=== PATIENT | female | born 2000 | race Hispanic/Latino ===

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

== ENCOUNTER 2021-10-27 23:19 | Emergency (ER) | payer SELFPAY ==
--- OUTSIDE RECORDS SUMMARY | 2021-10-27 23:23 | XMS REPORT | Continuity of Care Document ---
:2000 Author Organization [facility] t Address [address] [place] [address] [address]. [address] [place] [address] Care Team Providers Name Role Phone Alicja MALIK Primary Care Physician Unavailable Joshua SCHMIDT Attending Clinician Unavailable Roxana BENNETT R Attending Clinician Lab Attending Clinician Unavailable Daniel BENNETT, N Attending Clinician Risk Attending Clinician Unavailable Bindu SALTER, L Attending Clinician Shanon MARTIN Attending Clinician Unavailable Payers Payer Name Policy Type Policy Number Effective Date Expiration Date S miranda [place] [employer] [id number] 2016 HEALTH 00:00:00 Problems Condition Condition Condition Status Onset Resolution Last Treating Co mments Source Name Details Category Date Date Treatment Clinician Date Disease Active 2020-10 [facility] (spontaneo (spontaneo 2-08 [place] vaginal [place] 00 [facility] Single Single Disease Active 2020-10 Univers live live 2-08 it y of 00:00: [place] 00 [facility] Branch PUPP PUPP Disease Active 2020-10 Univers (pruritic (pruritic 2-07 ity of urticarial urticarial [place] papules papules 00 Medical and and Branch plaques of plaques of ) ) 38 weeks 38 weeks Disease Active 2020-10 Unive rs gestation gestation 2-07 ity of of of 00:00: [place] 00 [facility] COVID-19 COVID-19 Disease Active 2020-[address] [facility] rs virus IgG virus IgG 1-24 ity of antibody antibody 00:00: [place] [facility] Supervisio Supervisio Disease Active U nivers n of n of 4-12 ity of high-risk high-risk 00:00: Shivani ma 00 [facility] Allergies, Adverse Reactions, Alerts Allergy Allergy Status Severity Reaction(s) Onset Inactive Treating Comm ents Source Name Type Date Date Clinician NO KNOWN Drug Active Univers ALLERGIE Class ity of S [facility] Social History Social Habit Start Date Stop Date Quantity Comments Source ASSERTION 2021-01-10 [facility] 00:00:00 [facility] Exposure to Not sure [facility] SARS-CoV-2 [facility] (event) [place] Alcohol intake 2021-09-24 2021-09-24 Lifetime University of 00:00:00 00:00:00 non-drinker [facility] (finding) [place] Tobacco use and 2021-01-27 2021-01-27 Never used Universit y of exposure 00:00:00 00:00:00 [facility] Sex Ass[birth year] At [birth year] Universit y of 00:00:00 00:00:00 [facility] Smoking Status Start Date Stop Date Source Never smoker [facility] Medications Ordered Filled Start Stop Current Ordering Indication Dosage Frequency Signature Comments Components Source Medication Medication Date Date Medication? Clinician (SIG) Name Name No known 2020-10 No Univers medications 2-19 ity of 15:54: [place] 16 [facility] Branch 2020-10 Yes [id number] 1{tbl} Take 1 Univers [id number] 2-09 tablet by ity of fum-folic 00:00: mouth [place] () 00 daily. Medical 27 mg iron- Branch 1 mg Tab docusate 2020-10 Yes [id number] 240mg Take 1 U nivers calcium 240 2-09 capsule by it y of mg capsule 00:00: mouth [place] 00 daily as Medical needed for Branch Constipati on. ferrous 2020-10 Yes [id number] 325mg Take 1 Un terrell sulfate 325 2-09 tablet by ity of mg (65 mg 00:00: mouth 2 [place] iron) 00 (two) Medical tablet times Branch daily. ibuprofen 2020-10 Yes [id number] 600mg Take 1 Univers 600 mg 2-09 tablet by ity of tablet 00:00: mouth [place] 00 every 6 Medical (six) Branch hours as needed (Pain). Take with food or milk. PNV 67-iron 2020- No [id number] 1{each} Take 1 Univers ps-folate 7-05 09-25 Each by ity of no.1-dha 00:00: 00:00 mouth [place] (VITAFOL 00 :00 daily. Medical ULTRA) 29 Branch mg iron- 1 mg-200 mg Cap Immunizations Ordered Filled Immunization Date Status Comments Sour e Immunization Name Name HPV9 2021-09-25 Completed [facility] 00:00:00 [facility] HPV9 2021-09-25 Completed [facility] 00:00:00 [facility] Influenza Virus 2021-08-04 Completed Universit y of Vaccine [facility], 00:00:00 [place] Me dical Preserv and ABX Branch Free 6 MO-64 YRS Influenza Virus 2021-08-04 Completed Universit y of Vaccine [facility], 00:00:00 [place] Me dical Preserv and ABX Branch Free 6 MO-64 YRS Influenza Virus 2021-08-04 Completed Universit y of Vaccine [facility], 00:00:00 [place] Me dical Preserv and ABX Branch Free 6 MO-64 YRS TDAP 2021-07-21 Completed University 00:00:00 [facility] TDAP 2021-07-21 Completed University of 00:00:00 [facility] TDAP 2021-07-21 Completed [facility] 00:00:00 [facility] Vital Signs Vital Name Observation Time Observation Value Comments Source Systolic blood 2021-10-15 16:54:00 118 mm[Hg] Univer sity of pressure [facility] Diastolic blood 2021-10-15 16:54:00 65 mm[Hg] Unive rsity of pressure [facility] Heart rate 2021-10-15 16:54:00 72 /min [facility] Body temperature 2021-10-15 16:54:[address] [facility] rate 2021-10-15 16:54:00 20 /min [facility] Body height 2021-10-15 16:54:00 149.9 cm [facility] Body weight 2021-10-15 16:54:00 57.063 kg [facility] BMI 2021-10-15 16:54:00 25.41 kg/m2 Universi ty [facility] Systolic blood 2021-08-21 16:17:00 113 mm[Hg] Univer sity of pressure [facility] Diastolic blood 2021-08-21 16:17:00 69 mm[Hg] Unive rsity of pressure [facility] Heart rate 2021-08-21 16:17:00 75 /min Universi [facility] Body temperature 2021-08-21 16:17:[address] [facility] Respiratory rate 2021-08-21 16:17:00 18 /min [facility] Body height 2021-08-21 16:17:00 149.9 cm Universi [facility] Body weight 2021-08-21 16:17:00 64.864 kg Universi [facility] BMI 2021-08-21 16:17:00 28.88 kg/m2 Universi [facility] Body mass index 2021-08-21 16:17:00 91.44 % Unive rsity of (BMI) [Percentile] [facility] ica Per age and sex Branch Procedures Procedure Date / Time Performed Performing Clinician Sour e BILE ACIDS, TOTAL 2021-09-19 14:23:[facility] 2021-09-19 14:22:00 [facility] Branch ALANINE AMINO 2021-09-19 14:22:00 Parrish Palma [facility] TRANSFERASE(SGPT [facility] Branch POCT URINALYSIS 2021-08-21 16:18:00 Lizbeth Gifford [facility] Encounters Start End Encounter Admission Attending Care Care Encounter Source Date/Time Date/Time Type Type Clinicians Facility Department ID 2021-11-05 2021-11-05 Outpatient Joshua SCHMIDT [facility] [id number] [facility] 14:30:00 14:30:00 PERI dean o f [facility] 2021-11-05 2021-11-05 Outpatient Joshua SCHMIDT [facility] [id number] Univers 14:15:00 14:15:00 PERI [id number] ity o f [facility] 2021-10-15 2021-10-15 Outpatient R ROXANA [facility] [id number] Univers 10:45:00 11:11:09 MARKNDA ity o f [facility] 2021-10-15 2021-10-15 Routine Roxana [facility] [[email or web address]] [id number] Univers 10:45:00 11:11:09 Markfabiana R PERIANESTHESIA NURSE [id number] ity of Visit REGIONAL [id number] [place] as MATERNAL [id number] [facility] & CHILD [address] [place] [address] 2021-09-19 2021-09-19 Hospitalist Medical Director Lab, Ang-Rmchp [facility] [[email or web address]] [id number] Univers 08:15:00 08:20:25 Visit Catherine Sanchez PERIANESTHESIA NURSE [id number] ity of REGIONAL [id number] [place] as MATERNAL [id number] [facility] & CHILD [address] [place] [address] 2021-08-21 2021-08-21 Routine Risk, Zfm-Rinhs-Rk/High [facility] [[email or web address]] [id number]. [id number] Univers 11:00:00 13:00:36 Lakshmi Martin PERIANESTHESIA NURSE [id number] ity of Visit REGIONAL [id number] [place] as MATERNAL [id number] [facility] & [address] 2021-08-21 2021-08-21 Outpatient R BINDU [facility] [id number] Univers 11:00:00 13:00:36 LAKSHMI dean [facility] Results Test Description Test Time Test Comments Results Result Comments Source BILE ACIDS, TOTAL 2021-09-24 02:02:14 Test Item Value Reference Range Interpretation Comme nts Bile Acids (test code = 1 umol/L 0-10 INTE RPRETIVE INFORMATION: Bile Acids, 15181-2) Total Reference Interval applies to fasting specime ns.Performed By: [facility] [employer] [place] [address] [id number] aboratory Director: Juhi Bojorquez MD [facility] TRANSFER)2021-09-20 04:45:42 Test Item Value Reference Range Interpretation Comments AST(SGOT) (test code = 4188329834) 20 U/L 13-40 Lab Interpretation (test code = Normal 71872-3) [facility] TRANSFERASE([id number] 04:45:42 Test Item Value Reference Range Interpretation Comments ALTv (test code = 1742-6) 10 U/L 5-35 Lab Interpretation (test code = Normal 47566-6) [facility] W SPECIFIC [id number] 16:18:00 Test Item Value Reference Range Interpretation Comments POCT U SP GRAV (test code = * 1.005-1.025 3255) POCT PH U (test code = 3254) 7 mg/dl 5-8 POCT U LEUK EST (test code = trace Negative - Negative 3263) POCT U NIT (test code = 3262) negative Negative - Negative POCT U PROT (test code = 3259) trace Negative - Negative POCT U GLU (test code = 3256) negative Negative - Negative POCT U KETONE (test code = 3258) negative Negative - Negative POCT U UROBILI (test code = * 0.2-1 3260) POCT U BILI (test code = 3261) * Negative - Negative POCT U BLD (test code = 3257) negative Negative - Negative POCT U COLOR (test code = 3266) POCT U APPEAR (test code = 3267) [facility]
[2021-10-28] MEDS ORDERED: ACETAMINOPHEN 325 MG TABLET ONE (00:04)
[2021-10-28 01:42] LABS: SARS-COV-2 RT PCR POSITIVE (NEGATIVE)
--- NOTE | 2021-10-28 01:45 | EDPHYS ---
Physician Documentation [facility] Name: Suzan Santiago Age: 21 yrs Sex: Female : 2000 Arrival Date: 10/27/2021 Time: 23:24 Bed Waiting Private MD: ED Physician Willian Aguilar HPI: 10/28 01:42 This 21 yrs old Female presents to ER via Ambulatory with complaints of pm1 Nausea/Vomiting/Diarrhea, Hyperventilation. 01:42 The patient or guardian reports cough. Onset: The symptoms/episode began/occurred 3 pm1 day(s) ago. Severity of symptoms: in the emergency department the symptoms have improved. Modifying factors: The symptoms are alleviated by OTC cold preparation, the symptoms are aggravated by nothing. Associated signs and symptoms: Pertinent positives: diarrhea, fever, nausea, vomiting, Pertinent negatives: sore throat. The patient has not experienced similar symptoms in the past. The patient has not recently seen a physician. Patient's brother recently diagnosed with covid. 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 - Social history:: Smoking status: Patient reports the use of cigarette tobacco products, denies chronic smoking, but will smoke occasionally. ROS: 01:42 Eyes: Negative for injury, pain, redness, and discharge, ENT: Negative for injury, pm1 pain, and discharge, Cardiovascular: Negative for chest pain, palpitations, and edema. 01:42 Back: Negative for injury and pain, MS/Extremity: Negative for injury and deformity, Skin: Negative for injury, rash, and discoloration, Neuro: Negative for headache, weakness, numbness, tingling, and seizure. 01:42 Constitutional: Positive for fever, Negative for poor PO intake. 01:42 Respiratory: Positive for cough, Negative for shortness of breath, wheezing. 01:42 Abdomen/GI: Positive for nausea, vomiting, and diarrhea, Negative for abdominal pain, constipation. 01:42 All other systems are negative. Exam: 01:42 Constitutional: This is a well developed, well nourished patient who is awake, alert, pm1 and in no acute distress. Head/Face: Normocephalic, atraumatic. 01:42 Back: No spinal tenderness. No costovertebral tenderness. Full range of motion. 01:42 Skin: Warm, dry with normal turgor. Normal color with no rashes, no lesions, and no evidence of cellulitis. MS/ Extremity: Pulses equal, no cyanosis. Neurovascular intact. Full, normal range of motion. 01:42 Cardiovascular: Exam negative for acute changes, Rate: normal, Rhythm: regular, Pulses: no pulse deficits are appreciated, Heart sounds: normal, normal S1and S2. 01:42 Respiratory: Exam negative for acute changes, respiratory distress, shortness of breath, Breath sounds: are clear throughout. 01:42 Abdomen/GI: Exam negative for acute changes, Inspection: abdomen appears normal, Palpation: abdomen is soft and non-tender, in all quadrants. 01:42 Neuro: Exam negative for acute changes, Orientation: is normal, Mentation: is normal, Motor: is normal, moves all fours, Gait: is steady, at a normal pace, without difficulty. Vital Signs: 10/27 23:58 BP 124 / 71; Pulse 108; Resp 16 S; Temp 100.3(O); Pulse Ox 99% on R/A; Weight 56.25 kg bb (R); Height 4 ft. 11 in. (149.86 cm) (R); Pain 7/10; 23:58 Body Mass Index 25.04 (56.25 kg, 149.86 cm) bb MDM: 10/28 01:43 Patient medically screened. pm1 01:43 Data reviewed: vital signs. Data interpreted: Pulse oximetry: on room air is 99 %. pm1 Interpretation: normal. Counseling: I had a detailed discussion with the patient and/or guardian regarding: the historical points, exam findings, and any diagnostic results supporting the discharge/admit diagnosis, lab results, the need for outpatient follow up, to return to the emergency department if symptoms worsen or persist or if there are any questions or concerns that arise at home. 10/27 23:58 Order name: COVID-19/FLU A+B (Document "Date of Onset" if Symptomatic) bb 10/27 23:58 Order name: COVID-19/FLU A+B; Complete Time: 01:42 EDMS Administered Medications: 01/10 23:58 Drug: Tylenol 650 mg Route: PO; bb Disposition: 10/28 12:19 Co-signature as Attending Physician, Willian Aguilar MD I agree with the assessment and imani plan of care. Disposition Summary: 10/28/21 01:44 Discharge Ordered Location: Home pm1 Problem: new pm1 Symptoms: have improved pm1 Condition: Stable pm1 Diagnosis - Coronavirus infection, unspecified pm1 Followup: pm1 - With: Emergency Department - When: As needed - Reason: Worsening of condition Followup: pm1 - With: Private Physician - When: 2 - 3 days - Reason: Recheck today's complaints, Continuance of care, Re-evaluation by your physician Discharge Instructions: - Discharge Summary Sheet pm1 - COVID-19 pm1 - COVID-19 Frequently Asked Questions pm1 - 10 Things You Can Do to Manage Your COVID-19 Symptoms at Home - [facility] pm1 - COVID-19: Quarantine vs. Isolation - [facility] pm1 Forms: - Medication Reconciliation Form pm1 - Thank You Letter pm1 - Antibiotic Education pm1 - Prescription Opioid Use pm1 Prescriptions: - ondansetron 4 mg Oral tablet,disintegrating - place 1 tablet by TRANSLINGUAL route every 8 hours As needed; 15 tablet; pm1 Refills: 0, Product Selection Permitted - Guaifenesin AC 10-100 mg/5 mL Oral Liquid - take 10 milliliters by ORAL route every 4 hours As needed; 240 milliliter; pm1 Refills: 0, Product Selection Permitted Signatures: Dispatcher [employer] Willian Kaiser MD MD cha Ballard, Brenda, RN RN Chiki Myrick NP MARKET GARDEN WORKER pm1
--- NOTE | 2021-10-28 01:45 | ER ---
Nurse's Notes [facility] Name: Suzan Santiago Age: 21 yrs Sex: Female : 2000 Arrival Date: 10/27/2021 Time: 23:24 Bed Waiting Private MD: Diagnosis: Coronavirus infection, unspecified Presentation: 10/27 23:58 Chief complaint: Patient states: she was exposed to Covid by her brother and started bb having symptoms a few days ago with fever, chills, diarrhea, headache. Pt recently gave Sep 24 she is not breast feeding. Coronavirus screen: chills, diarrhea, fever, headache. Ebola Screen: No symptoms or risks identified at this time. Initial Sepsis Screen: Does the patient meet any 2 criteria? No. Patient's initial sepsis screen is negative. Does the patient have a suspected source of infection? No. Patient's initial sepsis screen is negative. Risk Assessment: Do you want to hurt yourself or someone else? Patient reports no desire to harm self or others. Onset of symptoms was October 24, 2021. 23:58 Method Of Arrival: Ambulatory 23:58 Acuity: LEATHA 4 bb Triage Assessment: 10/28 00:00 General: Appears in no apparent distress. uncomfortable, Behavior is calm, cooperative. bb Pain: Complains of pain in all over Pain currently is 7 out of 10 on a pain scale. Neuro: Level of Consciousness is awake, alert, obeys commands, Oriented to person, place, time, situation. Cardiovascular: Capillary refill is > 3 seconds Patient's skin is warm and dry. Respiratory: Respiratory effort is even, unlabored, Respiratory pattern is regular. GI: Reports diarrhea. Derm: Skin is pink, warm \T\ dry. Musculoskeletal: Circulation, motion, and sensation intact. 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 - Social history:: Smoking status: Patient reports the use of cigarette tobacco products, denies chronic smoking, but will smoke occasionally. Vital Signs: 10/27 23:58 BP 124 / 71; Pulse 108; Resp 16 S; Temp 100.3(O); Pulse Ox 99% on R/A; Weight 56.25 kg bb (R); Height 4 ft. 11 in. (149.86 cm) (R); Pain 7/10; 23:58 Body Mass Index 25.04 (56.25 kg, 149.86 cm) bb ED Course: 23:24 Patient arrived in ED. kc5 10/28 00:00 Triage completed. bb 00:00 Arm band placed on Patient placed in waiting room, Patient notified of wait time. bb Antipyretics given from triage as ordered by an ER provider. covid swab sent. Family accompanied patient. 01:42 Chiki Farga NP is PHCP. pm1 01:42 Willian Aguilar MD is Attending Physician. pm1 Administered Medications: 10/27 23:58 Drug: Tylenol 650 mg Route: PO; bb Outcome: 10/28 01:44 Discharge ordered by . pm1 02:02 Patient left the ED. pm1 Signatures: Jacquelyn Dickens RN RN bb Chiki Fraga NP INFORMAL WAITER/WAITRESS pm1 Kari Duvall kc5
[2021-10-28 02:18] VITALS: BP 124/71; TEMP 100.3; O2SAT 99
== END 2021-10-28 02:02 | disposition home or self-care (01) ==
LOC: ER 23:19
DX: U07.1 COVID-19 (principal); F17.210 Nicotine dependence, cigarettes, uncomplicated
CPT/HCPCS: 0240U; 99282

== ENCOUNTER 2021-10-29 18:57 | Emergency (ER) | payer OTHER, SELFPAY ==
--- OUTSIDE RECORDS SUMMARY | 2021-10-29 19:00 | XMS REPORT | Continuity of Care Document ---
:2000 Author Organization [facility] t Address [address] [place] [address] Dr. Rebolledo[address] [place] [id number] Care Team Providers Name Role Phone Alicja MALIK Primary Care Physician Unavailable Joshua SCHMIDT Attending Clinician Unavailable Joshua Waters Attending Clinician Lab Attending Clinician Unavailable Daniel BENNETT, N Attending Clinician Risk Attending Clinician Unavailable Shanon Justice Attending Clinician Shanon MARTIN Attending Clinician Unavailable Alicja MALIK Attending Clinician Unavailable Payers Payer Name Policy Type Policy Number Effective Date Expiration Date Robin jean [place] [employer] [id number] 2016 HEALTH 00:00:00 [place]ID [place] [id number] 2021 2021 00:00:00 00:00:00 Problems Condition Condition Condition Status Onset Resolution Last Treating Co mments Source Name Details Category Date Date Treatment Clinician Date Disease Active 2020-10 Univers (spontaneo (spontaneo 2-08 [place] 00 [facility] Single Single Disease Active 2020-10 Univers live live 2-08 it y of 00:00: [place] 00 [facility] PUPP PUPP Disease Active 2020-10 Univers (pruritic (pruritic 2-07 [place] urtic[place] pap[place] papules 00 [facility] and Branch plaques of plaques of ) ) 38 weeks 38 weeks Disease Active 2020-10 Unive rs gestation gestation 2-07 ity of of of 00:00: [place] 00 [facility] COVID-19 COVID-19 Disease Active 2020-10 Unive rs virus IgG virus IgG 1-24 ity of antibody antibody 00:00: [place] detected detected 00 Medica l Branch Supervisio Supervisio Disease Active U nivers n of n of 4-12 ity of high-risk high-risk 00:00: Shivani ma 00 [facility] Allergies, Adverse Reactions, Alerts Allergy Allergy Status Severity Reaction(s) Onset Inactive Treating Comm ents Source Name Type Date Date Clinician NO KNOWN Drug Active Univers ALLERGIE Class ity of S [facility] Social History Social Habit Start Date Stop Date Quantity Comments Source ASSERTION 2021-01-10 University 00:00:[address] [facility] Exposure to Not sure [facility] SARS-CoV-2 [facility] (event) [place] Alcohol intake 2021-09-24 2021-09-24 Lifetime University of 00:00:00 00:00:00 non-drinker [facility] (finding) [place] Tobacco use and 2021-01-27 2021-01-27 Never used Universit y of exposure 00:00:00 00:00:[address] [facility] Sex Assigned At [birth year] Universit y of 00:00:00 00:00:[address] [facility] Smoking Status Start Date Stop Date Source Never smoker [facility] Medications Ordered Filled Start Stop Current Ordering Indication Dosage Frequency Signature Comments Components Source Medication Medication Date Date Medication? Clinician (SIG) Name Name No known 2020-10 No Univers medications 2-19 ity of 15:54: [address] 2020-10 Yes [id number] 1{tbl} Take 1 Univers [id number] 2-09 tablet by ity of fum-folic 00:00: mouth [place] () 00 daily. Medical 27 mg iron- Branch 1 mg Tab docusate 2020-10 Yes [id number] 240mg Take 1 U nivers calcium 240 2-09 capsule by it y of mg capsule 00:00: mouth [place] 00 daily as Medical needed for Branch Constipati on. ferrous 2020-10 Yes [id number] 325mg Take 1 Un terrell sulfate 325 2-09 tablet by ity of mg (65 mg 00:00: mouth 2 [place] iron) 00 (two) Medical tablet times Branch daily. ibuprofen 2020-10 Yes [id number] 600mg Take 1 Univers 600 mg 2-09 tablet by ity of tablet 00:00: mouth [place] 00 every 6 Medical (six) Branch hours as needed (Pain). Take with food or milk. PNV 67-iron 2021- No [id number] 1{each} Take 1 Univers ps-folate 7-05 12-09 Each by ity of no.1-dha 00:00: 00:00 mouth [place] (VITAFOL 00 :00 daily. Medical ULTRA) 29 Branch mg iron- 1 mg-200 mg Cap Immunizations Ordered Filled Immunization Date Status Comments [facility] e Immunization Name Name HPV9 2021-09-25 Completed [facility] 00:00:[address] [facility] HPV9 2021-09-25 Completed [facility] 00:00:[address] [facility] Influenza Virus 2021-08-04 Completed Universit y of Vaccine Quad IM, 00:00:00 [facility] dical Preserv and ABX Branch Free 6 MO-64 YRS Influenza Virus 2021-08-04 Completed Universit y of Vaccine Quad IM, 00:00:00 [place] Me dical Preserv and ABX Branch Free 6 MO-64 YRS Influenza Virus 2021-08-04 Completed Universit y of Vaccine Quad IM, 00:00:00 [place] Me dical Preserv and ABX Branch Free 6 MO-64 YRS TDAP 2021-07-21 Completed [facility] 00:00:[address] [facility] TDAP 2021-07-21 Completed University 00:00:[address] [facility] TDAP 2021-07-21 Completed [facility] 00:00:[address] [facility] Vital Signs Vital Name Observation Time Observation Value Comments Source Systolic blood 2021-10-15 16:54:00 118 mm[Hg] Univer sity of pressure [facility] Diastolic blood 2021-10-15 16:54:00 65 mm[Hg] Unive rsity of pressure [facility] Heart rate 2021-10-15 16:54:00 72 /min [facility] Body temperature 2021-10-15 16:54:00 36.61 Arlette [facility] Respiratory rate 2021-10-15 16:54:00 20 /min [facility] Body height 2021-10-15 16:54:00 149.9 cm Universi ty [facility] Body weight 2021-10-15 16:54:00 57.063 kg Universi ty of [facility] BMI 2021-10-15 16:54:00 25.41 kg/m2 Universi ty [facility] Systolic blood 2021-08-21 16:17:00 113 mm[Hg] Univer sity of pressure [facility] Diastolic blood 2021-08-21 16:17:00 69 mm[Hg] Unive rsity of pressure [facility] Heart rate 2021-08-21 16:17:00 75 /min Universi ty [facility] Body temperature 2021-08-21 16:17:00 36.78 Arlette [facility] Respiratory rate 2021-08-21 16:17:00 18 /min [facility] Body height 2021-08-21 16:17:00 149.9 cm Universi ty [facility] Body weight 2021-08-21 16:17:00 64.864 kg Universi ty [facility] BMI 2021-08-21 16:17:00 28.88 kg/m2 Universi ty [facility] Body mass index 2021-08-21 16:17:00 91.44 % Unive rsity of (BMI) [Percentile] [facility] ica Per age and sex Branch Procedures Procedure Date / Time Performed Performing Clinician Ron e BILE ACIDS, TOTAL 2021-09-19 14:23:00 Parrish [facility] SGOT (ASPARTATE AMINO 2021-09-19 14:22:00 [facility] ALANINE AMINO 2021-09-19 14:22:00 Parrish Palma [facility] TRANSFERASE(SGPT Medical Branch POCT URINALYSIS 2021-08-21 16:18:00 Lizbeth Gifford [facility] Encounters Start End Encounter Admission Attending Care Care Encounter Source Date/Time Date/Time Type Type Clinicians Facility Department ID 2021-11-05 2021-11-05 Outpatient R ROXANA [facility] [id number] Univers 14:30:00 14:30:00 LAN dean o f [facility] 2021-11-05 2021-11-05 Outpatient R ROXANA [facility] [id number] Univers 14:15:00 14:15:00 LAN [id number] ity o f [facility] 2021-10-15 2021-10-15 Outpatient R ROXANA [facility] [id number] Univers 10:45:00 11:11:09 MARKNDA ity o f [facility] 2021-10-15 2021-10-15 Routine Roxana [facility] [id number] Univers 10:45:00 11:11:09 Lan R GROUP WORKER [id number] ity of Visit REGIONAL [id number] Carlos as MATERNAL [id number] [facility] ical & CHILD [address] [place] [address] 2021-09-19 2021-09-19 Dope Sprayer Lab, Ang-chp [facility] [id number] Univers 08:15:00 08:20:25 Visit Catherine Sanchez GROUP WORKER [id number] ity of REGIONAL [id number] Carlos as MATERNAL [id number] [facility] ical & CHILD [address] [place] [address] 2021-08-21 2021-08-21 Routine Risk, Bkq-Sbull-Uc/High [facility] [id number]. [id number] Univers 11:00:00 13:00:36 Lakshmi Martin GROUP WORKER [id number] ity of Visit REGIONAL [id number] Carlos as MATERNAL [id number] [facility] ical & CHILD [address] [place] [address] 2021-08-21 2021-08-21 Outpatient R BINDU [facility] [id number] Univers 11:00:00 13:00:36 LAKSHMI dean [facility] 2021-03-24 2021-03-24 Outpatient Gabe MALIK [facility] [id number] Univers 13:00:00 13:38:30 RICH dean [facility] Results Test Description Test Time Test Comments Results Result Comments Source BILE ACIDS, TOTAL 2021-09-24 02:02:14 Test Item Value Reference Range Interpretation Comme nts Bile Acids (test code = 1 umol/L 0-10 INTE RPRETIVE INFORMATION: Bile Acids, 90318-9) Total Reference Interval applies to fasting specime ns.Performed By: [employer] [place] [id number] aboratory Director: Juhi Bojorquez MD [facility]2021-09-20 04:45:42 Test Item Value Reference Range Interpretation Comments AST(SGOT) (test code = 1223799555) 20 U/L 13-40 Lab Interpretation (test code = Normal 94333-1) [facility] TRAN[facility]([id number] 04:45:42 Test Item Value Reference Range Interpretation Comments ALTv (test code = 1742-6) 10 U/L 5-35 Lab Interpretation (test code = Normal 35079-8) [facility] W SPECIFIC [id number] 16:18:00 Test Item Value Reference Range Interpretation [...] POCT U APPEAR (test code = 3267) [facility]
[2021-10-29] MEDS ORDERED: ONDANSETRON 4 MG (ODT) TAB ONE (19:27)
[2021-10-29] MEDS ORDERED: ACETAMINOPHEN 500 MG TAB ONE (19:27)
[2021-10-29] MEDS ORDERED: NA CHLORIDE 0.9% 1,000 ML ONE (21:37)
[2021-10-29 21:54] LABS: Absolute Lymphocytes (CBC) 0.7 K/uL (0.7-4.9); Hematocrit 36.4 % (36.0-45.0); Lymphocytes % 5.1 % (15.3-44.8); MPV 8.1 fL (7.6-11.3); RBC Red Blood Cell Count 4.19 M/uL (3.86-4.86)
[2021-10-29 22:19] LABS: BUN Blood Urea Nitrogen 8 mg/dL (7-18); Bicarbonate 23 mmol/L (21-32); Glucose Level 98 mg/dL (74-106); Potassium 3.4 mmol/L (3.5-5.1); Sodium Level 135 mmol/L (136-145)
[2021-10-29 22:37] LABS: Urine Blood 1+ (Negative); Urine Glucose Negative (Negative); Urine Protein 2+ (Negative)
--- NOTE | 2021-10-29 23:06 | EDPHYS ---
Physician Documentation [facility] Name: Suzan Santiago Age: 21 yrs Sex: Female : 2000 Arrival Date: 10/29/2021 Time: 19:00 Bed 12 Private MD: ED Physician Deb Bashir HPI: 10/29 22:48 This 21 yrs old Female presents to ER via Ambulatory with complaints of kb Nausea/Vomiting. 22:48 The patient presents to the emergency department with nausea, vomiting. Onset: The kb symptoms/episode began/occurred 2 day(s) ago. Possible causes: covid. The symptoms are aggravated by nothing. The symptoms are alleviated by nothing. Associated signs and symptoms: Pertinent positives: nausea, vomiting. Severity of symptoms: At their worst the symptoms were moderate in the emergency department the symptoms are unchanged. The patient has not experienced similar symptoms in the past. The patient has been recently seen by a physician: The patient has been recently seen at the [facility] Emergency Department, this week. Pt reports she was diagnosed with covid 2 days ago and her symptoms are getting worse. Reports nausea, vomiting, cough, ear pain, sore throat. 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 - Social history:: Smoking status: Reported history of juuling and/or vaping. ROS: 22:47 Constitutional: Negative for fever, chills, and weight loss. kb 22:47 Respiratory: Positive for cough, Negative for dyspnea on exertion, hemoptysis, orthopnea, pleurisy, shortness of breath, sputum production, wheezing. 22:47 Abdomen/GI: Positive for nausea and vomiting, Negative for abdominal pain. 22:47 All other systems are negative. 22:47 ENT: Positive for ear pain, sore throat. kb Exam: 22:48 Constitutional: This is a well developed, well nourished patient who is awake, alert, kb and in no acute distress. Head/Face: Normocephalic, atraumatic. ENT: Moist Mucous membranes Cardiovascular: Regular rate and rhythm with a normal S1 and S2. No gallops, murmurs, or rubs. No pulse deficits. Respiratory: Respirations even and unlabored. No increased work of breathing. Talking in full sentences Abdomen/GI: Soft, non-tender. No distention Skin: Warm, dry with normal turgor. Normal color. MS/ Extremity: Pulses equal, no cyanosis. Neurovascular intact. Full, normal range of motion. Neuro: Awake and alert, GCS 15, oriented to person, place, time, and situation. Moves all extremities. Normal gait. Psych: Awake, alert, with orientation to person, place and time. Behavior, mood, and affect are within normal limits. 22:48 ENT: External ear(s): are unremarkable, Ear canal(s): are normal, TM's: are normal, Nose: is normal, Mouth: is normal, Posterior pharynx: is normal. Vital Signs: 19:16 BP 130 / 78; Pulse 109; Resp 20; Temp 100.6(TE); Pulse Ox 96% on R/A; Weight 55.34 kg; jl7 Height 4 ft. 11 in. (149.86 cm); Pain 8/10; 22:29 BP 113 / 63; Pulse 100; Resp 20; Pulse Ox 100% on R/A; sf1 19:16 Body Mass Index 24.64 (55.34 kg, 149.86 cm) jl7 MDM: 20:51 Patient medically screened. kb 22:47 Data reviewed: vital signs, nurses notes. Data interpreted: Pulse oximetry: on room air kb is 100 %. Interpretation: normal. Counseling: I had a detailed discussion with the patient and/or guardian regarding: the historical points, exam findings, and any diagnostic results supporting the discharge/admit diagnosis, lab results, radiology results, the need for outpatient follow up, a family practitioner, to return to the emergency department if symptoms worsen or persist or if there are any questions or concerns that arise at home. 23:05 ED course: Pt tolerating po intake. kb 23:29 ED course: Pt requested something different for nausea for home because the zofran she kb has isn't working. 10/29 20:51 Order name: CBC with Diff; Complete Time: 22:13 kb 10/29 20:51 Order name: Basic Metabolic Panel; Complete Time: 22:23 kb 10/29 21:21 Order name: Chest Single View XRAY kb 10/29 22:37 Order name: Urine Dipstick-Ancillary; Complete Time: 22:38 EDMS 10/29 22:38 Order name: Urine --Ancillary (enter results) mw2 10/29 22:38 Order name: Urine Microscopic Only kb 10/29 20:51 Order name: IV Start; Complete Time: 21:10 kb 10/29 22:13 Order name: Urine Dipstick-Ancillary (obtain specimen); Complete Time: 22:38 kb 10/29 22:38 Order name: PO challenge; Complete Time: 23:05 kb Administered Medications: 19:27 Drug: Acetaminophen 1000 mg Route: PO; tw5 19:27 Drug: Ondansetron 4 mg Route: PO; tw5 21:45 Drug: NS 0.9% 1000 ml Route: IV; Rate: 1000 ml; Site: left antecubital; sf1 Disposition: 10/30 08:04 Co-signature as Attending Physician, Deb Bashir MD I agree with the assessment and sp3 plan of care. Disposition Summary: 10/29/21 23:05 Discharge Ordered Location: Home kb Condition: Stable kb Diagnosis - Nausea with vomiting, unspecified kb - Coronavirus infection, unspecified kb Followup: kb - With: Emergency Department - When: As needed - Reason: Worsening of condition Followup: kb - With: Private Physician - When: 2 - 3 days - Reason: Recheck today's complaints, Continuance of care, Re-evaluation by your physician Discharge Instructions: - Discharge Summary Sheet kb - Nausea and Vomiting, Adult, [id number] kb - Viral Respiratory Infection, [id number] kb - COVID-19 kb Forms: - Medication Reconciliation Form kb - Thank You Letter kb - Antibiotic Education kb - Prescription Opioid Use kb Prescriptions: - promethazine 25 mg Oral Tablet - take 1 tablet by ORAL route every 8 hours As needed; 20 tablet; Refills: 0, kb Product Selection Permitted Signatures: Dispatcher [employer] EDMS Francoise Jackson, Ciera Crowley, RN RN jl7 Deb Bashir MD MD sp3 Tamar Campuzano tw5 Tracee Dutton RN RN sf1
--- NOTE | 2021-10-29 23:06 | ER ---
Nurse's Notes [facility] Name: Suzan Santiago Age: 21 yrs Sex: Female : 2000 Arrival Date: 10/29/2021 Time: 19:00 Bed 12 Private MD: Diagnosis: Nausea with vomiting, unspecified;Coronavirus infection, unspecified Presentation: 10/29 19:17 Chief complaint: Patient states: " My head feels like it is about to explode, I came in [facility] a couple of days ago because I have covid. I am still not able to keep food or fluids down.". Coronavirus screen: Vaccine status: Patient reports being unvaccinated. Ebola Screen: Patient negative for fever greater than or equal to 101.5 degrees Fahrenheit, and additional compatible Ebola Virus Disease symptoms Patient denies exposure to infectious person. Patient denies travel to an Ebola-affected area in the 21 days before illness onset. Initial Sepsis Screen: Does the patient meet any 2 criteria? HR > 90 bpm. Does the patient have a suspected source of infection? No. Patient's initial sepsis screen is negative. Risk Assessment: Do you want to hurt yourself or someone else? Patient reports no desire to harm self or others. Onset of symptoms is unknown. 19:17 Method Of Arrival: Ambulatory [facility] 19:17 Acuity: LEATHA 3 jl7 Triage Assessment: 19:18 General: Appears in no apparent distress. ill, Behavior is calm, cooperative, jl7 appropriate for age. Pain: Complains of pain in abdomen Pain currently is 8 out of 10 on a pain scale. GI: Reports nausea, vomiting. 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 - Social history:: Smoking status: Reported history of juuling and/or vaping. Screenin:21 Abuse screen: Denies threats or abuse. Denies injuries from another. Nutritional jl7 screening: No deficits noted. Nutritional screening: Has had N/V for 3 or more days. Tuberculosis screening: No symptoms or risk factors identified. Fall Risk None identified. Assessment: 21:15 General: Appears in no apparent distress. comfortable. Pain: Complains of pain in sf1 abdomen Pain level that patient reports is acceptable is 5 out of 10 on a pain scale. Neuro: No deficits noted. Cardiovascular: No deficits noted. Respiratory: No deficits noted. GI: Abdomen is flat, non-distended, Reports diarrhea, rectal bleeding, intolerance of fluids, intolerance of food, nausea, vomiting, since 3 days ago. : No deficits noted. EENT: Reports pain in right ear and left ear. Derm: No deficits noted. Musculoskeletal: No deficits noted. Vital Signs: 19:16 BP 130 / 78; Pulse 109; Resp 20; Temp 100.6(TE); Pulse Ox 96% on R/A; Weight 55.34 kg; jl7 Height 4 ft. 11 in. (149.86 cm); Pain 8/10; 22:29 BP 113 / 63; Pulse 100; Resp 20; Pulse Ox 100% on R/A; sf1 19:16 Body Mass Index 24.64 (55.34 kg, 149.86 cm) jl7 ED Course: 19:00 Patient arrived in ED. bd 19:18 Triage completed. jl7 19:18 Arm band placed on right wrist. jl7 19:21 Patient has correct armband on for positive identification. jl7 20:51 Francoise Jackson FNP-C is [facility]. kb 20:51 Deb Bashir MD is Attending Physician. kb 20:52 Tracee Dutton RN is Primary Nurse. sf1 21:10 Basic Metabolic Panel Sent. sf1 21:11 CBC with Diff Sent. sf1 21:15 Awaiting lab results. sf1 21:15 Inserted saline lock: 20 gauge in left antecubital area, using aseptic technique. sf1 22:11 Chest Single View XRAY In Process Unspecified. EDMS 22:39 Urine --Ancillary (enter results) Sent. sf1 22:42 Urine Microscopic Only Sent. sf1 23:15 No provider procedures requiring assistance completed. IV discontinued, bleeding sf1 controlled, No redness/swelling at site. Pressure dressing applied. Administered Medications: 19:27 Drug: Acetaminophen 1000 mg Route: PO; tw5 19:27 Drug: Ondansetron 4 mg Route: PO; tw5 21:45 Drug: NS 0.9% 1000 ml Route: IV; Rate: 1000 ml; Site: left antecubital; sf1 Outcome: 23:05 Discharge ordered by MD. pierce 23:15 Discharged to home ambulatory. sf1 23:15 Condition: stable 23:15 Discharge instructions given to patient, Instructed on discharge instructions, follow up and referral plans. medication usage, Demonstrated understanding of instructions, follow-up care, medications, Prescriptions given X 1. 23:16 Patient left the ED. sf1 Signatures: Dispatcher [employer] EDMS Francoise Jackson, DONALD-C DISPATCHER [employer]-Ashely Pierre Jahala, RN RN jl7 Tamar Campuzano tw5 Tracee Dutton RN RN sf1
[2021-10-29 23:39] VITALS: TEMP 100.6
[2021-10-29 23:40] VITALS: BP 113/63; O2SAT 100
[2021-10-29 23:50] LABS: Urine Bacteria <20 /HPF (<20)
--- NOTE | 2021-10-30 09:54 | RAD REPORT ---
EXAM DESCRIPTION: RAD - Chest Single View - 10/29/2021 10:11 pm CLINICAL HISTORY: COUGH Chest pain. COMPARISON: Chest Pa And Lat (2 Views) dated 11/22/2019; Abdomen 1 View (KUB) dated 09/17/2016; Chest S rosa maria View dated 09/17/2016 FINDINGS: Portable technique limits examination quality. The lungs are mildly underinflated but grossly clear. The heart is normal in size. No displaced fract ures.Small metallic structure is seen projecting over the lower thoracic spine of unclear etiology an d significance. Recommend clinical correlation.
== END 2021-10-29 23:16 | disposition home or self-care (01) ==
LOC: ER 18:57
DX: U07.1 COVID-19 (principal)
CPT/HCPCS: 87088; 85025; 87086; 80048; 36415; 81025; 71045; 99284; J7030; 81003; 81015

== ENCOUNTER 2023-08-24 | Emergency (ER) | payer OTHER ==
--- OUTSIDE RECORDS SUMMARY | 2023-08-24 00:18 | XMS REPORT | Continuity of Care Document ---
:[address] [facility] t Address [address] [facility] [address] [place] [id number] Care Team Providers Name Role Phone Justyna Kaufman Primary Care Physician [phone] ELEANOR DUVALL Attending Clinician Unavailable ELEANOR DUVALL Attending Clinician Unavailable DARA JACQUES Attending Clinician Unavailable JUSTYNA GIFFORD Attending Clinician Unavailable RANJITH CONTEH Attending Clinician Unavailable Robbie Del Castillo MD, Margareth Attending Clinician [phone] Guru Whalen MD, Ranjith Attending Clinician [phone] Navin Carlson MD Attending Clinician Eduardo Lyons MD Attending Clinician Doctor Unassigned, [place] Attending Clinician Unavailable Justyna Kaufman Attending Clinician [phone] MELANIE ROSALES Attending Clinician Unavailable Melanie Rosales MD Attending Clinician [phone] 2, [facility]ak[facility] Nst Ultrasound Attending Clinician Unavailable UltrasoundManjinder Attending Clinician Unavailable Eleanor Duvall MD Attending Clinician Risk, Scl-Oyjcc-Ts/High Attending Clinician Unavailable SALEEM WATSON Attending Clinician Unavailable Cyn Salmeron Attending Clinician Unavailable Saleem Watson MD Attending Clinician SLICK DRIVER Attending Clinician Unavailable 3, [facility] Usg Room Attending Clinician Unavailable Villa NOVOA, Slick Curtis Attending Clinician WILLIAN DURAN Attending Clinician Unavailable WILLIAN DURAN Attending Clinician Unavailable 1, [facility] Usg Room Attending Clinician Unavailable Lab, [facility] Attending Clinician Unavailable 2, [facility] Us Room Attending Clinician Unavailable Evaristo PICKERINGP, May Attending Clinician Nurse, Kayode chp Exp Cprit Obgyn Attending Clinician Unavail able JACQUELYN WONG Attending Clinician Unavailable Provider, [facility] Temp Attending Clinician Unavailable Roxana PICKERINGP, Lan Lewis Attending Clinician Jacquelyn Wong CNM Attending Clinician Rich Malik MD Attending Clinician LAN SCHMIDT Attending Clinician Unavailable Estuardo Peguero MD Attending Clinician Epifanio Wade MD Attending Clinician FRANCO SUMMERS Attending Clinician Unavailable Franco Summers MD Attending Clinician NITHYA PARMAR Attending Clinician Unavailable Nithya Parmar MD Attending Clinician Matheus Sosa MD Attending Clinician Akiko NOVOA PHD, Maria Esther Attending Clinician Loy Nj Attending Clinician LOY CARVAJAL Attending Clinician Unavailable Lab, [facility]-Rmchp Attending Clinician Unavailable TRAN LADD Attending Clinician Unavailable Tran Chu Attending Clinician [phone] LAKSHMI MARTIN Attending Clinician Unavailable Veronica [facility] CHO[facility] MED[facility] CENTERLakshmi Bernal Attending Clinician Reno Avina MD Attending Clinician Lab/Pedi, [facility] Attending Clinician Unavailable Katie GRANT, Chenta Washington Attending Clinician 1, [facility] Us Room Attending Clinician Unavailable RICH MALIK Attending Clinician Unavailable RANJITH CONTEH Admitting Clinician Unavailable Ranjith Conteh MD Admitting Clinician [phone] MELANIE ROSALES Admitting Clinician Unavailable Melanie Rosales MD Admitting Clinician [phone] FRANCO SUMMERS Admitting Clinician Unavailable Franco Summers MD Admitting Clinician NITHYA PARMAR Admitting Clinician Unavailable Nithya Parmar MD Admitting Clinician Payers Payer Name Policy Type Policy Number Effective Date Expiration Date Robin [employer] [id number] 2022 00:00:00 [place] [id number] 2021 00:00:00 MEDICAID PENDING PENDING 2021 00:00:00 Problems Condition Condition Condition Status Onset Resolution Last Treating Co mments Source Name Details Category Date Date Treatment Clinician Date Single Single Disease Active 2022-10 Univers live live 0-23 ity of 00:00: [address] Status Status Disease Active 2022-10 Univers post tubal post tubal 0-23 it y of ligation ligation 00:00: [address] Disease Active 2022-10 Univers premature premature 0-21 [place] of rupture [place] membranes membranes 00 [facility] (PPROM) (PPROM) [place] with onset with onset of labor of labor within 24 within 24 hours of hours of rupture in rupture in third third trimester, trimester, antepartum antepartum 35 weeks 35 weeks Disease Active 2022-10 Unive rs gestation gestation 0-17 ity of of of 00:00: [place] 00 [facility] Disease Active 2022-10 Univers uterine uterine 0-17 ity of contractio contractio 00:[place] 00 [facility] trimester, trimester, antepartum antepartum IUGR IUGR Disease Active Univers (intrauter (intrauter 8-08 it y of ine growth ine growth 00:00[place] restrictio restrictio 00 Me dical n) n) [place] affecting affecting care of care of mother mother Supervisio Supervisio Disease Active U nivers n of n of 4-17 ity of high-risk high-risk 00:[place] [facility] Multiparit Multiparit Disease Active U nivers y y 4-17 ity of 00:00: [place] 00 [facility] History of History of Disease Active Overview : Univers 4-17 Formattin ity o f delivery, delivery, 00:00: g of this [place] currently currently 00 note [facility] might be Bran ch different from the original. Delivery at 36 weeks Short Short Disease Active Univers interval interval 4-17 ity of between between 00:00: [place] pregnancie pregnancie 00 Me dical s s Branch affecting affecting , , antepartum antepartum Other Other Disease Active 2021-10 Univers general general 1-29 ity of counseling counseling 00:00: [place] and advice and advice 00 [facility] Branch contracept contracept markel markel management management Chorioamni Chorioamni Disease Active 2021-10 U nivers onitis onitis 0-14 ity of 00:00: [place] 00 [facility] 36 weeks 36 weeks Disease Active 2021-10 Unive rs gestation gestation 0-13 ity of of of 00:00: [place] 00 [facility] Disease Active 2021-10 Univers premature premature 0-13 ity of rupture of rupture of 00[place]00[place] membranes membranes 00 [facility] (PPROM) (PPROM) Branch with with unknown unknown onset of onset of labor labor Disease Active 2021-10 Univers premature premature 0-13 ity of rupture of rupture of 00:00: [place] membranes membranes 00 [facility] (PPROM) (PPROM) Branch with onset with onset of labor of labor within 24 within 24 hours of hours of rupture in rupture in third third trimester, trimester, antepartum antepartum Disease Active 2021-10 Univers contractio contractio 0-04 it y of ns ns 00:00: [place] 00 [facility] 35 weeks 35 weeks Disease Active 2021-10 Unive rs gestation gestation 0-04 ity of of of 00:00: [place] 00 [facility] Short Short Disease Active Univers interval interval 3-09 ity of between between 00:00: [place] pregnancie pregnancie 00 Me dical s s Branch affecting affecting in third in third trimester, trimester, antepartum antepartum Multiparit Multiparit Disease Active 2021- U nivers y y 3-09 ity of 00:00: [place] [facility] Short Short Disease Active Univers interval interval 3-09 ity of between between 00:00: [place] pregnancie pregnancie 00 Me dical s s Branch affecting affecting in first in first trimester, trimester, antepartum antepartum BMI BMI Disease Active Univers 28.0-28.9, 28.0-28.9, 1-19 it y of adult adult 00:00: [place] [facility] Over Over Disease Active Univers weight weight 1-19 ity of 00:00: [place] [facility] Well woman Well woman Disease Active U nivers exam exam 1-19 ity of 00:00: [place] [facility] BMI BMI Disease Active Univers 28.0-28.9, 28.0-28.9, 1-19 it y of adult adult 00:00: [place] [facility] Disease Active 2020-10 Univers (normal (normal 2-08 ity of spontaneou spontaneou 00:00[place] vaginal s vaginal 00 [facility] delivery) delivery) Bran ch Disease Active 2020-10 Univers (spontaneo (spontaneo 2-08 it y of us vaginal us vaginal 00:00: [place] delivery) delivery) [facility] Single Single Disease Active 2020-10 Univers live live 2-08 it y of 00:00: [place] [facility] PUPP PUPP Disease Active 2020-10 Univers (pruritic (pruritic 2-07 ity of urticarial urticarial 00:00: [place] papules papules 00 [facility] and and [place] plaques of plaques of ) ) 38 weeks 38 weeks Disease Active 2020-10 Unive rs gestation gestation 2-07 ity of of of 00:00: [place] [facility] COVID-19 COVID-19 Disease Active 2020-10 Unive rs virus IgG virus IgG 1-24 ity of antibody antibody 00:00: [place] detected detected 00 Medica l Branch Supervisio Supervisio Disease Active U nivers n of high n of high 4-12 ity of risk risk 00:00: [place] 00 Medi shirley in third in third Branch trimester trimester Allergies, Adverse Reactions, Alerts Allergy Allergy Status Severity Reaction(s) Onset Inactive Treating Comm ents Source Name Type Date Date Clinician NO KNOWN Drug Active Univers ALLERGIE Class ity of S [facility] Social History Social Habit Start Date Stop Date Quantity Comments Source ASSERTION 2022-12-14 University 00:00:00 [facility] Gender identity Universit y of [facility] Sexual orientation Univer sity of [facility] History SDOH University o f Alcohol Frequency [facility] [place] edical [place] History SDOH University o f Alcohol Std Drinks [facility] History [facility] o f Alcohol Binge [facility] al [place] Alcohol intake 2023-08-07 2023-08-07 Ex-drinker [facility] 00:00:00 00:00:00 (finding) [facility] Exposure to 2023-02-19 2023-03-01 Not sure [facility] SARS-CoV-2 (event) 00:00:00 10:35:00 [facility] History of Social 2023-03-01 2023-03-01 Univers ity of function 00:00:00 00:00:00 [facility] Tobacco use and 2022-05-13 2022-05-13 Smokeless Universit y of exposure 00:00:00 00:00:00 tobacco non-user [facility] Alcohol Comment 2021-11-05 2021-11-05 social Universit y of 00:00:00 00:00:00 [facility] Sex Assigned At [birth year] Universit y of 00:00:00 00:00:00 [facility] Smoking Status Start Date Stop Date Source Never smoked tobacco [facility] Medications Ordered Filled Start Stop Current Ordering Indication Dosage Frequency Signature Comments Components Source Medication Medication Date Date Medication? Clinician (SIG) Name Name ibuprofen 2022-10 Yes [id number] 600mg Take 1 U nivers 600 mg 0-23 tablet by ity of tablet 00:00: mouth [place] 00 every 6 Medical (six) Branch hours as needed (Pain). Take with food or milk. ibuprofen 2022-10 Yes [id number] 600mg Take 1 U nivers 600 mg 0-23 tablet by ity of tablet 00:00: mouth [place] 00 every 6 Medical (six) Branch hours as needed (Pain). Take with food or milk. ibuprofen 2022-10 Yes [id number] 600mg Take 1 U nivers 600 mg 0-23 tablet by ity of tablet 00:00: mouth [place] 00 every 6 Medical (six) Branch hours as needed (Pain). Take with food or milk. HYDROcodone 2022-10- Yes [id number] 1{tbl} Take 1 U nivers -acetaminop 0-23 10-31 tablet by it y of hen 5-325 00:00: 04:59 mouth [place] mg tablet 00 :00 every 6 Medical (six) Branch hours as needed for Pain (scale 4-6) or Pain (scale 7-10) for up to 7 days. Indication s: acute pain HYDROcodone 2022-10- Yes [id number] 1{tbl} Take 1 U nivers -acetaminop 0-23 10-31 tablet by it y of hen 5-325 00:00: 04:59 mouth [place] mg tablet 00 :00 every 6 Medical (six) Branch hours as needed for Pain (scale 4-6) or Pain (scale 7-10) for up to 7 days. Indication s: acute pain HYDROcodone 2022-10- Yes [id number] 1{tbl} Take 1 U nivers -acetaminop 0-23 10-31 tablet by it y of hen 5-325 00:00: 04:59 mouth [place] mg tablet 00 :00 every 6 Medical (six) Branch hours as needed for Pain (scale 4-6) or Pain (scale 7-10) for up to 7 days. Indication s: acute pain rho(D) 2022-10 Yes 300ug 300 mcg, Univer s immune 0-22 Intramuscu ity of globulin 16:18: lar, ONCE, [place] (RHOGAM) 18 For 1 Medical syringe 300 dose, Branch mcg Conditiona l, Routine rho(D) 2022-10- No 300ug 300 mcg, Unive rs immune 0-22 10-23 Intramuscu ity of globulin 16:18: 21:24 [place], ONCE, [place] (RHOGAM) 18 :21 For 1 Medical syringe 300 dose, Branch mcg Conditiona l, Routine ibuprofen 2022-10 Yes 600mg 600 mg, Univ ers (IBU) 0-22 Oral, ity of tablet 600 16:18: Q6HPRN, [place] mg 14 Starting Medical on [place] Branch 08/08/23 at 1118, Until Discontinu ed, Routine, Pain (scale 4-6) acetaminoph 2022-10 Yes 650mg 650 mg, Un terrell en 0-22 Oral, ity of (TYLENOL) 16:18: Q6HPRN, [place] tablet 650 14 Starting Medic al mg on [place] Branch 08/08/23 at 1118, Until Discontinu ed, Routine, Pain (scale 1-3) diphenhydrA 2022-10 Yes 25mg 25 mg, Univ ers MINE 0-22 Oral, ity of (BENADRYL) 16:18: Q6HPRN, [place] tablet 25 14 Starting Medica l mg on [place] Branch 08/08/23 at 1118, Until Discontinu ed, Routine, Sleep, Itching ondansetron 2022-10 Yes 4mg 4 mg, Slow Univers (ZOFRAN 0- IV Push, ity of (PF)) 16:18: Q8HPRN, [place] injection 4 14 Starting Medi shirley mg on [place] Branch 08/08/23 at 1118, Until Discontinu ed, Routine, Nausea and Vomiting (N/V) simethicone 2022-10 Yes 160mg 160 mg, Un terrell (GAS RELIEF 0-22 Oral, ity of (SIMETHICON 16:18: PC+HSPRN, [place] E)) 14 Starting Medical chewable on [facility] tablet 160 08/08/23 mg at 1118, Until Discontinu ed, Routine, Gas docusate 2022-10 Yes 200mg 200 mg, Unive rs (COLACE) 0-22 Oral, ity of capsule 200 16:18: QDAILYPRN, [place] mg 14 Starting Medical on [place] Branch 08/08/23 at 1118, Until Discontinu ed, Routine, Constipati on magnesium 2022-10 Yes 30mL 30 mL, Univer s hydroxide 0-22 Oral, ity of (MILK OF 16:18: QDAILYPRN, [place] MAGNESIA) 14 Starting Medica l 400 mg/5 mL on [place] Branch suspension 08/08/23 30 mL at 1118, Until Discontinu ed, Routine, Constipati on benzocaine- 2022-10 Yes Topical, Un ter[place] menthol 0-22 PRN, ity of (DERMOPLAST 16:18: [place] ) 20-0.5 % 14 on [place] Medical topical 08/08/23 Branch spray at 1118, Until Discontinu ed, Routine, Perineum discomfort ibuprofen 2022-10- No 600mg 600 mg, Uni vers (IBU) 008-09 Oral, ity of tablet 600 16:18: 21:24 Q6HPRN, [place] mg 14 :21 Starting Medical on [place] Branch 08/08/23 at 1118, Until 08/09/23 at 1624, Routine, Pain (scale 4-6) acetaminoph 2022-10- No 650mg 650 mg, U nivers en 008-09 Oral, ity of (TYLENOL) 16:18: 21:24 Q6HPRN, [place] tablet 650 14 :21 Starting Medic al mg on [place] Branch 08/08/23 at 1118, Until 08/09/23 at 1624, Routine, Pain (scale 1-3) diphenhydrA 2022-10- No 25mg 25 mg, Uni vers MINE 08-09 Oral, ity of (BENADRYL) 16:18: 21:24 Q6HPRN, [place] tablet 25 14 :21 Starting Medica l mg on [place] Branch 08/08/23 at 1118, Until 08/09/23 at 1624, Routine, Sleep, Itching ondansetron 2022-10- No 4mg 4 mg, Slow Univers (ZOFRAN 08-09 IV Push, ity of (PF)) 16:18: 21:24 Q8HPRN, [place] injection 4 14 :21 Starting Medi shir[place] mg on [place] Branch 08/08/23 at 1118, Until 08/09/23 at 1624, Routine, Nausea and Vomiting (N/V) simethicone 2022-10- No 160mg 160 mg, U nivers (GAS RELIEF 08-09 Oral, ity of (SIMETHICON 16:18: 21:24 PC+HSPRN, [place] E)) 14 :21 Starting Medical chewable on [place] Branch tablet 160 08/08/23 mg at 1118, Until 08/09/23 at 1624, Routine, Gas docusate 2022-10- No 200mg 200 mg, Univ ers (COLACE) 008-09 Oral, ity of capsule 200 16:18: 21:24 QDAILYPRN, [place] mg 14 :21 Starting Medical on [place] [facility] 08/08/23 at 1118, Until 08/09/23 at 1624, Routine, Constipati on magnesium 2022-10- No 30mL 30 mL, Unive rs hydroxide 008-09 Oral, ity of (MILK OF 16:18: 21:24 QDAILYPRN, [place] MAGNESIA) 14 :21 Starting Medica l 400 mg/5 mL on [place] Branch suspension 08/08/23 30 mL at 1118, Until 08/09/23 at 1624, Routine, Constipati on benzocaine- 2022-10- No Topical, U nivers menthol 008-09 PRN, ity of (DERMOPLAST 16:18: 21:24 Starting [place] ) 20-0.5 % 14 :21 on [place] Medical topical 08/08/23 Branch spray at 1118, Until 08/09/23 at 1624, Routine, Perineum discomfort lactated 2022-10 Yes 1000mL at 125 Unive rs ringers IV 0-22 mL/hr, ity of infusion 14:15: 1,000 mL, [place] 1,000 mL 00 IV Medical Infusion, Branch CONTINUOUS , Starting on 08/08/23 at 0915, Until Discontinu ed, Routine lactated 2022-10- No 1000mL at 125 Univ ers ringers IV 0-23 mL/hr, ity of infusion 14:15: 21:24 1,000 mL, [place] 1,000 mL 00 :21 IV Medical Infusion, Branch CONTINUOUS , Starting on 08/08/23 at 0915, Until 08/09/23 at 1624, Routine naloxone 2022-10 Yes .2mg 0.2 mg, Univer s (NARCAN) 0-22 Intramuscu ity o f injection 14:00: lar, [place] 0.2 mg 57 Q3HPRN, [facility] Starting Branch on [place] 08/08/23 at 0900, Until Discontinu ed, Routine, Itching naloxone 2022-10- Yes .4mg 0.4 mg, Unive rs (NARCAN) 008-10 Slow IV ity of injection 14:00: 15:02 Push, PRN [place] 0.4 mg 57 :22 - SEE [facility] NS, Starting on [place] 08/08/23 at 0900, Until Wed08/10/23 at 1002, Routine, Analgesia Recovery naloxone 2022-10- No .4mg 0.4 mg, Unive rs (NARCAN) 008-09 Slow IV ity of injection 14:00: 21:24 Push, PRN [place] 0.4 mg 57 :21 - SEE [facility], Starting on [place] 08/08/23 at 0900, Until Wed08/09/23 at 1624, Routine, Analgesia Recovery naloxone 2022-10- No .2mg 0.2 mg, Unive rs (NARCAN) 008-09 Intramuscu ity of injection 14:00: 21:24 lar [place] 0.2 mg 57 :21 Q3HPRN, [facility] on [place] 08/08/23 at 0900, Until Wed08/09/23 at 1624, Routine, Itching diphenhydrA 2022-10 Yes 25mg 25 mg, Univ ers MINE 0-22 Oral, ity of (BENADRYL) 14:00: Q4HPRN, [place] tablet 25 56 Starting Medica l mg on [facility] 08/08/23 at 0900, Until Discontinu ed, Routine, Itching diphenhydrA 2022-10- No 25mg 25 mg, Uni vers MINE 022 08-09 Oral, ity of (BENADRYL) 14:00: 21:24 Q4HPRN, [place] tablet 25 56 :21 Starting Medica l mg on [facility] 08/08/23 at 0900, Until Wed08/09/23 at 1624, Routine, Itching HYDROcodone 2022-10 Yes 2{tbl} 2 tablet, Univers -acetaminop 0- Oral, ity of hen (NORCO 13:47: Q6HPRN, [place] 5) 5-325 mg 30 Starting Medi [place]ir[place] tablet 2 on [place] Branch tablet 08/08/23 at 0847, Until Discontinu ed, Routine, Pain (scale 7-10) HYDROcodone 2022-10- No 2{tbl} 2 tablet, Univers -acetaminop 0-22 08-09 Oral, ity of hen (NORCO 13:47: 21:24 Q6HPRN, [place] 5) 5-325 mg 30 :21 Starting Medi shirley tablet 2 on [place] Branch tablet 08/08/23 at 0847, Until 08/09/23 at 1624, Routine, Pain (scale 7-10) HYDROcodone 2022-10 Yes 1{tbl} 1 tablet, Univers -acetaminop 0-22 Oral, ity of hen (NORCO 13:47: Q6HPRN, [place] 5) 5-325 mg 28 Starting Medi shirley tablet 1 on [place] Branch tablet 08/08/23 at 0847, Until Discontinu ed, Routine, Pain (scale 4-6) HYDROcodone 2022-10- No 1{tbl} 1 tablet, Univers -acetaminop 0-08-09 Oral, ity of hen (NORCO 13:47: 21:24 Q6HPRN, [place] 5) 5-325 mg 28 :21 Starting Medi shirley tablet 1 on [place] Branch tablet 08/08/23 at 0847, Until 08/09/23 at 1624, Routine, Pain (scale 4-6) lactated 2022-10- No 1000mL at 125 Univ ers ringers IV 0 10-22 mL/hr, ity of infusion 08:15: 10:18 1,000 mL, [place] 1,000 mL 00 :24 IV Medical Infusion, Branch ONCE, 1 dose, On 08/08/23 at 0315, MATIAS ibuprofen 2022-10- No 600mg 600 mg, Uni vers (IBU) 0-08-08 Oral, ity of tablet 600 08:14: 16:18 Q6HPRN, [place] mg 44 :16 Starting Medical on [place] Branch 08/08/23 at 0314, Until 08/08/23 at 1118, Routine, Pain (scale 1-3) ropivacaine 2022-10- No Epidural, Univers 0.2 % 0-08 08- CONTINUOUS ity of (NAROPIN 04:11: 13:03 PRN, Sruthi (PF)) 00 :46 Starting Medical epidural on Sat Branch infusion 08/07/23 at 2311, Until 08/08/23 at 0803, Routine, Intra-op lidocaine-e 2022-10- No Intraderma Univers pinephrine 0-22 10-22 l, ONCE ity o f (XYLOCAINE 04:08: 13:03 INTRA [place] W/EPINEPHRI 00 :46 PROCEDURE, Me dical NE) 1.5 Starting Branch %-1:200,000 on Sat injection 08/07/23 at 2308, Until 08/08/23 at 0803, Routine, Intra-op oxytocin 2022-10- No 2mU/min at 2-40 Un terrell (PITOCIN) 0-21 10-22 mL/hr, IV ity of 30 units in 15:55: 16:18 Infusion, Sruthi NS 500 mL 35 :16 TITRATE, Medica l IV infusion Starting Bran ch on 08/07/23 at 1055, Until 08/08/23 at 1118, MATIAS sodium 2022-10- No 30mL 30 mL, Univers citrate-cit 008-08 Oral, ity of bright acid 13:35: 04:01 PRE-PROCED [place] (BICITRA) 27 :00 URE ONCE, Medic al 500-334 1 dose, Branch mg/5 mL Starting solution 30 on Sat mL 08/07/23 at 0835, Until Discontinu ed, Routine, Surgery/Pr ocedure lactated 2022-10- No 500mL at 999 Unive rs ringers IV 0-21 10-22 mL/hr, 500 it y of infusion 13:35: 16:18 mL, IV [place] 500 mL 27 :16 Infusion, Medical PRN - SEE Branch INSTRUCTIO NS, Starting on 08/07/23 at 0835, Until 08/08/23 at 1118, Routine D5W-LR IV 2022-10- No 1000mL at 1-125 U nivers infusion 0-21 10-22 mL/hr, IV ity o f 1,000 mL 13:35: 16:18 Infusion, [place] 27 :16 TITRATE, Medical Starting Branch on 08/07/23 at 0835, Until 08/08/23 at 1118, Routine sodium 2022-10- No 30mL 30 mL, Univers citrate-cit 0- 10-22 Oral, ity of bright acid 13:35: 13:31 PRE-PROCED [place] (BICITRA) 26 :00 URE ONCE, Medic al 500-334 1 dose, Branch mg/5 mL Starting solution 30 on Sat mL 08/07/23 at 0835, Until Discontinu ed, Routine, Surgery/Pr ocedure lactated 2022-10 No 500mL at 999 Unive rs ringers IV 0- 10-22 mL/hr, 500 it y of infusion 13:35: 04:40 mL, IV [place] 500 mL 26 :43 Infusion, Medical PRN - SEE Branch INSTRUCTIO NS, 1 dose, Starting on 08/07/23 at 0835, Until 08/07/23 at 2340, Routine acetaminoph 2022-10 No 1000mg 1,000 mg, Univers en 0-17 10-17 Oral, ONCE ity of (TYLENOL) 17:45: 17:08 NOW, 1 [place] tablet 00 :00 dose, On Medical 1,000 mg Tue Branch 08/03/23 at 1245, Routine Yes [id number] 1{tbl} Take 1 U nivers multivitami 4-17 tablet by ity of n ( 00:00: mouth in [place] VITAMIN) 00 the Medical tablet morning. Branch proMETHazin Yes [id number] 25mg Take 1 Univers e 25 mg 4-17 tablet by ity of tablet 00:00: mouth [place] 00 every 6 Medical (six) Branch hours as needed for Nausea and Vomiting (N/V). Yes [id number] 1{tbl} Take 1 U nivers multivitami 4-17 tablet by ity of n ( 00:00: [place] VITAMIN) 00 the Medical tablet morning. Branch proMETHazin Yes [id number] 25mg Take 1 Univers e 25 mg 4-17 tablet by ity of tablet 00:00: mouth [place] 00 every 6 Medical (six) Branch hours as needed for Nausea and Vomiting (N/V). Yes [id number] 1{tbl} Take 1 U nivers multivitami 4-17 tablet by ity of n ( 00:00: [place] VITAMIN) 00 the Medical tablet morning. Branch proMETHazin 0 Yes [id number] 25mg Take 1 Univers e 25 mg 4-17 tablet by ity of tablet 00:00: mouth [place] 00 every 6 Medical (six) Branch hours as needed for Nausea and Vomiting (N/V). 2022-0 Yes [id number] 1{tbl} Take 1 U nivers multivitami 4-17 tablet by ity of n ( 00:00: [place] VITAMIN) 00 the Medical tablet morning. Branch proMETHazin Yes [id number] 25mg Take 1 Univers e 25 mg 4-17 tablet by ity of tablet 00:00: mouth [place] 00 every 6 Medical (six) Branch hours as needed for Nausea and Vomiting (N/V). Yes [id number] 1{tbl} Take 1 U nivers multivitami 4-17 tablet by ity of n ( 00:00: [place] VITAMIN) 00 the Medical tablet morning. Branch proMETHazin 0 Yes [id number] 25mg Take 1 Univers e 25 mg 4-17 tablet by ity of tablet 00:00: mouth [place] 00 every 6 Medical (six) Branch hours as needed for Nausea and Vomiting (N/V). Yes [id number] 1{tbl} Take 1 U nivers multivitami 4-17 tablet by ity of n ( 00:00: [place] VITAMIN) 00 the Medical tablet morning. Branch proMETHazin 0 Yes [id number] 25mg Take 1 Univers e 25 mg 4-17 tablet by ity of tablet 00:00: mouth [place] 00 every 6 Medical (six) Branch hours as needed for Nausea and Vomiting (N/V). 2022-0 Yes [id number] 1{tbl} Take 1 U nivers multivitami 4-17 tablet by ity of n ( 00:00: [place] VITAMIN) 00 the Medical tablet morning. Branch proMETHazin 2022-0 Yes [id number] 25mg Take 1 [facility]-17 tablet by [facility] tablet 00:00: mouth [place] 00 every 6 Medical (six) Branch hours as needed for Nausea and Vomiting (N/V). 2022-0 Yes [id number] 1{tbl} Take 1 [facility] 4[facility]17 tablet by [facility] n ( 00:00: mouth in [place] VITAMIN) 00 the Medical tablet morning. Branch proMETHazin 0 Yes [id number] 25mg Take 1 [facility] 25 [facility] 4-17 tablet by [facility] of tablet 00:00: mouth [place] 00 every 6 Medical (six) Branch hours as needed for Nausea and Vomiting (N/V). 2022-0 Yes [id number] 1{tbl} Take 1 [facility] 4-17 tablet by [facility] n ( 00:00: mouth in [place] VITAMIN) 00 the Medical tablet morning. Branch proMETHazin 0 Yes [id number] 25mg Take 1 [facility] 25 mg 4-17 tablet by [facility] of tablet 00:00: mouth [place] 00 every 6 Medical (six) Branch hours as needed for Nausea and Vomiting (N/V). Yes [id number] 1{tbl} Take 1 [facility] 4-17 tablet by [facility] n ( 00:00: mouth in [place] VITAMIN) 00 the Medical tablet morning. Branch proMETHazin 0 Yes [id number] 25mg Take 1 [facility] 4-17 tablet by [facility] tablet 00:00: mouth [place] 00 every 6 Medical (six) Branch hours as needed for Nausea and Vomiting (N/V). 2022-0 Yes [id number] 1{tbl} Take 1 [facility] 4-17 tablet by [facility] n ( 00:00: mouth in [place] VITAMIN) 00 the Medical tablet morning. Branch proMETHazin 0 Yes [id number] 25mg Take 1 [facility] 4-17 tablet by [facility] tablet 00:00: mouth [place] 00 every 6 Medical (six) Branch hours as needed for Nausea and Vomiting (N/V). 2022-0 Yes [id number] 1{tbl} Take 1 [facility] 4-17 tablet by [facility] n ( 00:00: mouth in [place] VITAMIN) 00 the Medical tablet morning. Branch proMETHazin Yes [id number] 25mg Take 1 [facility] 25 mg 4-17 tablet by [facility] tablet 00:00: mouth [place] 00 every 6 Medical (six) Branch hours as needed for Nausea and Vomiting (N/V). 0 Yes [id number] 1{tbl} Take 1 [facility] 4-17 tablet by [facility] n ( 00:00: mouth in [place] VITAMIN) 00 the Medical tablet morning. Branch proMETHazin Yes [id number] 25mg Take 1 [facility] 25 mg 4-17 tablet by [facility] tablet 00:00: mouth [place] 00 every 6 Medical (six) Branch hours as needed for Nausea and Vomiting (N/V). Yes [id number] 1{tbl} Take 1 [facility] 4-17 tablet by [facility] n ( 00:00: mouth in [place] VITAMIN) 00 the Medical tablet morning. Branch proMETHazin Yes [id number] 25mg Take 1 [facility] 25 mg 4-17 tablet by [facility] tablet 00:00: mouth [place] 00 every 6 Medical (six) Branch hours as needed for Nausea and Vomiting (N/V). Yes [id number] 1{tbl} Take 1 [facility] 4-17 tablet by [facility] n ( 00:00: mouth in [place] VITAMIN) 00 the Medical tablet morning. Branch proMETHazin Yes [id number] 25mg Take 1 [facility] 25 mg 4-17 tablet by [facility] of tablet 00:00: mouth [place] 00 every 6 Medical (six) Branch hours as needed for Nausea and Vomiting (N/V). Yes [id number] 1{tbl} Take 1 [facility] 4-17 tablet by [facility] n ( 00:00: mouth in [place] VITAMIN) 00 the Medical tablet morning. Branch proMETHazin Yes [id number] 25mg Take 1 [facility] 25 mg 4-17 tablet by [facility] tablet 00:00: mouth [place] 00 every 6 Medical (six) Branch hours as needed for Nausea and Vomiting (N/V). 2022-0 Yes [id number] 1{tbl} Take 1 [facility] 4-17 tablet by [facility] n ( 00:00: mouth in [place] VITAMIN) 00 the Medical tablet morning. Branch proMETHazin 0 Yes [id number] 25mg Take 1 [facility] 25 mg 4-17 tablet by [facility] tablet 00:00: mouth [place] 00 every 6 Medical (six) Branch hours as needed for Nausea and Vomiting (N/V). 2022-0 Yes [id number] 1{tbl} Take 1 [facility] 4-17 tablet by [facility] n ( 00:00: mouth in [place] VITAMIN) 00 the Medical tablet morning. Branch proMETHazin Yes [id number] 25mg Take 1 [facility] 25 mg 4-17 tablet by [facility] of tablet 00:00: mouth [place] 00 every 6 Medical (six) Branch hours as needed for Nausea and Vomiting (N/V). 2022-0 Yes [id number] 1{tbl} Take 1 [facility] 4-17 tablet by [facility] n ( 00:00: mouth in [place] VITAMIN) 00 the Medical tablet morning. Branch proMETHazin 0 Yes [id number] 25mg Take 1 [facility] 25 mg 4-17 tablet by [facility] tablet 00:00: mouth [place] 00 every 6 Medical (six) Branch hours as needed for Nausea and Vomiting (N/V). 2022- Yes [id number] 1{tbl} Take 1 [facility] 4-17 tablet by [facility] n ( 00:00: mouth in [place] VITAMIN) 00 the Medical tablet morning. Branch proMETHazin 2022-0 Yes [id number] 25mg Take 1 [facility] 25 mg 4-17 tablet by [facility] tablet 00:00: mouth [place] 00 every 6 Medical (six) Branch hours as needed for Nausea and Vomiting (N/V). 2022-0 Yes [id number] 1{tbl} Take 1 [facility] 4-17 tablet by [facility] n ( 00:00: mouth in [place] VITAMIN) 00 the Medical tablet morning. Branch proMETHazin 2022-0 Yes [id number] 25mg Take 1 [facility] 25 mg 4-17 tablet by [facility] tablet 00:00: mouth [place] 00 every 6 Medical (six) Branch hours as needed for Nausea and Vomiting (N/V). Yes [id number] 1{tbl} Take 1 [facility] 4-17 tablet by [facility] n ( 00:00: mouth in [place] VITAMIN) 00 the Medical tablet morning. Branch proMETHazin 0 Yes [id number] 25mg Take 1 [facility] 25 mg 4-17 tablet by [facility] tablet 00:00: mouth [place] 00 every 6 Medical (six) Branch hours as needed for Nausea and Vomiting (N/V). Yes [id number] 1{tbl} Take 1 [facility] 4-17 tablet by [facility] n ( 00:00: mouth in [place] VITAMIN) 00 the Medical tablet morning. Branch proMETHazin 0 Yes [id number] 25mg Take 1 [facility] 25 mg 4-17 tablet by [facility] tablet 00:00: mouth [place] 00 every 6 Medical (six) Branch hours as needed for Nausea and Vomiting (N/V). Yes [id number] 1{tbl} Take 1 [facility] 4-17 tablet by [facility] n ( 00:00: mouth in [place] VITAMIN) 00 the Medical tablet morning. Branch proMETHazin 0 Yes [id number] 25mg Take 1 [facility] 25 mg 4-17 tablet by [facility] tablet 00:00: mouth [place] 00 every 6 Medical (six) Branch hours as needed for Nausea and Vomiting (N/V). 0 Yes [id number] 1{tbl} Take 1 [facility] 4-17 tablet by [facility] n ( 00:00: mouth in [place] VITAMIN) 00 the Medical tablet morning. Branch proMETHazin 0 Yes [id number] 25mg Take 1 [facility] 25 mg 4-17 tablet by [facility] tablet 00:00: mouth [place] 00 every 6 Medical (six) Branch hours as needed for Nausea and Vomiting (N/V). 0 Yes [id number] 1{tbl} Take 1 [facility] 4-17 tablet by [facility] n ( 00:00: mouth in [place] VITAMIN) 00 the Medical tablet morning. Branch proMETHazin 2023-0 Yes [id number] 25mg Take 1 [facility] 25 mg 4-17 tablet by [facility] of tablet 00:00: mouth [place] 00 every 6 Medical (six) Branch hours as needed for Nausea and Vomiting (N/V). 2022-0 Yes [id number] 1{tbl} Take 1 [facility] 4-17 tablet by [facility] n ( 00:00: mouth in [place] VITAMIN) 00 the Medical tablet morning. Branch proMETHazin Yes [id number] 25mg Take 1 [facility] 25 mg 4-17 tablet by [facility] tablet 00:00: mouth [place] 00 every 6 Medical (six) Branch hours as needed for Nausea and Vomiting (N/V). Yes [id number] 1{tbl} Take 1 [facility] 4-17 tablet by [facility] n ( 00:00: mouth in [place] VITAMIN) 00 the Medical tablet morning. Branch proMETHazin Yes [id number] 25mg Take 1 [facility] 25 mg 4-17 tablet by [facility] tablet 00:00: mouth [place] 00 every 6 Medical (six) Branch hours as needed for Nausea and Vomiting (N/V). Yes [id number] 1{tbl} Take 1 [facility] 4-17 tablet by [facility] n ( 00:00: mouth in [place] VITAMIN) 00 the Medical tablet morning. Branch proMETHazin Yes [id number] 25mg Take 1 [facility] 25 mg 4-17 tablet by [facility] tablet 00:00: mouth [place] 00 every 6 Medical (six) Branch hours as needed for Nausea and Vomiting (N/V). Yes [id number] 1{tbl} Take 1 [facility] 4-17 tablet by [facility] n ( 00:00: mouth in [place] VITAMIN) 00 the Medical tablet morning. Branch proMETHazin Yes [id number] 25mg Take 1 [facility] 25 mg 4-17 tablet by [facility] tablet 00:00: mouth [place] 00 every 6 Medical (six) Branch hours as needed for Nausea and Vomiting (N/V). 2022-0 Yes [id number] 1{tbl} Take 1 [facility] 4-17 tablet by [facility] n ( 00:00: mouth in [place] VITAMIN) 00 the Medical tablet morning. Branch proMETHazin Yes [id number] 25mg Take 1 [facility] 25 mg 4-17 tablet by [facility] tablet 00:00: mouth [place] 00 every 6 Medical (six) Branch hours as needed for Nausea and Vomiting (N/V). Yes [id number] 1{tbl} Take 1 [facility] 4-17 tablet by [facility] n ( 00:00: mouth in [place] VITAMIN) 00 the Medical tablet morning. Branch proMETHazin Yes [id number] 25mg Take 1 [facility] 25 mg 4-17 tablet by [facility] tablet 00:00: mouth [place] 00 every 6 Medical (six) Branch hours as needed for Nausea and Vomiting (N/V). Yes [id number] 1{tbl} Take 1 [facility] 4-17 tablet by [facility] n ( 00:00: mouth in [place] VITAMIN) 00 the Medical tablet morning. Branch proMETHazin Yes [id number] 25mg Take 1 [facility] 25 mg 4-17 tablet by [facility] tablet 00:00: mouth [place] 00 every 6 Medical (six) Branch hours as needed for Nausea and Vomiting (N/V). Yes [id number] 1{tbl} Take 1 [facility] 4-17 tablet by [facility] n ( 00:00: mouth in [place] VITAMIN) 00 the Medical tablet morning. Branch proMETHazin Yes [id number] 25mg Take 1 [facility] 25 mg 4-17 tablet by [facility] of tablet 00:00: mouth [place] 00 every 6 Medical (six) Branch hours as needed for Nausea and Vomiting (N/V). Yes [id number] 1{tbl} Take 1 [facility] 4-17 tablet by [facility] n ( 00:00: mouth in [place] VITAMIN) 00 the Medical tablet morning. Branch proMETHazin Yes [id number] 25mg Take 1 [facility] 25 mg 4-17 tablet by [facility] tablet 00:00: mouth [place] 00 every 6 Medical (six) Branch hours as needed for Nausea and Vomiting (N/V). Yes [id number] 1{tbl} Take 1 [facility] 4-17 tablet by [facility] n ( 00:00: mouth in [place] VITAMIN) 00 the Medical tablet morning. Branch proMETHazin 0 Yes [id number] 25mg Take 1 [facility] 25 mg 4-17 tablet by [facility] of tablet 00:00: mouth [place] 00 every 6 Medical (six) Branch hours as needed for Nausea and Vomiting (N/V). Yes [id number] 1{tbl} Take 1 [facility] 4-17 tablet by [facility] n ( 00:00: mouth in [place] VITAMIN) 00 the Medical tablet morning. Branch proMETHazin Yes [id number] 25mg Take 1 [facility] 25 mg 4-17 tablet by [facility] of tablet 00:00: mouth [place] 00 every 6 Medical (six) Branch hours as needed for Nausea and Vomiting (N/V). Yes [id number] 1{tbl} Take 1 [facility] 4-17 tablet by [facility] n ( 00:00: mouth in [place] VITAMIN) 00 the Medical tablet morning. Branch proMETHazin Yes [id number] 25mg Take 1 [facility] 25 mg 4-17 tablet by [facility] of tablet 00:00: mouth [place] 00 every 6 Medical (six) Branch hours as needed for Nausea and Vomiting (N/V). Yes [id number] 1{tbl} Take 1 [facility] 4-17 tablet by [facility] n ( 00:00: mouth in [place] VITAMIN) 00 the Medical tablet morning. Branch proMETHazin Yes [id number] 25mg Take 1 [facility] 25 mg 4-17 tablet by [facility] of tablet 00:00: mouth [place] 00 every 6 Medical (six) Branch hours as needed for Nausea and Vomiting (N/V). 2022-0 Yes [id number] 1{tbl} Take 1 [facility] 4-17 tablet by [facility] n ( 00:00: mouth in [place] VITAMIN) 00 the Medical tablet morning. Branch proMETHazin 0 Yes [id number] 25mg Take 1 [facility] 25 mg 4-17 tablet by [facility] tablet 00:00: mouth [place] 00 every 6 Medical (six) Branch hours as needed for Nausea and Vomiting (N/V). 2022-0 Yes [id number] 1{tbl} Take 1 [facility] 4-17 tablet by [facility] n ( 00:00: mouth in [place] VITAMIN) 00 the Medical tablet morning. Branch proMETHazin 0 Yes [id number] 25mg Take 1 [facility] 25 mg 4-17 tablet by [facility] tablet 00:00: mouth [place] 00 every 6 Medical (six) Branch hours as needed for Nausea and Vomiting (N/V). 2022-0 Yes [id number] 1{tbl} Take 1 [facility] 4-17 tablet by [facility] n ( 00:00: mouth in [place] VITAMIN) 00 the Medical tablet morning. Branch proMETHazin 0 Yes [id number] 25mg Take 1 [facility] 25 mg 4-17 tablet by [facility] tablet 00:00: mouth [place] 00 every 6 Medical (six) Branch hours as needed for Nausea and Vomiting (N/V). 0 Yes [id number] 1{tbl} Take 1 [facility] 4-17 tablet by [facility] n ( 00:00: mouth in [place] VITAMIN) 00 the Medical tablet morning. Branch proMETHazin 0 Yes [id number] 25mg Take 1 [facility] 25 mg 4-17 tablet by [facility] tablet 00:00: mouth [place] 00 every 6 Medical (six) Branch hours as needed for Nausea and Vomiting (N/V). 0 Yes [id number] 1{tbl} Take 1 [facility] 4-17 tablet by [facility] n ( 00:00: mouth in [place] VITAMIN) 00 the Medical tablet morning. Branch proMETHazin 0 Yes [id number] 25mg Take 1 [facility] 25 mg 4-17 tablet by [facility] tablet 00:00: mouth [place] 00 every 6 Medical (six) Branch hours as needed for Nausea and Vomiting (N/V). 2022-0 Yes [id number] 1{tbl} Take 1 [facility] 4-17 tablet by [facility] n ( 00:00: mouth in [place] VITAMIN) 00 the Medical tablet morning. Branch proMETHazin Yes [id number] 25mg Take 1 [facility] 25 mg 4-17 tablet by [facility] tablet 00:00: mouth [place] 00 every 6 Medical (six) Branch hours as needed for Nausea and Vomiting (N/V). 0 Yes [id number] 1{tbl} Take 1 [facility] 4-17 tablet by [facility] n ( 00:00: mouth in [place] VITAMIN) 00 the Medical tablet morning. Branch proMETHazin Yes [id number] 25mg Take 1 [facility] 25 mg 4-17 tablet by [facility] tablet 00:00: mouth [place] 00 every 6 Medical (six) Branch hours as needed for Nausea and Vomiting (N/V). Yes [id number] 1{tbl} Take 1 [facility] 4-17 tablet by [facility] n ( 00:00: mouth in [place] VITAMIN) 00 the Medical tablet morning. Branch proMETHazin Yes [id number] 25mg Take 1 [facility] 25 mg 4-17 tablet by [facility] tablet 00:00: mouth [place] 00 every 6 Medical (six) Branch hours as needed for Nausea and Vomiting (N/V). Yes [id number] 1{tbl} Take 1 [facility] 4-17 tablet by [facility] n ( 00:00: mouth in [place] VITAMIN) 00 the Medical tablet morning. Branch proMETHazin Yes [id number] 25mg Take 1 [facility] 25 mg 4-17 tablet by [facility] tablet 00:00: mouth [place] 00 every 6 Medical (six) Branch hours as needed for Nausea and Vomiting (N/V). Yes [id number] 1{tbl} Take 1 [facility] 4-17 tablet by [facility] n ( 00:00: mouth in [place] VITAMIN) 00 the Medical tablet morning. Branch proMETHazin Yes [id number] 25mg Take 1 [facility] 25 mg 4-17 tablet by [facility] tablet 00:00: mouth [place] 00 every 6 Medical (six) Branch hours as needed for Nausea and Vomiting (N/V). Yes [id number] 1{tbl} Take 1 [facility] 4-17 tablet by [facility] n ( 00:00: mouth in [place] VITAMIN) 00 the Medical tablet morning. Branch proMETHazin Yes [id number] 25mg Take 1 [facility] 25 mg 4-17 tablet by [facility] of tablet 00:00: mouth [place] 00 every 6 Medical (six) Branch hours as needed for Nausea and Vomiting (N/V). Yes [id number] 1{tbl} Take 1 [facility] 4-17 tablet by [facility] n ( 00:00: mouth in [place] VITAMIN) 00 the Medical tablet morning. Branch proMETHazin Yes [id number] 25mg Take 1 [facility] 25 mg 4-17 tablet by [facility] of tablet 00:00: mouth [place] 00 every 6 Medical (six) Branch hours as needed for Nausea and Vomiting (N/V). Yes [id number] 1{tbl} Take 1 [facility] 4-17 tablet by [facility] n ( 00:00: mouth in [place] VITAMIN) 00 the Medical tablet morning. Branch proMETHazin Yes [id number] 25mg Take 1 [facility] 25 mg 4-17 tablet by [facility] of tablet 00:00: mouth [place] 00 every 6 Medical (six) Branch hours as needed for Nausea and Vomiting (N/V). Yes [id number] 1{tbl} Take 1 [facility] 4-17 tablet by [facility] n ( 00:00: mouth in [place] VITAMIN) 00 the Medical tablet morning. Branch proMETHazin Yes [id number] 25mg Take 1 [facility] 25 mg 4-17 tablet by [facility] tablet 00:00: mouth [place] 00 every 6 Medical (six) Branch hours as needed for Nausea and Vomiting (N/V). 2022-0 Yes [id number] 1{tbl} Take 1 [facility] 4-17 tablet by [facility] n ( 00:00: mouth in [place] VITAMIN) 00 the Medical tablet morning. Branch proMETHazin 0 Yes [id number] 25mg Take 1 [facility] 25 mg 4-17 tablet by [facility] tablet 00:00: mouth [place] 00 every 6 Medical (six) Branch hours as needed for Nausea and Vomiting (N/V). Yes [id number] 1{tbl} Take 1 [facility] 4-17 tablet by [facility] n ( 00:00: mouth in [place] VITAMIN) 00 the Medical tablet morning. Branch proMETHazin Yes [id number] 25mg Take 1 [facility] 25 mg 4-17 tablet by [facility] of tablet 00:00: mouth [place] 00 every 6 Medical (six) Branch hours as needed for Nausea and Vomiting (N/V). Yes [id number] 1{tbl} Take 1 [facility] 4-17 tablet by [facility] n ( 00:00: mouth in [place] VITAMIN) 00 the Medical tablet morning. Branch proMETHazin Yes [id number] 25mg Take 1 [facility] 25 mg 4-17 tablet by [facility] tablet 00:00: mouth [place] 00 every 6 Medical (six) Branch hours as needed for Nausea and Vomiting (N/V). Yes [id number] 1{tbl} Take 1 [facility] 4-17 tablet by [facility] n ( 00:00: mouth in [place] VITAMIN) 00 the Medical tablet morning. Branch proMETHazin 0 Yes [id number] 25mg Take 1 [facility] 25 mg 4-17 tablet by [facility] tablet 00:00: mouth [place] 00 every 6 Medical (six) Branch hours as needed for Nausea and Vomiting (N/V). 0 Yes [id number] 1{tbl} Take 1 [facility] 4-17 tablet by [facility] n ( 00:00: mouth in [place] VITAMIN) 00 the Medical tablet morning. Branch proMETHazin 0 Yes [id number] 25mg Take 1 [facility] 25 mg 4-17 tablet by [facility] tablet 00:00: mouth [place] 00 every 6 Medical (six) Branch hours as needed for Nausea and Vomiting (N/V). 2022-0 Yes [id number] 1{tbl} Take 1 [facility] 4-17 tablet by [facility] ( 00:00: mouth in [place] VITAMIN) 00 the Medical tablet morning. Branch proMETHazin 2022-0 Yes [id number] 25mg Take 1 [facility] 25 mg 4-17 tablet by [facility] tablet 00:00: mouth [place] 00 every 6 Medical (six) Branch hours as needed for Nausea and Vomiting (N/V). Yes [id number] 1{tbl} Take 1 [facility] 4-17 tablet by [facility] n ( 00:00: mouth in [place] VITAMIN) 00 the Medical tablet morning. Branch proMETHazin Yes [id number] 25mg Take 1 [facility] 25 mg 4-17 tablet by [facility] of tablet 00:00: mouth [place] 00 every 6 Medical (six) Branch hours as needed for Nausea and Vomiting (N/V). Yes [id number] 1{tbl} Take 1 [facility] 4-17 tablet by [facility] n ( 00:00: mouth in [place] VITAMIN) 00 the Medical tablet morning. Branch Yes [id number] 1{tbl} Take 1 [facility] 4-17 tablet by [facility] n ( 00:00: mouth in [place] VITAMIN) 00 the Medical tablet morning. Branch Yes [id number] 1{tbl} Take 1 [facility] 4-17 tablet by [facility] n ( 00:00: mouth in [place] VITAMIN) 00 the Medical tablet morning. Branch Yes [id number] 1{tbl} Take 1 [facility] 4-17 tablet by [facility] ( 00:00: mouth in [place] VITAMIN) 00 the Medical tablet morning. Branch proMETHazin Yes [id number] 25mg Take 1 [facility] 25 mg 4-17 tablet by [facility] of tablet 00:00: mouth [place] 00 every 6 Medical (six) Branch hours as needed for Nausea and Vomiting (N/V). Yes [id number] 1{tbl} Take 1 [facility] 4-17 tablet by [facility] ( 00:00: mouth in [place] VITAMIN) 00 the Medical tablet morning. Branch proMETHazin Yes [id number] 25mg Take 1 [facility] 25 mg 4-17 tablet by [facility] of tablet 00:00: mouth [place] 00 every 6 Medical (six) Branch hours as needed for Nausea and Vomiting (N/V). 2022-0 Yes [id number] 1{tbl} Take 1 [facility] 4-17 tablet by [facility] ( 00:00: mouth in [place] VITAMIN) 00 the Medical tablet morning. Branch proMETHazin 2022-0 Yes [id number] 25mg Take 1 [facility] 25 mg 4-17 tablet by [facility] of tablet 00:00: mouth [place] 00 every 6 Medical (six) Branch hours as needed for Nausea and Vomiting (N/V). proMETHazin 2022-0 3- No [id number] 25mg Take 1 [facility] 25 mg 4-17 10-23 tablet by [facility] tablet 00:00: 00:00 mouth [place] 00 :00 every 6 Medical (six) Branch hours as needed for Nausea and Vomiting (N/V). proMETHazin 2022-0 3- No [id number] 25mg Take 1 [facility] 25 mg 4-17 10-23 tablet by [facility] of tablet 00:00: 00:00 mouth [place] 00 :00 every 6 Medical (six) Branch hours as needed for Nausea and Vomiting (N/V). ergocalcife 2023-0 Yes TAKE 1 [facility], 2-24 CAPSULE ity of vitamin d2, 00:00: EVERY WEEK [place] 1,250 mcg 00 BY ORAL Medical (50,000 ROUTE. Branch unit) capsule ergocalcife 2023-0 Yes TAKE 1 [facility] rol, 2-24 CAPSULE ity of vitamin d2, 00:00: EVERY WEEK [place] 1,250 mcg 00 BY ORAL Medical (50,000 ROUTE. Branch unit) capsule ergocalcife 2023-0 Yes TAKE 1 [facility] rol, 2-24 CAPSULE ity of vitamin d2, 00:00: EVERY WEEK [place] 1,250 mcg 00 BY ORAL Medical (50,000 ROUTE. Branch unit) capsule ergocalcife 2023-0 Yes TAKE 1 [facility] rol, 2-24 CAPSULE ity of vitamin d2, 00:00: EVERY WEEK [place] 1,250 mcg 00 BY ORAL Medical (50,000 ROUTE. Branch unit) capsule ergocalcife 2023-0 Yes TAKE 1 [facility] rol, 2-24 CAPSULE ity of vitamin d2, 00:00: EVERY WEEK [place] 1,250 mcg 00 BY ORAL Medical (50,000 ROUTE. Branch unit) capsule ergocalcife 2023-0 Yes TAKE 1 [facility] rol, 2-24 CAPSULE ity of vitamin d2, 00:00: EVERY WEEK [place] 1,250 mcg 00 BY ORAL Medical (50,000 ROUTE. Branch unit) capsule ergocalcife 2023-0 Yes TAKE 1 [facility] rol, 2-24 CAPSULE ity of vitamin d2, 00:00: EVERY WEEK [place] 1,250 mcg 00 BY ORAL Medical (50,000 ROUTE. Branch unit) capsule ergocalcife 2023-0 Yes TAKE 1 [facility] rol, 2-24 CAPSULE ity of vitamin d2, 00:00: EVERY WEEK [place] 1,250 mcg 00 BY ORAL Medical (50,000 ROUTE. Branch unit) capsule ergocalcife 2023-0 Yes TAKE 1 [facility] rol, 2-24 CAPSULE ity of vitamin d2, 00:00: EVERY WEEK [place] 1,250 mcg 00 BY ORAL Medical (50,000 ROUTE. Branch unit) capsule ergocalcife 2023-0 Yes TAKE 1 [facility] rol, 2-24 CAPSULE ity of vitamin d2, 00:00: EVERY WEEK [place] 1,250 mcg 00 BY ORAL Medical (50,000 ROUTE. Branch unit) capsule ergocalcife 2023-0 Yes TAKE 1 [facility] rol, 2-24 CAPSULE ity of vitamin d2, 00:00: EVERY WEEK [place] 1,250 mcg 00 BY ORAL Medical (50,000 ROUTE. Branch unit) capsule ergocalcife 2023-0 Yes TAKE 1 [facility] rol, 2-24 CAPSULE ity of vitamin d2, 00:00: EVERY WEEK [place] 1,250 mcg 00 BY ORAL Medical (50,000 ROUTE. Branch unit) capsule ergocalcife 2023-0 Yes TAKE 1 [facility] rol, 2-24 CAPSULE ity of vitamin d2, 00:00: EVERY WEEK [place] 1,250 mcg 00 BY ORAL Medical (50,000 ROUTE. Branch unit) capsule ergocalcife 2023-0 Yes TAKE 1 [facility] rol, 2-24 CAPSULE ity of vitamin d2, 00:00: EVERY WEEK [place] 1,250 mcg 00 BY ORAL Medical (50,000 ROUTE. Branch unit) capsule ergocalcife 2023-0 Yes TAKE 1 [facility] rol, 2-24 CAPSULE ity of vitamin d2, 00:00: EVERY WEEK [place] 1,250 mcg 00 BY ORAL Medical (50,000 ROUTE. Branch unit) capsule ergocalcife 2023-0 Yes TAKE 1 [facility] rol, 2-24 CAPSULE ity of vitamin d2, 00:00: EVERY WEEK [place] 1,250 mcg 00 BY ORAL Medical (50,000 ROUTE. Branch unit) capsule ergocalcife 2023-0 Yes TAKE 1 [facility] rol, 2-24 CAPSULE ity of vitamin d2, 00:00: EVERY WEEK [place] 1,250 mcg 00 BY ORAL Medical (50,000 ROUTE. Branch unit) capsule ergocalcife 2023-0 Yes TAKE 1 [facility] rol, 2-24 CAPSULE ity of vitamin d2, 00:00: EVERY WEEK [place] 1,250 mcg 00 BY ORAL Medical (50,000 ROUTE. Branch unit) capsule ergocalcife 2023-0 Yes TAKE 1 [facility] rol, 2-24 CAPSULE ity of vitamin d2, 00:00: EVERY WEEK [place] 1,250 mcg 00 BY ORAL Medical (50,000 ROUTE. Branch unit) capsule ergocalcife 2023-0 Yes TAKE 1 [facility] rol, 2-24 CAPSULE ity of vitamin d2, 00:00: EVERY WEEK [place] 1,250 mcg 00 BY ORAL Medical (50,000 ROUTE. Branch unit) capsule ergocalcife 2023-0 Yes TAKE 1 [facility] rol, 2-24 CAPSULE ity of vitamin d2, 00:00: EVERY WEEK [place] 1,250 mcg 00 BY ORAL Medical (50,000 ROUTE. Branch unit) capsule ergocalcife 2023-0 Yes TAKE 1 [facility] rol, 2-24 CAPSULE ity of vitamin d2, 00:00: EVERY WEEK [place] 1,250 mcg 00 BY ORAL Medical (50,000 ROUTE. Branch unit) capsule ergocalcife 2023-0 Yes TAKE 1 [facility] rol, 2-24 CAPSULE ity of vitamin d2, 00:00: EVERY WEEK [place] 1,250 mcg 00 BY ORAL Medical (50,000 ROUTE. Branch unit) capsule ergocalcife 2023-0 Yes TAKE 1 [facility] rol, 2-24 CAPSULE ity of vitamin d2, 00:00: EVERY WEEK [place] 1,250 mcg 00 BY ORAL Medical (50,000 ROUTE. Branch unit) capsule ergocalcife 2023-0 Yes TAKE 1 [facility] rol, 2-24 CAPSULE ity of vitamin d2, 00:00: EVERY WEEK [place] 1,250 mcg 00 BY ORAL Medical (50,000 ROUTE. Branch unit) capsule ergocalcife 2023-0 Yes TAKE 1 [facility] rol, 2-24 CAPSULE ity of vitamin d2, 00:00: EVERY WEEK [place] 1,250 mcg 00 BY ORAL Medical (50,000 ROUTE. Branch unit) capsule ergocalcife 2023-0 Yes TAKE 1 [facility] rol, 2-24 CAPSULE ity of vitamin d2, 00:00: EVERY WEEK [place] 1,250 mcg 00 BY ORAL Medical (50,000 ROUTE. Branch unit) capsule ergocalcife 2023-0 Yes TAKE 1 [facility] rol, 2-24 CAPSULE ity of vitamin d2, 00:00: EVERY WEEK [place] 1,250 mcg 00 BY ORAL [facility] (50,000 ROUTE. Branch unit) capsule ergocalcife 2023-0 Yes TAKE 1 Univ ers rol, 2-24 CAPSULE ity of vitamin d2, 00:00: EVERY WEEK [place] 1,250 mcg 00 BY ORAL Medical (50,000 ROUTE. Branch unit) capsule ergocalcife 2023-0 Yes TAKE 1 Univ ers rol, 2-24 CAPSULE ity of vitamin d2, 00:00: EVERY WEEK [place] 1,250 mcg 00 BY ORAL Medical (50,000 ROUTE. Branch unit) capsule ergocalcife 2023-0 Yes TAKE 1 Univ ers rol, 2-24 CAPSULE ity of vitamin d2, 00:00: EVERY WEEK [place] 1,250 mcg 00 BY ORAL Medical (50,000 ROUTE. Branch unit) capsule ergocalcife 2023-0 Yes TAKE 1 Univ ers rol, 2-24 CAPSULE ity of vitamin d2, 00:00: EVERY WEEK [place] 1,250 mcg 00 BY ORAL Medical (50,000 ROUTE. Branch unit) capsule ergocalcife 2023-0 Yes TAKE 1 Univ ers rol, 2-24 CAPSULE ity of vitamin d2, 00:00: EVERY WEEK [place] 1,250 mcg 00 BY ORAL Medical (50,000 ROUTE. Branch unit) capsule ergocalcife 2023-0 Yes TAKE 1 Univ ers rol, 2-24 CAPSULE ity of vitamin d2, 00:00: EVERY WEEK [place] 1,250 mcg 00 BY ORAL Medical (50,000 ROUTE. Branch unit) capsule ergocalcife 2023-0 Yes TAKE 1 Univ ers rol, 2-24 CAPSULE ity of vitamin d2, 00:00: EVERY WEEK [place] 1,250 mcg 00 BY ORAL Medical (50,000 ROUTE. Branch unit) capsule ergocalcife 2023-0 Yes TAKE 1 Univ ers rol, 2-24 CAPSULE ity of vitamin d2, 00:00: EVERY WEEK [place] 1,250 mcg 00 BY ORAL Medical (50,000 ROUTE. Branch unit) capsule ergocalcife 2023-0 Yes TAKE 1 Univ ers rol, 2-24 CAPSULE ity of vitamin d2, 00:00: EVERY WEEK [place] 1,250 mcg 00 BY ORAL Medical (50,000 ROUTE. Branch unit) capsule ergocalcife 2023-0 Yes TAKE 1 Univ ers rol, 2-24 CAPSULE ity of vitamin d2, 00:00: EVERY WEEK [place] 1,250 mcg 00 BY ORAL Medical (50,000 ROUTE. Branch unit) capsule ergocalcife 2023-0 Yes TAKE 1 Univ ers rol, 2-24 CAPSULE ity of vitamin d2, 00:00: EVERY WEEK [place] 1,250 mcg 00 BY ORAL Medical (50,000 ROUTE. Branch unit) capsule ergocalcife 2023-0 Yes TAKE 1 Univ ers rol, 2-24 CAPSULE ity of vitamin d2, 00:00: EVERY WEEK [place] 1,250 mcg 00 BY ORAL Medical (50,000 ROUTE. Branch unit) capsule ergocalcife 2023-0 Yes TAKE 1 Univ ers rol, 2-24 CAPSULE ity of vitamin d2, 00:00: EVERY WEEK [place] 1,250 mcg 00 BY ORAL Medical (50,000 ROUTE. Branch unit) capsule ergocalcife 2023-0 Yes TAKE 1 Univ ers rol, 2-24 CAPSULE ity of vitamin d2, 00:00: EVERY WEEK [place] 1,250 mcg 00 BY ORAL Medical (50,000 ROUTE. Branch unit) capsule ergocalcife 2023-0 Yes TAKE 1 Univ ers rol, 2-24 CAPSULE ity of vitamin d2, 00:00: EVERY WEEK [place] 1,250 mcg 00 BY ORAL Medical (50,000 ROUTE. Branch unit) capsule ergocalcife 2023-0 Yes TAKE 1 Univ ers rol, 2-24 CAPSULE ity of vitamin d2, 00:00: EVERY WEEK [place] 1,250 mcg 00 BY ORAL Medical (50,000 ROUTE. Branch unit) capsule ergocalcife 2023-0 Yes TAKE 1 Univ ers rol, 2-24 CAPSULE ity of vitamin d2, 00:00: EVERY WEEK [place] 1,250 mcg 00 BY ORAL Medical (50,000 ROUTE. Branch unit) capsule ergocalcife 2023-0 Yes TAKE 1 Univ ers rol, 2-24 CAPSULE ity of vitamin d2, 00:00: EVERY WEEK [place] 1,250 mcg 00 BY ORAL Medical (50,000 ROUTE. Branch unit) capsule ergocalcife 2023-0 Yes TAKE 1 Univ ers rol, 2-24 CAPSULE ity of vitamin d2, 00:00: EVERY WEEK [place] 1,250 mcg 00 BY ORAL Medical (50,000 ROUTE. Branch unit) capsule ergocalcife 2023-0 Yes TAKE 1 Univ ers rol, 2-24 CAPSULE ity of vitamin d2, 00:00: EVERY WEEK [place] 1,250 mcg 00 BY ORAL Medical (50,000 ROUTE. Branch unit) capsule ergocalcife 2023-0 Yes TAKE 1 Univ ers rol, 2-24 CAPSULE ity of vitamin d2, 00:00: EVERY WEEK [place] 1,250 mcg 00 BY ORAL Medical (50,000 ROUTE. Branch unit) capsule ergocalcife 2023-0 Yes TAKE 1 Univ ers rol, 2-24 CAPSULE ity of vitamin d2, 00:00: EVERY WEEK [place] 1,250 mcg 00 BY ORAL Medical (50,000 ROUTE. Branch unit) capsule ergocalcife 2023-0 Yes TAKE 1 Univ ers rol, 2-24 CAPSULE ity of vitamin d2, 00:00: EVERY WEEK [place] 1,250 mcg 00 BY ORAL Medical (50,000 ROUTE. Branch unit) capsule ergocalcife 2023-0 Yes TAKE 1 Univ ers rol, 2-24 CAPSULE ity of vitamin d2, 00:00: EVERY WEEK [place] 1,250 mcg 00 BY ORAL Medical (50,000 ROUTE. Branch unit) capsule ergocalcife 2023-0 Yes TAKE 1 Univ ers rol, 2-24 CAPSULE ity of vitamin d2, 00:00: EVERY WEEK [place] 1,250 mcg 00 BY ORAL Medical (50,000 ROUTE. Branch unit) capsule ergocalcife 2023-0 Yes TAKE 1 Univ ers rol, 2-24 CAPSULE ity of vitamin d2, 00:00: EVERY WEEK [place] 1,250 mcg 00 BY ORAL Medical (50,000 ROUTE. Branch unit) capsule ergocalcife 2023-0 Yes TAKE 1 Univ ers rol, 2-24 CAPSULE ity of vitamin d2, 00:00: EVERY WEEK [place] 1,250 mcg 00 BY ORAL Medical (50,000 ROUTE. Branch unit) capsule ergocalcife 2023-0 Yes TAKE 1 Univ ers rol, 2-24 CAPSULE ity of vitamin d2, 00:00: EVERY WEEK [place] 1,250 mcg 00 BY ORAL Medical (50,000 ROUTE. Branch unit) capsule ergocalcife 2023-0 Yes TAKE 1 Univ ers rol, 2-24 CAPSULE ity of vitamin d2, 00:00: EVERY WEEK [place] 1,250 mcg 00 BY ORAL Medical (50,000 ROUTE. Branch unit) capsule ergocalcife 2023-0 Yes TAKE 1 Univ ers rol, 2-24 CAPSULE ity of vitamin d2, 00:00: EVERY WEEK [place] 1,250 mcg 00 BY ORAL Medical (50,000 ROUTE. Branch unit) capsule ergocalcife 2023-0 Yes TAKE 1 Univ ers rol, 2-24 CAPSULE ity of vitamin d2, 00:00: EVERY WEEK [place] 1,250 mcg 00 BY ORAL Medical (50,000 ROUTE. Branch unit) capsule ergocalcife 2023-0 Yes TAKE 1 Univ ers rol, 2-24 CAPSULE ity of vitamin d2, 00:00: EVERY WEEK [place] 1,250 mcg 00 BY ORAL Medical (50,000 ROUTE. Branch unit) capsule ergocalcife 2023-0 Yes TAKE 1 Univ ers rol, 2-24 CAPSULE ity of vitamin d2, 00:00: EVERY WEEK [place] 1,250 mcg 00 BY ORAL Medical (50,000 ROUTE. Branch unit) capsule ergocalcife 2023-0 Yes TAKE 1 Univ ers rol, 2-24 CAPSULE ity of vitamin d2, 00:00: EVERY WEEK [place] 1,250 mcg 00 BY ORAL Medical (50,000 ROUTE. Branch unit) capsule ergocalcife 2023-0 Yes TAKE 1 Univ ers rol, 2-24 CAPSULE ity of vitamin d2, 00:00: EVERY WEEK [place] 1,250 mcg 00 BY ORAL Medical (50,000 ROUTE. Branch unit) capsule ergocalcife 2023-0 2023- No TAKE 1 Uni vers rol, 2-24 10-23 CAPSULE ity of vitamin d2, 00:00: 00:00 EVERY WEEK [place] 1,250 mcg 00 :00 BY ORAL Medical (50,000 ROUTE. Branch unit) capsule ergocalcife 2023-0 2023- No TAKE 1 Uni vers rol, 2-24 10-23 CAPSULE ity of vitamin d2, 00:00: 00:00 EVERY WEEK [place] 1,250 mcg 00 :00 BY ORAL Medical (50,000 ROUTE. Branch unit) capsule No known 2021-10 No No known Unive rs medications 1-29 medication it y of 08:54: s [place] 34 Medical Branch rho(D) 2021-10 Yes 300ug 300 mcg, Univer s immune 0-14 Intramuscu ity of globulin 03:48: lar, ONCE, [place] (RHOGAM) 41 For 1 Medical syringe 300 dose, Branch mcg Conditiona l, Routine ibuprofen 2021-10 Yes 600mg 600 mg, Univ ers (IBU) 0-14 Oral, ity of tablet 600 03:48: Q6HPRN, [place] mg 37 Starting Medical on [facility] Branch 07/30/22 at 2248, Until Discontinu ed, Routine, Pain (scale 4-6) acetaminoph 2021-10 Yes 650mg 650 mg, Un terrell en 0-14 Oral, ity of (TYLENOL) 03:48: Q6HPRN, [place] tablet 650 37 Starting Medic al mg on [facility] Branch 07/30/22 at 2248, Until Discontinu ed, Routine, Pain (scale 1-3) diphenhydrA 2021-10 Yes 25mg 25 mg, Univ ers MINE 0-14 Oral, ity of (BENADRYL) 03:48: Q6HPRN, [place] tablet 25 37 Starting Medica l mg on [facility] Branch 07/30/22 at 2248, Until Discontinu ed, Routine, Sleep, Itching ondansetron 2021-10 Yes 4mg 4 mg, Slow Univers (ZOFRAN 0-14 IV Push, ity of (PF)) 03:48: Q8HPRN, [place] injection 4 37 Starting Medi shirley mg on [facility] Branch 07/30/22 at 2248, Until Discontinu ed, Routine, Nausea and Vomiting (N/V) simethicone 2021-10 Yes 160mg 160 mg, Un terrell (GAS RELIEF 0-14 Oral, ity of (SIMETHICON 03:48: PC+HSPRN, [place] E)) 37 Starting Medical chewable on [facility] tablet 160 07/30/22 mg at 2248, Until Discontinu ed, Routine, Gas docusate 2021-10 Yes 200mg 200 mg, Unive rs (COLACE) 0-14 Oral, ity of capsule 200 03:48: Sruthi ANGULO mg 37 Starting Medical on [facility] Branch 07/30/22 at 2248, Until Discontinu ed, Routine, Constipati on magnesium 2021-10 Yes 30mL 30 mL, Univer s hydroxide 0-14 Oral, ity of (MILK OF 03:48: QDAILYPRN, [place] MAGNESIA) 37 Starting Medica l 400 mg/5 mL on [facility] Branch suspension 07/30/22 30 mL at 2248, Until Discontinu ed, Routine, Constipati on benzocaine- 2021-10 Yes Topical, Un terrell menthol 0-14 PRN, ity of (DERMOPLAST 03:48: [place] ) 20-0.5 % 36 on [facility] Medical topical 07/30/22 Branch spray at 2248, Until Discontinu ed, Routine, Perineum discomfort oxytocin 2021-10- No 600mL/h 600 mL/hr, Univers (PITOCIN) 0-14 10-14 IV ity of 30 units in 00:53: 03:48 Infusion, [place] NS 500 mL 42 :39 PRN, For Medica l IV infusion post Branch delivery uterine atony., Starting on [facility] 07/30/[address] at 600 mL/hr for 1 hr then 150 mL/hr for 1 hr.
oxytocin 2021-10- No 300mL/h 300 mL/hr, Univers (PITOCIN) 0-14 10-14 IV ity of 30 units in 00:53: 03:48 Infusion, [place] NS 500 mL 42 :39 SEE-INSTRU Medi shirley IV infusion CTIONS, Branc h Starting on [facility] 07/30/[address] at 300 mL/hr for 1 hr then 150 mL/hr for 1 hr. & nbsp; For post delivery uterotonic
2021-10 Yes [id number] 1{tbl} Take 1 U nivers [id number] 0-14 tablet by ity of fum-folic 00:00: [place] () 00 the Medical 27 mg iron- morning. Bran ch 1 mg folic tablet docusate 2021-10 Yes [id number] 200mg Take 2 Un terrell 100 mg 0-14 capsules ity of capsule 00:00: by mouth [place] 00 once daily Medical as needed Branch for Constipati on. ferrous 2021-10 Yes [id number] 325mg Take 1 Uni vers sulfate 325 0-14 tablet by ity of mg (65 mg 00:00: mouth [place] iron) 00 the Medical tablet morning Branch and 1 tablet in the evening. ibuprofen 2021-10 Yes [id number] 600mg Take 1 U nivers 600 mg 0-14 tablet by ity of tablet 00:00: mouth [place] 00 every 6 Medical (six) Branch hours as needed (Pain). Take with food or milk. 2021-10 Yes [id number] 1{tbl} Take 1 U nivers [id number] 0-14 tablet by ity of fum-folic 00:00: [place] () 00 the Medical 27 mg iron- morning. Bran ch 1 mg folic tablet docusate 2021-10 Yes [id number] 200mg Take 2 Un terrell 100 mg 0-14 capsules ity of capsule 00:00: by mouth [place] 00 once daily Medical as needed Branch for Constipati on. ferrous 2021-10 Yes [id number] 325mg Take 1 Uni vers sulfate 325 0-14 tablet by ity of mg (65 mg 00:00: mouth [place] iron) 00 the Medical tablet morning Branch and 1 tablet in the evening. ibuprofen 2021-10 Yes [id number] 600mg Take 1 U nivers 600 mg 0-14 tablet by ity of tablet 00:00: mouth [place] 00 every 6 Medical (six) Branch hours as needed (Pain). Take with food or milk. 2021-10 Yes [id number] 1{tbl} Take 1 U nivers [id number] 0-14 tablet by ity of fum-folic 00:00: [place] () 00 the Medical 27 mg iron- morning. Bran ch 1 mg folic tablet docusate 2021-10 Yes [id number] 200mg Take 2 Un terrell 100 mg 0-14 capsules ity of capsule 00:00: by mouth [place] 00 once daily Medical as needed Branch for Constipati on. ferrous 2021-10 Yes [id number] 325mg Take 1 Uni vers sulfate 325 0-14 tablet by ity of mg (65 mg 00:00: mouth [place] iron) 00 the Medical tablet morning Branch and 1 tablet in the evening. ibuprofen 2021-10 Yes [id number] 600mg Take 1 U nivers 600 mg 0-14 tablet by ity of tablet 00:00: mouth [place] 00 every 6 Medical (six) Branch hours as needed (Pain). Take with food or milk. 2021-10 Yes [id number] 1{tbl} Take 1 U nivers [id number] 0-14 tablet by ity of fum-folic 00:00: mouth [place] () 00 the Medical 27 mg iron- morning. Bran ch 1 mg folic tablet docusate 2021-10 Yes [id number] 200mg Take 2 Un terrell 100 mg 0-14 capsules ity of capsule 00:00: by mouth [place] 00 once daily Medical as needed Branch for Constipati on. ferrous 2021-10 Yes [id number] 325mg Take 1 Uni vers sulfate 325 0-14 tablet by ity of mg (65 mg 00:00: mouth [place] iron) 00 the Medical tablet morning Branch and 1 tablet in the evening. ibuprofen 2021-10 Yes [id number] 600mg Take 1 U nivers 600 mg 0-14 tablet by ity of tablet 00:00: mouth [place] 00 every 6 Medical (six) Branch hours as needed (Pain). Take with food or milk. 2021-10 Yes [id number] 1{tbl} Take 1 U nivers [id number] 0-14 tablet by ity of fum-folic 00:00: [place] () 00 the Medical 27 mg iron- morning. Bran ch 1 mg folic tablet docusate 2021-10 Yes [id number] 200mg Take 2 Un terrell 100 mg 0-14 capsules ity of capsule 00:00: by mouth [place] 00 once daily Medical as needed Branch for Constipati on. ferrous 2021-10 Yes [id number] 325mg Take 1 Uni vers sulfate 325 0-14 tablet by ity of mg (65 mg 00:00: mouth [place] iron) 00 the Medical tablet morning Branch and 1 tablet in the evening. ibuprofen 2021-10 Yes [id number] 600mg Take 1 U nivers 600 mg 0-14 tablet by ity of tablet 00:00: mouth [place] 00 every 6 Medical (six) Branch hours as needed (Pain). Take with food or milk. 2021-10- No [id number] 1{tbl} Take 1 Univers [id number] 0-14 11-29 tablet by it y of fum-folic 00:00: 00:00 mouth in [place] () 00 :00 the Medical 27 mg iron- morning. Bran ch 1 mg folic tablet docusate 2021-10- No [id number] 200mg Take 2 U nivers 100 mg 0-14 11-29 capsules ity of capsule 00:00: 00:00 by mouth [place] 00 :00 once daily Medical as needed Branch for Constipati on. ferrous 2021-10- No [id number] 325mg Take 1 Un terrell sulfate 325 0-14 11-29 tablet by it y of mg (65 mg 00:00: 00:00 mouth in [place] iron) 00 :00 the Medical tablet morning Branch and 1 tablet in the evening. ibuprofen 2021-10- No [id number] 600mg Take 1 Univers 600 mg 0-14 11-29 tablet by ity of tablet 00:00: 00:00 mouth [place] 00 :00 every 6 Medical (six) Branch hours as needed (Pain). Take with food or milk. 2021-10- No [id number] 1{tbl} Take 1 Univers [id number] 0-14 11-29 tablet by it y of fum-folic 00:00: 00:00 mouth in [place] () 00 :00 the Medical 27 mg iron- morning. Bran ch 1 mg folic tablet docusate 2021-10- No [id number] 200mg Take 2 U nivers 100 mg 0-14 11-29 capsules ity of capsule 00:00: 00:00 by mouth [place] 00 :00 once daily Medical as needed Branch for Constipati on. ferrous 2021-10- No [id number] 325mg Take 1 Un [place] sulfate 325 0-14 11-29 tablet by it y of mg (65 mg 00:00: 00:00 mouth in [place] iron) 00 :00 the Medical tablet morning Branch and 1 tablet in the evening. ibuprofen 2021-10- No [id number] 600mg Take 1 Univers 600 mg 0-14 11-29 tablet by ity of tablet 00:00: 00:00 mouth [place] 00 :00 every 6 Medical (six) Branch hours as needed (Pain). Take with food or milk. ampicillin 2021-10 No 2g 2,000 mg Un terrell (POLYCILLIN 07-31 (2 g), IV it y of -N) 2,000 22:30: 03:48 Piggyback, [place] mg in NaCl 00 :39 Q6H ABX, 4 Med ical 0.9% (NS) doses, Branch 100 mL First dose MINI-BAG on Wed07/30/22 at 1730, Last dose on Wed07/31/22 at 1130, Administer over 30 Minutes, 100 mL
Reas on for Anti-Infec tive: Empiric Therapy for Suspected Infection< br>Empiric Therapy Site: Pelvic
Duration of therapy: 72 hours tobramycin 2021-10 No 270mg 270 mg, IV Univers (NEBCIN) 007-30 Piggyback, ity of 270 mg in 22:30: 23:01 Q24H ABX, [place] NaCl 0.9% 00 :29 1 dose, Medical (NS) First dose Branch piggyback on Shr[facility] 07/30/22 at 1730, Administer over 30 Minutes, 50 mL
Reas on for Anti-Infec tive: Empiric Therapy for Suspected Infection< br>Empiric Therapy Site: Pelvic
Duration of therapy: 72 hours acetaminoph 2021-10 No 1000mg 1,000 mg, Univers en 07-31 Oral, ity of (TYLENOL) 21:33: 03:48 Q8HPRN, [place] tablet 11 :39 Starting Medical 1,000 mg on [facility] Branch 07/30/22 at 1633, Until Shr[facility] 07/30/22 at 2248, Routine, Temp > 38.5 C ondansetron 2021-10 No 4mg 4 mg, Slow Univers (ZOFRAN 07-30 IV Push, ity of (PF)) 21:00: 20:12 ONCE, On [place] injection 4 00 :00 [facility] Medical mg 07/30/22 Branch at 1600, For 1 dose
Do ses of ondansetro n 16 mg and above need to be administer ed via IV piggyback. For Dose >=24mg ECG monitoring is advisable.
acetaminoph 2021-10 No 650mg 650 mg, U nivers en 07-30 Oral, ity of (TYLENOL) 18:45: 17:57 ONCE, 1 [place] tablet 650 00 :00 dose, On Medic al mg [facility] Branch 07/30/22 at 1345, Routine terbutaline 2021-10 No .25mg 0.25 mg, Univers (BRETHINE) 07-30 Subcutaneo it y of injection 18:39: 18:43 us, ONCE, [place] 0.25 mg 00 :00 1 dose, On Medica l [facility] Branch 07/30/22 at 1345, MATIAS amnioinfusi 2021-10 No 1000mL at 750 U nivers on IV 07-30 mL/hr, ity of infusion 17:00: 16:45 Intrauteri [place] via GRAVITY 00 :00 ne, ONCE, Med ical 0.9 NaCL 1 dose, On Branc h 1,000 mL [facility] 07/30/22 at 1200, MATIAS
In fuse via gravity 750 ml over 1 hour.&nbsp ; Once 750 mL has been infused, the infusion may be discontinu ed or decreased to 100 mL/hr until the liter is complete.& nbsp;&nbsp ;Notify Business Economist if uterine resting tone exceeds 25 mmHg at any time during the amnioinfus ion. Obst etrics (DAVID) Aminoinfus ion Orders
ropivacaine 2021-10 No Epidural, Univers 0.2 % 07-31 CONTINUOUS ity of (NAROPIN 14:56: 02:16 PRNDorena, [place] ()) 00 :48 Starting Medical epidural on [facility] Branch infusion 07/30/22 at 0956, Until Discontinu ed, Routine, Intra-op ropivacaine 2021-10 No Epidural, Univers 0.2 % 007-31 CONTINUOUS ity of (NAROPIN 14:56: 02:16 PRNDorena, [place] ()) 00 :48 Starting Medical epidural on [facility] Branch infusion 07/30/22 at 0956, Until Discontinu ed, Routine, Intra-op lidocaine-e 2021-10- No Intraderma Univers pinephrine 0-13 10-14 l, ONCE ity o f (XYLOCAINE 14:55: 02:16 INTRA [place] W/EPINEPHRI 00 :48 PROCEDURE, Me dical NE) 1.5 Starting Branch %-1:200,000 on [facility] injection 07/30/22 at 0955, Until Discontinu ed, Routine, Intra-op lidocaine-e 2021-10- No Intraderma Univers pinephrine 0-13 10-14 l, ONCE ity o f (XYLOCAINE 14:55: 02:16 INTRA [place] W/EPINEPHRI 00 :48 PROCEDURE, Me dical NE) 1.5 Starting Branch %-1:200,000 on [facility] injection 07/30/22 at 0955, Until Discontinu ed, Routine, Intra-op lidocaine 2021-10- No Infiltrati U nivers in 0-13 10-14 on, ONCE ity of NaCl,iso-os 14:54: 02:16 INTRA [place] mo(PF) 100 00 :48 PROCEDURE, Med ical mg/10 mL (1 Starting Bran ch %) on [facility] injection 07/30/22 syringe at 0954, Until Discontinu ed, Routine, Intra-op lidocaine 2021-10- No Infiltrati U nivers in 0- 10-14 on, ONCE ity of NaCl,iso-os 14:54: 02:16 INTRA [place] mo(PF) 100 00 :48 PROCEDURE, Med ical mg/10 mL (1 Starting Bran ch %) on [facility] injection 07/30/22 syringe at 0954, Until Discontinu ed, Routine, Intra-op [id number] IV 2021-10- No 1000mL at 1-125 U nivers infusion 0-13 10-14 mL/hr, IV ity o f 1,000 mL 13:16: 03:48 Infusion, [place] 05 :39 TITRATE, [facility] Starting Branch on Shruti 07/30/22 at 0816, Until Shr[facility] 07/30/22 at 2248, Routine No known 2021-10 No No known Unive rs medications 0-13 medication it y of 08:15: s [place] [id number] Medical Branch No known 2021-10 No No known Unive rs medications 0-13 medication it y of 08:15: s [place] 56 [facility] Branch acetaminoph 2021-10- No 1000mg 1,000 mg, Univers en 0-05 10-05 Oral, ity of (TYLENOL) 04:36: 04:43 ONCE, 1 [place] tablet 00 :00 dose, On Medical 1,000 mg Tue Branch 07/21/22 at 2345, Routine No known No No known Unive rs medications 9- medication it y of 13:40: s [place] 13 [facility] No known 0 No No known Unive rs medications - medication it y of 13:40: s [address] No known No No known Unive rs medications - medication it y of 13:40: s [address] No known No No known Unive rs medications - medication it y of 13:40: s [address] docusate 2020-10- No [id number] 240mg Take 1 Univers calcium 240 11-26 capsule by i ty of mg capsule 00:00: 00:00 mouth once [place] 00 :00 daily as Medical needed for Branch Constipati on. ferrous 2020-10- No [id number] 325mg Take 1 U nivers sulfate 325 11-26 tablet by it y of mg (65 mg 00:00: 00:00 mouth 2 [place] iron) 00 :00 (two) Medical tablet times Branch daily. ibuprofen 2020-10- No [id number] 600mg Take 1 Univers 600 mg 11-26 tablet by ity of tablet 00:00: 00:00 mouth [place] 00 :00 every 6 Medical (six) Branch hours as needed (Pain). Take with food or milk. tretinoin 2020- No Apply to Uni vers 0.025 % 05-19 area(s) at ity o f cream 13:49: 00:00 bedtime. [place] 49 :00 Last taken Medical 01/19/2021 Branch clindamycin 2020- No Apply to U nivers 1 % topical 05-19 area(s) 2 it y of solution 13:49: 00:00 (two) [place] 43 :00 times Medical daily. Branch Last taken 01/19/2021 doxycycline 2020-0 2020- No 100mg Take 100 Univers 100 mg EC 05-19 08-02 mg by ity of tablet 13:49: 00:00 mouth 2 [place] 40 :00 (two) Medical times Branch daily. Last taken 01/19/2021 PNV 67-iron 2020-0 2020- No [id number] 1{each} Take 1 Univers ps-folate 7-02 26- Each by ity of no.1-dha 00:00: 00:00 mouth [place] (VITAFOL 00 :00 daily. Medical ULTRA) 29 Branch mg iron- 1 mg-200 mg Cap Immunizations Ordered Immunization Filled Date Status Comments Sour ce Name Immunization Name [facility] 2023-06-25 Completed University of 00:00:00 [facility] TD 2023-06-22 Completed University of 00:00:00 [facility] 2023-06-22 Completed [facility] University of 00[facility]00:00 [facility] TDAP 2023-06-22 Completed University of 00:00:00 [facility] TDAP 2023-06-22 Completed [facility] Com[facility] University of 00:00:00 [facility] TDAP 2023-06-22 Completed University of 00:00:00 [facility] TD 2023-06-22 Completed University of 00:00:00 [facility] HPV9 2022-11-24 Completed University of 00:00:00 [facility] HPV9 2022-11-24 Completed University of 00:00:00 [facility] HPV9 2022-11-24 Completed University of 00:00:00 [facility] [place] [facility] 2022-11-24 Completed University of 00:00:00 [facility] [place] [facility] 2022-11-24 Completed University of 00:00:00 [facility] [place] [facility] 2022-11-24 Completed University of 00:00:00 [facility] [place] [facility] 2022-11-24 Completed University of 00:00:00 [facility] [place] [facility] 2022-11-24 Completed University of 00:00:00 [facility] [place] [facility] 2022-11-24 Completed University of 00:00:00 [facility] [place] [facility] 2022-11-24 Completed University of 00:00:00 [place] [facility] HPV9 2022-11-24 Completed University of 00:00:00 [place] [facility] HPV9 2022-11-24 Completed University of 00:00:00 [place] [facility] HPV9 2022-11-24 Completed University of 00:00:00 [place] [facility] HPV9 2022-11-24 Completed University of 00:00:00 [place] [facility] HPV9 2022-11-24 Completed University of 00:00:00 [place] [facility] HPV9 2022-11-24 Completed University of 00:00:00 [place] [facility] HPV9 2022-11-24 Completed University of 00:00:00 [place] [facility] HPV9 2022-11-24 Completed University of 00:00:00 [place] [facility] HPV9 2022-11-24 Completed University of 00:00:00 [place] [facility] HPV9 2022-11-24 Completed University of 00:00:00 [place] [facility] HPV9 2022-11-24 Completed University of 00:00:00 [place] [facility] HPV9 2022-11-24 Completed University of 00:00:00 [place] [facility] HPV9 2022-11-24 Completed University of 00:00:00 [place] [facility] HPV9 2022-11-24 Completed University of 00:00:00 [place] [facility] HPV9 2022-11-24 Completed University of 00:00:00 [place] [facility] HPV9 2022-11-24 Completed University of 00:00:00 [place] [facility] HPV9 2022-11-24 Completed University of 00:00:00 [place] [facility] HPV9 2022-11-24 Completed University of 00:00:00 [place] [facility] HPV9 2022-11-24 Completed University of 00:00:00 [place] [facility] HPV9 2022-11-24 Completed University of 00:00:00 [place] [facility] HPV9 2022-11-24 Completed University of 00:00:00 [place] [facility] HPV9 2022-11-24 Completed University of 00:00:00 [place] [facility] HPV9 2022-11-24 Completed University of 00:00:00 [place] [facility] HPV9 2022-11-24 Completed University of 00:00:00 [place] [facility] HPV9 2022-11-24 Completed [facility] 00[facility]:00 [facility] HPV9 2022-11-24 Completed [facility] 00:00:00 [facility] HPV9 2022-11-24 Completed [facility] 00:00:00 [facility] HPV9 2022-11-24 Completed [facility] 00[facility]00:00 [facility] HPV9 2022-11-24 Completed [facility] 00:00:00 [facility] HPV9 2022-11-24 Completed [facility] 00:00:00 [facility] HPV9 2022-11-24 Completed [facility] 00:00:00 [facility] HPV9 2022-11-24 Completed [facility] 00:00:00 [facility] HPV9 2022-11-24 Completed [facility] 00:00:00 [facility] HPV9 2022-11-24 Completed [facility] 00:00:00 [facility] HPV9 2022-11-24 Completed [facility] 00:00:00 [facility] HPV9 2022-11-24 Completed [facility] 00:00:00 [facility] HPV9 2022-11-24 Completed [facility] 00[facility]00:00 [facility] HPV9 2022-11-24 Completed [facility] 00:00:00 [facility] HPV9 2022-11-24 Completed [facility] 00:00:00 [facility] HPV9 2022-11-24 Completed [facility] 00:00:00 [facility] TDAP 2022-06-03 Completed [facility] 00:00:00 [facility] TDAP 2022-06-03 Completed [facility] 00:00:00 [facility] TDAP 2022-06-03 Completed [facility] 00:00:00 [facility] TDAP 2022-06-03 Completed [facility] 00[facility]00:00 [facility] TDAP 2022-06-03 Completed [facility] 00:00:00 [facility] TDAP 2022-06-03 Completed [facility] 00:00:00 [facility] TDAP 2022-06-03 Completed [facility] 00:00:00 [facility] TDAP 2022-06-03 Completed [facility] 00:00:00 [facility] TDAP 2022-06-03 Completed [facility] 00[facility]00:00 [facility] TDAP 2022-06-03 Completed [facility] 00:00:00 [facility] TDAP 2022-06-03 Completed [facility] 00:00:00 [facility] TDAP 2022-06-03 Completed [facility] 00:00:00 [facility] TDAP 2022-06-03 Completed [facility] 00:00:00 [facility] TDAP 2022-06-03 Completed [facility] 00:00:00 [facility] TDAP 2022-06-03 Completed [facility] 00:00:00 [facility] TDAP 2022-06-03 Completed [facility] 00:00:00 [facility] TDAP 2022-06-03 Completed [facility] 00:00:00 [facility] TDAP 2022-06-03 Completed [facility] 00:00:00 [facility] TDAP 2022-06-03 Completed [facility] 00:00:00 [facility] TDAP 2022-06-03 Completed [facility] 00:00:00 [facility] TDAP 2022-06-03 Completed [facility] 00:00:00 [facility] TDAP 2022-06-03 Completed [facility] 00:00:00 [facility] TDAP 2022-06-03 Completed [facility] 00:00:00 [facility] TDAP 2022-06-03 Completed [facility] 00:00:00 [facility] TDAP 2022-06-03 Completed [facility] 00:00:00 [facility] TDAP 2022-06-03 Completed [facility] 00:00:00 [facility] TDAP 2022-06-03 Completed [facility] 00:00:00 [facility] TDAP 2022-06-03 Completed [facility] 00:00:00 [facility] TDAP 2022-06-03 Completed [facility] 00[facility]00:00 [facility] TDAP 2022-06-03 Completed [facility] 00:00:00 [facility] TDAP 2022-06-03 Completed [facility] 00:00:00 [facility] TDAP 2022-06-03 Completed [facility] 00:00:00 [facility] TDAP 2022-06-03 Completed [facility] 00:00:00 [facility] TDAP 2022-06-03 Completed [facility] 00:00:00 [facility] TDAP 2022-06-03 Completed [facility] 00:00:00 [facility] TDAP 2022-06-03 Completed [facility] 00:00:00 [facility] TDAP 2022-06-03 Completed [facility] 00:00:00 [facility] TDAP 2022-06-03 Completed [facility] 00:00:00 [facility] TDAP 2022-06-03 Completed [facility] 00:00:00 [facility] TDAP 2022-06-03 Completed [facility] 00:00:00 [facility] TDAP 2022-06-03 Completed [facility] 00:00:00 [facility] TDAP 2022-06-03 Completed [facility] 00:00:00 [facility] TDAP 2022-06-03 Completed [facility] 00:00:00 [facility] TDAP 2022-06-03 Completed [facility] 00:00:00 [facility] TDAP 2022-06-03 Completed [facility] 00:00:00 [facility] TDAP 2022-06-03 Completed [facility] 00:00:00 [facility] TDAP 2022-06-03 Completed [facility] 00:00:00 [facility] TDAP 2022-06-03 Completed [facility] 00:00:00 [facility] TDAP 2022-06-03 Completed [facility] 00:00:00 [facility] TDAP 2022-06-03 Completed [facility] 00:00:00 [facility] TDAP 2022-06-03 Completed [facility] 00:00:00 [facility] TDAP 2022-06-03 Completed [facility] 00:00:00 [facility] TDAP 2022-06-03 Completed [facility] 00:00:00 [facility] TDAP 2022-06-03 Completed [facility] 00:00:00 [facility] TDAP 2022-06-03 Completed [facility] 00:00:00 [facility] TDAP 2022-06-03 Completed [facility] 00:00:00 [facility] TDAP 2022-06-03 Completed [facility] 00:00:00 [facility] TDAP 2022-06-03 Completed [facility] 00:00:00 [facility] TDAP 2022-06-03 Completed [facility] 00:00:00 [facility] TDAP 2022-06-03 Completed [facility] 00:00:00 [facility] TDAP 2022-06-03 Completed [facility] 00:00:00 [facility] TDAP 2022-06-03 Completed [facility] 00:00:00 [facility] TDAP 2022-06-03 Completed [facility] 00:00:00 [facility] TDAP 2022-06-03 Completed [facility] 00:00:00 [facility] TDAP 2022-06-03 Completed [facility] 00:00:00 [facility] HPV9 2021-11-05 Completed [facility] 00:00:00 [facility] HPV9 2021-11-05 Completed [facility] 00:00:00 [facility] HPV9 2021-11-05 Completed [facility] 00:00:00 [facility] HPV9 2021-11-05 Completed [facility] 00:00:00 [facility] HPV9 2021-11-05 Completed [facility] 00:00:00 [facility] HPV9 2021-11-05 Completed [facility] 00:00:00 [facility] HPV9 2021-11-05 Completed [facility] 00:00:00 [facility] HPV9 2021-11-05 Completed [facility] 00:00:00 [facility] HPV9 2021-11-05 Completed [facility] 00:00:00 [facility] HPV9 2021-11-05 Completed [facility] 00:00:00 [facility] HPV9 2021-11-05 Completed [facility] 00:00:00 [facility] HPV9 2021-11-05 Completed [facility] 00:00:00 [facility] HPV9 2021-11-05 Completed [facility] 00:00:00 [facility] HPV9 2021-11-05 Completed [facility] 00:00:00 [facility] HPV9 2021-11-05 Completed [facility] 00:00:00 [facility] HPV9 2021-11-05 Completed [facility] 00:00:00 [facility] HPV9 2021-11-05 Completed [facility] 00:00:00 [facility] HPV9 2021-11-05 Completed [facility] 00:00:00 [facility] HPV9 2021-11-05 Completed [facility] 00:00:00 [facility] HPV9 2021-11-05 Completed [facility] 00:00:00 [facility] HPV9 2021-11-05 Completed [facility] 00[facility]00:00 [facility] HPV9 2021-11-05 Completed [facility] 00:00:00 [facility] HPV9 2021-11-05 Completed [facility] 00:00:00 [facility] HPV9 2021-11-05 Completed [facility] 00:00:00 [facility] HPV9 2021-11-05 Completed [facility] 00:00:00 [facility] HPV9 2021-11-05 Completed [facility] 00:00:00 [facility] HPV9 2021-11-05 Completed [facility] 00:00:00 [facility] HPV9 2021-11-05 Completed [facility] 00:00:00 [facility] HPV9 2021-11-05 Completed [facility] 00:00:00 [facility] HPV9 2021-11-05 Completed [facility] 00:00:00 [facility] HPV9 2021-11-05 Completed [facility] 00:00:00 [facility] HPV9 2021-11-05 Completed [facility] 00:00:00 [facility] HPV9 2021-11-05 Completed [facility] 00:00:00 [facility] HPV9 2021-11-05 Completed [facility] 00:00:00 [facility] HPV9 2021-11-05 Completed [facility] 00:00:00 [facility] HPV9 2021-11-05 Completed [facility] 00:00:00 [facility] HPV9 2021-11-05 Completed [facility] 00:00:00 [facility] HPV9 2021-11-05 Completed [facility] 00:00:00 [facility] HPV9 2021-11-05 Completed [facility] 00:00:00 [facility] HPV9 2021-11-05 Completed [facility] 00:00:00 [facility] HPV9 2021-11-05 Completed [facility] 00:00:00 [facility] HPV9 2021-11-05 Completed [facility] 00:00:00 [facility] HPV9 2021-11-05 Completed [facility] 00:00:00 [facility] HPV9 2021-11-05 Completed [facility] 00:00:00 [facility] HPV9 2021-11-05 Completed [facility] 00:00:00 [facility] HPV9 2021-11-05 Completed [facility] 00:00:00 [facility] HPV9 2021-11-05 Completed [facility] 00:00:00 [facility] HPV9 2021-11-05 Completed [facility] 00:00:00 [facility] HPV9 2021-11-05 Completed [facility] 00:00:00 [facility] HPV9 2021-11-05 Completed [facility] 00:00:00 [facility] HPV9 2021-11-05 Completed [facility] 00:00:00 [facility] HPV9 2021-11-05 Completed [facility] 00:00:00 [facility] HPV9 2021-11-05 Completed [facility] 00[facility]00:00 [facility] HPV9 2021-11-05 Completed [facility] 00:00:00 [facility] HPV9 2021-11-05 Completed [facility] 00:00:00 [facility] HPV9 2021-11-05 Completed [facility] 00:00:00 [facility] HPV9 2021-11-05 Completed [facility] 00:00:00 [facility] HPV9 2021-11-05 Completed [facility] 00:00:00 [facility] HPV9 2021-11-05 Completed [facility] 00:00:00 [facility] HPV9 2021-11-05 Completed [facility] 00:00:00 [facility] HPV9 2021-11-05 Completed [facility] 00:00:00 [facility] HPV9 2021-11-05 Completed [facility] 00:00:00 [facility] HPV9 2021-11-05 Completed [facility] 00:00:00 [facility] HPV9 2021-11-05 Completed [facility] 00:00:00 [facility] HPV9 2021-11-05 Completed [facility] 00:00:00 [facility] HPV9 2021-09-25 Completed [facility] 00[facility]00:00 [facility] HPV9 2021-09-25 Completed [facility] 00:00:00 [facility] HPV9 2021-09-25 Completed [facility] 00:00:00 [facility] HPV9 2021-09-25 Completed [facility] 00:00:00 [facility] HPV9 2021-09-25 Completed [facility] 00:00:00 [facility] HPV9 2021-09-25 Completed [facility] 00:00:00 [facility] HPV9 2021-09-25 Completed [facility] 00:00:00 [facility] HPV9 2021-09-25 Completed [facility] 00:00:00 [facility] HPV9 2021-09-25 Completed [facility] 00:00:00 [facility] HPV9 2021-09-25 Completed [facility] 00:00:00 [facility] HPV9 2021-09-25 Completed [facility] 00:00:00 [facility] HPV9 2021-09-25 Completed [facility] 00:00:00 [facility] HPV9 2021-09-25 Completed [facility] 00:00:00 [facility] HPV9 2021-09-25 Completed [facility] 00:00:00 [facility] HPV9 2021-09-25 Completed [facility] 00:00:00 [facility] HPV9 2021-09-25 Completed [facility] 00:00:00 [facility] HPV9 2021-09-25 Completed [facility] 00:00:00 [facility] HPV9 2021-09-25 Completed [facility] 00:00:00 [facility] HPV9 2021-09-25 Completed [facility] 00:00:00 [facility] HPV9 2021-09-25 Completed [facility] 00:00:00 [facility] HPV9 2021-09-25 Completed [facility] 00:00:00 [facility] HPV9 2021-09-25 Completed [facility] 00:00:00 [facility] HPV9 2021-09-25 Completed [facility] 00:00:00 [facility] HPV9 2021-09-25 Completed [facility] 00:00:00 [facility] HPV9 2021-09-25 Completed [facility] 00:00:00 [facility] HPV9 2021-09-25 Completed [facility] 00:00:00 [facility] HPV9 2021-09-25 Completed [facility] 00:00:00 [facility] HPV9 2021-09-25 Completed [facility] 00:00:00 [facility] HPV9 2021-09-25 Completed [facility] 00:00:00 [facility] HPV9 2021-09-25 Completed [facility] 00:00:00 [facility] HPV9 2021-09-25 Completed [facility] 00:00:00 [facility] HPV9 2021-09-25 Completed [facility] 00:00:00 [facility] HPV9 2021-09-25 Completed [facility] 00:00:00 [facility] HPV9 2021-09-25 Completed [facility] 00:00:00 [facility] HPV9 2021-09-25 Completed [facility] 00:00:00 [facility] HPV9 2021-09-25 Completed [facility] 00:00:00 [facility] HPV9 2021-09-25 Completed [facility] 00:00:00 [facility] HPV9 2021-09-25 Completed [facility] 00:00:00 [facility] HPV9 2021-09-25 Completed [facility] 00:00:00 [facility] HPV9 2021-09-25 Completed [facility] 00:00:00 [facility] HPV9 2021-09-25 Completed [facility] 00:00:00 [facility] HPV9 2021-09-25 Completed [facility] 00:00:00 [facility] HPV9 2021-09-25 Completed [facility] 00:00:00 [facility] HPV9 2021-09-25 Completed [facility] 00:00:00 [facility] HPV9 2021-09-25 Completed [facility] 00:00:00 [facility] HPV9 2021-09-25 Completed [facility] 00:00:00 [facility] HPV9 2021-09-25 Completed [facility] 00:00:00 [facility] HPV9 2021-09-25 Completed [facility] 00:00:00 [facility] HPV9 2021-09-25 Completed [facility] 00:00:00 [facility] HPV9 2021-09-25 Completed [facility] 00:00:00 [facility] HPV9 2021-09-25 Completed [facility] 00:00:00 [facility] HPV9 2021-09-25 Completed [facility] 00:00:00 [facility] HPV9 2021-09-25 Completed [facility] 00[facility]00:00 [facility] HPV9 2021-09-25 Completed [facility] 00:00:00 [facility] HPV9 2021-09-25 Completed [facility] 00:00:00 [facility] HPV9 2021-09-25 Completed [facility] 00:00:00 [facility] HPV9 2021-09-25 Completed [facility] 00:00:00 [facility] HPV9 2021-09-25 Completed [facility] 00:00:00 [facility] HPV9 2021-09-25 Completed [facility] 00:00:00 [facility] HPV9 2021-09-25 Completed [facility] 00:00:00 [facility] HPV9 2021-09-25 Completed [facility] 00:00:00 [facility] HPV9 2021-09-25 Completed [facility] 00:00:00 [facility] HPV9 2021-09-25 Completed [facility] 00:00:00 [facility] HPV9 2021-09-25 Completed [facility] 00:00:00 [facility] HPV9 2021-09-25 Completed [facility] 00[facility]00:00 [facility] Influenza Virus 2021-08-04 Completed [facility] 00:00:00 [facility] ABX Free Bran ch 6 MO-64 YRS Influenza Virus 2021-08-04 Completed [facility], 00:00:00 [facility] ABX Free Bran ch 6 MO-64 YRS Influenza Virus 2021-08-04 Completed [facility], 00:00:00 [facility] ABX Free Bran ch 6 MO-64 YRS Influenza Virus 2021-08-04 Completed [facility], 00:00:00 [facility] ABX Free Bran ch 6 MO-64 YRS Influenza Virus 2021-08-04 Completed [facility], 00:00:00 [facility] ABX Free Bran ch 6 MO-64 YRS Influenza Virus 2021-08-04 Completed [facility], 00:00:00 [facility] ABX Free Bran ch 6 MO-64 YRS Influenza Virus 2021-08-04 Completed [facility], 00:00:00 [facility] ABX Free Bran ch 6 MO-64 YRS Influenza Virus 2021-08-04 Completed [facility], 00:00:00 [facility] ABX Free Bran ch 6 MO-64 YRS Influenza Virus 2021-08-04 Completed [facility], 00:00:00 [facility] ABX Free Bran ch 6 MO-64 YRS Influenza Virus 2021-08-04 Completed [facility], 00:00:00 [facility] ABX Free Bran ch 6 MO-64 YRS Influenza Virus 2021-08-04 Completed [facility], 00:00:00 [facility] ABX Free Bran ch 6 MO-64 YRS Influenza Virus 2021-08-04 Completed [facility], 00:00:00 [facility] ABX Free Bran ch 6 MO-64 YRS Influenza Virus 2021-08-04 Completed [facility], 00:00:00 [facility] Pres[facility] ABX Free Bran ch 6 MO-64 YRS Influenza Virus 2021-08-04 Completed [facility], 00:00:00 [facility] ABX Free Bran ch 6 MO-64 YRS Influenza Virus 2021-08-04 Completed [facility], 00:00:00 [facility] ABX Free Bran ch 6 MO-64 YRS Influenza Virus 2021-08-04 Completed [facility], 00:00:00 [facility] ABX Free Bran ch 6 MO-64 YRS Influenza Virus 2021-08-04 Completed [facility], 00:00:00 [facility] ABX Free Bran ch 6 MO-64 YRS Influenza Virus 2021-08-04 Completed [facility], 00:00:00 [facility] ABX Free Bran ch 6 MO-64 YRS Influenza Virus 2021-08-04 Completed [facility], 00:00:00 [facility] ABX Free Bran ch 6 MO-64 YRS Influenza Virus 2021-08-04 Completed [facility], 00:00:00 [facility] Pres[facility] ABX Free Bran ch 6 MO-64 YRS Influenza Virus 2021-08-04 Completed [facility], 00:00:00 [facility] Pres[facility] ABX Free Bran ch 6 MO-64 YRS Influenza Virus 2021-08-04 Completed [facility], 00:00:00 [facility] Pres[facility] ABX Free Bran ch 6 MO-64 YRS Influenza Virus 2021-08-04 Completed [facility], 00:00:00 [facility] ABX Free Bran ch 6 MO-64 YRS Influenza Virus 2021-08-04 Completed [facility], 00:00:00 [facility] ABX Free Bran ch 6 MO-64 YRS Influenza Virus 2021-08-04 Completed [facility], 00:00:00 [facility] ABX Free Bran ch 6 MO-64 YRS Influenza Virus 2021-08-04 Completed [facility], 00:00:00 [facility] Pres[facility] ABX Free Bran ch 6 MO-64 YRS Influenza Virus 2021-08-04 Completed [facility], 00:00:00 [facility] ABX Free Bran ch 6 MO-64 YRS Influenza Virus 2021-08-04 Completed [facility], 00:00:00 [facility] ABX Free Bran ch 6 MO-64 YRS Influenza Virus 2021-08-04 Completed [facility], 00:00:00 [facility] ABX Free Bran ch 6 MO-64 YRS Influenza Virus 2021-08-04 Completed [facility], 00:00:00 [facility] ABX Free Bran ch 6 MO-64 YRS Influenza Virus 2021-08-04 Completed [facility], 00:00:00 [facility] Pres[facility] ABX Free Bran ch 6 MO-64 YRS Influenza Virus 2021-08-04 Completed [facility], 00:00:00 [facility] Pres[facility] ABX Free Bran ch 6 MO-64 YRS Influenza Virus 2021-08-04 Completed [facility], 00:00:00 [facility] Pres[facility] ABX Free Bran ch 6 MO-64 YRS Influenza Virus 2021-08-04 Completed [facility], 00:00:00 [facility] ABX Free Bran ch 6 MO-64 YRS Influenza Virus 2021-08-04 Completed [facility], 00:00:00 [facility] ABX Free Bran ch 6 MO-64 YRS Influenza Virus 2021-08-04 Completed [facility], 00:00:00 [facility] Pres[facility] ABX Free Bran ch 6 MO-64 YRS Influenza Virus 2021-08-04 Completed [facility], 00:00:00 [facility] Pres[facility] ABX Free Bran ch 6 MO-64 YRS Influenza Virus 2021-08-04 Completed [facility], 00:00:00 [facility] Preserv and ABX Free Bran ch 6 MO-64 YRS Influenza Virus 2021-08-04 Completed [facility], 00:00:00 [facility] Pres[facility] ABX Free Bran ch 6 MO-64 YRS Influenza Virus 2021-08-04 Completed [facility], 00:00:00 [facility] Preserv and ABX Free Bran ch 6 MO-64 YRS Influenza Virus 2021-08-04 Completed [facility], 00:00:00 [facility] Pres[facility] ABX Free Bran ch 6 MO-64 YRS Influenza Virus 2021-08-04 Completed [facility], 00:00:00 [facility] Pres[facility] and ABX Free Bran ch 6 MO-64 YRS Influenza Virus 2021-08-04 Completed [facility], 00:00:00 [facility] Pres[facility] and ABX Free Bran ch 6 MO-64 YRS Influenza Virus 2021-08-04 Completed [facility], 00:00:00 [facility] Pres[facility] and ABX Free Bran ch 6 MO-64 YRS Influenza Virus 2021-08-04 Completed [facility], 00:00:00 [facility] Pres[facility] and ABX Free Bran ch 6 MO-64 YRS Influenza Virus 2021-08-04 Completed [facility], 00:00:00 [facility] Preserv and ABX Free Bran ch 6 MO-64 YRS Influenza Virus 2021-08-04 Completed [facility], 00:00:00 [place] [facility] Pres[facility] and ABX Free Bran ch 6 MO-64 YRS Influenza Virus 2021-08-04 Completed [facility], 00:00:00 [place] [facility] Preserv and ABX Free Bran ch 6 MO-64 YRS Influenza Virus 2021-08-04 Completed [facility], 00:00:00 [place] [facility] Preserv and ABX Free Bran ch 6 MO-64 YRS Influenza Virus 2021-08-04 Completed [facility], 00:00:00 [place] [facility] Pres[facility] and ABX Free Bran ch 6 MO-64 YRS Influenza Virus 2021-08-04 Completed [facility], 00:00:00 [place] [facility] Preserv and ABX Free Bran ch 6 MO-64 YRS Influenza Virus 2021-08-04 Completed [facility], 00:00:00 [place] [facility] Preserv and ABX Free Bran ch 6 MO-64 YRS Influenza Virus 2021-08-04 Completed [facility], 00:00:00 [place] [facility] Preserv and ABX Free Bran ch 6 MO-64 YRS Influenza Virus 2021-08-04 Completed [facility], 00:00:00 [place] [facility] Pres[facility] and ABX Free Bran ch 6 MO-64 YRS Influenza Virus 2021-08-04 Completed [facility], 00:00:00 [facility] ABX Free Bran ch 6 MO-64 YRS Influenza Virus 2021-08-04 Completed [facility], 00:[facility]:00 [place] [facility] Preserv and ABX Free Bran ch 6 MO-64 YRS (FLUCELVAX) Influenza Virus 2021-08-04 Completed [facility], 00:00:00 [place] [facility] Preserv and ABX Free Bran ch 6 MO-64 YRS (FLUCELVAX) Influenza Virus 2021-08-04 Completed [facility], 00:00:00 [place] [facility] Preserv and ABX Free Bran ch 6 MO-64 YRS (FLUCELVAX) Influenza Virus 2021-08-04 Completed [facility], 00:00:00 [place] [facility] Preserv and ABX Free Bran ch 6 MO-64 YRS (FLUCELVAX) Influenza Virus 2021-08-04 Completed [facility], 00:00:00 [place] [facility] Preserv and ABX Free Bran ch 6 MO-64 YRS (FLUCELVAX) Influenza Virus 2021-08-04 Completed [facility], 00:00:00 [place] [facility] Preserv and ABX Free Bran ch 6 MO-64 YRS (FLUCELVAX) Influenza Virus 2021-08-04 Completed [facility], 00:00:00 [place] [facility] Preserv and ABX Free Bran ch 6 MO-64 YRS (FLUCELVAX) Influenza Virus 2021-08-04 Completed [facility], 00:00:00 [place] [facility] Preserv and ABX Free Bran ch 6 MO-64 YRS (FLUCELVAX) Influenza Virus 2021-08-04 Completed [facility], 00:00:00 [place] [facility] Preserv and ABX Free Bran ch 6 MO-64 YRS (FLUCELVAX) Influenza Virus 2021-08-04 Completed [facility], 00:00:00 [place] [facility] Preserv and ABX Free Bran ch 6 MO-64 YRS (FLUCELVAX) TDAP 2021-07-21 Completed [facility] 00:00:00 [facility] TDAP 2021-07-21 Completed [facility] 00:00:00 [facility] TDAP 2021-07-21 Completed [facility] 00:00:00 [facility] TDAP 2021-07-21 Completed [facility] 00:00:00 [facility] TDAP 2021-07-21 Completed [facility] 00:00:00 [facility] TDAP 2021-07-21 Completed [facility] 00:00:00 [facility] TDAP 2021-07-21 Completed [facility] 00:00:00 [facility] TDAP 2021-07-21 Completed [facility] 00:00:00 [facility] TDAP 2021-07-21 Completed [facility] 00:00:00 [facility] TDAP 2021-07-21 Completed [facility] 00:00:00 [facility] TDAP 2021-07-21 Completed [facility] 00:00:00 [facility] TDAP 2021-07-21 Completed [facility] 00:00:00 [facility] TDAP 2021-07-21 Completed [facility] 00:00:00 [facility] TDAP 2021-07-21 Completed [facility] 00:00:00 [facility] TDAP 2021-07-21 Completed [facility] 00:00:00 [facility] TDAP 2021-07-21 Completed [facility] 00:00:00 [facility] TDAP 2021-07-21 Completed [facility] 00:00:00 [facility] TDAP 2021-07-21 Completed [facility] 00:00:00 [facility] TDAP 2021-07-21 Completed [facility] 00:00:00 [facility] TDAP 2021-07-21 Completed [facility] 00:00:00 [facility] TDAP 2021-07-21 Completed [facility] 00:00:00 [facility] TDAP 2021-07-21 Completed [facility] 00:00:00 [facility] TDAP 2021-07-21 Completed [facility] 00:00:00 [facility] TDAP 2021-07-21 Completed [facility] 00:00:00 [facility] TDAP 2021-07-21 Completed [facility] 00:00:00 [facility] TDAP 2021-07-21 Completed [facility] 00:00:00 [facility] TDAP 2021-07-21 Completed [facility] 00:00:00 [facility] TDAP 2021-07-21 Completed [facility] 00:00:00 [facility] TDAP 2021-07-21 Completed [facility] 00:00:00 [facility] TDAP 2021-07-21 Completed [facility] 00:00:00 [facility] TDAP 2021-07-21 Completed [facility] 00:00:00 [facility] TDAP 2021-07-21 Completed [facility] 00:00:00 [facility] TDAP 2021-07-21 Completed [facility] 00:00:00 [facility] TDAP 2021-07-21 Completed [facility] 00:00:00 [facility] TDAP 2021-07-21 Completed [facility] 00:00:00 [facility] TDAP 2021-07-21 Completed [facility] 00:00:00 [facility] TDAP 2021-07-21 Completed [facility] 00:00:00 [facility] TDAP 2021-07-21 Completed [facility] 00:00:00 [facility] TDAP 2021-07-21 Completed [facility] 00:00:00 [facility] TDAP 2021-07-21 Completed [facility] 00:00:00 [facility] TDAP 2021-07-21 Completed [facility] 00:00:00 [facility] TDAP 2021-07-21 Completed [facility] 00:00:00 [facility] TDAP 2021-07-21 Completed [facility] 00:00:00 [facility] TDAP 2021-07-21 Completed [facility] 00:00:00 [facility] TDAP 2021-07-21 Completed [facility] 00:00:00 [facility] TDAP 2021-07-21 Completed [facility] 00:00:00 [facility] TDAP 2021-07-21 Completed [facility] 00:00:00 [facility] TDAP 2021-07-21 Completed [facility] 00:00:00 [facility] TDAP 2021-07-21 Completed [facility] 00:00:00 [facility] TDAP 2021-07-21 Completed [facility] 00:00:00 [facility] TDAP 2021-07-21 Completed [facility] 00:00:00 [facility] TDAP 2021-07-21 Completed [facility] 00:00:00 [facility] TDAP 2021-07-21 Completed [facility] 00:00:00 [facility] TDAP 2021-07-21 Completed [facility] 00:00:00 [facility] TDAP 2021-07-21 Completed [facility] 00:00:00 [facility] TDAP 2021-07-21 Completed [facility] 00:00:00 [facility] TDAP 2021-07-21 Completed [facility] 00:00:00 [facility] TDAP 2021-07-21 Completed [facility] 00:00:00 [facility] TDAP 2021-07-21 Completed [facility] 00:00:00 [facility] TDAP 2021-07-21 Completed [facility] 00:00:00 [facility] TDAP 2021-07-21 Completed [facility] 00:00:00 [facility] TDAP 2021-07-21 Completed [facility] 00:00:00 [facility] TDAP 2021-07-21 Completed [facility] 00:00:00 [facility] TDAP 2021-07-21 Completed [facility] 00:00:00 [facility] TDAP 2021-07-21 Completed [facility] 00:00:00 [facility] TDAP Unknown Completed [facility] Influenza Virus Unknown Completed [facility], [place] [facility] Preserv and ABX Free Bran ch 6 MO-64 YRS (FLUCELVAX) HPV[address] [facility] HPV[address] [facility] TDAP Unknown Completed [facility] HPV[address] [facility] TDAP Unknown Completed [facility] TDAP Unknown Completed [facility] Influenza Virus Unknown Completed [facility], [place] [facility] Preserv and ABX Free Bran ch 6 MO-64 YRS (FLUCELVAX) HPV[address] [facility] HPV[address] [facility] TDAP Unknown Completed [facility] HPV[address] [facility] TDAP Unknown Completed [facility] TDAP Unknown Completed [facility] Influenza Virus Unknown Completed [facility], [facility] [place] [facility] dical Preserv and ABX Free Bran ch 6 MO-64 YRS (FLUCELVAX) HPV[address] [facility] HPV[address] [facility] TDAP Unknown Completed [facility] HPV[address] [facility] TDAP Unknown Completed [facility] TDAP Unknown Completed [facility] Influenza Virus Unknown Completed [facility], [facility] [place] [facility] dical Preserv and ABX Free Bran ch 6 MO-64 YRS (FLUCELVAX) HPV[address] [facility] HPV[address] [facility] TDAP Unknown Completed [facility] HPV[address] [facility] TDAP Unknown Completed [facility] TDAP Unknown Completed [facility] Influenza Virus Unknown Completed [facility], [facility] [place] [facility] dical Preserv and ABX Free Bran ch 6 MO-64 YRS (FLUCELVAX) HPV[address] [facility] HPV[address] [facility] TDAP Unknown Completed [facility] HPV[address] [facility] TDAP Unknown Completed [facility] Influenza Virus Unknown Completed [facility], [facility] [place] [facility] dical Preserv and ABX Free Bran ch 6 MO-64 YRS (FLUCELVAX) DTaP, Unspecified Unknown Completed [facility] of Formulation [facility] DTaP, Unspecified Unknown Completed [facility] Formulation [facility] DTaP, Unspecified Unknown Completed [facility] Formulation [facility] DTaP, Unspecified Unknown Completed [facility] Formulation [facility] DTaP, Unspecified Unknown Completed [facility] Formulation [facility] Influenza Virus Unknown Completed [facility] .5 mL [facility] 6+ MO Branch (FLUZONE/FLULAVAL/FL UARIX) HEPATITIS A Unknown Completed [facility] HEPATITIS A Unknown Completed [facility] Hep B, Adol or Pedi Unknown Completed Unive rsity of Dosage [facility] Hep B, Adol or Pedi Unknown Completed Unive rsity of Dosage [facility] Hep B, Adol or Pedi Unknown Completed Unive rsity of Dosage [facility] HIB 4 Dose Schedule Unknown Completed Unive rsity [facility] HIB 4 Dose Schedule Unknown Completed [facility] [place] [facility] HIB 4 Dose Schedule [facility] Dose Schedule Unknown Completed Unive [facility] HPV[address] [facility] HPV[address] [facility] HPV Unknown Completed [facility] Meningococcal Unknown Completed [facility] (groups A, C, Y and Branc h W-135) conjugate vaccine (MCV4P) Meningococcal Unknown Completed [facility] (groups A, C, Y and Branc h W-135) conjugate vaccine (MCV4P) Meningococcal B, OMV Unknown [facility], OMV Unknown Completed [facility] MMR Unknown Completed [facility] MMR Unknown Completed [facility] Pneumococcal 7 Unknown Completed [facility] Conjugate, PCV7 [facility] [place] ical (Prevnar7) Branch IPV Unknown Completed [facility] IPV Unknown Completed [facility] IPV Unknown Completed [facility] IPV Unknown Completed [facility] TDAP Unknown Completed [facility] Varicella Unknown Completed [facility] (varivax)(chicken [place] [facility] pox) Branch Varicella Unknown Completed [facility] (varivax)(chicken [place] [facility] pox) Branch TDAP Unknown Completed [facility] Influenza Virus Unknown Completed [facility] , [place] [facility] Preserv and ABX Free Bran ch 6 MO-64 YRS (FLUCELVAX) HPV[address] [facility] HPV[address] [facility] TDAP Unknown Completed [facility] HPV[address] [facility] TDAP Unknown Completed [facility] Influenza Virus Unknown Completed [facility], [place] [facility] Preserv and ABX Free Bran ch 6 MO-64 YRS (FLUCELVAX) DTaP, Unspecified Unknown Completed [facility] ity of Formulation [facility] DTaP, Unspecified Unknown Completed [facility] of Formulation [facility] DTaP, Unspecified Unknown Completed [facility] of Formulation [facility] DTaP, Unspecified Unknown Completed [facility] of Formulation [facility] DTaP, Unspecified Unknown Completed [facility] Formulation [facility] Influenza Virus Unknown Completed [facility] .5 mL [facility] 6+ MO Branch (FLUZONE/FLULAVAL/FL UARIX) HEPATITIS A Unknown Completed [facility] HEPATITIS A Unknown Completed [facility] Hep B, Adol or Pedi Unknown Completed Unive rsity of Dosage [facility] Hep B, Adol or Pedi Unknown Completed Unive rsity of Dosage [facility] Hep B, Adol or Pedi Unknown Completed Unive rsity of Dosage [facility] HIB 4 Dose Schedule Unknown [facility] D[facility] 4 Dose Schedule Unknown [facility] 4 Dose Schedule [facility] [facility] HPV[address] [facility] HPV Unknown Completed [facility] Meningococcal Unknown Completed [facility] (groups A, C, Y and Branc h W-135) conjugate vaccine (MCV4P) Meningococcal Unknown Completed [facility] (groups A, C, Y and Branc h W-135) conjugate vaccine (MCV4P) Meningococcal B, OMV Unknown [facility], OMV [facility] M[facility] Unknown Completed [facility] MMR Unknown Completed [facility] Pneumococcal 7 Unknown Completed [facility], PCV7 [facility] [place] ical (Prevnar7) Branch IPV Unknown Completed [facility] IPV Unknown Completed [facility] IPV Unknown Completed [facility] IPV Unknown Completed [facility] TDAP Unknown Completed [facility] Varicella Unknown Completed [facility] (varivax)(chicken [place] [facility] pox) Branch Varicella Unknown Completed [facility] (varivax)(chicken [place] [facility] pox) Branch TDAP Unknown Completed [facility] Influenza Virus Unknown Completed [facility], [place] [facility] Preserv and ABX Free Bran ch 6 MO-64 YRS (FLUCELVAX) DTaP, Unspecified Unknown Completed [facility] Formulation [facility] DTaP, Unspecified Unknown Completed [facility] Formulation [facility] DTaP, Unspecified Unknown Completed [facility] Formulation [facility] DTaP, Unspecified Unknown Completed [facility] of Formulation [facility] DTaP, Unspecified Unknown Completed [facility] Formulation [facility] Influenza Virus Unknown Completed [facility] .5 mL [place] [facility] 6+ MO Branch (FLUZONE/FLULAVAL/FL UARIX) HEPATITIS A Unknown Completed [facility] HEPATITIS A Unknown Completed [facility] Hep B, Adol or Pedi Unknown Completed Unive rsity of Dosage [facility] Hep B, Adol or Pedi Unknown Completed Unive rsity of Dosage [facility] Hep B, Adol or Pedi Unknown Completed Unive rsity of Dosage [facility] HIB 4 Dose Schedule Unknown [facility] 4 Dose Schedule Unknown Completed Unive rsity [facility] HIB 4 Dose Schedule Unknown [facility] 4 Dose Schedule Unknown [facility] HPV[address] [facility] HPV[address] [facility] HPV Unknown Completed [facility] Meningococcal Unknown Completed [facility] (groups A, C, Y and Branc h W-135) conjugate vaccine (MCV4P) Meningococcal Unknown Completed [facility] (groups A, C, Y and Branc h W-135) conjugate vaccine (MCV4P) Meningococcal B, OMV Unknown [facility] Meningococcal B, OMV Unknown Completed Univ [facility] MMR Unknown Completed [facility] MMR Unknown Completed [facility] Pneumococcal 7 Unknown Completed [facility] Conjugate, PCV7 [facility] (Prevnar7) Branch IPV Unknown Completed [facility] IPV Unknown Completed [facility] IPV Unknown Completed [facility] IPV Unknown Completed [facility] TDAP Unknown Completed [facility] Varicella Unknown Completed [facility] (varivax)(chicken [place] [facility] pox) Branch Varicella Unknown Completed [facility] (varivax)(chicken [place] [facility] pox) Branch DTaP, Unspecified Unknown Completed [facility] of Formulation [facility] DTaP, Unspecified Unknown Completed [facility] of Formulation [facility] DTaP, Unspecified Unknown Completed [facility] of Formulation [facility] DTaP, Unspecified Unknown Completed [facility] of Formulation [facility] DTaP, Unspecified Unknown Completed [facility] Formulation [facility] Influenza Virus Unknown Completed [facility]ine [facility] .5 mL [facility] IM 6+ MO Branch (FLUZONE/FLULAVAL/FL UARIX) HEPATITIS A Unknown Completed [facility] HEPATITIS A Unknown Completed [facility] Hep B, Adol or Pedi Unknown Completed Unive rsity of Dosage [facility] Hep B, Adol or Pedi Unknown Completed Unive rsity of Dosage [facility] Hep B, Adol or Pedi Unknown Completed Unive rsity of Dosage [facility] HIB 4 Dose Schedule Unknown [facility] Dose Schedule Unknown [facility]IB 4 Dose Schedule Unknown [facility]IB 4 Dose Schedule Unknown [facility] HPV[address] [facility] HPV[address] [facility] HPV Unknown Completed [facility] Meningococcal Unknown Completed [facility] (groups A, C, Y and Branc h W-135) conjugate vaccine (MCV4P) Meningococcal Unknown Completed [facility] (groups A, C, Y and Branc h W-135) conjugate vaccine (MCV4P) Meningococcal B, OMV Unknown [facility] Meningococcal B, OMV [facility] MMR Unknown Completed [facility] MMR Unknown Completed [facility] Pneumococcal 7 Unknown Completed [facility], PCV7 [facility] [place] ica (Prevnar7) Branch IPV Unknown Completed [facility] IPV Unknown Completed [facility] IPV Unknown Completed [facility] IPV Unknown Completed [facility] TDAP Unknown Completed [facility] Varicella Unknown Completed [facility] (varivax)(chicken [place] [facility] pox) Branch Varicella Unknown Completed [facility] (varivax)(chicken [place] [facility] pox) Branch TDAP Unknown Completed [facility] Influenza Virus Unknown Completed [facility], [place] [facility] Preserv and ABX Free Bran ch 6 MO-64 YRS (FLUCELVAX) HPV[address] [facility] HPV[address] [facility] TDAP Unknown Completed [facility] HPV[address] [facility] TDAP Unknown Completed [facility] Influenza Virus Unknown Completed [facility], [place] [facility] Preserv and ABX Free Bran ch 6 MO-64 YRS (FLUCELVAX) DTaP, Unspecified Unknown Completed [facility] Form[facility] [place] [facility] DTaP, Unspecified Unknown Completed [facility] of Formulation [facility] DTaP, Unspecified Unknown Completed [facility] Formulation [facility] DTaP, Unspecified Unknown Completed [facility] of Formulation [facility] DTaP, Unspecified Unknown Completed [facility] Formulation [facility] Influenza Virus Unknown Completed [facility] Vaccine Quad .5 mL [facility] IM 6+ MO Branch (FLUZONE/FLULAVAL/FL UARIX) HEPATITIS A Unknown Completed [facility] HEPATITIS A Unknown Completed [facility] Hep B, Adol or Pedi Unknown Completed Unive rsity of Dosage [facility] Hep B, Adol or Pedi Unknown Completed Unive rsity of Dosage [facility] Hep B, Adol or Pedi Unknown Completed Unive rsity of Dosage [facility] HIB 4 Dose Schedule Unknown [facility] Dose Schedule [facility] 4 Dose Schedule Unknown [facility] 4 Dose Schedule Unknown [facility] [facility] HPV[address] [facility] HPV Unknown Completed [facility] Meningococcal Unknown Completed [facility] (groups A, C, Y and Branc h W-135) conjugate vaccine (MCV4P) Meningococcal Unknown Completed [facility] (groups A, C, Y and Branc h W-135) conjugate vaccine (MCV4P) Meningococcal B, OMV Unknown Completed Univ [facility] Meningococcal B, OMV Unknown Completed [facility] MMR Unknown Completed [facility] MMR Unknown Completed [facility] Pneumococcal 7 Unknown Completed [facility] Conjugate, PCV7 [facility] [place] ical (Prevnar7) Branch IPV Unknown Completed [facility] IPV Unknown Completed [facility] IPV Unknown Completed [facility] IPV Unknown Completed [facility] TDAP Unknown Completed [facility] Varicella Unknown Completed [facility] (varivax)(chicken [place] [facility] pox) Branch Varicella Unknown Completed [facility] (varivax)(chicken [place] [facility] pox) Branch TDAP Unknown Completed [facility] Influenza Virus Unknown Completed [facility] IM, [facility] [place] [facility] dical Preserv and ABX Free Bran ch 6 MO-64 YRS (FLUCELVAX) HPV[address] [facility] HPV[address] [facility] TDAP Unknown Completed [facility] HPV[address] [facility] TDAP Unknown Completed [facility] Influenza Virus Unknown Completed [facility] IM, [place] [facility] Preserv and ABX Free Bran ch 6 MO-64 YRS (FLUCELVAX) DTaP, Unspecified Unknown Completed [facility] [facility], Unspecified Unknown Completed [facility] DTaP, Unspecified Unknown Completed [facility] DTaP, Unspecified Unknown Completed [facility] DTaP, Unspecified Unknown Completed [facility] Influenza Virus Unknown Completed [facility] of Vaccine Quad .5 mL [facility] 6+ MO Branch (FLUZONE/FLULAVAL/FL UARIX) HEPATITIS A Unknown Completed [facility] HEPATITIS A Unknown Completed [facility] Hep B, Adol or Pedi Unknown Completed Unive rsity [facility] Dosage [facility] Hep B, Adol or Pedi Unknown Completed Unive rs[facility] Dosage [facility] Hep B, Adol or Pedi Unknown Completed [facility] Dosage [facility] HIB 4 Dose Schedule [facility] D[facility] D[facility] Dose [facility] HPV[address] [facility] HPV[address] [facility] HPV Unknown Completed [facility] Meningococcal Unknown Completed [facility] (groups A, C, Y and Branc h W-135) conjugate vaccine (MCV4P) Meningococcal Unknown Completed [facility] (groups A, C, Y and Branc h W-135) conjugate vaccine (MCV4P) Meningococcal B, OMV Unknown [facility], [facility] M[facility] Unknown Completed [facility] MMR Unknown Completed [facility] Pneumococcal 7 Unknown Completed [facility], PCV7 [facility] ical (Prevnar7) Branch IPV Unknown Completed [facility] IPV Unknown Completed [facility] IPV Unknown Completed [facility] IPV Unknown Completed [facility] TDAP Unknown Completed [facility] Varicella Unknown Completed [facility] (varivax)(chicken [place] M edical pox) Branch Varicella Unknown Completed [facility] (varivax)(chicken [place] M edical pox) Branch TDAP Unknown Completed [facility] Influenza Virus Unknown Completed [facility] of Vaccine Quad IM, [place] Me dical Preserv and ABX Free Bran ch 6 MO-64 YRS (FLUCELVAX) HPV[address] [facility] HPV[address] [facility] TDAP Unknown Completed [facility] HPV[address] [facility] TDAP Unknown Completed [facility] Influenza Virus Unknown Completed [facility] Vaccine Quad IM, [place] Me dical Preserv and ABX Free Bran ch 6 MO-64 YRS (FLUCELVAX) DTaP, Unspecified Unknown Completed [facility] DTaP, Unspecified Unknown Completed [facility] DTaP, Unspecified Unknown Completed [facility] DTaP, Unspecified Unknown Completed [facility] DTaP, Unspecified Unknown Completed [facility] Influenza Virus Unknown Completed [facility] of Vaccine Quad .5 mL [facility] 6+ MO Branch (FLUZONE/FLULAVAL/FL UARIX) HEPATITIS A Unknown Completed [facility] HEPATITIS A Unknown Completed [facility] Hep B, Adol or Pedi Unknown Completed Unive rsity [facility] Dosage [facility] Hep B, Adol or Pedi Unknown Completed [facility]ive rs[facility] Dosage [facility] Hep B, Adol or Pedi Unknown Completed [facility] Dosage [facility] HIB 4 Dose Schedule Unknown [facility] Dose [facility] 4 Dose Schedule Unknown Completed Unive [facility] HIB 4 Dose Schedule Unknown [facility] [facility] HPV[address] [facility] HPV Unknown Completed [facility] Meningococcal Unknown Completed [facility] (groups A, C, Y and Branc h W-135) conjugate vaccine (MCV4P) Meningococcal Unknown Completed [facility] (groups A, C, Y and Branc h W-135) conjugate vaccine (MCV4P) Meningococcal B, OMV Unknown [facility] B, OMV [facility] M[facility] Unknown Completed [facility] MMR Unknown Completed [facility] Pneumococcal 7 Unknown Completed [facility] Conjugate, PCV7 [facility] [place] ical (Prevnar7) Branch IPV Unknown Completed [facility] IPV Unknown Completed [facility] IPV Unknown Completed [facility] IPV Unknown Completed [facility] TDAP Unknown Completed [facility] Varicella Unknown Completed [facility] (varivax)(chicken [place] M edical pox) Branch Varicella Unknown Completed [facility] (varivax)(chicken [place] M edical pox) Branch TDAP Unknown Completed [facility] Influenza Virus Unknown Completed [facility] Vaccine Quad IM, [facility] [place] [facility] dical Preserv and ABX Free Bran ch 6 MO-64 YRS (FLUCELVAX) HPV[address] [facility] HPV[address] [facility] TDAP Unknown Completed [facility] HPV[address] [facility] TDAP Unknown Completed [facility] Influenza Virus Unknown Completed [facility] Vaccine Quad IM, [facility] [place] [facility] dical Preserv and ABX Free Bran ch 6 MO-64 YRS (FLUCELVAX) DTaP, Unspecified Unknown Completed [facility] DTaP, Unspecified Unknown Completed [facility] DTaP, Unspecified Unknown Completed [facility] DTaP, Unspecified Unknown Completed [facility] DTaP, Unspecified Unknown Completed [facility] Influenza Virus Unknown Completed [facility] Vaccine Quad .5 mL [facility] 6+ MO Branch (FLUZONE/FLULAVAL/FL UARIX) HEPATITIS A Unknown Completed [facility] HEPATITIS A Unknown Completed [facility] Hep B, Adol or Pedi Unknown Completed [facility]ive [facility] Dosage [facility] Hep B, Adol or Pedi Unknown Completed [facility]ive [facility] Dosage [facility] Hep B, Adol or Pedi Unknown Completed [facility] Dosage [facility] HIB 4 Dose Schedule Unknown [facility] Dose [facility] HIB 4 Dose Schedule Unknown [facility] HIB 4 Dose Schedule Unknown Completed [facility] [place] [facility] HPV[address] [facility] HPV[address] [facility] HPV Unknown Completed [facility] Meningococcal Unknown Completed [facility] (groups A, C, Y and Branc h W-135) conjugate vaccine (MCV4P) Meningococcal Unknown Completed [facility] (groups A, C, Y and Branc h W-135) conjugate vaccine (MCV4P) Meningococcal B, OMV Unknown Completed [facility] Meningococcal B, OMV Unknown Completed [facility] MMR Unknown Completed [facility] MMR Unknown Completed [facility] Pneumococcal 7 Unknown Completed [facility], PCV7 [facility] [place] ica (Prevnar7) Branch IPV Unknown Completed [facility] IPV Unknown Completed [facility] IPV Unknown Completed [facility] IPV Unknown Completed [facility] TDAP Unknown Completed [facility] Varicella Unknown Completed [facility] (varivax)(chicken [place] M edical pox) Branch Varicella Unknown Completed [facility] (varivax)(chicken [place] M edical pox) Branch TDAP Unknown Completed [facility] Influenza Virus Unknown Completed [facility] Vaccine Quad IM, [place] Me dical Preserv and ABX Free Bran ch 6 MO-64 YRS (FLUCELVAX) HPV[address] [facility] HPV[address] [facility] TDAP Unknown Completed [facility] HPV[address] [facility] TDAP Unknown Completed [facility] Influenza Virus Unknown Completed [facility] Vaccine Quad IM, [place] Me dical Preserv and ABX Free Bran ch 6 MO-64 YRS (FLUCELVAX) DTaP, Unspecified Unknown Completed [facility] DTaP, Unspecified Unknown Completed [facility] DTaP, Unspecified Unknown Completed [facility] DTaP, Unspecified Unknown Completed [facility] DTaP, Unspecified Unknown Completed [facility] Influenza Virus Unknown Completed [facility] of Vaccine Quad .5 mL [facility] 6+ MO Branch (FLUZONE/FLULAVAL/FL UARIX) HEPATITIS A Unknown Completed [facility] HEPATITIS A Unknown Completed [facility] [place] [facility] Hep B, Adol or Pedi Unknown Completed Unive rsity [facility] Dosage [facility] Hep B, Adol or Pedi Unknown Completed Unive [facility] Dosage [facility] Hep B, Adol or Pedi Unknown Completed [facility]ive [facility] Dosage [facility] HIB 4 Dose Schedule Unknown [facility] Dose [facility] 4 Dose Schedule Unknown [facility]IB 4 Dose Schedule Unknown [facility] [facility] HPV[address] [facility] HPV Unknown Completed [facility] Meningococcal Unknown Completed [facility] (groups A, C, Y and Branc h W-135) conjugate vaccine (MCV4P) Meningococcal Unknown Completed [facility] (groups A, C, Y and Branc h W-135) conjugate vaccine (MCV4P) Meningococcal B, OMV Unknown [facility] M[facility]ococcal B, OMV [facility] MMR Unknown Completed [facility] MMR Unknown Completed [facility] Pneumococcal 7 Unknown Completed [facility] Conjugate, PCV7 [facility] ica (Prevnar7) Branch IPV Unknown Completed [facility] IPV Unknown Completed [facility] IPV Unknown Completed [facility] IPV Unknown Completed [facility] TDAP Unknown Completed [facility] Varicella Unknown Completed [facility] (varivax)(chicken [place] M edical pox) Branch Varicella Unknown Completed [facility] (varivax)(chicken [place] M edical pox) Branch TDAP Unknown Completed [facility] Influenza Virus Unknown Completed [facility] Vaccine Quad IM, [place] Me dical Preserv and ABX Free Bran ch 6 MO-64 YRS (FLUCELVAX) HPV[address] [facility] HPV[address] [facility] TDAP Unknown Completed [facility] HPV[address] [facility] TDAP Unknown Completed [facility] Influenza Virus Unknown Completed [facility] Vaccine Quad IM, [place] Me dical Preserv and ABX Free Bran ch 6 MO-64 YRS (FLUCELVAX) DTaP, Unspecified Unknown Completed [facility] DTaP, Unspecified Unknown Completed [facility] [place] [facility] DTaP, Unspecified Unknown Completed [facility] DTaP, Unspecified Unknown Completed [facility] DTaP, Unspecified Unknown Completed [facility] Influenza Virus Unknown Completed [facility] of Vaccine Quad .5 mL [facility] IM 6+ MO Branch (FLUZONE/FLULAVAL/FL UARIX) HEPATITIS A Unknown Completed [facility] HEPATITIS A Unknown Completed [facility] Hep B, Adol or Pedi Unknown Completed Unive rsity [facility] Dosage [facility] Hep B, Adol or Pedi Unknown Completed Unive rsity [facility] Dosage [facility] Hep B, Adol or Pedi Unknown Completed Unive [facility] Dosage [facility] HIB 4 Dose Schedule Unknown [facility] Dose Schedule [facility]IB 4 Dose Schedule Unknown [facility]IB 4 Dose Schedule Unknown [facility] [facility] HPV[address] [facility] HPV Unknown Completed [facility] Meningococcal Unknown Completed [facility] (groups A, C, Y and Branc h W-135) conjugate vaccine (MCV4P) Meningococcal Unknown Completed [facility] (groups A, C, Y and Branc h W-135) conjugate vaccine (MCV4P) Meningococcal B, OMV Unknown [facility] Meningococcal B, OMV Unknown Completed Univ [facility] MMR Unknown Completed [facility] MMR Unknown Completed [facility] Pneumococcal 7 Unknown Completed [facility] Conjugate, PCV7 [facility] [place] ical (Prevnar7) Branch IPV Unknown Completed [facility] IPV Unknown Completed [facility] IPV Unknown Completed [facility] IPV Unknown Completed [facility] TDAP Unknown Completed [facility] Varicella Unknown Completed [facility] of (varivax)(chicken [place] M edical pox) Branch Varicella Unknown Completed [facility] (varivax)(chicken [place] M edical pox) Branch TDAP Unknown Completed [facility] Influenza Virus Unknown Completed [facility] Vaccine Quad IM, [place] Me dical Preserv and ABX Free Bran ch 6 MO-64 YRS (FLUCELVAX) HPV[address] [facility] HPV[address] [facility] TDAP Unknown Completed [facility] HPV[address] [facility] TDAP Unknown Completed [facility] Influenza Virus Unknown Completed [facility] of Vaccine Quad IM, [place] Me dical Preserv and ABX Free Bran ch 6 MO-64 YRS (FLUCELVAX) DTaP, Unspecified Unknown Completed [facility] DTaP, Unspecified Unknown Completed [facility] DTaP, Unspecified Unknown Completed [facility] DTaP, Unspecified Unknown Completed [facility] DTaP, Unspecified Unknown Completed [facility] Influenza Virus Unknown Completed [facility] of Vaccine Quad .5 mL [facility] IM 6+ MO Branch (FLUZONE/FLULAVAL/FL UARIX) HEPATITIS A Unknown Completed [facility] HEPATITIS A Unknown Completed [facility] Hep B, Adol or Pedi Unknown Completed Unive rsity [facility] Dosage [facility] Hep B, Adol or Pedi Unknown Completed Unive rsity [facility] Dosage [facility] Hep B, Adol or Pedi Unknown Completed [facility]ive [facility]ity [facility] Dosage [facility] HIB 4 Dose Schedule Unknown [facility] 4 Dose Schedule [facility] HIB 4 Dose Schedule Unknown [facility] HIB 4 Dose Schedule Unknown Completed Unive [facility] HPV[address] [facility] HPV[address] [facility] HPV Unknown Completed [facility] Meningococcal Unknown Completed [facility] (groups A, C, Y and Branc h W-135) conjugate vaccine (MCV4P) Meningococcal Unknown Completed [facility] (groups A, C, Y and Branc h W-135) conjugate vaccine (MCV4P) Meningococcal B, OMV Unknown [facility] M[facility]ococcal B, OMV [facility] MMR Unknown Completed [facility] MMR Unknown Completed [facility] Pneumococcal 7 Unknown Completed [facility] Conjugate, PCV7 [facility] (Prevnar7) Branch IPV Unknown Completed [facility] IPV Unknown Completed [facility] IPV Unknown Completed [facility] IPV Unknown Completed [facility] TDAP Unknown Completed [facility] Varicella Unknown Completed University (varivax)(chicken [place] M edical pox) Branch Varicella Unknown Completed [facility] (varivax)(chicken [place] M edical pox) Branch TDAP Unknown Completed [facility] Influenza Virus Unknown Completed [facility] of Vaccine Quad IM, [place] Me dical Preserv and ABX Free Bran ch 6 MO-64 YRS (FLUCELVAX) HPV[address] [facility] HPV[address] [facility] TDAP Unknown Completed [facility] HPV[address] [facility] TDAP Unknown Completed [facility] Influenza Virus Unknown Completed [facility] of Vaccine Quad IM, [place] Me dical Preserv and ABX Free Bran ch 6 MO-64 YRS (FLUCELVAX) DTaP, Unspecified Unknown Completed [facility] DTaP, Unspecified Unknown Completed [facility] DTaP, Unspecified Unknown Completed [facility] DTaP, Unspecified Unknown Completed [facility] Form[facility] DTaP, Unspecified Unknown Completed [facility] Influenza Virus Unknown Completed [facility] y of Vaccine Quad .5 mL [facility] 6+ MO Branch (FLUZONE/FLULAVAL/FL UARIX) HEPATITIS A Unknown Completed [facility] HEPATITIS A Unknown Completed [facility] Hep B, Adol or Pedi Unknown Completed Unive rsity of Dosage [facility] Hep B, Adol or Pedi Unknown Completed Unive rsity of Dosage [facility] Hep B, Adol or Pedi Unknown Completed Unive rsity of Dosage [facility] HIB 4 Dose Schedule Unknown Completed Unive rsity [facility] HIB 4 Dose Schedule Unknown [facility] Dose Schedule [facility] HIB 4 Dose Schedule Unknown Completed Unive rsity [facility] HPV[address] [facility] HPV[address] [facility] HPV Unknown Completed [facility] Meningococcal Unknown Completed [facility] (groups A, C, Y and Branc h W-135) conjugate vaccine (MCV4P) Meningococcal Unknown Completed [facility] (groups A, C, Y and Branc h W-135) conjugate vaccine (MCV4P) Meningococcal B, OMV Unknown [facility] M[facility] B, OMV [facility] MMR Unknown Completed [facility] MMR Unknown Completed [facility] Pneumococcal 7 Unknown Completed [facility], PCV7 [facility] [place] ical (Prevnar7) Branch IPV Unknown Completed [facility] IPV Unknown Completed [facility] IPV Unknown Completed [facility] IPV Unknown Completed [facility] TDAP Unknown Completed [facility] Varicella Unknown Completed [facility] (varivax)(chicken [place] M edical pox) Branch Varicella Unknown Completed [facility] (varivax)(chicken [place] M edical pox) Branch TDAP Unknown Completed [facility] Influenza Virus Unknown Completed [facility] of Vaccine Quad IM, [place] Me dical Preserv and ABX Free Bran ch 6 MO-64 YRS (FLUCELVAX) HPV[address] [facility] HPV[address] [facility] TDAP Unknown Completed [facility] HPV[address] [facility] TDAP Unknown Completed [facility] Influenza Virus Unknown Completed [facility] of Vaccine Quad IM, [place] Me dical Preserv and ABX Free Bran ch 6 MO-64 YRS (FLUCELVAX) DTaP, Unspecified Unknown Completed [facility] DTaP, Unspecified Unknown Completed [facility] DTaP, Unspecified Unknown Completed [facility] Form[facility] DTaP, Unspecified Unknown Completed [facility] Form[facility] DTaP, Unspecified Unknown Completed [facility] Form[facility] Influenza Virus Unknown Completed [facility]it y of Vaccine Quad .5 mL [facility] 6+ MO Branch (FLUZONE/FLULAVAL/FL UARIX) HEPATITIS A Unknown Completed [facility] HEPATITIS A Unknown Completed [facility] Hep B, Adol or Pedi Unknown Completed Unive rsity of Dosage [facility] Hep B, Adol or Pedi Unknown Completed Unive rsity of Dosage [facility] Hep B, Adol or Pedi Unknown Completed Unive rsity of Dosage [facility] HIB 4 Dose Schedule Unknown [facility] Dose Schedule [facility] HIB 4 Dose Schedule Unknown [facility] HIB 4 Dose Schedule Unknown [facility] [facility] HPV[address] [facility] HPV Unknown Completed [facility] Meningococcal Unknown Completed [facility] Polysaccharide [facility]ley (groups A, C, Y and Branc h W-135) conjugate vaccine (MCV4P) Meningococcal Unknown Completed [facility] Polysaccharide [facility] (groups A, C, Y and Branc h W-135) conjugate vaccine (MCV4P) Meningococcal B, OMV Unknown [facility] Meningococcal B, OMV Unknown Completed [facility] MMR Unknown Completed [facility] MMR Unknown Completed [facility] Pneumococcal 7 Unknown Completed [facility], PCV7 [facility] [place] ical (Prevnar7) Branch IPV Unknown Completed [facility] IPV Unknown Completed [facility] IPV Unknown Completed [facility] IPV Unknown Completed [facility] TDAP Unknown Completed [facility] Varicella Unknown Completed [facility] (varivax)(chicken [place] [facility] pox) Branch Varicella Unknown Completed [facility] (varivax)(chicken [place] [facility] [place] pox) Branch TDAP Unknown Completed [facility] Influenza Virus Unknown Completed Universit y of Vaccine Quad IM, [place] [facility] Preserv and ABX Free Bran ch 6 MO-64 YRS (FLUCELVAX) HPV9 [address] [facility] HPV[address] [facility] TDAP Unknown Completed [facility] HPV[address] [facility] TDAP Unknown Completed [facility] Influenza Virus Unknown Completed [facility]it y of Vaccine Quad IM, [place] [facility] Preserv and ABX Free Bran ch 6 MO-64 YRS (FLUCELVAX) DTaP, Unspecified Unknown Completed Univers ity of Formulation [facility] DTaP, Unspecified Unknown Completed Univers ity of Formulation [facility] DTaP, Unspecified Unknown Completed Univers ity of Formulation [facility] DTaP, Unspecified Unknown Completed Univers ity of Formulation [facility] DTaP, Unspecified Unknown Completed Univers ity of Formulation [facility] Influenza Virus Unknown Completed Universit y of Vaccine Quad .5 mL [facility] 6+ MO Branch (FLUZONE/FLULAVAL/FL UARIX) HEPATITIS A Unknown Completed [facility] HEPATITIS A Unknown Completed [facility] Hep B, Adol or Pedi Unknown Completed Unive rsity of Dosage [facility] Hep B, Adol or Pedi Unknown Completed Unive rsity of Dosage [facility] Hep B, Adol or Pedi Unknown Completed Unive rsity of Dosage [facility] HIB 4 Dose Schedule Unknown Completed Unive rsity [facility] HIB 4 Dose Schedule [facility] D[facility] Dose [facility] [facility] HPV[address] [facility] HPV Unknown Completed [facility] Meningococcal Unknown Completed [facility] shirley (groups A, C, Y and Branc h W-135) conjugate vaccine (MCV4P) Meningococcal Unknown Completed [facility] shirley (groups A, C, Y and Branc h W-135) conjugate vaccine (MCV4P) Meningococcal B, OMV Unknown [facility], [facility] M[facility] Unknown Completed [facility] MMR Unknown Completed [facility] Pneumococcal 7 Unknown Completed [facility] Conjugate, PCV7 [facility] [place] ical (Prevnar7) Branch IPV Unknown Completed [facility] IPV Unknown Completed [facility] IPV Unknown Completed [facility] IPV Unknown Completed [facility] TDAP Unknown Completed [facility] Varicella Unknown Completed [facility] (varivax)(chicken [place] [facility] pox) Branch Varicella Unknown Completed [facility] (varivax)(chicken [place] [facility] [place] pox) Branch TDAP Unknown Completed [facility] Influenza Virus Unknown Completed Universit y of Vaccine Quad IM, [facility] dical Preserv and ABX Free Bran ch 6 MO-64 YRS (FLUCELVAX) HPV[address] [facility] HPV[address] [facility] TDAP Unknown Completed [facility] HPV[address] [facility] TDAP Unknown Completed [facility] Influenza Virus Unknown Completed Universit y of Vaccine Quad IM, [place] Me dical Preserv and ABX Free Bran ch 6 MO-64 YRS (FLUCELVAX) DTaP, Unspecified Unknown Completed Univers ity of Formulation [facility] DTaP, Unspecified Unknown Completed Univers ity of Formulation [facility] DTaP, Unspecified Unknown Completed [facility] of Form[facility] [place] [facility] DTaP, Unspecified Unknown Completed Univers ity of Formulation [facility] DTaP, Unspecified Unknown Completed Univers ity of Formulation [facility] Influenza Virus Unknown Completed Universit y of Vaccine Quad .5 mL [facility] IM 6+ MO Branch (FLUZONE/FLULAVAL/FL UARIX) HEPATITIS A Unknown Completed [facility] HEPATITIS A Unknown Completed [facility] Hep B, Adol or Pedi Unknown Completed Unive rsity of Dosage [facility] Hep B, Adol or Pedi Unknown Completed Unive rsity of Dosage [facility] Hep B, Adol or Pedi Unknown Completed Unive rsity of Dosage [facility] HIB 4 Dose Schedule Unknown [facility] Dose [facility] 4 Dose Schedule [facility]IB 4 Dose Schedule Unknown Completed Unive [facility] HPV[address] [facility] HPV[address] [facility] HPV Unknown Completed [facility] Meningococcal Unknown Completed [facility] (groups A, C, Y and Branc h W-135) conjugate vaccine (MCV4P) Meningococcal Unknown Completed [facility] (groups A, C, Y and Branc h W-135) conjugate vaccine (MCV4P) Meningococcal B, OMV Unknown [facility] Meningococcal B, OMV Unknown Completed [facility] MMR Unknown Completed [facility] MMR Unknown Completed [facility] Pneumococcal 7 Unknown Completed [facility] Conjugate, PCV7 [facility] [place] ical (Prevnar7) Branch IPV Unknown Completed [facility] IPV Unknown Completed [facility] IPV Unknown Completed [facility] IPV Unknown Completed [facility] TDAP Unknown Completed [facility] Varicella Unknown Completed University (varivax)(chicken [place] [facility] pox) Branch Varicella Unknown Completed [facility] (varivax)(chicken [place] [facility] pox) Branch TDAP Unknown Completed [facility] Influenza Virus Unknown Completed [facility]it [facility] of Vaccine Quad IM, [place] [facility] Preserv and ABX Free Bran ch 6 MO-64 YRS (FLUCELVAX) HPV[address] [facility] HPV[address] [facility] TDAP Unknown Completed [facility] HPV[address] [facility] TDAP Unknown Completed [facility] Influenza Virus Unknown Completed [facility]it y of Vaccine Quad IM, [place] Me dical Preserv and ABX Free Bran ch 6 MO-64 YRS (FLUCELVAX) DTaP, Unspecified Unknown Completed Univers ity of Formulation [facility] DTaP, Unspecified Unknown Completed Univers ity of Formulation [facility] DTaP, Unspecified Unknown Completed Univers ity of Formulation [facility] DTaP, Unspecified Unknown Completed Univers ity of Formulation [facility] DTaP, Unspecified Unknown Completed Univers ity of Formulation [facility] Influenza Virus Unknown Completed [facility] of Vaccine Quad .5 mL [place] [facility] 6+ MO Branch (FLUZONE/FLULAVAL/FL UARIX) HEPATITIS A Unknown Completed [facility] HEPATITIS A Unknown Completed [facility] Hep B, Adol or Pedi Unknown Completed Unive rsity of Dosage [facility] Hep B, Adol or Pedi Unknown Completed Unive rsity of Dosage [facility] Hep B, Adol or Pedi Unknown Completed Unive rsity of Dosage [facility] HIB 4 Dose Schedule Unknown [facility] 4 Dose Schedule Unknown Completed Unive rsity [facility] HIB 4 Dose Schedule Unknown Completed Unive rsity [facility] HIB 4 Dose Schedule Unknown [facility] [facility] HPV[address] [facility] HPV Unknown Completed [facility] Meningococcal Unknown Completed [facility] (groups A, C, Y and Branc h W-135) conjugate vaccine (MCV4P) Meningococcal Unknown Completed [facility] (groups A, C, Y and Branc h W-135) conjugate vaccine (MCV4P) Meningococcal B, OMV Unknown [facility] Meningococcal B, OMV Unknown Completed Univ [facility] MMR Unknown Completed [facility] MMR Unknown Completed [facility] Pneumococcal 7 Unknown Completed [facility] Conjugate, PCV7 [facility] [place] ical (Prevnar7) Branch IPV Unknown Completed [facility] IPV Unknown Completed [facility] IPV Unknown Completed [facility] IPV Unknown Completed [facility] TDAP Unknown Completed [facility] Varicella Unknown Completed [facility] (varivax)(chicken [place] [facility] pox) Branch Varicella Unknown Completed [facility] (varivax)(chicken [place] [facility] pox) Branch Vital Signs Vital Name Observation Time Observation Value Comments Source Systolic blood 2023-08-09 13:08:00 117 mm[Hg] Univer sity of pressure [place] [facility] Diastolic blood 2023-08-09 13:08:00 74 mm[Hg] Unive rsity of pressure [facility] Branch Heart rate 2023-08-09 13:08:00 80 /min [facility] [place] [facility] Body temperature 2023-08-09 13:08:00 35.94 Arlette Univ ersity of [place] [facility] Respiratory rate 2023-08-09 13:08:00 18 /min Univ ersity of [place] [facility] Oxygen saturation in 2023-08-09 13:08:00 97 /min University of Arterial blood by [place] [employer] shirley Pulse oximetry Branch Body height 2023-08-07 13:38:00 149.9 cm [facility] [place] [facility] Body weight 2023-08-07 13:38:00 67.314 kg [facility] [place] [facility] BMI 2023-08-07 13:38:00 29.97 kg/m2 [facility] [place] [facility] Systolic blood 2023-08-08 12:45:00 103 mm[Hg] Univer sity of pressure [place] [facility] Diastolic blood 2023-08-08 12:45:00 58 mm[Hg] Unive rsity of pressure [place] [facility] Heart rate 2023-08-08 12:45:00 66 /min [facility] [place] [facility] Oxygen saturation in 2023-08-08 12:45:00 98 /min University of Arterial blood by [employer] shirley Pulse oximetry Branch Body temperature 2023-08-08 12:00:00 37.22 Arlette [facility] [place] [facility] Respiratory rate 2023-08-08 12:00:00 17 /min Univ ers[facility] [place] [facility] Body height 2023-08-07 13:38:00 149.9 cm [facility] [place] [facility] Body weight 2023-08-07 13:38:00 67.314 kg [facility] [place] [facility] BMI 2023-08-07 13:38:00 29.97 kg/m2 [facility] [place] [facility] Systolic blood 2023-08-06 13:09:00 114 mm[Hg] Univer sity of pressure [place] [facility] Diastolic blood 2023-08-06 13:09:00 66 mm[Hg] Unive rsity of pressure [place] [facility] Heart rate 2023-08-06 13:09:00 68 /min [facility] [place] [facility] Body temperature 2023-08-06 13:09:00 35.67 Arlette [facility] [place] [facility] Respiratory rate 2023-08-06 13:09:00 18 /min Univ ers[facility] [place] [facility] Body height 2023-08-06 13:09:00 149.9 cm [facility] [place] [facility] Body weight 2023-08-06 13:09:00 67.314 kg [facility] [place] [facility] BMI 2023-08-06 13:09:00 29.97 kg/m2 Universi ty of [facility] Systolic blood 2023-08-03 18:30:00 104 mm[Hg] Univer sity of pressure [place] [facility] Diastolic blood 2023-08-03 18:30:00 60 mm[Hg] Unive rsity of pressure [place] [facility] Heart rate 2023-08-03 18:30:00 63 /min [facility] [place] [facility] Respiratory rate 2023-08-03 18:30:00 18 /min Univ ersity of [facility] Oxygen saturation in 2023-08-03 18:30:00 98 /min [facility] Arterial blood by [facility] Pulse oximetry Branch Systolic blood 2023-07-30 12:52:00 114 mm[Hg] Univer sity of pressure [facility] Branch Diastolic blood 2023-07-30 12:52:00 59 mm[Hg] Unive rsity of pressure [place] [facility] Heart rate 2023-07-30 12:52:00 82 /min [facility] [place] [facility] Body temperature 2023-07-30 12:52:00 36.67 Arlette Univ ersity of [facility] Respiratory rate 2023-07-30 12:52:00 16 /min Univ ersity [facility] [place] [facility] Body height 2023-07-30 12:52:00 149.9 cm [facility] [place] [facility] Body weight 2023-07-30 12:52:00 65.772 kg [facility] [place] [facility] BMI 2023-07-30 12:52:00 29.29 kg/m2 [facility] [place] [facility] Systolic blood 2023-07-27 13:36:00 116 mm[Hg] Univer sity of pressure [place] [facility] Diastolic blood 2023-07-27 13:36:00 74 mm[Hg] Unive rsity of pressure [place] [facility] Heart rate 2023-07-27 13:36:00 78 /min [facility] [place] [facility] Body temperature 2023-07-27 13:36:00 36.33 Ar[place] [facility] [place] [facility] Respiratory rate 2023-07-27 13:36:00 17 /min Univ [facility] [place] [facility] Body height 2023-07-27 13:36:00 149.9 cm [facility] [place] [facility] Body weight 2023-07-27 13:36:00 66.588 kg [facility] [place] [facility] BMI 2023-07-27 13:36:00 29.65 kg/m2 [facility] [place] [facility] Systolic blood 2023-07-23 18:09:00 118 mm[Hg] Univer sity of pressure [place] [facility] Diastolic blood 2023-07-23 18:09:00 66 mm[Hg] Unive rsity of pressure [place] [facility] Heart rate 2023-07-23 18:09:00 79 /min [facility] [place] [facility] Body temperature 2023-07-23 18:09:00 36.06 Ar[place] [facility] [place] [facility] Respiratory rate 2023-07-23 18:09:00 18 /min Univ ers[facility] [place] [facility] Body height 2023-07-23 18:09:00 149.9 cm [facility] [place] [facility] Body weight 2023-07-23 18:09:00 66.316 kg [facility] [place] [facility] BMI 2023-07-23 18:09:00 29.53 kg/m2 [facility] [place] [facility] Systolic blood 2023-07-20 12:49:00 103 mm[Hg] Univer sity of pressure [place] [facility] Diastolic blood 2023-07-20 12:49:00 67 mm[Hg] Unive rsity of pressure [place] [facility] Heart rate 2023-07-20 12:49:00 78 /min [facility] [place] [facility] Body temperature 2023-07-20 12:49:00 36.28 Ar[place] [facility] [place] [facility] Respiratory rate 2023-07-20 12:49:00 17 /min Univ ers[facility] [place] [facility] Body height 2023-07-20 12:49:00 149.9 cm [facility] [place] [facility] Body weight 2023-07-20 12:49:00 65.772 kg [facility] [place] [facility] BMI 2023-07-20 12:49:00 29.29 kg/m2 [facility] [place] [facility] Systolic blood 2023-07-16 19:24:00 106 mm[Hg] Univer sity of pressure [place] [facility] Diastolic blood 2023-07-16 19:24:00 66 mm[Hg] Unive rsity of pressure [place] [facility] Heart rate 2023-07-16 19:24:00 94 /min [facility] [place] [facility] Body temperature 2023-07-16 19:24:00 36.06 Ar[place] [facility] [place] [facility] Respiratory rate 2023-07-16 19:24:00 18 /min Univ ers[facility] [place] [facility] Body height 2023-07-16 19:24:00 149.9 cm [facility] [place] [facility] Body weight 2023-07-16 19:24:00 66.225 kg [facility] [place] [facility] BMI 2023-07-16 19:24:00 29.49 kg/m2 [facility] [place] [facility] Systolic blood 2023-07-13 18:42:00 100 mm[Hg] Univer sity of pressure [place] [facility] Diastolic blood 2023-07-13 18:42:00 61 mm[Hg] Unive rsity of pressure [place] [facility] Heart rate 2023-07-13 18:42:00 79 /min [facility] [place] [facility] Body temperature 2023-07-13 18:42:00 36.39 Arlette [facility] [place] [facility] Respiratory rate 2023-07-13 18:42:00 18 /min Univ ers[facility] [place] [facility] Body height 2023-07-13 18:42:00 149.9 cm [facility] [place] [facility] Body weight 2023-07-13 18:42:00 65.59 kg [facility] [place] [facility] BMI 2023-07-13 18:42:00 29.21 kg/m2 [facility] [place] [facility] Systolic blood 2023-07-09 18:04:00 110 mm[Hg] Univer sity of pressure [place] [facility] Diastolic blood 2023-07-09 18:04:00 60 mm[Hg] Unive rsity of pressure [place] [facility] Heart rate 2023-07-09 18:04:00 80 /min [facility] [place] [facility] Body temperature 2023-07-09 18:04:00 36.56 Ar[place] [facility] [place] [facility] Respiratory rate 2023-07-09 18:04:00 18 /min Univ [facility] [place] [facility] Body height 2023-07-09 18:04:00 149.9 cm [facility] [place] [facility] Body weight 2023-07-09 18:04:00 65.97 kg [facility] [place] [facility] BMI 2023-07-09 18:04:00 29.37 kg/m2 [facility] [place] [facility] Systolic blood 2023-07-06 18:23:00 119 mm[Hg] Univer sity of pressure [place] [facility] Diastolic blood 2023-07-06 18:23:00 65 mm[Hg] Unive rsity of pressure [place] [facility] Heart rate 2023-07-06 18:23:00 92 /min [facility] [place] [facility] Body temperature 2023-07-06 18:23:00 36.22 Ar[place] [facility] [place] [facility] Respiratory rate 2023-07-06 18:23:00 16 /min Univ ers[facility] [place] [facility] Body height 2023-07-06 18:23:00 149.9 cm [facility] [place] [facility] Body weight 2023-07-06 18:23:00 64.411 kg [facility] [place] [facility] BMI 2023-07-06 18:23:00 28.68 kg/m2 [facility] [place] [facility] Systolic blood 2023-07-02 13:08:00 127 mm[Hg] Univer sity of pressure [place] [facility] Diastolic blood 2023-07-02 13:08:00 70 mm[Hg] Unive rsity of pressure [place] [facility] Heart rate 2023-07-02 13:08:00 72 /min [facility] [place] [facility] Body temperature 2023-07-02 13:08:00 36.06 Ar[place] [facility] [place] [facility] Respiratory rate 2023-07-02 13:08:00 18 /min Univ ers[facility] of [place] [facility] Body height 2023-07-02 13:08:00 149.9 cm [facility] [place] [facility] Body weight 2023-07-02 13:08:00 64.774 kg [facility] [place] [facility] BMI 2023-07-02 13:08:00 28.84 kg/m2 [facility] [place] [facility] Systolic blood 2023-06-29 15:11:00 105 mm[Hg] Univer sity of pressure [place] [facility] Diastolic blood 2023-06-29 15:11:00 60 mm[Hg] Unive rsity of pressure [place] [facility] Heart rate 2023-06-29 15:11:00 88 /min [facility] [place] [facility] Body temperature 2023-06-29 15:11:00 36.39 Arlette [facility] [place] [facility] Respiratory rate 2023-06-29 15:11:00 18 /min Univ [facility] [place] [facility] Body height 2023-06-29 15:11:00 149.9 cm [facility] [place] [facility] Body weight 2023-06-29 15:11:00 63.957 kg [facility] [place] [facility] BMI 2023-06-29 15:11:00 28.48 kg/m2 [facility] [place] [facility] Systolic blood 2023-06-25 13:16:00 115 mm[Hg] Univer sity of pressure [place] [facility] Diastolic blood 2023-06-25 13:16:00 67 mm[Hg] Unive rsity of pressure [place] [facility] Heart rate 2023-06-25 13:16:00 82 /min [facility] [place] [facility] Body temperature 2023-06-25 13:16:00 36.39 Ar[place] [facility] [place] [facility] Respiratory rate 2023-06-25 13:16:00 18 /min Univ [facility] [place] [facility] Body height 2023-06-25 13:16:00 149.9 cm [facility] [place] [facility] Body weight 2023-06-25 13:16:00 64.042 kg [facility] [place] [facility] BMI 2023-06-25 13:16:00 28.52 kg/m2 [facility] [place] [facility] Systolic blood 2023-06-22 19:55:00 112 mm[Hg] Univer sity of pressure [place] [facility] Diastolic blood 2023-06-22 19:55:00 64 mm[Hg] Unive rsity of pressure [place] [facility] Heart rate 2023-06-22 19:55:00 78 /min [facility] [place] [facility] Body temperature 2023-06-22 19:55:00 36.61 Ar[place] [facility] [place] [facility] Respiratory rate 2023-06-22 19:55:00 18 /min Univ ers[facility] [place] [facility] Body height 2023-06-22 19:55:00 149.9 cm [facility] [place] [facility] Body weight 2023-06-22 19:55:00 63.141 kg [facility] [place] [facility] BMI 2023-06-22 19:55:00 28.11 kg/m2 [facility] [place] [facility] Systolic blood 2023-06-17 19:33:00 118 mm[Hg] Univer sity of pressure [place] [facility] Diastolic blood 2023-06-17 19:33:00 66 mm[Hg] Unive rsity of pressure [place] [facility] Heart rate 2023-06-17 19:33:00 79 /min [facility] [place] [facility] Body temperature 2023-06-17 19:33:00 36.72 Ar[place] [facility] [place] [facility] Respiratory rate 2023-06-17 19:33:00 18 /min Univ [facility] [place] [facility] Body height 2023-06-17 19:33:00 149.9 cm [facility] [place] [facility] Body weight 2023-06-17 19:33:00 63.776 kg [facility] [place] [facility] BMI 2023-06-17 19:33:00 28.40 kg/m2 [facility] [place] [facility] Systolic blood 2023-06-08 19:44:00 98 mm[Hg] Univer sity of pressure [place] [facility] Diastolic blood 2023-06-08 19:44:00 61 mm[Hg] Unive rsity of pressure [place] [facility] Heart rate 2023-06-08 19:44:00 73 /min [facility] [place] [facility] Body temperature 2023-06-08 19:44:00 36.56 Ar[place] [facility] [place] [facility] Respiratory rate 2023-06-08 19:44:00 20 /min Univ [facility] [place] [facility] Body height 2023-06-08 19:44:00 149.9 cm [facility] [place] [facility] Body weight 2023-06-08 19:44:00 64.184 kg [facility] [place] [facility] BMI 2023-06-08 19:44:00 28.58 kg/m2 [facility] [place] [facility] Systolic blood 2023-05-25 13:14:00 112 mm[Hg] Univer sity of pressure [place] [facility] Diastolic blood 2023-05-25 13:14:00 61 mm[Hg] Unive rsity of pressure [place] [facility] Heart rate 2023-05-25 13:14:00 75 /min [facility] [place] [facility] Body temperature 2023-05-25 13:14:00 36.5 Arlette [facility] [place] [facility] Respiratory rate 2023-05-25 13:14:00 18 /min [facility] [place] [facility] Body height 2023-05-25 13:14:00 149.9 cm [facility] [place] [facility] Body weight 2023-05-25 13:14:00 62.795 kg [facility] [place] [facility] BMI 2023-05-25 13:14:00 27.96 kg/m2 [facility] [place] [facility] Systolic blood 2023-04-26 15:51:00 130 mm[Hg] Univer sity of pressure [place] [facility] Diastolic blood 2023-04-26 15:51:00 77 mm[Hg] Unive rsity of pressure [place] [facility] Heart rate 2023-04-26 15:51:00 80 /min [facility] [place] [facility] Body temperature 2023-04-26 15:51:00 36.39 Ar[place] [facility] [place] [facility] Respiratory rate 2023-04-26 15:51:00 18 /min Univ [facility] [place] [facility] Body height 2023-04-26 15:51:00 149.9 cm [facility] [place] [facility] Body weight 2023-04-26 15:51:00 61.236 kg [facility] BMI 2023-04-26 15:51:00 27.27 kg/m2 [facility] Systolic blood 2023-03-29 15:53:00 113 mm[Hg] [facility] Diastolic blood 2023-03-29 15:53:00 71 mm[Hg] [facility] Heart rate 2023-03-29 15:53:00 69 /min [facility] Body temperature 2023-03-29 15:53:00 36.17 Arlette [facility] Respiratory rate 2023-03-29 15:53:00 18 /min [facility] Body height 2023-03-29 15:53:00 149.9 cm [facility] Body weight 2023-03-29 15:53:00 61.644 kg [facility] BMI 2023-03-29 15:53:00 27.45 kg/m2 [facility] Systolic blood 2023-03-01 15:35:00 122 mm[Hg] [facility] Diastolic blood 2023-03-01 15:35:00 72 mm[Hg] [facility] Heart rate 2023-03-01 15:35:00 79 /min [facility] Body temperature 2023-03-01 15:35:00 36.67 Arlette [facility] Respiratory rate 2023-03-01 15:35:00 18 /min [facility] Body height 2023-03-01 15:35:00 149.9 cm [facility] Body weight 2023-03-01 15:35:00 60.867 kg [facility] BMI 2023-03-01 15:35:00 27.10 kg/m2 [facility] Systolic blood 2023-02-01 18:42:00 132 mm[Hg] [facility] Diastolic blood 2023-02-01 18:42:00 75 mm[Hg] [facility] Heart rate 2023-02-01 18:42:00 69 /min [facility] Body temperature 2023-02-01 18:42:00 36.72 Arlette [facility] Respiratory rate 2023-02-01 18:42:00 16 /min [facility] Body height 2023-02-01 18:42:00 149.9 cm [facility] Body weight 2023-02-01 18:42:00 62.188 kg [facility] BMI 2023-02-01 18:42:00 27.69 kg/m2 [facility] Systolic blood 2022-11-24 16:25:00 127 mm[Hg] [facility] Diastolic blood 2022-11-24 16:25:00 76 mm[Hg] [facility] Heart rate 2022-11-24 16:25:00 66 /min [facility] Body temperature 2022-11-24 16:25:00 37 Arlette [facility] Respiratory rate 2022-11-24 16:25:00 20 /min [facility] Body height 2022-11-24 16:25:00 149.9 cm [facility] Body weight 2022-11-24 16:25:00 64.139 kg [facility] BMI 2022-11-24 16:25:00 28.56 kg/m2 [facility] Systolic blood 2022-09-15 14:45:00 125 mm[Hg] [facility] Diastolic blood 2022-09-15 14:45:00 86 mm[Hg] [facility] Heart rate 2022-09-15 14:45:00 67 /min [facility] Body temperature 2022-09-15 14:45:00 36.5 Arlette [facility] Respiratory rate 2022-09-15 14:45:00 18 /min [facility] Body height 2022-09-15 14:45:00 149.9 cm [facility] Body weight 2022-09-15 14:45:00 61.009 kg [facility] BMI 2022-09-15 14:45:00 27.17 kg/m2 [facility] Systolic blood 2022-08-20 13:40:00 128 mm[Hg] [facility] Diastolic blood 2022-08-20 13:40:00 85 mm[Hg] [facility] Heart rate 2022-08-20 13:40:00 60 /min [facility] Body temperature 2022-08-20 13:40:00 35.89 Arlette [facility] Respiratory rate 2022-08-20 13:40:00 18 /min [facility] Body weight 2022-08-20 13:40:00 61.054 kg [facility] Systolic blood 2022-08-01 12:57:00 94 mm[Hg] [facility] Diastolic blood 2022-08-01 12:57:00 57 mm[Hg] [facility] Heart rate 2022-08-01 12:57:00 69 /min [facility] Body temperature 2022-08-01 12:57:00 36 Arlette [facility] Respiratory rate 2022-08-01 12:57:00 18 /min [facility] Oxygen saturation in 2022-08-01 12:57:00 97 /min [facility] Arterial blood by [place] [employer] shirley Pulse oxim[facility] Branch Body weight 2022-07-30 13:12:00 65.772 kg [facility] Systolic blood 2022-07-22 05:30:00 99 mm[Hg] [facility] Diastolic blood 2022-07-22 05:30:00 49 mm[Hg] [facility] Heart rate 2022-07-22 05:30:00 66 /min [facility] Oxygen saturation in 2022-07-22 05:30:00 99 /min [facility] Arterial blood by [employer] [facility] Respiratory rate 2022-07-22 04:00:00 18 /min [facility] Body temperature 2022-07-22 00:55:00 36.67 Arlette [facility] Systolic blood 2022-07-15 18:00:00 124 mm[Hg] [facility] Diastolic blood 2022-07-15 18:00:00 77 mm[Hg] [facility] Heart rate 2022-07-15 18:00:00 68 /min [facility] Body temperature 2022-07-15 18:00:00 35.61 Arlette [facility] 2022-07-15 18:00:00 18 /min [facility] Body weight 2022-07-15 18:00:00 64.955 kg [facility] Systolic blood 2022-07-01 18:15:00 121 mm[Hg] Univer [facility]ity of pressure [facility] Diastolic blood 2022-07-01 18:15:00 83 mm[Hg] [facility] Heart rate 2022-07-01 18:15:00 77 /min [facility] Body temperature 2022-07-01 18:15:00 36.78 Arlette [facility] Respiratory rate 2022-07-01 18:15:00 18 /min [facility] Body height 2022-07-01 18:15:00 149.9 cm [facility] Body weight 2022-07-01 18:15:00 64.411 kg [facility] BMI 2022-07-01 18:15:00 28.68 kg/m2 [facility] Procedures Procedure Date / Time Performing Clinician Source Performed CBC WITH DIFF 2023-08-09 08:16:00 [facility] CBC WITH DIFF 2023-08-09 08:16:00 [facility] TUBAL LIGATION 2023-08-08 13:26:00 Guru Whalen [facility] VENOUS CORD GAS 2023-08-08 08:29:00 [facility] VENOUS CORD GAS 2023-08-08 08:29:00 [facility] CENTRAL NEURAXIAL BLOCK 2023-08-08 05:32:00 [facility] WITH [facility]FF 2023-08-07 14:36:00 A[facility] HEPATITIS B SURFACE 2023-08-07 14:36:00 Marli Abbasi [facility] HB ABO GROUPING 2023-08-07 14:36:00 Eloisaemily [facility] RHO (D) IMMUNE GLOBULIN 2023-08-07 14:36:00 Herminio Lynch [facility] HIV 1/2 AG-AB WITH 2023-08-07 14:36:00 Eloisaemily [facility] SYPHILIS IGG/IGM 2023-08-07 14:36:00 Eloisaemily [facility] CBC WITH DIFF 2023-08-07 14:36:00 Eloisaemily [facility] HEPATITIS B SURFACE 2023-08-07 14:36:00 Maykelchandanemily [facility] HB ABO GROUPING 2023-08-07 14:36:00 Eloisaemily [facility] RHO (D) IMMUNE GLOBULIN 2023-08-07 14:36:00 Herminio Lynch [facility] HIV 1/2 AG-AB WITH 2023-08-07 14:36:00 Eloisaemily [facility] SYPHILIS IGG/IGM 2023-08-07 14:36:00 Eloisaemily [facility] URINALYSIS 2023-08-07 12:29:00 Herminio Lynch Mathias o f [facility] URINE CULTURE 2023-08-07 12:29:00 Herminio Lynch [facility] GROUP B STREPTOCOCCUS BY 2023-08-07 12:29:00 Herminio Lynch [facility] URINALYSIS 2023-08-07 12:29:00 Herminio Lynch o f [facility] URINE CULTURE 2023-08-07 12:29:00 Herminio Lynch Mathias o f [facility] GC & CHLAMYDIA AMPLIFIED 2023-08-07 12:29:00 Herminio Lynch [facility] GROUP B STREPTOCOCCUS BY 2023-08-07 12:29:00 Herminio Lynch [facility] HOSPITAL ADMISSION 2023-08-07 05:01:00 Doctor Unassigned, No [facility] NON-STRESS TEST 2023-08-06 13:44:[address] C [address] [facility] POCT URINALYSIS 2023-08-06 13:11:00 Akinsipe Justyna C [facility] URINALYSIS 2023-08-03 16:43:00 Yoko Beck Mathias o f [facility] POCT URINALYSIS 2023-07-30 13:06:00 AkinsipeChiragJustyna C [facility] NON-STRESS TEST 2023-07-27 14:30:[address] [facility] POCT URINALYSIS 2023-07-27 00:00:00 Akinmisty Justyna C [facility] NON-STRESS TEST 2023-07-23 18:58:[address] [facility] NON-STRESS TEST 2023-07-23 18:58:[address] [facility] POCT URINALYSIS 2023-07-23 18:12:00 AkinchristianopeGraciaJustyna C [facility] NON-STRESS TEST 2023-07-20 14:33:20 Akinchristianope Justyna C U [facility] POCT URINALYSIS 2023-07-20 00:00:00 Gracia Giffordola C [facility] NON-STRESS TEST 2023-07-16 19:59:[address] C U [facility] FLU VACC ([id number]), 6 2023-07-16 19:33:06 Justyna Gifford [facility] MO-65 YRS, .5ML, IM, Medical [facility] QUAD (FLUCELVAX) POCT URINALYSIS 2023-07-16 19:26:00 AkinChirag lamailola C [facility] NON-STRESS TEST 2023-07-13 19:24:[address] C U [facility] POCT URINALYSIS 2023-07-13 18:46:00 Akinsipe Justyna C [facility] SECOND AND THIRD 2023-07-13 18:12:00 AkinChirag lamailwilliam [facility] NON-STRESS TEST 2023-07-09 18:55:[address] C U [facility] POCT URINALYSIS 2023-07-09 18:10:00 Akinsipe Justyna C [facility] NON-STRESS TEST 2023-07-06 19:03:37 Akinsipe, Justyna C U [facility] POCT URINALYSIS 2023-07-06 00:00:00 Akinsipe Justyna C [facility] NON-STRESS TEST 2023-07-02 21:35:44 AkinsipeChiragJustyna C [facility] NON-STRESS TEST 2023-07-02 13:53:[address] C U [facility] POCT URINALYSIS 2023-07-02 13:11:00 Akinsipe Justyna C [facility] POCT URINALYSIS 2023-06-29 15:13:00 Akinsipe Justyna C [facility] NON-STRESS TEST 2023-06-25 14:21:[address] [facility] POCT URINALYSIS 2023-06-25 13:17:00 Akinsipe Justyna C [facility] TDAP VACCINE, >11 YRS, 2023-06-25 13:13:24 AkinsipeChiragJustyna C [facility] TDAP VACCINE, >11 YRS, 2023-06-22 20:44:30 Akinsipe Justyna C [facility] NON-STRESS TEST 2023-06-22 20:40:[address] C U [facility] POCT URINALYSIS 2023-06-22 19:56:00 AkinsipeJustyna [facility] SECOND AND THIRD 2023-06-22 19:26:00 AkinJustyna lama [facility] ULTRASOUND Medical [facility] NON-STRESS TEST 2023-06-17 20:52:09 Sindy Acuna [facility] POCT URINALYSIS 2023-06-17 19:40:00 Justyna Gifford [facility] SECOND AND THIRD 2023-06-15 19:22:00 AkinsiJustyna ribera [facility] ULTRASOUND Medical [facility] SECOND AND THIRD 2023-06-08 19:29:00 AkinsiJustyna ribera [facility] ULTRASOUND Medical [facility] SECOND AND THIRD 2023-06-01 16:17:00 AkinsiJustyna ribera [facility] ULTRASOUND Medical [facility] SECOND AND THIRD 2023-05-28 18:37:00 AkinsiJustyna ribera [facility] ULTRASOUND Medical [facility] SECOND AND THIRD 2023-05-28 17:47:00 AkinsiJustyna ribera [facility] ULTRASOUND Medical [facility] SECOND AND THIRD 2023-05-28 17:40:00 AkinJustyna lama [facility]iver [facility] ULTRASOUND Medical [facility] GLUCOSE 1 HOUR POST 2023-05-25 14:19:00 Justyna Gifford [facility] CBC WITH DIFF 2023-05-25 14:19:00 Justyna Gifford [facility] POCT URINALYSIS 2023-05-25 13:18:00 Justyna Gifford [facility] STERILIZATION CONSENT 2023-05-25 05:01:00 Doctor Unassigned, No [facility] SECOND AND THIRD 2023-05-21 14:34:00 AkinJustyna lama [facility] ULTRASOUND Medical [facility] SECOND AND THIRD 2023-05-07 19:37:00 AkinJustyna lama [facility] ULTRASOUND Medical [facility] POCT URINALYSIS 2023-04-26 15:52:00 Justyna Gifford [facility] SECOND AND THIRD 2023-04-23 19:03:00 Justyna Gifford [facility] TRIMESTER ULTRASOUND Medical [facility] SECOND AND THIRD 2023-04-09 19:19:00 Justyna Gifford [facility] ULTRASOUND [facility] POCT URINALYSIS 2023-03-29 15:57:00 Justyna Gifford [facility] SECOND AND THIRD 2023-03-26 19:00:00 Justyna Gifford [facility] ULTRASOUND [facility] FIRST TRIMESTER 2023-03-02 16:55:[address] [facility] ULTRASOUND [facility] POCT URINALYSIS 2023-03-01 15:52:00 Justyna Gifford [facility] URINE CULTURE 2023-02-01 19:46:00 Justyna Gifford [facility] GC & CHLAMYDIA AMPLIFIED 2023-02-01 19:46:00 Lan Schmidt [facility] LAB ONLY PAP 2023-02-01 19:46:[address] [facility] SMEAR-LIQUID BASED [facility] h TRICHOMONAS AMPLIFIED 2023-02-01 19:46:00 Justyna Gifford [facility] ASSAY [facility] PAP SMEAR-LIQUID 2023-02-01 19:46:00 Justyna Gifford [facility] [place] CBC WITH DIFF 2023-02-01 19:45:00 Lan Schmidt [facility] RUBELLA SCREEN IGG 2023-02-01 19:45:00 Justyna Gifford [facility] VZV ANTIBODY SCREEN 2023-02-01 19:45:00 Justyna Gifford [facility] HEPATITIS B SURFACE 2023-02-01 19:45:00 Justyna Gifford [facility] HB INDIRECT ANTIGLOBULIN 2023-02-01 19:45:00 Justyna Gifford [facility] 1 HR GLUCOSE TOLERANCE 2023-02-01 19:45:00 Justyna Gifford [facility] HIV 1/2 AG-AB WITH 2023-02-01 19:45:00 Justyna Gifford [facility] REFLEX [facility] SYPHILIS IGG/IGM 2023-02-01 19:45:00 Justyna Gifford [facility] POCT TEST 2023-02-01 19:02:00 Justyna Gifford [facility] POCT URINALYSIS W/O 2023-02-01 19:02:00 Justyna Gifford [facility] SPECIFIC GRAVITY [facility] ASSIGNMENT OF BENEFITS 2023-02-01 17:44:20 Doctor Unassigned, No [facility] GARDASIL 9 (HPV 9V) 2022-11-24 16:37:35 Justyna Gifford [facility] VACCINE [facility] POCT TEST 2022-09-15 15:42:00 Justyna Gifford [facility] CBC WITH DIFF 2022-07-31 09:25:00 Heidi Dickson [facility] VENOUS CORD GAS 2022-07-31 00:53:00 [facility] CENTRAL NEURAXIAL BLOCK 2022-07-30 15:32:29 Estuardo Peguero [facility] CBC WITH DIFF 2022-07-30 13:40:00 A[facility]en [facility] HEPATITIS B SURFACE 2022-07-30 13:40:[address] [facility] ANTIGEN [facility] HIV 1/2 AG-AB WITH 2022-07-30 13:40:00 Marli Abbasi [facility] REFLEX [facility] GALV ONLY - SYPHILIS 2022-07-30 13:40:00 [facility] [place] HB ABO GROUPING 2022-07-30 13:35:00 Ayleen [facility] RHO (D) IMMUNE GLOBULIN 2022-07-30 13:35:[address] [facility] HOSPITAL ADMISSION 2022-07-30 05:01:00 Doctor Unassigned, No [facility] URINALYSIS 2022-07-22 02:04:[address] [facility] POCT URINALYSIS 2022-07-15 18:07:00 Lan Schmidt [facility] POCT URINALYSIS 2022-07-01 18:17:00 Lan Schmidt [facility] Encounters Start End Encounter Admission Attending Care Care Encounter Source Date/Time Date/Time Type Type Clinicians Facility Department ID 2023-08-27 2023-08-27 Outpatient R AKINSIPE, [facility] [id number] Univers 13:15:00 13:15:00 [facility] 2023-08-13 2023-08-13 Outpatient R AKINSIPE, [facility] [id number] Univers 10:00:00 10:00:00 [facility] o [facility] 2023-08-10 2023-08-10 Outpatient R AKINSIPE, [facility] [id number] Univers 13:00:00 13:00:00 [facility] 2023-08-07 2023-08-09 Inpatient P GURU [facility] DAVID [id number] Univers 05:53:00 14:24:00 KENNETH [facility] RANJITH Kelly [facility] 2023-08-07 2023-08-09 [facility] Margareth Del Castillo 1 .2.840.114 [id number] Univers 05:53:00 14:24:00 Encounter Ranjith Conteh 350. 1[facility]13.10 [facility] 4.2.7.2.686 Carlos as [id number] [address] 2023-08-08 2023-08-08 Surgery Guru DIAMOND 1.2.840.114 [id number] Univers 08:00:00 09:34:00 Kenneth BARBOZA 350.1.13.10 ity of s, [facility] 4.2.7.2.686 Carlos as [id number] [facility] 013 Branch 2023-08-07 2023-08-08 Anesthesia Aldo, Navincyndy DIAMOND 1.2.8 40.114 [id number] Univers 23:00:00 08:03:00 Event Eduardo Lyons TAMRA 350.1.13.1 0 ity of HOSPITAL 4.2.7.2.686 Carlos as [id number] [facility] 132 Branch 2023-08-07 2023-08-07 Orders Doctor DARA 1.2.840.114 [id number] Univers 00:00:00 00:00:00 Only Unassigned, TAMRA 350.1.13.10 ity of [place] [facility] 4.2.7.2.686 Carlos as [id number] [facility] 009 Branch 2023-08-06 2023-08-06 Outpatient R ИРИНА, [facility] [id number] Univers 08:00:00 08:44:08 JUSTYNA dean o f [facility] 2023-08-06 2023-08-06 Routine Akinsipe, [facility] 1.2.635.070 [id number] Univers 08:00:00 08:44:08 Justyna Castle LINKING MACHINE OPERATOR 350.1.13.10 ity of Visit [facility] 4.2.7.2.686 Carlos as MATERNAL [id number] Med ical & CHILD [address] [place] [address] 2023-08-03 2023-08-03 Outpatient P BOBBY ILJADON DAVID [id number] Univers 11:21:00 13:46:00 MELANIE ity of [facility] 2023-08-03 2023-08-03 [facility] DARA Rosales 1.2.840.114 [id number] Univers 11:21:00 13:46:00 Encounter Melanie BARBOZA 350.1.13.10 ity of [facility] 4.2.7.2.686 [place] [id number] [facility] 140 Branch 2023-08-03 2023-08-03 Outpatient R AKINMISTY, [facility] [id number] Univers 12:45:00 12:45:00 JUSTYNA ity o f [facility] 2023-07-30 2023-07-30 Outpatient R AKINSIPE, [facility] [id number] Univers 07:45:00 08:27:53 JUSTYNA ity o f [facility] 2023-07-30 2023-07-30 Routine Akinsipe, [facility] 1.2.895.451 [id number] Univers 07:45:00 08:27:53 Justyna C LINKING MACHINE OPERATOR 350.1.13.10 ity of Visit REGIONAL 4.2.7.2.686 Carlos as MATERNAL [id number] [facility] ical & CHILD [address] [place] [address] 2023-07-27 2023-07-27 Outpatient R AKINSIPE, [facility] [id number] Univers 08:30:00 09:18:05 JUSTYNA ity o f [facility] 2023-07-27 2023-07-27 Routine Akinsipe, [facility] 1.2.098.983 [id number] Univers 08:30:00 09:18:05 Justyna C LINKING MACHINE OPERATOR 350.1.13.10 ity of Visit REGIONAL 4.2.7.2.686 Carlos as MATERNAL [id number] [facility] & CHILD [address] [place] [address] 2023-07-23 2023-07-23 Routine 2, Ang-Rmchp Nst Ultrasound [facility] 1.2.840.114 [id number] Univers 13:15:00 13:58:25 Akinsipe, Justyna C LINKING MACHINE OPERATOR 350.1.13 .10 ity of Visit REGIONAL 4.2.7.2.686 Carlos as MATERNAL [id number] [facility] ical & CHILD [address] [place] [address] 2023-07-23 2023-07-23 Outpatient R AKINSIPE, [facility] [id number] Univers 13:00:00 13:57:58 JUSTYNA ity o f [facility] 2023-07-23 2023-07-23 Routine Akinsipe, [facility] 1.2.879.081 [id number] Univers 13:00:00 13:57:58 Justyna C LINKING MACHINE OPERATOR 350.1.13.10 ity of Visit REGIONAL 4.2.7.2.686 Carlos as MATERNAL [id number] [facility] & CHILD [address] [place] [address] 2023-07-20 2023-07-20 [facility] [id number] Univers 07:45:00 08:44:44 JUSTYNA ity o f [facility] 2023-07-20 2023-07-20 [facility] 1.2.507.017 [id number] Univers 07:45:00 08:44:44 Justyna C LINKING MACHINE OPERATOR 350.1.13.10 ity of Visit REGIONAL 4.2.7.2.686 Carlos as MATERNAL [id number] [facility] & CHILD [address] [place] [address] 2023-07-16 2023-07-16 Outpatient R ИРИНА [facility] [id number] Univers 15:00:00 15:04:51 JUSTYNA ity o f [facility] 2023-07-16 2023-07-16 [facility] 1.2.017.253 [id number] Univers 15:00:00 15:04:51 Justyna C LINKING MACHINE OPERATOR 350.1.13.10 ity of Visit REGIONAL 4.2.7.2.686 Carlos as MATERNAL [id number] [facility] & CHILD [address] [place] [address] 2023-07-14 2023-07-14 Abstract [facility] 1.2.840.114 [id number] Univers 00:00:00 00:00:00 Justyna C LINKING MACHINE OPERATOR 350.1.13.10 ity of REGIONAL 4.2.7.2.686 Carlos as MATERNAL [id number] [facility] & CHILD [address] [place] [address] 2023-07-13 2023-07-13 [facility] 1.2.146.560 [id number] Univers 15:30:00 15:30:00 Justyna C LINKING MACHINE OPERATOR 350.1.13.10 ity of Visit REGIONAL 4.2.7.2.686 Carlos as MATERNAL [id number] [facility] & CHILD [address] [place] [address] 2023-07-13 2023-07-13 Outpatient ELEANOR COTA [facility] [id number] Univers 13:00:00 13:31:04 ELEANOR DUVALL ity [facility] 2023-07-13 2023-07-13 Integrity Director [facility]trasound, [facility] 1.2 .840.114 [id number] Univers 13:00:00 13:31:04 Visit Eleanor Duvall LINKING MACHINE OPERATOR 350.1.13.10 ity of REGIONAL 4.2.7.2.686 Carlos as MATERNAL [id number] [facility] & CHILD [address] [place] [address] 2023-07-09 2023-07-09 Routine Akinsipe, [facility] 1.2.271.991 [id number] Univers 13:00:00 13:44:08 Justyna C LINKING MACHINE OPERATOR 350.1.13.10 ity of Visit REGIONAL 4.2.7.2.686 [place] as MATERNAL [id number] [facility] & [address] 2023-07-09 2023-07-09 Outpatient R AKINSIPE, [facility] [id number] Univers 13:00:00 13:44:08 JUSTYNA ity o [facility] 2023-07-06 2023-07-06 Outpatient R AKINSIPE, [facility] [id number] Univers 13:00:00 14:04:57 JUSTYNA ity o f [facility] 2023-07-06 2023-07-06 Routine Akinsipe, [facility] 1.2.407.915 [id number] Univers 13:00:00 14:04:57 Justyna C LINKING MACHINE OPERATOR 350.1.13.10 ity of Visit REGIONAL 4.2.7.2.686 [place] as MATERNAL [id number] [facility] & [address] 2023-07-02 2023-07-02 Outpatient R AKINSIPE, [facility] [id number] Univers 08:00:00 08:50:05 JUSTYNA ity o f [facility] 2023-07-02 2023-07-02 Routine Akinsipe, [facility] 1.2.912.555 [id number] Univers 08:00:00 08:50:05 Justyna C LINKING MACHINE OPERATOR 350.1.13.10 ity of Visit REGIONAL 4.2.7.2.686 Carlos as MATERNAL [id number] [facility] & CHILD [address] [place] [address] 2023-06-29 2023-06-29 Outpatient R [facility] [id number] Univers 10:00:00 10:58:51 JUSTYNA ity o f [facility] 2023-06-29 2023-06-29 Routine [facility] 1.2.131.016 [id number] [id number] Univers 10:00:00 10:58:51 Justyna C LINKING MACHINE OPERATOR 350.1.13.10 ity of Visit REGIONAL 4.2.7.2.686 [place] as MATERNAL [id number] [facility] & [address] 2023-06-25 2023-06-25 [facility] [id number] Univers 08:15:00 09:12:17 JUSTYNA ity o [facility] 2023-06-25 2023-06-25 Routine [facility] 1.2.985.830 [id number] [id number] Univers 08:15:00 09:12:17 Justyna C LINKING MACHINE OPERATOR 350.1.13.10 ity of Visit REGIONAL 4.2.7.2.686 [place] as MATERNAL [id number] [address] 2023-06-25 2023-06-25 Abstract [facility] 1.2.840.114 106 [id number] Univers 00:00:00 00:00:00 Justyna C LINKING MACHINE OPERATOR 350.1.13.10 ity of REGIONAL 4.2.7.2.686 [place] as MATERNAL [id number] [facility] & CHILD [address] [place] [address] 2023-06-22 2023-06-22 Routine [facility] 1.2.296.122 [id number] [id number] Univers 15:30:00 15:48:25 Justyna C LINKING MACHINE OPERATOR 350.1.13.10 ity of Visit REGIONAL 4.2.7.2.686 [place] as MATERNAL [id number] [facility] & CHILD [address] [place] [address] 2023-06-22 2023-06-22 Outpatient P ELEANOR DUVALL [facility] [id number] Univers 14:00:00 14:32:46 ELEANOR DUVALL of [facility] 2023-06-22 2023-06-22 Integrity Director Ultrasound, [facility] 1.2 .840.114 [id number] Univers 14:00:00 14:32:46 Visit Eleanor Duvall LINKING MACHINE OPERATOR 350.1.13.10 ity of REGIONAL 4.2.7.2.686 [place] as MATERNAL [id number] Med ical & CHILD 369 [facility] 2023-06-22 2023-06-22 Outpatient R ИРИНА [facility] [id number] Univers 14:30:00 14:30:00 JUSTYNA chandler [facility] 2023-06-17 2023-06-17 Routine Risk, Vmq-Ttlmu-Wk/High [facility] 1. 2.840.114 [id number] Univers 14:30:00 15:00:00 Justyna Gifford LINKING MACHINE OPERATOR 350.1.13 .10 ity of Visit REGIONAL 4.2.7.2.686 [place] as MATERNAL [id number] [facility] & CHILD [address] [place] [address] 2023-06-17 2023-06-17 Outpatient R ИРИНА [facility] [id number] Univers 14:30:00 14:30:00 JUSTYNA chandler [facility] 2023-06-16 2023-06-[address] [facility] 1.2.840.114 [id number] Univers 00:00:00 00:00:00 Justyna Castle LINKING MACHINE OPERATOR 350.1.13.10 ity of REGIONAL 4.2.7.2.686 [place] as MATERNAL [id number] [facility] & CHILD [address] [place] [address] 2023-06-15 2023-06-15 Outpatient P GURU [facility] [id number] Univers 14:00:00 14:33:15 KENNETH it y of SRANJITH [facility] 2023-06-15 2023-06-15 Integrity Director Ultrasound, [facility] 1.2 .840.114 [id number] Univers 14:00:00 14:33:15 Visit Eleanor Duvall LINKING MACHINE OPERATOR 350.1.13.10 ity of Ranjith Conteh REGIONAL 4.2.7.2 .686 [place] MATERNAL [id number] [facility] ical & CHILD 369 [facility] 2023-06-11 2023-06-11 Outpatient R SALEEM WATSON [facility] [id number] Univers 10:30:00 13:21:52 ity of [facility] 2023-06-11 2023-06-11 [address]meron [facility] 1.2.8 40.114 [id number] Univers 10:30:00 13:21:52 ne Visit Saleem Watson LINKING MACHINE OPERATOR 350.1.13.10 ity of REGIONAL 4.2.7.2.686 [place] as MATERNAL [id number] [facility] & CHILD [address] [place] [address] 2023-06-08 2023-06-08 Outpatient R ИРИНА [facility] [id number] Univers 15:15:00 15:20:06 JUSTYNA ity o f [facility] 2023-06-08 2023-06-08 [facility]ine [facility] 1.2.308.890 [id number] Univers 15:15:00 15:20:06 Justyna Castle LINKING MACHINE OPERATOR 350.1.13.10 ity of Visit REGIONAL 4.2.7.2.686 Carlos as MATERNAL [id number] [facility] & CHILD [address] [place] [address] 2023-06-08 2023-06-08 Outpatient P ELEANOR DUVALL [facility] [id number] Univers 14:00:00 14:27:55 ELEANOR DUVALL ity [facility] 2023-06-08 2023-06-08 Integrity Director Ultrasound, [facility] 1.2 .840.114 [id number] Univers 14:00:00 14:27:55 Visit Eleanor Duvall LINKING MACHINE OPERATOR 350.1.13.10 ity of REGIONAL 4.2.7.2.686 [place] as MATERNAL [id number] [facility] ical & CHILD 369 [facility] 2023-06-03 2023-06-[address] [facility] 1.2.840.114 105 [id number] Univers 00:00:00 00:00:00 Justyna C LINKING MACHINE OPERATOR 350.1.13.10 ity of REGIONAL 4.2.7.2.686 Carlos as MATERNAL [id number] [facility] ical & CHILD [address] [place] [address] 2023-06-03 2023-06-03 Abstract [facility] 1.2.840.114 105 [id number] Univers 00:00:00 00:00:00 Justyna C LINKING MACHINE OPERATOR 350.1.13.10 ity of [facility] 4.2.7.2.686 Carlos as MATERNAL [id number] [facility] & CHILD [address] [place] [address] 2023-06-01 2023-06-01 Outpatient P GURU [facility] [id number] Univers 11:00:00 11:20:42 KENNETH maradiaga y of S, KASPER [facility] 2023-06-01 2023-06-01 Integrity Director Ultrasound, [facility] 1.2 .840.114 [id number] Univers 11:00:00 11:20:42 Visit Guru Koby Ranjith LINKING MACHINE OPERATOR 350.1. 13.10 ity of REGIONAL 4.2.7.2.686 [place] as MATERNAL [id number] [facility] ical & CHILD 369 [facility] 2023-05-28 2023-05-28 Outpatient P VILLA [facility] [id number] Univers 10:45:00 13:42:35 SLICK dean [facility] 2023-05-28 2023-05-28 Integrity Director 3, [facility] Usg Room UNIVERSIT 1 .2.840.114 [id number] Univers 10:45:00 13:42:35 Visit Slick Driver [facility] 350.1.13. 10 ity of [facility] 4.2.7.2.[place] [id number] [address] 2023-05-25 2023-05-25 Outpatient R ИРИНА, [facility] [id number] Univers 08:00:00 08:45:54 JUSTYNA maradiagay o f [facility] 2023-05-25 2023-05-25 Routine [facility] 1.2.890.938 [id number] Univers 08:00:00 08:45:54 Justyna C LINKING MACHINE OPERATOR 350.1.13.10 ity of Visit REGIONAL 4.2.7.2.686 Carlos as MATERNAL [id number] Med ical & CHILD 107 [facility] 2023-05-25 2023-05-25 Orders Doctor DARA 1.2.840.114 [id number] Univers 00:00:00 00:00:00 Only Unassigned, TAMRA 350.1.13.10 ity of [place] [facility] 4.2.7.2.686 Carlos as [id number] [address] 2023-05-21 2023-05-21 Outpatient P WILLIAN DURAN [facility] [id number] Univers 09:15:00 09:31:32 [facility] 2023-05-21 Integrity Director Ultrasound, [facility] 1.2 .840.114 [id number] Univers 09:15:00 09:31:32 Visit Garvey Ranjith Whalen LINKING MACHINE OPERATOR 350.1. 13.10 ity of Willian Duran REGIONAL 4.2.7.2.686 [place] MATERNAL [id number] Med ical & CHILD 369 [facility] 2023-05-21 2023-05-21 Abstract [facility] 1.2.840.114 105 [id number] Univers 00:00:00 00:00:00 Justyna C LINKING MACHINE OPERATOR 350.1.13.10 ity of REGIONAL 4.2.7.2.686 [place] as MATERNAL [id number] Med ical & CHILD 107 [facility] 2023-05-21 2023-05-21 Telephone [facility] 1.2.840.114 [id number] Univers 00:00:00 00:00:00 Justyna C LINKING MACHINE OPERATOR 350.1.13.10 ity of REGIONAL 4.2.7.2.686 Carlos as MATERNAL [id number] Med ical & CHILD 107 [facility] 2023-05-13 2023-05-13 Abstract Akinpe, [facility] 1.2.840.114 105 [id number] Univers 00:00:00 00:00:00 Justyna C LINKING MACHINE OPERATOR 350.1.13.10 ity of REGIONAL 4.2.7.2.686 [place] as MATERNAL [id number] [facility] & CHILD [address] [place] [address] 2023-05-07 2023-05-07 Outpatient R ELEANOR DUVALL [facility] [id number] Univers 13:00:00 14:41:17 ELEANOR DUVALL [facility] 2023-05-07 2023-05-07 Integrity Director 1, [facility] Room UNIVERSIT 1 .2.840.114 [id number] Univers 13:00:00 14:41:17 Visit Eleanor Duvall Hemalatha [facility] 350.1.13.10 ity of CLINICS 4.2.[place].2.[place] [id number] [address] 2023-04-26 2023-04-26 Outpatient R AKINSIPE, [facility] [id number] Univers 11:00:00 11:15:34 JUSTYNA ity o f [facility] 2023-04-26 2023-04-26 Routine [facility] 1.2.426.983 [id number] Univers 11:00:00 11:15:34 Justyna C LINKING MACHINE OPERATOR 350.1.13.10 ity of Visit REGIONAL 4.2.7.2.686 Carlos as MATERNAL [id number] [facility] & [address] 2023-04-23 2023-04-23 Outpatient P WILLIAN DURAN [facility] [id number] Univers 13:00:00 14:53:54 [facility] 2023-04-23 2023-04-23 Integrity Director 1, [facility] Room UNIVERSIT 1 .2.840.114 [id number] Univers 13:00:00 14:53:54 Visit Eleanor Duvall [facility] 350.1.13.10 ity of Willian Duran [facility] 4.2.7.2.686 [place] [id number] [address] 2023-04-09 2023-04-09 Integrity Director 1, [facility] Us Room UNIVERSIT 1 .2.840.114 [id number] Univers 13:30:00 14:37:48 Visit Eleanor Duvall [facility] 350.1.13.10 ity of CLINICS 4.2.7.2.[place] [id number] [address] 2023-04-09 2023-04-09 Outpatient P ELEANOR DUVALL [facility] [id number] Univers 13:30:00 13:30:00 ELEANOR DUVALL [facility] 2023-04-09 2023-04-09 Abstract [facility] 1.2.840.114 104 [id number] Univers 00:00:00 00:00:00 Justyna Tin LINKING MACHINE OPERATOR 350.1.13.10 ity of REGIONAL 4.2.7.2.686 [place] as MATERNAL [id number] Med ical & CHILD [address] [place] [address] 2023-04-02 2023-04-02 Outpatient P ELEANOR DUVALL [facility] [id number] Univers 13:00:00 13:00:00 ELEANOR DUVALL [facility] 2023-04-01 2023-04-01 [address] Ирина [facility] 1.2.840.114 104 [id number] Univers 00:00:00 00:00:00 Justyna Castle LINKING MACHINE OPERATOR 350.1.13.10 ity of REGIONAL 4.2.7.2.686 [place] as MATERNAL [id number] [facility] & CHILD [address] [place] [address] 2023-03-29 2023-03-29 Outpatient R ИРИНА [facility] [id number] Univers 10:45:00 11:09:07 JUSTYNA ity o f [facility] 2023-03-29 2023-03-29 Routine [facility] 1.2.554.374 [id number] Univers 10:45:00 11:09:07 Justyna C LINKING MACHINE OPERATOR 350.1.13.10 ity of Visit REGIONAL 4.2.7.2.686 [place] as MATERNAL [id number] [facility] ical & CHILD [address] [place] [address] 2023-03-26 2023-03-26 Integrity Director 1, [facility] Usg Room UNIVERSIT 1 .2.840.114 [id number] Univers 13:00:00 13:54:31 Visit Eleanor Duvall Y HEALTH 350.1.13.10 ity of CLINICS 4.2.[place].2.[place] [id number] [facility] [address] [place] 2023-03-26 2023-03-26 Outpatient P ELEANOR DUVALL [facility] [id number] Univers 13:00:00 13:00:00 [facility] 2023-03-03 2023-03-03 Abstract [facility] 1.2.840.114 [id number] Univers 00:00:00 00:00:00 Justyna Castle LINKING MACHINE OPERATOR 350.1.13.10 ity of REGIONAL 4.2.7.2.686 [place] as MATERNAL [id number] Med ical & CHILD [address] [place] [address] 2023-03-02 2023-03-02 Integrity Director Lab, [facility] UNIVERSIT 1.2.84 0.114 [id number] Univers 12:15:00 12:37:39 Visit Willian Duran HEALTH 350.1.13.10 ity of CLINICS 4.2.7.2.[place] [id number] [facility] [address] [place] 2023-03-02 2023-03-02 Outpatient P ROGERWILLIAN ROB [facility] [id number] Univers 12:15:00 12:15:00 [facility] 2023-03-02 2023-03-02 Integrity Director 2, [facility] Room UNIVERSIT 1 .2.840.114 [id number] Univers 11:15:00 12:08:01 Visit Willian Duran HEALTH 350.1.13.10 ity of CLINICS 4.2.[place].2.[place] [id number] [facility] [address] [place] 2023-03-02 2023-03-02 Ellis Loera UNIVERSIT 1.2.168.078 [id number] Univers 00:00:00 00:00:00 Management May Y HEALTH 350.1.13.10 ity of CLINICS 4.2.7.2.[place] [id number] [facility] [address] [place] 2023-03-01 2023-03-01 Outpatient R [facility] [id number] Univers 10:30:00 11:02:26 JUSTYNA ity o f [facility] 2023-03-01 2023-03-01 Routine [facility] 1.2.398.940 [id number] Univers 10:30:00 11:02:26 Justyna C LINKING MACHINE OPERATOR 350.1.13.10 ity of Visit REGIONAL 4.2.7.2.686 [place] as MATERNAL [id number] [facility] ical & CHILD [address] [place] [address] 2023-02-01 2023-02-01 Outpatient R [facility] [id number] Univers 13:45:00 14:46:34 JUSTYNA ity o f [facility] 2023-02-01 2023-02-01 Initial [facility] 1.2.831.619 [id number] Univers 13:45:00 14:46:34 Justyna C LINKING MACHINE OPERATOR 350.1.13.10 ity of Visit REGIONAL 4.2.7.2.686 [place] as MATERNAL [id number] [facility] & CHILD [address] [place] [address] 2023-02-01 2023-02-01 Orders Doctor DARA 1.2.840.114 [id number] Univers 00:00:00 00:00:00 Only Unassigned, TAMRA 350.1.13.10 ity of [place] [facility] 4.2.7.2.686 Carlos as [id number] [facility] [address] [place] 2023-02-01 2023-02-01 Telephone [facility] 1.2.840.114 [id number] Univers 00:00:00 00:00:00 Justyna C LINKING MACHINE OPERATOR 350.1.13.10 ity of REGIONAL 4.2.7.2.686 [place] as MATERNAL [id number] [facility] & CHILD [address] [place] [address] 2022-11-24 2022-11-24 Nurse Nurse, Kayode Rmchp Exp Cprit [facility] 1.2.840.114 [id number] Univers 09:45:00 10:38:20 Visit AkinJustyna lama C LINKING MACHINE OPERATOR 350.1.13. 10 ity of [facility] 4.2.7.2.686 [place] as MATERNAL [id number] [facility] & [address] 2022-11-24 2022-11-24 Outpatient R AKINSIPE, [facility] [id number] Univers 09:45:00 09:45:00 JUSTYNA ity o [facility] 2022-10-16 2022-10-16 Outpatient R AKINSIPE, [facility] [id number] Univers 10:00:00 10:00:00 JUSTYNA dean o [facility] 2022-10-07 2022-10-07 [facility] 1.2.840.114 [id number] Univers 00:00:00 00:00:00 Justyna Tin LINKING MACHINE OPERATOR 350.1.13.10 ity of [facility] 4.2.7.2.686 [place] as MATERNAL [id number] [facility] & [address] 2022-10-02 2022-10-02 Outpatient R AKINSIPE, [facility] [id number] Univers 10:00:00 10:00:00 JUSTYNA dean o [facility] 2022-09-15 2022-09-15 Outpatient R AKINSIPE, [facility] [id number] Univers 08:30:00 09:32:01 JUSTYNA dean o [facility] 2022-09-15 2022-09-15 Office [facility] 1.2.940.296 [id number] Univers 08:30:00 09:32:01 Visit Justyna C LINKING MACHINE OPERATOR 350.1.13.10 ity of [facility] 4.2.7.2.686 [place] as MATERNAL [id number] [facility] & [address] 2022-09-14 2022-09-14 Telephone [facility] 1.2.840.114 [id number] Univers 00:00:00 00:00:00 Justyna C LINKING MACHINE OPERATOR 350.1.13.10 ity of [facility] 4.2.7.2.686 [place] as MATERNAL [id number] Med ical & CHILD [address] [place] [address] 2022-08-20 2022-08-20 Outpatient R VALERIO [facility] [id number] Univers 08:00:00 09:04:07 JACQUELYN ity of [facility] 2022-08-20 2022-08-20 Routine Provider, Kayode-ethan [facility] 1 .2.840.114 [id number] Univers 08:00:00 09:04:07 Lan Schmidt LINKING MACHINE OPERATOR 350.1.13.1 0 ity of Visit Jacquelyn Wong [facility] 4.2.7.2.686 [place] MATERNAL [id number] Med ical & CHILD [address] [place] [address] 2022-07-30 2022-08-01 Inpatient P GURU [facility] DAVID [id number] Univers 06:31:00 14:22:00 KENNETH it y of SRANJITH [facility] 2022-07-30 2022-08-01 [facility] Rich Malik 1.2.840.1 14 [id number] Univers 06:31:00 14:22:00 Encounter Ranjith Conteh 350. 1.13.10 ity of [facility] 4.2.7.2.686 [place] as [id number] [address] 2022-08-01 2022-08-01 1.2.840.1 1.2.840.114 97 [id number] Univers 00:00:00 00:00:00 Encounter [id number] 350.1.13.10 ity of 3.104.2.7 [place].696 [place][id number] [address] [place] 2022-07-31 2022-07-31 Outpatient R ROXANA [facility] [id number] Univers 09:45:00 09:45:00 LAN dean o f [facility] 2022-07-30 2022-07-30 Anesthesia Estuardo Peguero 1.2.840.1 14 [id number] Univers 09:50:00 21:16:00 Event Epifanio WadeY 350.1.13.10 ity of HOSPITAL 4.2.7.2.686 [place] as [id number] [facility] [address] 2022-07-30 2022-07-30 Orders Doctor DARA 1.2.840.114 [id number] Univers 00:00:00 00:00:00 Only Unassigned, TAMRA 350.1.13.10 ity of [place] [facility] 4.2.7.2.686 [place] as [id number] [facility] [address] 2022-07-21 2022-07-22 Outpatient P RICHARD [facility] DAVID [id number] Univers 19:40:00 00:54:00 FRANCO dean [facility] 2022-07-21 2022-07-22 Hospital DARA Summers 1.2.065.236 [id number] Univers 19:40:00 00:54:00 Encounter Franco BARBOZA 350.1.13.10 ity of HOSPITAL 4.2.7.2.686 [place] as [id number] [facility] [address] 2022-07-21 2022-07-21 [facility] 1.2.458.244 [id number] Univers 00:00:00 00:00:00 Rosmukulnda R LINKING MACHINE OPERATOR 350.1.13.10 ity of REGIONAL 4.2.7.2.686 [place] as MATERNAL [id number] Med ical & CHILD [address] [place] [address] 2022-07-15 2022-07-15 Outpatient R ROXANA [facility] [id number] Univers 13:00:00 13:44:39 ROSHUNDA ity o f [facility] 2022-07-15 2022-07-15 [facility] 1.2.840.114 [id number] Univers 13:00:00 13:44:39 Roshunda R LINKING MACHINE OPERATOR 350.1.13.10 ity of Visit [facility] 4.2.7.2.686 [place] as MATERNAL [id number] [facility] ical & CHILD [address] [place] [address] 2022-07-01 2022-07-01 [facility] [id number] Univers 13:00:00 13:30:26 ROSMUKULNDA ity o [facility] 2022-07-01 2022-07-01 [facility] 1.2.840.114 [id number] Univers 13:00:00 13:30:26 Roshunda R LINKING MACHINE OPERATOR 350.1.13.10 ity of Visit REGIONAL 4.2.7.2.686 [place] as MATERNAL [id number] [facility] & [address] 2022-07-01 2022-07-01 Outpatient [facility] [id number] Univers 13:00:00 13:30:26 MARKNDA ity o [facility] 2022-07-01 2022-07-01 [facility]patient [facility] [id number] Univers 13:00:00 13:00:00 MARKNDA ashwiniy o [facility] 2022-06-16 2022-06-16 Outpatient Joshua SCHMIDT [facility] [id number] Univers 13:45:00 14:44:53 ROSHUNDA ity o [facility] 2022-06-16 2022-06-16 [facility] [id number] [id number] Univers 13:45:00 14:44:53 Roshunda R LINKING MACHINE OPERATOR 350.1.13.10 ity of Visit REGIONAL 4.2.7.2.686 Carlos as MATERNAL [id number] [facility] & [address] 2022-06-16 2022-06-16 Outpatient [facility] [id number] Univers 13:45:00 13:45:00 ROSMUKULNDA ity o [facility] 2022-06-03 2022-06-03 Outpatient Joshua SCHMIDT [facility] [id number] Univers 13:00:00 13:43:24 ROSHUNDA ity o f [facility] 2022-06-03 2022-06-03 [facility] 1.2.840.114 [id number] Univers 13:00:00 13:43:24 Roshunda R LINKING MACHINE OPERATOR 350.1.13.10 ity of Visit REGIONAL 4.2.7.2.686 Carlos as MATERNAL [id number] [facility] & CHILD [address] [place] [address] 2022-06-03 2022-06-03 Outpatient Joshua SCHMIDT [facility] [id number] Univers 13:00:00 13:00:00 ROSHUNDA ity o f [facility] 2022-05-13 2022-05-13 Outpatient Joshua SCHMIDT SELECT [facility] [id number] Univers 13:45:00 14:35:56 ROSHUNDA ity o f [facility] 2022-05-13 2022-05-13 [facility] 1.2.840.114 [id number] Univers 13:45:00 14:35:56 Roshunda R LINKING MACHINE OPERATOR 350.1.13.10 ity of Visit REGIONAL 4.2.7.2.686 Carlos as MATERNAL [id number] [facility] & CHILD [address] [place] [address] 2022-05-13 2022-05-13 Outpatient Joshua SCHMIDT [facility] [id number] Univers 13:45:00 13:45:00 ROSHUNDA ity o [facility] 2022-04-15 2022-04-15 Outpatient Joshua SCHMIDT [facility] [id number] Univers 13:45:00 14:25:42 ROSHUNDA ity o f [facility] 2022-04-15 2022-04-15 [facility] 1.2.840.114 [id number] Univers 13:45:00 14:25:42 Roshunda R LINKING MACHINE OPERATOR 350.1.13.10 ity of Visit REGIONAL 4.2.7.2.686 Carlos as MATERNAL [id number] [facility] & CHILD [address] [place] [address] 2022-04-06 2022-04-06 Integrity Director Ultrasound, BerthaAdena [facility] 1.2 .840.114 [id number] Univers 13:00:00 14:00:00 Visit Garvey Ranjith Whalen LINKING MACHINE OPERATOR 350.1. 13.10 ity of REGIONAL 4.2.7.2.686 Carlos as MATERNAL [id number] [facility] ical & CHILD [address] [facility] 2022-04-06 2022-04-06 Outpatient P GARVEY [facility] [id number] Univers 13:00:00 13:00:00 KENNETH maradiaga RANJITH Restrepo [facility] 2022-04-06 2022-04-06 Martin [facility] 1.2.840.114 [id number] Univers 00:00:00 00:00:00 Roshunda R LINKING MACHINE OPERATOR 350.1.13.10 ity of REGIONAL 4.2.7.2.686 Carlos as MATERNAL [id number] [facility] & CHILD [address] [place] [address] 2022-03-27 2022-03-27 Outpatient P [facility] [id number] Univers 13:30:00 13:30:00 ity of [facility] 2022-03-18 2022-03-18 Outpatient Joshua SCHMIDT [facility] [id number] Univers 13:45:00 14:45:46 ROSHUNDA ity o f [facility] 2022-03-18 2022-03-18 [facility] 1.2.840.114 [id number] Univers 13:45:00 14:45:46 Roshunda R LINKING MACHINE OPERATOR 350.1.13.10 ity of Visit REGIONAL 4.2.7.2.686 Carlos as MATERNAL [id number] [facility] & [address] 2022-02-18 2022-02-18 [facility] 1.2.840.114 [id number] Univers 13:45:00 14:00:00 Roshunda R LINKING MACHINE OPERATOR 350.1.13.10 ity of Visit REGIONAL 4.2.7.2.686 Carlos as MATERNAL [id number] [facility] & CHILD [address] [place] [address] 2022-02-18 2022-02-18 Outpatient Joshua SCHMIDT [facility] [id number] Univers 13:45:00 13:45:00 ROSHUNDA ity o f [facility] 2022-02-03 2022-02-03 Abstract [facility] 1.2.840.114 [id number] Univers 00:00:00 00:00:00 Rosmukulnda R LINKING MACHINE OPERATOR 350.1.13.10 ity of REGIONAL 4.2.7.2.686 Carlos as MATERNAL [id number] [facility] ical & CHILD [address] [place] [address] 2022-02-02 2022-02-02 Integrity Director Ultrasound, BerthaAdena [facility] 1.2 .840.114 [id number] Univers 11:30:00 12:07:44 Visit Franco Summers LINKING MACHINE OPERATOR 350.1.13.10 ity of REGIONAL 4.2.7.2.686 Carlos as MATERNAL [id number] Med ical & CHILD 369 [facility] 2022-02-02 2022-02-02 Outpatient P HOA [facility] [id number] Univers 11:30:00 11:30:00 FRANCO ity [facility] 2022-02-02 2022-02-02 Orders Doctor DIAMOND 1.2.840.114 [id number] Univers 00:00:00 00:00:00 Only Unassigned, TAMRA 350.1.13.10 ity of [place] [facility] 4.2.7.2.686 Carlos as [id number] [address] 2022-01-21 2022-01-21 Outpatient R ROXANA [facility] [id number] Univers 13:15:00 13:56:45 ROSHUNDA ity o f [facility] 2022-01-21 2022-01-21 [facility] 1.2.840.114 [id number] Univers 13:15:00 13:56:45 Roshunda R LINKING MACHINE OPERATOR 350.1.13.10 ity of Visit [facility] 4.2.7.2.686 Carlos as MATERNAL [id number] [facility] ical & CHILD [address] [place] [address] 2022-01-21 2022-01-21 [facility] [id number] Univers 13:15:00 13:15:00 ROSHUNDA ity o f [facility] 2021-12-26 2021-12-26 Patient [facility] 1.2.840.114 [id number] Univers 00:00:00 00:00:00 Secure Msg Sandraa R LINKING MACHINE OPERATOR 350.1.13.10 ity of REGIONAL 4.2.7.2.686 Carlos as MATERNAL [id number] [facility] ical & CHILD [address] [place] [address] 2021-12-24 2021-12-24 Outpatient R ROXANA [facility] [id number] Univers 14:00:00 14:30:10 MARKNDA itlaw o [facility] 2021-12-24 2021-12-24 Initial [facility] 1.2.840.114 [id number] Univers 14:00:00 14:30:10 Marknda R LINKING MACHINE OPERATOR 350.1.13.10 ity of Visit REGIONAL 4.2.7.2.686 Carlos as MATERNAL [id number] [facility] & CHILD [address] [place] [address] 2021-12-24 2021-12-24 Orders Doctor DIAMOND 1.2.840.114 [id number] Univers 00:00:00 00:00:00 Only Unassigned, TAMRA 350.1.13.10 ity of [place] [facility] 4.2.7.2.686 Carlos as [id number] [address] 2021-11-05 2021-11-05 Outpatient [facility] [id number] Univers 14:30:00 15:10:38 LAN jermaine o [facility] 2021-11-05 2021-11-05 Nurse Nurse, Kayode Rmchp Exp Cprit [facility] 1.2.840.114 [id number] Univers 14:30:00 15:10:38 Visit Lan Schmidt LINKING MACHINE OPERATOR 350.1.13.10 ity of REGIONAL 4.2.7.2.686 Carlos as MATERNAL [id number] [facility] & CHILD [address] [place] [address] 2021-11-05 2021-11-05 Office Roxana ILJADON 1.2.840.114 [id number] Univers 14:15:00 15:10:30 Visit Franciscaneva R LINKING MACHINE OPERATOR 350.1.13.10 ity of REGIONAL 4.2.7.2.686 Carlos as MATERNAL [id number] [facility] ical & CHILD [address] [place] [address] 2021-11-05 2021-11-05 Outpatient R ROXANA [facility] [id number] Univers 14:15:00 15:10:30 ROSMUKULNDA ity o f [facility] 2021-10-15 2021-10-15 Outpatient R ROXANA [facility] [id number] Univers 10:45:00 11:11:09 ROSMUKULNDA jermaine o f [facility] 2021-10-15 2021-10-15 Outpatient R ROXANA [facility] [id number] Univers 10:45:00 11:11:09 MARKNDA jermaine o f [facility] 2021-10-15 2021-10-15 [facility]ine [facility] 1.2.840.114 [id number] Univers 10:45:00 11:11:09 Sandraa R LINKING MACHINE OPERATOR 350.1.13.10 ity of Visit [facility] 4.2.7.2.686 Carlos as MATERNAL [id number] Med ical & CHILD 107 [facility] 2021-09-23 2021-09-25 [facility] [id number] Univers 12:41:00 17:22:00 NITHYA dean [facility] 2021-09-23 2021-09-25 [facility] DARA Parmar 1.2.840.114 [id number] Univers 12:41:00 17:22:00 Encounter Nithya BARBOZA 350.1.13.10 ity [facility] 4.2.7.2.686 Carlos as [id number] [facility] [address] [place] 2021-09-23 2021-09-24 Anesthesia Matheus Sosa 1.2.840.114 [id number] Univers 18:30:00 04:16:00 Event Akiko Lesliearyan BARBOZA 350.1.13.10 ity [facility] 4.2.7.2.686 Carlos as [id number] [facility] [address] [place] 2021-09-23 2021-09-23 Inpatient P CHARLIE [facility] DAVID [id number] Univers 12:41:00 12:41:00 NITHYA dean [facility] 2021-09-23 2021-09-[address] [facility] 1.2.325.610 [id number] Univers 08:12:02 08:51:22 Loy Kathe LINKING MACHINE OPERATOR 350.1.13.10 i ty of Visit REGIONAL 4.2.7.2.686 Carlos as MATERNAL [id number] [facility] & [address] 2021-09-23 2021-09-23 Outpatient Joshua CARVAJAL [facility] [id number] Univers 08:00:00 08:51:22 LOY dean [facility] 2021-09-23 2021-09-23 Outpatient Joshua CARVAJAL [facility] [id number] Univers 08:00:00 08:51:22 LOY dean [facility] 2021-09-23 2021-09-23 Outpatient Joshua CARVAJAL [facility] [id number] Univers 08:00:00 08:51:22 LOY dean [facility] 2021-09-19 2021-09-19 Integrity Director Lab, BerthaBob [facility] 1.2.840. 114 [id number] Univers 08:15:00 08:20:25 Visit Alena Loy Archuleta LINKING MACHINE OPERATOR 350.1.13.10 ity of REGIONAL 4.2.7.2.686 Carlos as MATERNAL [id number] [facility] & [address] 2021-09-19 2021-09-19 Outpatient Joshua CARVAJAL [facility] [id number] Univers 08:15:00 08:15:00 LOY dean [facility] 2021-09-18 2021-09-18 Outpatient R [facility] [id number] Univers 08:00:00 08:00:00 itlaw [facility] 2021-09-17 2021-09-17 Outpatient Joshua [facility] [id number] Univers 13:15:00 13:41:06 TRAN chandler [facility] 2021-09-17 2021-09-17 Outpatient Joshua [facility] [id number] Univers 13:15:00 13:41:06 TRAN chandler [facility] 2021-09-17 2021-09-17 Routine Provider, Ang-Rmchp Temp [facility] 1 .2.840.114 [id number] Univers 13:01:35 13:41:06 Tran Ladd O LINKING MACHINE OPERATOR 350.1.13 .10 ity of Visit REGIONAL 4.2.7.2.686 Carlos as MATERNAL [id number] [facility] & CHILD [address] [place] [address] 2021-09-17 2021-09-17 Outpatient R [facility] [id number] Univers 13:15:00 13:15:00 ity of [facility] 2021-09-10 2021-09-10 Outpatient [facility] [id number] Univers 13:30:00 14:01:10 LOY [facility] 2021-09-10 2021-09-10 Outpatient R ALENA [facility] [id number] Univers 13:30:00 14:01:10 LOY [facility] 2021-09-10 2021-09-10 [facility]ine [facility] 1.2.308.584 [id number] Univers 13:20:37 14:01:10 Loy Kathe LINKING MACHINE OPERATOR 350.1.13.10 i ty of Visit REGIONAL 4.2.7.2.686 Carlos as MATERNAL [id number] [address] 2021-09-04 2021-09-04 Outpatient [facility] [id number] Univers 15:00:00 16:12:16 LAKSHMI [facility] 2021-09-04 2021-09-04 Routine Risk, Wum-Hvffr-Qv/High [facility] 1. 2.840.114 [id number] Univers 15:00:00 16:12:16 Lakshmi Martin LINKING MACHINE OPERATOR 350.1.13.10 ity of Visit REGIONAL 4.2.7.2.686 Carlos as MATERNAL [id number] [facility] & [address] 2021-09-04 2021-09-04 Outpatient [facility] [id number] Univers 15:00:00 15:00:00 [facility] 2021-09-04 2021-09-04 Outpatient R [facility] [id number] Univers 11:00:00 [facility]-09-03 2021-09-03 Integrity Director Ultrasound, Berthahemalatha [facility] 1.2 .840.114 [id number] Univers 11:28:13 11:58:13 Visit Guru Sonleisa Ranjith LINKING MACHINE OPERATOR 350.1. 13.10 ity of REGIONAL 4.2.7.2.686 Carlos as MATERNAL [id number] [facility] ical & CHILD [address] [facility] 2021-09-03 2021-09-03 Outpatient P GURU [facility] [id number] Univers 11:30:00 11:30:00 KENNETH it y of RANJITH Kelly [facility] 2021-08-21 2021-08-21 Routine Risk, Omw-Yybds-Iq/High [facility] 1. 2.840.114 [id number] Univers 11:01:13 13:00:36 Lakshmi Martni LINKING MACHINE OPERATOR 350.1.13.10 ity of Visit REGIONAL 4.2.7.2.686 Carlos as MATERNAL [id number] [facility] & CHILD [address] [place] [address] 2021-08-21 2021-08-21 Outpatient Joshua MARTIN [facility] [id number] Univers 11:00:00 13:00:36 LAKSHMI dean [facility] 2021-08-21 2021-08-21 Routine Risk, Txb-Uenyp-Zl/High [facility] 1. 2.840.114 [id number] Univers 11:00:00 13:00:36 Lakshmi Martin LINKING MACHINE OPERATOR 350.1.13.10 ity of Visit REGIONAL 4.2.7.2.686 Carlos as MATERNAL [id number] [facility] & CHILD [address] [place] [address] 2021-08-21 2021-08-21 Outpatient Joshua MARTIN [facility] [id number] Univers 11:00:00 13:00:36 LAKSHMI dean [facility] 2021-08-21 2021-08-21 Outpatient Joshua MARTIN [facility] [id number] Univers 11:00:00 11:00:00 LAKSHMI dean [facility] 2021-08-21 2021-08-21 Outpatient R [facility] [id number] Univers 11:00:00 11:00:00 ity of [facility] 2021-08-04 2021-08-04 [facility] 1.2.384.977 [id number] Univers 11:13:07 11:44:34 Loy N LINKING MACHINE OPERATOR 350.1.13.10 i ty of Visit REGIONAL 4.2.7.2.686 Carlos as MATERNAL [id number] Med ical & CHILD [address] [place] [address] 2021-08-04 2021-08-04 Outpatient [facility] [id number] Univers 11:00:00 11:00:00 LOY ashwinilaw [facility] 2021-08-04 2021-08-04 Patient [facility] 1.2.598.121 [id number] Univers 00:00:00 00:00:00 Secure Msg Loy Archuleta LINKING MACHINE OPERATOR 350.1.13.10 ity of [facility] 4.2.7.2.686 Carlos as MATERNAL [id number] Med ical & CHILD [address] [place] [address] 2021-07-21 2021-07-21 Routine [facility] 1.2.769.314 [id number] Univers 10:53:37 11:37:38 Justyna Castle LINKING MACHINE OPERATOR 350.1.13.10 ity of Visit [facility] 4.2.7.2.686 Carlos as MATERNAL [id number] Med ical & CHILD [address] [place] [address] 2021-07-21 2021-07-21 Outpatient R ИРИНА [facility] [id number] Univers 10:45:00 10:45:00 JUSTYNA siddiqui [facility] 2021-07-11 2021-07-11 Integrity Director Lab, Ang-Rmchp [facility] 1.2.840. 114 [id number] Univers 07:45:50 07:57:26 Visit Justyna Gifford LINKING MACHINE OPERATOR 350.1.13. 10 ity of [facility] 4.2.7.2.686 Carlos as MATERNAL [id number] Med ical & CHILD [address] [place] [address] 2021-07-11 2021-07-11 Integrity Director Lab, Ang-Rmchp [facility] 1.2.840. 114 [id number] Univers 07:45:50 07:57:26 Visit Justyna Gifford LINKING MACHINE OPERATOR 350.1.13. 10 ity of REGIONAL 4.2.7.2.686 Carlos as MATERNAL [id number] [facility] & [address] 2021-07-11 2021-07-11 Outpatient Joshua GIFFORD [facility] [id number] Univers 07:45:00 07:45:00 JUSTYNA siddiqui [facility] 2021-07-08 2021-07-08 Telephone [facility] 1.2.840.114 [id number] Univers 00:00:00 00:00:00 Justyna C LINKING MACHINE OPERATOR 350.1.13.10 ity of REGIONAL 4.2.7.2.686 Carlos as MATERNAL [id number] [address] 2021-07-08 2021-07-08 Telephone [facility] 1.2.840.114 [id number] Univers 00:00:00 00:00:00 Justyna C LINKING MACHINE OPERATOR 350.1.13.10 ity of REGIONAL 4.2.7.2.686 Carlos as MATERNAL [id number] [address] 2021-07-07 2021-07-07 Routine [facility] 1.2.215.365 [id number] Univers 08:03:27 08:32:40 Justyna C LINKING MACHINE OPERATOR 350.1.13.10 ity of Visit REGIONAL 4.2.7.2.686 Carlos as MATERNAL [id number] [address] 2021-07-07 2021-07-07 Outpatient Joshua GIFFORD [facility] [id number] Univers 08:30:00 08:30:00 JUSTYNA siddiqui [facility] 2021-06-30 2021-06-30 Outpatient Joshua IGFFORD [facility] [id number] Univers 07:45:00 07:45:00 JUSTYNA ity o f [facility] 2021-06-16 2021-06-16 Routine Akinsipe, [facility] 1.2.526.372 [id number] Univers 12:44:54 13:34:42 Justyna C LINKING MACHINE OPERATOR 350.1.13.10 ity of Visit REGIONAL 4.2.7.2.686 Carlos as MATERNAL [id number] [facility] & CHILD [address] [place] [address] 2021-06-16 2021-06-16 Routine Akinsipe, [facility] 1.2.304.885 [id number] Univers 12:44:54 13:34:42 Justyna C LINKING MACHINE OPERATOR 350.1.13.10 ity of Visit REGIONAL 4.2.7.2.686 Carlos as MATERNAL [id number] [address] 2021-06-16 2021-06-16 Outpatient R ИРИНА, [facility] [id number] Univers 12:45:00 12:45:00 JUSTYNA ity o f [facility] 2021-06-11 2021-06-11 Abstract Akinsipe, [facility] 1.2.840.114 [id number] Univers 00:00:00 00:00:00 Justyna C LINKING MACHINE OPERATOR 350.1.13.10 ity of REGIONAL 4.2.7.2.686 Carlos as MATERNAL [id number] [address] 2021-06-11 2021-06-11 Abstract Akinsipe, [facility] 1.2.840.114 [id number] Univers 00:00:00 00:00:00 Justyna C LINKING MACHINE OPERATOR 350.1.13.10 ity of REGIONAL 4.2.7.2.686 Carlos as MATERNAL [id number] [address] 2021-06-10 2021-06-10 Integrity Director Ultrasound, BerthaAdena [facility] 1.2 .840.114 [id number] Univers 13:20:30 13:50:30 Visit Melanie Rosales LINKING MACHINE OPERATOR 350.1. 13.10 ity of REGIONAL 4.2.7.2.686 Carlos as MATERNAL [id number] [facility] ical & CHILD [address] [facility] 2021-06-10 2021-06-10 Integrity Director Ultrasound, [facility]University [facility] 1.2 .840.114 [id number] Univers 13:20:30 13:50:30 Visit Melanie Rosales Pepe LINKING MACHINE OPERATOR 350.1. 13.10 ity of REGIONAL 4.2.7.2.686 Carlos as MATERNAL [id number] [facility] CHILD [address] [place] [address] 2021-06-10 2021-06-10 Outpatient P [facility] [id number] Univers 13:30:00 13:30:00 ity of [facility] 2021-05-19 2021-05-19 Routine [facility]ilioR[facility] 1.2.773.992 [id number] Univers 11:30:42 11:47:07 Justyna Castle LINKING MACHINE OPERATOR 350.1.13.10 ity of Visit REGIONAL 4.2.7.2.686 Carlos as MATERNAL [id number] [facility] CHILD 107 [facility] 2021-05-19 2021-05-19 Outpatient R ИРИНА [facility] [id number] Univers 11:00:00 11:00:00 JUSTYNA siddiqui [facility] 2021-05-12 2021-05-12 Integrity Director Ultrasound, [facility]odeUniversity [facility]als [facility] 1.2 .840.114 [id number] Univers 11:05:04 12:15:28 Visit Reno Avina LINKING MACHINE OPERATOR 350.1.13.10 ity of REGIONAL 4.2.7.2.686 Carlos as MATERNAL [id number] [facility] & CHILD [address] [place] [address] 2021-05-12 2021-05-12 Outpatient P [facility] [id number] Univers 11:00:00 11:00:00 ity of [facility] 2021-05-12 2021-05-12 Abstract [facility] 1.2.840.114 [id number] Univers 00:00:00 00:00:00 Justyna Castle LINKING MACHINE OPERATOR 350.1.13.10 ity of REGIONAL 4.2.7.2.686 Carlos as MATERNAL [id number] [facility] ical & CHILD [address] [place] [address] 2021-04-21 2021-04-21 Routine [facility]ilioR[facility] 1.2.123.372 [id number] Univers 10:38:45 11:20:21 Justyna C LINKING MACHINE OPERATOR 350.1.13.10 ity of Visit REGIONAL 4.2.7.2.686 Carlos as MATERNAL [id number] [facility] ical & CHILD [address] [place] [address] 2021-04-21 2021-04-21 Outpatient R [facility] [id number] Univers 10:30:00 10:30:00 JUSTYNA chandler f [facility] 2021-03-26 2021-03-26 Abstract [facility] 1.2.840.114 [id number] Univers 00:00:00 00:00:00 Justyna C LINKING MACHINE OPERATOR 350.1.13.10 ity of REGIONAL 4.2.7.2.686 Carlos as MATERNAL [id number] [facility] CHILD [address] [place] [address] 2021-03-24 2021-03-24 Integrity Director Lab/Reji MoreBob [facility] 1.2 .840.114 [id number] Univers 13:05:51 13:52:28 Visit Chetna Wilson LINKING MACHINE OPERATOR 350.1.13.10 ity of REGIONAL 4.2.7.2.686 Carlos as MATERNAL [id number] [facility] ical & CHILD [address] [place] [address] 2021-03-24 2021-03-24 Integrity Director [facility] 1.2. 840.114 [id number] Univers 13:05:26 13:38:30 Visit Justyna Gifford LINKING MACHINE OPERATOR 350.1.13. 10 ity of Rich Malik [facility] 4.2.7.2.686 [place] MATERNAL [id number] [facility] ical & CHILD [address] [place] [address] 2021-03-24 2021-03-24 Outpatient P KING [facility] [id number] Univers 13:00:00 13:38:30 [facility] 2021-[facility]-24 2021-03-24 Outpatient P KING [facility] [id number] Univers 13:00:00 13:38:30 [facility]-24 2021-03-24 Routine Akinmisty, [facility] [id number] Univers 10:06:46 10:42:18 Justyna C LINKING MACHINE OPERATOR [id number] ity of Visit REGIONAL [id number] Carlos as MATERNAL [id number] [facility] ical & CHILD [address] [place] [address] 2021-03-24 2021-03-24 Outpatient R ИРИНА, [facility] [id number] Univers 10:30:00 10:30:00 JUSTYNA ity o f [facility] 2021-02-28 2021-02-28 Abstract Ирина, [facility] [id number] Univers 00:00:00 00:00:00 Justyna C LINKING MACHINE OPERATOR [id number] ity of REGIONAL [id number] Carlos as MATERNAL [phone] [facility] & CHILD [address] [place] [address] 2021-02-27 2021-02-27 Integrity Director Ultrasound, [facility] [id number] Univers 08:55:24 09:25:24 Visit Eleanor Duvall LINKING MACHINE OPERATOR [id number] ity of REGIONAL [id number] Carlos as MATERNAL [phone] [facility] & CHILD [address] [place] [address] 2021-02-27 2021-02-27 [facility] [facility] [id number] Univers 09:00:00 09:00:00 ity [facility] 2021-02-24 2021-02-24 [facility] [id number] Univers 10:36:42 10:59:39 Justyna C LINKING MACHINE OPERATOR 350.1.13.10 ity of Visit REGIONAL 4.2.7.2.686 Carlos as MATERNAL [id number] [facility] & CHILD [address] [place] [address] 2021-02-24 2021-02-24 Outpatient R ИРИНА [facility] [id number] Univers 10:30:00 10:30:00 JUSTYNA siddiqui [facility] 2021-02-18 2021-02-18 Patient Ир[address] [facility] [id number] Univers 00:00:00 00:00:00 Secure Msg Justyna C LINKING MACHINE OPERATOR 350.1.13.10 ity of [facility] 4.2.7.2.686 Carlos as MATERNAL [phone] [facility] ical & CHILD [address] [place] [address] 2021-01-27 2021-01-27 Initial Ирина [facility] [id number] Univers 10:11:22 11:25:32 Justyna Castle LINKING MACHINE OPERATOR 350.1.13.10 ity of Visit [facility] 4.2.7.2.686 Carlos as MATERNAL [phone] [facility] & CHILD [address] [place] [address] 2021-01-27 2021-01-27 Outpatient R ИРИНА [facility] [id number] Univers 10:00:00 10:00:00 JUSTYNA siddiqui [facility] 2021-01-27 2021-01-27 Orders Doctor DARA [id number] Univers 00:00:00 00:00:00 Only Unassigned, TAMRA 350.1.13.10 ity of [place] [facility] 4.2.7.2.686 Carlos as [phone] [address] Results Test Description Test Time Test Comments Results Result Comments Source RHO (D) IMMUNE GLOBULIN 2023-08-08 16:19:18 Test Item Value Reference Range Interpretation Comme nts RHIG CANDIDATE? (test code = No- see comment Patient is not a candidate for RhIg- 5188) Patient is Rh P ositive.Performed at [facility] Laboratory Services - [facility] Blood [address] [place] [address]14[address]Danv Free: [phone] A No. [id number] [facility] [id number] 16:19:18 Test Item Value Reference Range Interpretation Comments RHIG CANDIDATE? No- see comment Patient i s not a (test code = candidate for R hIg- 5188) Patient is Rh Positive.Perfor med at [facility] Laboratory Services - [facility] Blood [address] [place] [address] 14[address]Imrc Free: [phone] A No. [id number] [facility] ONLY - SYPHILIS [id number] 14:50:16 Test Item Value Reference Range Interpretation Comments Syphilis IgG/IgM (test Non-reactive Non-reactive code = 74393-2) HILDA (test code = HILDA) Non-reactive - No serologic evidence of T. pallidum infection. Cannot exclude incubating or early syphilis. Submit a second specimen in 2-4 weeks if syphilis is clinically suspected. Equivocal - Further testing to follow. Reactive - Further testing to follow. Lab Interpretation (test Normal code = 14238-8) [facility] ONLY - SYPHILIS [id number] 14:50:16 Test Item Value Reference Range Interpretation Comments Syphilis IgG/IgM (test Non-reactive Non-reactive code = 97183-7) HILDA (test code = HILDA) Non-reactive - No serologic evidence of T. pallidum infection. Cannot exclude incubating or early syphilis. Submit a second specimen in 2-4 weeks if syphilis is clinically suspected. Equivocal - Further testing to follow. Reactive - Further testing to follow. Lab Interpretation (test Normal code = 86331-9) [facility] [id number] 08:45:15 Test Item Value Reference Range Interpretation Comments BASE EXCESS, CORD (test -6.3 mEq/L code = 4487271012) AC PH, CORD (BEAKER) 7.27 7.18-7.38 (test code = 1404364581) PC02, CORD (test code = 46 See_Comment [Au tomated message] [id number]) The system [employer] generated this result transmitted ref erence range: 32 - 66 mmHg. The reference r angela was not used to interpret this result as normal/abnor mal. PO2, CORD (test code = 32 See_Comment H [Aut omated message] [id number]) The system [employer] generated this result transmitted ref erence range: 10 - 30 mmHg. The reference r angela was not used to interpret this result as normal/abnor mal. BICARBONATE, CORD (test 21 See_Comment [Au tomated message] code = 3726861137) The syste m which generated this result transmitted ref erence range: 17 - 27 mEq/L. The reference r angela was not used to interpret this result as normal/abnor mal. Lab Interpretation (test Abnormal code = 59826-3) [facility] Cord [id number] 08:45:15 Test Item Value Reference Range Interpretation Comments BASE EXCESS, CORD (test -6.3 mEq/L code = 3233709305) AC PH, CORD (BEAKER) 7.27 7.18-7.38 (test code = 3849367938) PC02, CORD (test code = 46 See_Comment [Au tomated message] [id number]) The system whic h generated this result transmitted ref erence range: 32 - 66 mmHg. The reference r angela was not used to interpret this result as normal/abnor mal. PO2, CORD (test code = 32 See_Comment H [Aut omated message] [id number]) The system whic h generated this result transmitted ref erence range: 10 - 30 mmHg. The reference r angela was not used to interpret this result as normal/abnor mal. BICARBONATE, CORD (test 21 See_Comment [Au tomated message] code = 8843176182) The syste m which generated this result transmitted ref erence range: 17 - 27 mEq/L. The reference r angela was not used to interpret this result as normal/abnor mal. Lab Interpretation (test Abnormal code = 80591-1) [facility] Cord [id number] 08:44:55 Test Item Value Reference Range Interpretation Comments VENOUS BASE EXCESS, -2.3 mEq/L CORD (test code = 8719050674) VENOUS PH, CORD (test 7.40 7.25-7.45 code = 4962575891) VENOUS PC02, CORD 37 See_Comment [Automate d message] The (test code = system which ge nerated 4452144906) this result tra nsmitted reference range : 27 - 49 mmHg. The refer ence range was not used to interpret this result as normal/abnormal . VENOUS PO2, CORD (test 34 See_Comment [Aut omated message] The code = 4115095875) system [facility] generated this result tra nsmitted reference range : 17 - 41 mmHg. The refer ence range was not used to interpret this result as normal/abnormal . VENOUS BICARBONATE, 22 See_Comment [Automa anya message] The CORD (test code = system [facility] generated 0108295867) this result tra nsmitted reference range : 12 - 29 mEq/L. The refe rence range was not used to interpret this result as normal/abnormal . [facility] Cord [id number] 08:44:55 Test Item Value Reference Range Interpretation Comments VENOUS BASE EXCESS, -2.3 mEq/L CORD (test code = 0181627863) VENOUS PH, CORD (test 7.40 7.25-7.45 code = 3170656439) VENOUS PC02, CORD 37 See_Comment [Automate d message] The (test code = system which ge nerated 8357601314) this result tra nsmitted reference range : 27 - 49 mmHg. The refer ence range was not used to interpret this result as normal/abnormal . VENOUS PO2, CORD (test 34 See_Comment [Aut omated message] The code = 5122482930) system [facility] generated this result tra nsmitted reference range : 17 - 41 mmHg. The refer ence range was not used to interpret this result as normal/abnormal . VENOUS BICARBONATE, 22 See_Comment [Automa anya message] The CORD (test code = system [facility] generated 3547258476) this result tra nsmitted reference range : 12 - 29 mEq/L. The refe rence range was not used to interpret this result as normal/abnormal . [facility] 1/2 AG-AB WITH [id number] 17:17:36 Test Item Value Reference Range Interpretation Comments HIV 0.09 Negative Semi-quantitative (test code = 83136-6) HILDA (test code = Non-reactive for HIV-1 HILDA) antigen and HIV-1/HIV-2 antibodies. ?No laboratory evidence of HIV infection. ?Repeat in 2-4 weeks if acute HIV infection is suspected. [facility] 1/2 AG-AB WITH [id number] 17:17:36 Test Item Value Reference Range Interpretation Comments HIV 0.09 Negative Semi-quantitative (test code = 02108-5) HILDA (test code = Non-reactive for HIV-1 HILDA) antigen and HIV-1/HIV-2 antibodies. ?No laboratory evidence of HIV infection. ?Repeat in 2-4 weeks if acute HIV infection is suspected. [facility] B Surface [id number] 16:01:45 Test Item Value Reference Range Interpretation Comments HBsAg Semi-Quantitative (test code = 0.10 Negative 5195-3) [facility] Surface [id number] 16:01:45 Test Item Value Reference Range Interpretation Comments HBsAg Semi-Quantitative (test code = 0.10 Negative 5195-3) [facility] with [id number] 15:05:54 Test Item Value Reference Range Interpretation Comments WBC (test code = 8.73 See_Comment [Automated 0235-2) message] The sy stem which generated this result transmitted reference range : 4.30 - 11.10 10*3/?L. The reference range was not used to interpret this result as normal/abnormal . RBC (test code = 3.81 See_Comment L [Automated 9-8) message] The sy stem which generated this result transmitted reference range : 3.93 - 5.25 10*6/?L. The reference range was not used to interpret this result as normal/abnormal . HGB (test code = 11.3 g/dL 11.6-15.0 L 718-7) HCT (test code = 34.7 % 35.7-45.2 L 4544-3) MCV (test code = 91.1 fL 80.6-95.5 787-2) MCH (test code = 29.7 pg 25.9-32.8 785-6) MCHC (test code = 32.6 g/dL 31.6-35.1 786-4) RDW-SD (test code = 46.5 fL 39.0-49.9 21196-3) RDW-CV (test code = 13.9 % 12.0-15.5 788-0) PLT (test code = 232 See_Comment [Automated 237-3) message] The sy stem which generated this result transmitted reference range : 166 - 358 10*3/ ?L. The reference r angela was not used to interpret this result as normal/abnormal . MPV (test code = 10.3 fL 9.5-12.9 91426-5) NRBC/100 WBC (test 0.0 See_Comment [Automat ed code = 8968525228) message] The system which generated this result transmitted reference range : 0.0 - 10.0 /100 WBCs. The refer ence range was not u sed to interpret th is result as normal/abnormal . NRBC x10^3 (test code See_Comment [Auto mated = [id number]) message] The s ystem which generated this result transmitted reference range : 10*3/?L. The reference range was not used to interpret this result as normal/abnormal . GRAN MAT (NEUT) % 76.7 % (test code = 770-8) IMM GRAN % (test code 0.60 % = 4292713796) LYMPH % (test code = 16.0 % 736-9) MONO % (test code = 5.8 % 5905-5) EOS % (test code = 0.7 % 713-8) BASO % (test code = 0.2 % 706-2) GRAN MAT x10^3(ANC) 6.69 10*3/uL 1.88-7.09 (test code = 9619137823) IMM GRAN x10^3 (test 0.05 10*3/uL 0.00-0.06 code = 2332226092) LYMPH x10^3 (test code 1.40 10*3/uL 1.32-3.29 = 731-0) MONO x10^3 (test code 0.51 10*3/uL 0.33-0.92 = 742-7) EOS x10^3 (test code = 0.06 10*3/uL 0.03-0.39 711-2) BASO x10^3 (test code 0.01-0.07 = 704-7) Lab Interpretation Abnormal (test code = 72665-9) [facility] with [id number] 15:05:54 Test Item Value Reference Range Interpretation Comments WBC (test code = 8.73 See_Comment [Automated 6690-2) message] The sy stem which generated this result transmitted reference range : 4.30 - 11.10 10*3/?L. The reference range was not used to interpret this result as normal/abnormal . RBC (test code = 3.81 See_Comment L [Automated 789-8) message] The sy stem which generated this result transmitted reference range : 3.93 - 5.25 10*6/?L. The reference range was not used to interpret this result as normal/abnormal . HGB (test code = 11.3 g/dL 11.6-15.0 L 718-7) HCT (test code = 34.7 % 35.7-45.2 L 4544-3) MCV (test code = 91.1 fL 80.6-95.5 787-2) MCH (test code = 29.7 pg 25.9-32.8 785-6) MCHC (test code = 32.6 g/dL 31.6-35.1 786-4) RDW-SD (test code = 46.5 fL 39.0-49.9 74300-0) RDW-CV (test code = 13.9 % 12.0-15.5 788-0) PLT (test code = 232 See_Comment [Automated 777-3) message] The sy stem which generated this result transmitted reference range : 166 - 358 10*3/ ?L. The reference r angela was not used to interpret this result as normal/abnormal . MPV (test code = 10.3 fL 9.5-12.9 00693-0) NRBC/100 WBC (test 0.0 See_Comment [Automat ed code = [id number]) message] The system which generated this result transmitted reference range : 0.0 - 10.0 /100 WBCs. The refer ence range was not u sed to interpret th is result as normal/abnormal . NRBC x10^3 (test code See_Comment [Auto mated = 3167587683) message] The s ystem which generated this result transmitted reference range : 10*3/?L. The reference range was not used to interpret this result as normal/abnormal . GRAN MAT (NEUT) % 76.7 % (test code = 770-8) IMM GRAN % (test code 0.60 % = 6679855478) LYMPH % (test code = 16.0 % 736-9) MONO % (test code = 5.8 % 5905-5) EOS % (test code = 0.7 % 713-8) BASO % (test code = 0.2 % 706-2) GRAN MAT x10^3(ANC) 6.69 10*3/uL 1.88-7.09 (test code = 5480702705) IMM GRAN x10^3 (test 0.05 10*3/uL 0.00-0.06 code = 8426242865) LYMPH x10^3 (test code 1.40 10*3/uL 1.32-3.29 = 731-0) MONO x10^3 (test code 0.51 10*3/uL 0.33-0.92 = 742-7) EOS x10^3 (test code = 0.06 10*3/uL 0.03-0.39 711-2) BASO x10^3 (test code 0.01-0.07 = 704-7) Lab Interpretation Abnormal (test code = 82611-1) [facility] [id number] 14:47:00 Test Item Value Reference Range Interpretation Comments ABO & RH (test code = 20) O POSITIVE IAT (test code = 1185) Negative [facility] [id number] 14:47:00 Test Item Value Reference Range Interpretation Comments ABO & RH (test code = 20) O POSITIVE IAT (test code = 1185) Negative [facility] SPECIFIC [id number] 13:11:00 Test Item Value Reference Range Interpretation Comments POCT U SP GRAV (test code = 3255) . 1.005-1.025 POCT PH U (test code = 3254) . 5-8 POCT U LEUK EST (test code = 3263) . Negative - Negative POCT U NIT (test code = 3262) . Negative - Negative POCT U PROT (test code = 3259) TRACE Negative - Negative POCT U GLU (test code = 3256) NEG Negative - Negative POCT U KETONE (test code = 3258) . Negative - Negative POCT U UROBILI (test code = 3260) . 0.2-1 POCT U BILI (test code = 3261) . Negative - Negative POCT U BLD (test code = 3257) . Negative - Negative POCT U COLOR (test code = 3266) . POCT U APPEAR (test code = 3267) . [facility] URINALYSIS W SPECIFIC [id number] 13:06:00 Test Item Value Reference Range Interpretation Comments POCT U SP GRAV (test code = . 1.005-1.025 3255) POCT PH U (test code = 3254) 7 mg/dl 5-8 POCT U LEUK EST (test code = trace Negative - Negative 3263) POCT U NIT (test code = 3262) negative Negative - Negative POCT U PROT (test code = 3259) trace Negative - Negative POCT U GLU (test code = 3256) trace Negative - Negative POCT U KETONE (test code = 3258) negative Negative - Negative POCT U UROBILI (test code = . 0.2-1 3260) POCT U BILI (test code = 3261) . Negative - Negative POCT U BLD (test code = 3257) trace Negative - Negative POCT U COLOR (test code = 3266) POCT U APPEAR (test code = 3267) [facility] URINALYSIS W SPECIFIC [id number] 13:37:00 Test Item Value Reference Range Interpretation Comments POCT U SP GRAV (test code = . 1.005-1.025 3255) POCT PH U (test code = 3254) . 5-8 POCT U LEUK EST (test code = . Negative - Negative 3263) POCT U NIT (test code = 3262) . Negative - Negative POCT U PROT (test code = 3259) trace Negative - Negative POCT U GLU (test code = 3256) negative Negative - Negative POCT U KETONE (test code = 3258) . Negative - Negative POCT U UROBILI (test code = . 0.2-1 3260) POCT U BILI (test code = 3261) . Negative - Negative POCT U BLD (test code = 3257) . Negative - Negative POCT U COLOR (test code = 3266) . POCT U APPEAR (test code = 3267) . [facility] URINALYSIS W SPECIFIC [id number] 18:13:00 Test Item Value Reference Range Interpretation Comments POCT U SP GRAV (test code = 3255) . 1.005-1.025 POCT PH U (test code = 3254) . 5-8 POCT U LEUK EST (test code = 3263) . Negative - Negative POCT U NIT (test code = 3262) . Negative - Negative POCT U PROT (test code = 3259) TRACE Negative - Negative POCT U GLU (test code = 3256) NEG Negative - Negative POCT U KETONE (test code = 3258) . Negative - Negative POCT U UROBILI (test code = 3260) . 0.2-1 POCT U BILI (test code = 3261) . Negative - Negative POCT U BLD (test code = 3257) . Negative - Negative POCT U COLOR (test code = 3266) . POCT U APPEAR (test code = 3267) . [facility] URINALYSIS W SPECIFIC [id number] 12:58:00 Test Item Value Reference Range Interpretation Comments POCT U SP GRAV (test code = . 1.005-1.025 3255) POCT PH U (test code = 3254) . 5-8 POCT U LEUK EST (test code = . Negative - Negative 3263) POCT U NIT (test code = 3262) . Negative - Negative POCT U PROT (test code = 3259) trace Negative - Negative POCT U GLU (test code = 3256) negative Negative - Negative POCT U KETONE (test code = 3258) . Negative - Negative POCT U UROBILI (test code = . 0.2-1 3260) POCT U BILI (test code = 3261) . Negative - Negative POCT U BLD (test code = 3257) . Negative - Negative POCT U COLOR (test code = 3266) . POCT U APPEAR (test code = 3267) . [facility] URINALYSIS W SPECIFIC [id number] 12:58:00 Test Item Value Reference Range Interpretation Comments POCT U SP GRAV (test code = . 1.005-1.025 3255) POCT PH U (test code = 3254) . 5-8 POCT U LEUK EST (test code = . Negative - Negative 3263) POCT U NIT (test code = 3262) . Negative - Negative POCT U PROT (test code = 3259) trace Negative - Negative POCT U GLU (test code = 3256) negative Negative - Negative POCT U KETONE (test code = 3258) . Negative - Negative POCT U UROBILI (test code = . 0.2-1 3260) POCT U BILI (test code = 3261) . Negative - Negative POCT U BLD (test code = 3257) . Negative - Negative POCT U COLOR (test code = 3266) . POCT U APPEAR (test code = 3267) . [facility] URINALYSIS W SPECIFIC [id number] 19:26:00 Test Item Value Reference Range Interpretation Comments POCT U SP GRAV (test code = 3255) . 1.005-1.025 POCT PH U (test code = 3254) . 5-8 POCT U LEUK EST (test code = 3263) . Negative - Negative POCT U NIT (test code = 3262) . Negative - Negative POCT U PROT (test code = 3259) TRACE Negative - Negative POCT U GLU (test code = 3256) NEG Negative - Negative POCT U KETONE (test code = 3258) . Negative - Negative POCT U UROBILI (test code = 3260) . 0.2-1 POCT U BILI (test code = 3261) . Negative - Negative POCT U BLD (test code = 3257) . Negative - Negative POCT U COLOR (test code = 3266) . POCT U APPEAR (test code = 3267) . [facility] URINALYSIS W SPECIFIC [id number] 19:26:00 Test Item Value Reference Range Interpretation Comments POCT U SP GRAV (test code = 3255) . 1.005-1.025 POCT PH U (test code = 3254) . 5-8 POCT U LEUK EST (test code = 3263) . Negative - Negative POCT U NIT (test code = 3262) . Negative - Negative POCT U PROT (test code = 3259) TRACE Negative - Negative POCT U GLU (test code = 3256) NEG Negative - Negative POCT U KETONE (test code = 3258) . Negative - Negative POCT U UROBILI (test code = 3260) . 0.2-1 POCT U BILI (test code = 3261) . Negative - Negative POCT U BLD (test code = 3257) . Negative - Negative POCT U COLOR (test code = 3266) . POCT U APPEAR (test code = 3267) . [facility] URINALYSIS W SPECIFIC [id number] 18:46:00 Test Item Value Reference Range Interpretation Comments POCT U SP GRAV (test code = 3255) . 1.005-1.025 POCT PH U (test code = 3254) . 5-8 POCT U LEUK EST (test code = 3263) . Negative - Negative POCT U NIT (test code = 3262) . Negative - Negative POCT U PROT (test code = 3259) trace Negative - Negative POCT U GLU (test code = 3256) neg Negative - Negative POCT U KETONE (test code = 3258) . Negative - Negative POCT U UROBILI (test code = 3260) . 0.2-1 POCT U BILI (test code = 3261) . Negative - Negative POCT U BLD (test code = 3257) . Negative - Negative POCT U COLOR (test code = 3266) . POCT U APPEAR (test code = 3267) . [facility] URINALYSIS W SPECIFIC [id number] 18:10:00 Test Item Value Reference Range Interpretation Comments POCT U SP GRAV (test code = 3255) . 1.005-1.025 POCT PH U (test code = 3254) 6 mg/dl 5-8 POCT U LEUK EST (test code = Trace Negative - Negative 3263) POCT U NIT (test code = 3262) Neg Negative - Negative POCT U PROT (test code = 3259) Trace Negative - Negative POCT U GLU (test code = 3256) Neg Negative - Negative POCT U KETONE (test code = 3258) None Negative - Negative POCT U UROBILI (test code = 3260) . 0.2-1 POCT U BILI (test code = 3261) . Negative - Negative POCT U BLD (test code = 3257) Trace Negative - Negative POCT U COLOR (test code = 3266) POCT U APPEAR (test code = 3267) [facility] URINALYSIS W SPECIFIC [id number] 18:32:00 Test Item Value Reference Range Interpretation Comments POCT U SP GRAV (test code = . 1.005-1.025 3255) POCT PH U (test code = 3254) . 5-8 POCT U LEUK EST (test code = . Negative - Negative 3263) POCT U NIT (test code = 3262) . Negative - Negative POCT U PROT (test code = 3259) trace Negative - Negative POCT U GLU (test code = 3256) negative Negative - Negative POCT U KETONE (test code = 3258) . Negative - Negative POCT U UROBILI (test code = . 0.2-1 3260) POCT U BILI (test code = 3261) . Negative - Negative POCT U BLD (test code = 3257) . Negative - Negative POCT U COLOR (test code = 3266) . POCT U APPEAR (test code = 3267) . [facility] URINALYSIS W SPECIFIC [id number] 13:11:00 Test Item Value Reference Range Interpretation Comments POCT U SP GRAV (test code = 3255) . 1.005-1.025 POCT PH U (test code = 3254) . 5-8 POCT U LEUK EST (test code = 3263) . Negative - Negative POCT U NIT (test code = 3262) . Negative - Negative POCT U PROT (test code = 3259) trace Negative - Negative POCT U GLU (test code = 3256) 100 Negative - Negative POCT U KETONE (test code = 3258) . Negative - Negative POCT U UROBILI (test code = 3260) . 0.2-1 POCT U BILI (test code = 3261) . Negative - Negative POCT U BLD (test code = 3257) . Negative - Negative POCT U COLOR (test code = 3266) . POCT U APPEAR (test code = 3267) . [facility] URINALYSIS W SPECIFIC [id number] 15:13:00 Test Item Value Reference Range Interpretation Comments POCT U SP GRAV (test code = 3255) . 1.005-1.025 POCT PH U (test code = 3254) . 5-8 POCT U LEUK EST (test code = 3263) . Negative - Negative POCT U NIT (test code = 3262) . Negative - Negative POCT U PROT (test code = 3259) trace Negative - Negative POCT U GLU (test code = 3256) neg Negative - Negative POCT U KETONE (test code = 3258) . Negative - Negative POCT U UROBILI (test code = 3260) . 0.2-1 POCT U BILI (test code = 3261) . Negative - Negative POCT U BLD (test code = 3257) . Negative - Negative POCT U COLOR (test code = 3266) . POCT U APPEAR (test code = 3267) . [facility] URINALYSIS W SPECIFIC [id number] 13:17:00 Test Item Value Reference Range Interpretation Comments POCT U SP GRAV (test code = 3255) . 1.005-1.025 POCT PH U (test code = 3254) 6 mg/dl 5-8 POCT U LEUK EST (test code = Trace Negative - Negative 3263) POCT U NIT (test code = 3262) Neg Negative - Negative POCT U PROT (test code = 3259) Trace Negative - Negative POCT U GLU (test code = 3256) Neg Negative - Negative POCT U KETONE (test code = 3258) None Negative - Negative POCT U UROBILI (test code = 3260) . 0.2-1 POCT U BILI (test code = 3261) . Negative - Negative POCT U BLD (test code = 3257) Trace Negative - Negative POCT U COLOR (test code = 3266) POCT U APPEAR (test code = 3267) [facility] URINALYSIS W SPECIFIC [id number] 13:17:00 Test Item Value Reference Range Interpretation Comments POCT U SP GRAV (test code = 3255) . 1.005-1.025 POCT PH U (test code = 3254) 6 mg/dl 5-8 POCT U LEUK EST (test code = Trace Negative - Negative 3263) POCT U NIT (test code = 3262) Neg Negative - Negative POCT U PROT (test code = 3259) Trace Negative - Negative POCT U GLU (test code = 3256) Neg Negative - Negative POCT U KETONE (test code = 3258) None Negative - Negative POCT U UROBILI (test code = 3260) . 0.2-1 POCT U BILI (test code = 3261) . Negative - Negative POCT U BLD (test code = 3257) Trace Negative - Negative POCT U COLOR (test code = 3266) POCT U APPEAR (test code = 3267) [facility] URINALYSIS W SPECIFIC [id number] 19:57:00 Test Item Value Reference Range Interpretation Comments POCT U SP GRAV (test code = 3255) . 1.005-1.025 POCT PH U (test code = 3254) . 5-8 POCT U LEUK EST (test code = 3263) . Negative - Negative POCT U NIT (test code = 3262) . Negative - Negative POCT U PROT (test code = 3259) trace Negative - Negative POCT U GLU (test code = 3256) neg Negative - Negative POCT U KETONE (test code = 3258) . Negative - Negative POCT U UROBILI (test code = 3260) . 0.2-1 POCT U BILI (test code = 3261) . Negative - Negative POCT U BLD (test code = 3257) . Negative - Negative POCT U COLOR (test code = 3266) . POCT U APPEAR (test code = 3267) . [facility] URINALYSIS W SPECIFIC [id number] 19:40:00 Test Item Value Reference Range Interpretation Comments [...] POCT U COLOR (test code = 3266) yellow POCT U APPEAR (test code = 3267) clear [facility] URINALYSIS W SPECIFIC [id number] 13:18:00 Test Item Value Reference Range Interpretation Comments POCT U SP GRAV (test code = . 1.005-1.025 A 3255) POCT PH U (test code = 3254) 6 mg/dl 5-8 POCT U LEUK EST (test code = Neg Negative - Negative 3263) POCT U NIT (test code = 3262) Neg Negative - Negative POCT U PROT (test code = 3259) Trace Negative - Negative POCT U GLU (test code = 3256) Neg Negative - Negative POCT U KETONE (test code = 3258) None Negative - Negative POCT U UROBILI (test code = . 0.2-1 3260) POCT U BILI (test code = 3261) . Negative - Negative POCT U BLD (test code = 3257) Trace Negative - Negative POCT U COLOR (test code = 3266) . POCT U APPEAR (test code = 3267) . Lab Interpretation (test code = Abnormal 86232-2) [facility] URINALYSIS W SPECIFIC [id number] 15:52:00 Test Item Value Reference Range Interpretation Comments POCT U SP GRAV (test code = 3255) . 1.005-1.025 POCT PH U (test code = 3254) . 5-8 POCT U LEUK EST (test code = 3263) . Negative - Negative POCT U NIT (test code = 3262) . Negative - Negative POCT U PROT (test code = 3259) Trace Negative - Negative POCT U GLU (test code = 3256) Neg Negative - Negative POCT U KETONE (test code = 3258) . Negative - Negative POCT U UROBILI (test code = 3260) . 0.2-1 POCT U BILI (test code = 3261) . Negative - Negative POCT U BLD (test code = 3257) . Negative - Negative POCT U COLOR (test code = 3266) . POCT U APPEAR (test code = 3267) [facility] URINALYSIS W SPECIFIC [id number] 15:57:00 Test Item Value Reference Range Interpretation Comments POCT U SP GRAV (test code = 3255) . 1.005-1.025 POCT PH U (test code = 3254) . 5-8 POCT U LEUK EST (test code = 3263) . Negative - Negative POCT U NIT (test code = 3262) . Negative - Negative POCT U PROT (test code = 3259) trace Negative - Negative POCT U GLU (test code = 3256) neg Negative - Negative POCT U KETONE (test code = 3258) . Negative - Negative POCT U UROBILI (test code = 3260) . 0.2-1 POCT U BILI (test code = 3261) . Negative - Negative POCT U BLD (test code = 3257) . Negative - Negative POCT U COLOR (test code = 3266) . POCT U APPEAR (test code = 3267) . [facility] URINALYSIS W SPECIFIC [id number] 15:52:00 Test Item Value Reference Range Interpretation Comments POCT U SP GRAV (test code = 3255) . 1.005-1.025 POCT PH U (test code = 3254) . 5-8 POCT U LEUK EST (test code = 3263) . Negative - Negative POCT U NIT (test code = 3262) . Negative - Negative POCT U PROT (test code = 3259) . Negative - Negative POCT U GLU (test code = 3256) . Negative - Negative POCT U KETONE (test code = 3258) . Negative - Negative POCT U UROBILI (test code = 3260) . 0.2-1 POCT U BILI (test code = 3261) . Negative - Negative POCT U BLD (test code = 3257) . Negative - Negative POCT U COLOR (test code = 3266) POCT U APPEAR (test code = 3267) . [facility] URINALYSIS W SPECIFIC [id number] 15:52:00 Test Item Value Reference Range Interpretation Comments POCT U SP GRAV (test code = 3255) . 1.005-1.025 POCT PH U (test code = 3254) . 5-8 POCT U LEUK EST (test code = 3263) . Negative - Negative POCT U NIT (test code = 3262) . Negative - Negative POCT U PROT (test code = 3259) trace Negative - Negative POCT U GLU (test code = 3256) neg Negative - Negative POCT U KETONE (test code = 3258) . Negative - Negative POCT U UROBILI (test code = 3260) . 0.2-1 POCT U BILI (test code = 3261) . Negative - Negative POCT U BLD (test code = 3257) . Negative - Negative POCT U COLOR (test code = 3266) . POCT U APPEAR (test code = 3267) . [facility] URINALYSIS W SPECIFIC [id number] 15:52:00 Test Item Value Reference Range Interpretation Comments POCT U SP GRAV (test code = 3255) . 1.005-1.025 POCT PH U (test code = 3254) . 5-8 POCT U LEUK EST (test code = 3263) . Negative - Negative POCT U NIT (test code = 3262) . Negative - Negative POCT U PROT (test code = 3259) . Negative - Negative POCT U GLU (test code = 3256) . Negative - Negative POCT U KETONE (test code = 3258) . Negative - Negative POCT U UROBILI (test code = 3260) . 0.2-1 POCT U BILI (test code = 3261) . Negative - Negative POCT U BLD (test code = 3257) . Negative - Negative POCT U COLOR (test code = 3266) POCT U APPEAR (test code = 3267) . [facility] URINALYSIS W SPECIFIC [id number] 15:52:00 Test Item Value Reference Range Interpretation Comments POCT U SP GRAV (test code = 3255) . 1.005-1.025 POCT PH U (test code = 3254) . 5-8 POCT U LEUK EST (test code = 3263) . Negative - Negative POCT U NIT (test code = 3262) . Negative - Negative POCT U PROT (test code = 3259) trace Negative - Negative POCT U GLU (test code = 3256) neg Negative - Negative POCT U KETONE (test code = 3258) . Negative - Negative POCT U UROBILI (test code = 3260) . 0.2-1 POCT U BILI (test code = 3261) . Negative - Negative POCT U BLD (test code = 3257) . Negative - Negative POCT U COLOR (test code = 3266) . POCT U APPEAR (test code = 3267) . [facility] URINALYSIS W/O SPECIFIC [id number] 19:02:00 Test Item Value Reference Range Interpretation Comments POCT PH U (test code = 3254) 7 mg/dl 5-8 POCT U LEUK EST (test code = neg Negative - Negative 3263) POCT U NIT (test code = 3262) neg Negative - Negative POCT U PROT (test code = 3259) trace Negative - Negative POCT U GLU (test code = 3256) neg Negative - Negative POCT U KETONE (test code = 3258) neg Negative - Negative POCT U BLD (test code = 3257) neg Negative - Negative [facility] [id number] 19:02:00 Test Item Value Reference Range Interpretation Comments POCT PREG (test code = 1605) Positive On board controls acceptable with C Yes Line (test code = 3574) POCT PREG LOT # (test code = 3575) POCT PREG TEST DATE (test code = 3576) [facility] URINALYSIS W/O SPECIFIC [id number] 19:02:00 Test Item Value Reference Range Interpretation Comments POCT PH U (test code = 3254) 7 mg/dl 5-8 POCT U LEUK EST (test code = neg Negative - Negative 3263) POCT U NIT (test code = 3262) neg Negative - Negative POCT U PROT (test code = 3259) trace Negative - Negative POCT U GLU (test code = 3256) neg Negative - Negative POCT U KETONE (test code = 3258) neg Negative - Negative POCT U BLD (test code = 3257) neg Negative - Negative [facility] [id number] 19:02:00 Test Item Value Reference Range Interpretation Comments POCT PREG (test code = 1605) Positive On board controls acceptable with C Yes Line (test code = 3574) POCT PREG LOT # (test code = 3575) POCT PREG TEST DATE (test code = 3576) [facility] URINALYSIS W/O SPECIFIC [id number] 19:02:00 Test Item Value Reference Range Interpretation Comments POCT PH U (test code = 3254) 7 mg/dl 5-8 POCT U LEUK EST (test code = neg Negative - Negative 3263) POCT U NIT (test code = 3262) neg Negative - Negative POCT U PROT (test code = 3259) trace Negative - Negative POCT U GLU (test code = 3256) neg Negative - Negative POCT U KETONE (test code = 3258) neg Negative - Negative POCT U BLD (test code = 3257) neg Negative - Negative [facility] [id number] 19:02:00 Test Item Value Reference Range Interpretation Comments POCT PREG (test code = 1605) Positive On board controls acceptable with C Yes Line (test code = 3574) POCT PREG LOT # (test code = 3575) POCT PREG TEST DATE (test code = 3576) [facility] URINALYSIS W/O SPECIFIC [id number] 19:02:00 Test Item Value Reference Range Interpretation Comments POCT PH U (test code = 3254) 7 mg/dl 5-8 POCT U LEUK EST (test code = neg Negative - Negative 3263) POCT U NIT (test code = 3262) neg Negative - Negative POCT U PROT (test code = 3259) trace Negative - Negative POCT U GLU (test code = 3256) neg Negative - Negative POCT U KETONE (test code = 3258) neg Negative - Negative POCT U BLD (test code = 3257) neg Negative - Negative [facility] [id number] 19:02:00 Test Item Value Reference Range Interpretation Comments POCT PREG (test code = 1605) Positive On board controls acceptable with C Yes Line (test code = 3574) POCT PREG LOT # (test code = 3575) POCT PREG TEST DATE (test code = 3576) [facility] URINALYSIS W/O SPECIFIC [id number] 19:02:00 Test Item Value Reference Range Interpretation Comments POCT PH U (test code = 3254) 7 mg/dl 5-8 POCT U LEUK EST (test code = neg Negative - Negative 3263) POCT U NIT (test code = 3262) neg Negative - Negative POCT U PROT (test code = 3259) trace Negative - Negative POCT U GLU (test code = 3256) neg Negative - Negative POCT U KETONE (test code = 3258) neg Negative - Negative POCT U BLD (test code = 3257) neg Negative - Negative [facility] [id number] 19:02:00 Test Item Value Reference Range Interpretation Comments POCT PREG (test code = 1605) Positive On board controls acceptable with C Yes Line (test code = 3574) POCT PREG LOT # (test code = 3575) POCT PREG TEST DATE (test code = 357) [facility] URINALYSIS W/O SPECIFIC [id number] 19:02:00 Test Item Value Reference Range Interpretation Comments POCT PH U (test code = 3254) 7 mg/dl 5-8 POCT U LEUK EST (test code = neg Negative - Negative 3263) POCT U NIT (test code = 3262) neg Negative - Negative POCT U PROT (test code = 3259) trace Negative - Negative POCT U GLU (test code = 3256) neg Negative - Negative POCT U KETONE (test code = 3258) neg Negative - Negative POCT U BLD (test code = 3257) neg Negative - Negative [facility] [id number] 19:02:00 Test Item Value Reference Range Interpretation Comments POCT PREG (test code = 1605) Positive On board controls acceptable with C Yes Line (test code = 3574) POCT PREG LOT # (test code = 3575) POCT PREG TEST DATE (test code = 3576) [facility] [id number] 15:42:00 Test Item Value Reference Range Interpretation Comments POCT PREG (test code = 1605) Negative On board controls acceptable with C Yes Line (test code = 3574) POCT PREG LOT # (test code = 3575) POCT PREG TEST DATE (test code = 3576) [facility] [id number] 15:42:00 Test Item Value Reference Range Interpretation Comments POCT PREG (test code = 1605) Negative On board controls acceptable with C Yes Line (test code = 3574) POCT PREG LOT # (test code = 3575) POCT PREG TEST DATE (test code = 3576) [id number] 15:24:32 Test Item Value Reference Range Interpretation Comments Syphilis IgG/IgM (test Non-reactive Non-reactive code = 06290-2) HILDA (test code = HILDA) Non-reactive - No serologic evidence of T. pallidum infection. Cannot exclude incubating or early syphilis. Submit a second specimen in 2-4 weeks if syphilis is clinically suspected. Equivocal - Further testing to follow. Reactive - Further testing to follow. Lab Interpretation (test Normal code = 86272-6) [facility] IMMUNE [id number] 03:50:52 Test Item Value Reference Range Interpretation Comments RHIG CANDIDATE? No- see comment Patient i s not a (test code = candidate for R hIg- 5055) Patient is Rh Positive.Perfor med at [facility] Laboratory Services - [facility] Blood [address] [place] [id number] Free: [phone] A No. [id number] [facility]ORD [id number] 01:09:44 Test Item Value Reference Range Interpretation Comments BASE EXCESS, CORD mEq/L QUES (test code = 3238310292) AC PH, CORD (BEAKER) 7.18-7.38 (test code = 4157344531) PC02, CORD (test code See_Comment [Auto mated message] The = 8913460609) system which g enerated this result transmit anya reference range : 32 - 66 mmHg. The refer ence range was not used to interpret this result as normal/abnormal . PO2, CORD (test code See_Comment [Autom ated message] The = 5547342826) system which g enerated this result transmit anya reference range : 10 - 30 mmHg. The refer ence range was not used to interpret this result as normal/abnormal . BICARBONATE, CORD See_Comment [Automate d message] The (test code = system which ge nerated this 1302936073) result transmit anya reference range : 17 - 27 mEq/L. The refe rence range was not used to interpret this result as normal/abnormal . [facility] [id number] 01:05:36 Test Item Value Reference Range Interpretation Comments VENOUS BASE EXCESS, mEq/L CORD (test code = 9380204866) VENOUS PH, CORD (test 7.25-7.45 code = 4593967619) VENOUS PC02, CORD See_Comment [Automate d message] The (test code = system which ge nerated 0817002227) this result tra nsmitted reference range : 27 - 49 mmHg. The refer ence range was not used to interpret this result as normal/abnormal . VENOUS PO2, CORD (test See_Comment [Aut omated message] The code = 9656516955) system wh ich generated this result tra nsmitted reference range : 17 - 41 mmHg. The refer ence range was not used to interpret this result as normal/abnormal . VENOUS BICARBONATE, See_Comment QUES [Au tomated message] CORD (test code = The system which generated 1133115213) this result tra nsmitted reference range : 12 - 29 mEq/L. The refe rence range was not used to interpret this result as normal/abnormal . [facility]HIV [facility]/2 AG-AB WITH [id number] 17:53:22 Test Item Value Reference Range Interpretation Comments HIV Negative Negative Semi-quantitative (test code = 63843-9) HILDA (test code = Non-reactive for HIV-1 HILDA) antigen and HIV-1/HIV-2 antibodies. ?No laboratory evidence of HIV infection. ?Repeat in 2-4 weeks if acute HIV infection is suspected. [facility] CenterHepatitis B Surface [id number] 15:27:19 Test Item Value Reference Range Interpretation Comments HBsAg Semi-Quantitative (test code = Negative Negative 5195-3) [facility] CenterType and Screen - ONCE [id number] 14:50:02 Test Item Value Reference Range Interpretation Comments ABO & RH (test code O POSITIVE Performe d at [facility] = 20) Laboratory [facility] Blood Bank3 [facility] s [address]Vnpz Free: [phone] A No. [id number] IAT (test code = Negative Performed a t [facility] 1185) Laboratory [facility] Blood [address] s [address]Dvlf Free: [phone] A No. [id number] [facility] with [id number] 14:16:52 Test Item Value Reference Range Interpretation Comments WBC (test code = See_Comment [Automated 6690-2) message] The sy stem which generated this result transmitted reference range : 4.30 - 11.10 10*3/?L. The reference range was not used to interpret this result as normal/abnormal . RBC (test code = See_Comment L [Automated 789-8) message] The sy stem which generated this result transmitted reference range : 3.93 - 5.25 10*6/?L. The reference range was not used to interpret this result as normal/abnormal . HGB (test code = 10.7 g/dL 11.6-15 L 718-7) HCT (test code = 32.8 % 35.7-45.2 L 4544-3) MCV (test code = 89.4 fL 80.6-95.5 787-2) MCH (test code = 29.2 pg 25.9-32.8 785-6) MCHC (test code = 32.6 g/dL 31.6-35.1 786-4) RDW-SD (test code = 45.0 fL 39-49.9 91189-6) RDW-CV (test code = 13.8 % 12-15.5 788-0) PLT (test code = See_Comment [Automated 777-3) message] The sy stem which generated this result transmitted reference range : 166 - 358 10*3/ ?L. The reference r angela was not used to interpret this result as normal/abnormal . MPV (test code = 11.4 fL 9.5-12.9 45424-0) NRBC/100 WBC (test See_Comment [Automat ed code = 3797640496) message] The system which generated this result transmitted reference range : 0.0 - 10.0 /100 WBCs. The refer ence range was not u sed to interpret th is result as normal/abnormal . NRBC x10^3 (test code See_Comment [Auto mated = [id number]) message] The s ystem which generated this result transmitted reference range : 10*3/?L. The reference range was not used to interpret this result as normal/abnormal . GRAN MAT (NEUT) % 69.2 % (test code = 770-8) IMM GRAN % (test code 0.80 % = 9324373069) LYMPH % (test code = 19.9 % 736-9) MONO % (test code = 8.9 % 5905-5) EOS % (test code = 1.0 % 713-8) BASO % (test code = 0.2 % 706-2) GRAN MAT x10^3(ANC) 6.21 10*3/uL 1.88-7.09 (test code = 0755244193) IMM GRAN x10^3 (test 0.07 10*3/uL 0-0.06 H code = 7188118234) LYMPH x10^3 (test code 1.79 10*3/uL 1.32-3.29 = 731-0) MONO x10^3 (test code 0.80 10*3/uL 0.33-0.92 = 742-7) EOS x10^3 (test code = 0.09 10*3/uL 0.03-0.39 711-2) BASO x10^3 (test code 0.01-0.07 = 704-7) Lab Interpretation Abnormal (test code = 00972-8) [facility] URINALYSIS W SPECIFIC [id number] 18:07:00 Test Item Value Reference Range Interpretation Comments POCT U SP GRAV (test code = * 1.005-1.025 3255) POCT PH U (test code = 3254) * 5-8 POCT U LEUK EST (test code = * Negative - Negative 3263) POCT U NIT (test code = 3262) * Negative - Negative POCT U PROT (test code = 3259) trace Negative - Negative POCT U GLU (test code = 3256) negative Negative - Negative POCT U KETONE (test code = 3258) * Negative - Negative POCT U UROBILI (test code = * 0.2-1 3260) POCT U BILI (test code = 3261) * Negative - Negative POCT U BLD (test code = 3257) * Negative - Negative POCT U COLOR (test code = 3266) POCT U APPEAR (test code = 3267) [facility] W SPECIFIC [id number] 18:07:00 Test Item Value Reference Range Interpretation Comments POCT U SP GRAV (test code = * 1.005-1.025 3255) POCT PH U (test code = 3254) * 5-8 POCT U LEUK EST (test code = * Negative - Negative 3263) POCT U NIT (test code = 3262) * Negative - Negative POCT U PROT (test code = 3259) trace Negative - Negative POCT U GLU (test code = 3256) negative Negative - Negative POCT U KETONE (test code = 3258) * Negative - Negative POCT U UROBILI (test code = * 0.2-1 3260) POCT U BILI (test code = 3261) * Negative - Negative POCT U BLD (test code = 3257) * Negative - Negative POCT U COLOR (test code = 3266) POCT U APPEAR (test code = 3267) [facility]CIFIC [id number] 18:17:00 Test Item Value Reference Range Interpretation Comments POCT U SP GRAV (test code = 3255) * 1.005-1.025 POCT PH U (test code = 3254) * 5-8 POCT U LEUK EST (test code = 3263) * Negative - Negative POCT U NIT (test code = 3262) * Negative - Negative POCT U PROT (test code = 3259) trace Negative - Negative POCT U GLU (test code = 3256) trace Negative - Negative POCT U KETONE (test code = 3258) * Negative - Negative POCT U UROBILI (test code = 3260) * 0.2-1 POCT U BILI (test code = 3261) * Negative - Negative POCT U BLD (test code = 3257) * Negative - Negative POCT U COLOR (test code = 3266) POCT U APPEAR (test code = 3267) [facility]
[2023-08-24] MEDS ORDERED: ONDANSETRON 4 MG (ODT) TAB ONE (00:48)
--- NOTE | 2023-08-24 01:38 | EDPHYS ---
Physician Documentation [facility] Name: Suzan Santiago Age: 22 yrs Sex: Female : 2000 Arrival Date: 08/24/2023 Time: 00:00 Bed DIS5 Private MD: ED Physician Cortes Cartwright HPI: 08/24 00:14 This 22 yrs old Female presents to ER via Unassigned with complaints of Fever. kb 00:14 Patient is a 22-year-old female who presents for sore throat that started yesterday, kb cough and congestion started today and fever started started at 1900. States she took Tylenol but temperature as she has been going up.. Historical: - Allergies: 00:18 No Known Allergies; bp - PMHx: 00:18 Asthma; COVID positive; bp - Immunization history:: Adult Immunizations up to date. - Social history:: Smoking status: Patient denies any tobacco usage or history of. ROS: 00:14 Abdomen/GI: Negative for abdominal pain, nausea, vomiting, diarrhea, and constipation, kb 00:14 Constitutional: Positive for body aches, chills, fatigue, fever, malaise, 00:14 ENT: Positive for rhinorrhea, sore throat, 00:14 Respiratory: Positive for cough, 00:14 Neuro: Positive for headache, 00:14 All other systems are negative, Exam: 00:14 Constitutional: This is a well developed, well nourished patient who is awake, alert, kb and in no acute distress. Head/Face: Normocephalic, atraumatic. ENT: Moist Mucous membranes Cardiovascular: Regular rate Respiratory: Respirations even and unlabored. No increased work of breathing. Talking in full sentences Abdomen/GI: Soft, non-tender. No distention Skin: Warm, dry with normal turgor. Normal color. MS/ Extremity: Pulses equal, no cyanosis. Neurovascular intact. Full, normal range of motion. Neuro: Awake and alert, GCS 15, oriented to person, place, time, and situation. Moves all extremities. Normal gait. Vital Signs: 00:17 BP 120 / 77; Pulse 105; Resp 16; Temp 100; Pulse Ox 99% ; Weight 54.43 kg; Height 4 ft. bp 11 in. ; 00:17 Body Mass Index 24.24 (54.43 kg, 149.86 cm) bp MDM: 00:05 Patient medically screened. kb 00:14 Differential Diagnosis: Other flu, covid, uri, strep. Data reviewed: vital signs, kb nurses notes. 01:29 Counseling: I had a detailed discussion with the patient and/or guardian regarding the kb historical points, exam findings, and any diagnostic results supporting the discharge/admit diagnosis, lab results, the need for outpatient follow up, a family practitioner, to return to the emergency department if symptoms worsen or persist or if there are any questions or concerns that arise at home. 08/24 00:12 Order name: SARS-COV-2 RT PCR; Complete Time: :30 kb 08/24 00:12 Order name: Strep; Complete Time: 36 kb 08/24 00:12 Order name: Flu; Complete Time: 36 kb 08/24 01:38 Order name: Throat Culture EDMS Administered Medications: 00:35 Drug: Ibuprofen PO 600 mg PO once Route: PO; bp 01:49 Follow up: Response: No adverse reaction bp 00:36 Drug: Ondansetron Oral Disintegrating Tablet Oral Disintegrating Tablet 4 mg PO once bp Route: PO; 01:49 Follow up: Response: No adverse reaction bp Disposition Summary: 08/24/23 01:37 Discharge Ordered Notes: Location: Home kb Condition: Stable kb Diagnosis - SARS-associated coronavirus as the cause of diseases classified elsewhere kb Followup: kb - With: Emergency Department - When: As needed - Reason: Worsening of condition Followup: kb - With: Private Physician - When: - Reason: Recheck today's complaints, Continuance of care, Re-evaluation by your physician Discharge Instructions: - Discharge Summary Sheet kb - COVID-19 kb - Viral Illness, Adult kb Forms: - Work release form kb - Family Work Release kb - Medication Reconciliation Form kb - Thank You Letter kb - Antibiotic Education kb - Prescription Opioid Use kb - Patient Portal Instructions kb - Leadership Thank You Letter kb Signatures: Dispatcher [employer] Francoise Hager FNP-C FNP-Ckb [place]elt[place], Brian, RN RN bp
--- NOTE | 2023-08-24 01:38 | ER ---
Nurse's Notes [facility] Name: Suzan Santiago Age: 22 yrs Sex: Female : 2000 Arrival Date: 08/24/2023 Time: 00:00 Bed DIS5 Private MD: Diagnosis: SARS-associated coronavirus as the cause of diseases classified elsewhere Presentation: 08/24 00:17 Chief complaint: Patient states: FEVER AND BODY ACHES TODAY. Coronavirus screen: fever, bp muscle pain. Ebola Screen: No symptoms or risks identified at this time. Initial Sepsis Screen: Does the patient meet any 2 criteria? No. Patient's initial sepsis screen is negative. Does the patient have a suspected source of infection? No. Patient's initial sepsis screen is negative. Risk Assessment: Do you want to hurt yourself or someone else? Patient reports no desire to harm self or others. Onset of symptoms was August 24, 2023. 00:17 Method Of Arrival: Ambulatory bp 00:17 Acuity: LEATHA 4 bp Triage Assessment: 00:18 General: Appears uncomfortable, ill, Behavior is calm, cooperative, appropriate for bp age. Pain: Denies pain. Historical: - Allergies: 00:18 No Known Allergies; bp - PMHx: 00:18 Asthma; COVID positive; bp - Immunization history:: Adult Immunizations up to date. - Social history:: Smoking status: Patient denies any tobacco usage or history of. Screenin:18 [facility] ED Fall Risk Assessment (Adult) History of falling in the last 3 months, bp including since admission No falls in past 3 months (0 pts). Abuse screen: Denies threats or abuse. Denies injuries from another. Nutritional screening: No deficits noted. Tuberculosis screening: No symptoms or risk factors identified. Vital Signs: 00:17 BP 120 / 77; Pulse 105; Resp 16; Temp 100; Pulse Ox 99% ; Weight 54.43 kg; Height 4 ft. bp 11 in. ; 00:17 Body Mass Index 24.24 (54.43 kg, 149.86 cm) bp ED Course: 00:05 Patient arrived in ED. ag3 00:05 Francoise Jackson FNP-C [facility]. kb 00:05 Cortes Cartwright MD is Attending Physician. kb 00:18 Triage completed. bp 00:18 Arm band placed on. bp 00:18 Patient has correct armband on for positive identification. bp 01:48 Patient did not have IV access during this emergency room visit. bp 01:48 No provider procedures requiring assistance completed. bp Administered Medications: 00:35 Drug: Ibuprofen PO 600 mg PO once Route: PO; bp 01:49 Follow up: Response: No adverse reaction bp 00:36 Drug: Ondansetron Oral Disintegrating Tablet Oral Disintegrating Tablet 4 mg PO once bp Route: PO; 01:49 Follow up: Response: No adverse reaction bp Outcome: 01:37 Discharge ordered by . stan 01:48 Discharged to home ambulatory, bp 01:48 Condition: stable 01:48 Discharge instructions given to patient, Instructed on discharge instructions, follow up and referral plans. Demonstrated understanding of instructions, follow-up care, 01:49 Patient left the ED. bp Signatures: Francoise Jackson FNP-C FNP-Ckb Peltier, Brian, RN RN bp Aggie Ta ag3
[2023-08-24 02:04] VITALS: BP 120/77; TEMP 100; O2SAT 99
== END 2023-08-24 01:49 | disposition home or self-care (01) ==
LOC: ER
DX: U07.1 COVID-19 (principal)
CPT/HCPCS: 87070; 87081; 87635; 87804 ×2; 99283; Q0162

== ENCOUNTER 2024-09-22 18:23 | Emergency (ER) | payer OTHER ==
[2024-09-22] MEDS ORDERED: KETOROLAC 30 MG/ML INJ ONE (19:29)
[2024-09-22] MEDS ORDERED: DIPHENHYDRAMINE 50 MG/ML VIAL ONE (19:29)
[2024-09-22] MEDS ORDERED: METOCLOPRAMIDE 10 MG/2mL INJ ONE (19:30)
[2024-09-22] MEDS ORDERED: NA CHLORIDE 0.9% 1,000 ML ONE (19:30)
--- NOTE | 2024-09-22 20:02 | RAD REPORT ---
Procedure: Chest Single View HISTORY: Chest pain COMPARISON: 2021 FINDINGS: The lungs appear clear of acute infiltrate. No significant pleural effusion noted. The heart is normal size. IMPRESSION: No acute abnormality is displayed.
[2024-09-22 20:58] LABS: SARS-CoV-2 Antigen CONTROL BLUE LINE VIS/BG OK; SARS-CoV-2 Antigen Rapid Res Negative (Negative)
[2024-09-22 21:15] LABS: Absolute Eosinophils 0.1 K/uL (0-0.5); Absolute Lymphocytes (CBC) 1.4 K/uL (0.7-4.9); Absolute Monocytes 0.6 K/uL (0.1-1.3); Absolute Neutrophil 6.7 K/uL (1.8-8.0); Basophils % 0.2 % (0-1.3); Eosinophils % 0.8 % (0-4.4); Hematocrit 40.5 % (36.0-45.0); Hemoglobin 13.7 g/dL (12.0-15.0); Lymphocytes % 16.1 % (15.3-44.8); MCHC 33.9 g/dL (32.0-36.0); MCV 88.3 fL (80-100); MPV 8.1 fL (7.6-11.3); Monocytes % 6.3 % (3.3-12.3); Neutrophils % 76.6 % (41.7-73.7); Nucleated Red Blood Cells % 0.1 % (0-0); Platelets 323 thou/uL (152-406); RBC Red Blood Cell Count 4.58 M/uL (3.86-4.86); Red Cell Distribution Width 12.6 % (12.1-15.2)
[2024-09-22 21:33] LABS: Anion Gap 10.5 mEq/L (5.0-15.0); BUN Blood Urea Nitrogen 9 mg/dL (7-18); Bicarbonate 26 mEq/L (21-32); Glomerular Filtration Rate 133 ml/min (=/>90); Glucose Level 108 mg/dL (74-106); Magnesium 2.3 mg/dL (1.6-2.4); Potassium 3.5 mEq/L (3.5-5.1); Sodium Level 135 mEq/L (136-145)
[2024-09-22 21:36] LABS: Troponin High Sensitivity < 3.0 pg/mL (<58.9)
--- NOTE | 2024-09-22 21:59 | EDPHYS ---
Physician Documentation [facility] Name: Suzan Santiago Age: 23 yrs Sex: Female : 2000 Arrival Date: 09/22/2024 Time: 18:23 Bed 8 Private MD: ED Physician Deb Bashir HPI: 09/22 20:33 This 23 yrs old Female presents to ER via Ambulatory with complaints of Flu sb4 Symptoms, Chest Pain. 20:33 Patient reports flulike symptoms x 5 days. Was seen by her PCP yesterday, diagnosed sb4 with a left ear infection and started on amoxicillin. States that since then, she has developed a headache, intermittent stabbing chest pains, dizziness, and blurry vision. She also reports body aches, coughing, nausea. Reports a history of hypertension, hypothyroidism, and prediabetes-was started on antihypertensives and thyroid medications 1 month ago. [employer]: 22:05 unknown bm8 Historical: - Allergies: 19:03 No Known Allergies; me1 - PMHx: 19:03 Asthma; COVID positive; Hypertensive disorder; Hypothyroidism; me1 - PSHx: 19:03 None; me1 - Immunization history:: Adult Immunizations up to date. - Infectious Disease History:: Denies. - Social history:: Smoking status: Patient denies any tobacco usage or history of. ROS: 20:33 Skin: Negative for injury, rash, and discoloration, sb4 20:33 Constitutional: Positive for body aches, malaise, 20:33 ENT: Positive for ear pain, sinus congestion, 20:33 Cardiovascular: Positive for chest pain, 20:33 Respiratory: Positive for cough, 20:33 Abdomen/GI: Positive for nausea and vomiting, 20:33 Neuro: Positive for dizziness, headache, Exam: 20:35 Constitutional: This is a well developed, well nourished patient who is awake, alert, sb4 and in no acute distress. Head/Face: Normocephalic, atraumatic. Eyes: Extra-ocular motions intact. Periorbital areas with no swelling, redness, or edema. ENT: Mucous membranes moist. Cardiovascular: Regular rate and rhythm with a normal S1 and S2. Respiratory: No increased work of breathing, no retractions or nasal flaring. Abdomen/GI: Soft, non-tender, no distension. Skin: Warm, dry with normal turgor. Normal color with no rashes, no lesions, and no evidence of cellulitis. Vital Signs: 19:00 BP 125 / 86; Pulse 88; Resp 18; Temp 98.5; Pulse Ox 100% ; Weight 63.96 kg; Height 4 me1 ft. 11 in. ; Pain 8/10; 20:30 BP 119 / 61; Pulse 78; Resp 18; Temp 98.5; Pulse Ox 99% ; Pain 4/10; bm8 21:45 BP 106 / 67; Pulse 100; Resp 18; Temp 98.5; Pulse Ox 100% ; Pain 0/10; bm8 19:00 Body Mass Index 28.48 (63.96 kg, 149.86 cm) me1 19:00 Pain Scale: Adult me1 20:30 Pain Scale: Adult bm8 21:45 Pain Scale: Adult bm8 Darius Coma Score: 19:41 Eye Response: spontaneous(4). Motor Response: obeys commands(6). Verbal Response: bm8 oriented(5). Total: 15. 20:30 Eye Response: spontaneous(4). Motor Response: obeys commands(6). Verbal Response: bm8 oriented(5). Total: 15. 21:45 Eye Response: spontaneous(4). Motor Response: obeys commands(6). Verbal Response: bm8 oriented(5). Total: 15. MDM: 18:57 Medical Screening Exam initiated sb4 22:00 Data reviewed: vital signs, nurses notes, lab test result(s), EKG, radiologic studies, sb4 and as a result, I will discharge patient. Counseling: I had a detailed discussion with the patient and/or guardian regarding the historical points, exam findings, and any diagnostic results supporting the discharge/admit diagnosis, the presence of at least one elevated blood pressure reading (>120/80) during this emergency department visit, lab results, radiology results, the need for outpatient follow up, a patient educator, to return to the emergency department if symptoms worsen or persist or if there are any questions or concerns that arise at home. 09/22 19:13 Order name: Basic Metabolic Panel; Complete Time: 21:47 sb4 09/22 19:13 Order name: CBC with Diff; Complete Time: 21:16 sb4 09/22 19:13 Order name: Magnesium; Complete Time: 21:47 sb4 09/22 19:13 Order name: Troponin HS; Complete Time: 21:47 sb4 09/22 19:13 Order name: SARS RAPID; Complete Time: 21:02 sb4 09/22 19:13 Order name: Flu; Complete Time: 21:02 sb4 09/22 19:13 Order name: TSH; Complete Time: 21:47 sb4 09/22 19:13 Order name: Test, Serum; Complete Time: 20:19 sb4 09/22 19:13 Order name: XRAY Chest (1 view); Complete Time: 20:03 sb4 09/22 19:13 Order name: EKG; Complete Time: 19:13 sb4 09/22 19:13 Order name: Cardiac monitoring; Complete Time: 19:41 sb4 09/22 19:13 Order name: EKG - Nurse/Tech; Complete Time: 19:41 sb4 09/22 19:13 Order name: IV Saline Lock; Complete Time: 19:41 sb4 09/22 19:13 Order name: Labs collected and sent; Complete Time: 19:41 sb4 09/22 19:13 Order name: O2 Per Protocol; Complete Time: 19:41 sb4 09/22 19:13 Order name: O2 Sat Monitoring; Complete Time: 19:41 sb4 EC:59 Rate is 75 beats/min. Rhythm is regular, Sinus Rhythm with 1st degree heart block. LA sb4 interval is prolonged at 240 msec. QRS interval is normal at 78 msec. QT interval is normal at 370 msec. No Q waves. T waves are Normal. No ST changes noted. Clinical impression: 1st degree heart block. Interpreted by me. Reviewed by me. Administered Medications: 19:41 Drug: NS 0.9% IV 1000 ml IV at 1000 ml once; to be given as a bolus over 60 minutes bm8 Route: IV; Rate: 1000 ml; Site: left antecubital; 21:04 Follow up: Response: No adverse reaction; IV Status: Completed infusion; IV Intake: bm8 1000ml 19:41 Drug: Ketorolac IVP 15 mg IVP once Route: IVP; Site: left antecubital; bm8 21:04 Follow up: Response: No adverse reaction bm8 19:41 Drug: metoCLOPramide IVP 10 mg IVP once; over 1 to 2 minutes Route: IVP; Site: left bm8 antecubital; 21:04 Follow up: Response: No adverse reaction bm8 19:41 Drug: diphenhydrAMINE IVP 25 mg IVP once Route: IVP; Site: left antecubital; bm8 21:03 Follow up: Response: No adverse reaction bm8 Disposition Summary: 09/22/24 21:59 Discharge Ordered Problem: new sb4 Symptoms: have improved sb4 Condition: Stable sb4 Diagnosis - 1st degree heart block sb4 - Headache sb4 - Chest pain, unspecified sb4 Followup: sb4 - With: Bjorn Bah MD - When: 1 week - Reason: Further diagnostic work-up, Recheck today's complaints, Re-evaluation by your physician Discharge Instructions: - Discharge Summary Sheet sb4 - General Headache Without Cause sb4 - First-Degree Atrioventricular Block sb4 Forms: - Patient Portal Instructions sb4 - Leadership Thank You Letter sb4 Signatures: Dispatcher [employer] Winnie Wiley PA-C PA-C sb4 Mellisa Keenan, RN RN de1 Luis Romero, RN RN bm8 Corrections: (The following items were deleted from the chart) 20:03 19:13 Test, Urine+[id number].LAB.BRZ ordered. ARLIN OLIVEROS
--- NOTE | 2024-09-22 21:59 | ER ---
Nurse's Notes [facility] Name: Suzan Santiago Age: 23 yrs Sex: Female : 2000 Arrival Date: 09/22/2024 Time: 18:23 Bed 8 Private MD: Diagnosis: 1st degree heart block;Headache;Chest pain, unspecified Presentation: 09/22 19:00 Chief complaint: Patient states: started coughing on Wednesday, went to clinic yesterday me1 and was dx with left ear infection and given amoxicillin that she started today. Today started having GREEN, midsternal chest pain that is sharp and intermittent, dizziness and spells of blurred vision. Coronavirus screen: Vaccine status: Patient reports being unvaccinated. Ebola Screen: No symptoms or risks identified at this time. Initial Sepsis Screen: Does the patient meet any 2 criteria? No. Patient's initial sepsis screen is negative. Does the patient have a suspected source of infection? No. Patient's initial sepsis screen is negative. Risk Assessment: Do you want to hurt yourself or someone else? Patient reports no desire to harm self or others. Onset of symptoms was September 18, 2024. 19:00 Method Of Arrival: Ambulatory ks1 19:00 Acuity: LEATHA 4 me1 Triage Assessment: 19:03 General: Appears uncomfortable, well groomed, well developed, well nourished, Behavior me1 is calm, cooperative, appropriate for age. Pain: Complains of pain in head and chest Pain does not radiate. Pain currently is 8 out of 10 on a pain scale. Quality of pain is described as aching, Pain began gradually, Is continuous. EENT: No signs and/or symptoms were reported regarding the EENT system. Neuro: Level of Consciousness is awake, alert, obeys commands, Oriented to person, place, time, situation, Appropriate for age Reports headache. Cardiovascular: Patient's skin is warm and dry. Respiratory: Reports cough that is non-productive, Airway is patent Respiratory effort is even, unlabored, Respiratory pattern is regular, symmetrical. GI: No signs and/or symptoms were reported involving the gastrointestinal system. : No signs and/or symptoms were reported regarding the genitourinary system. Derm: Skin is intact, is healthy with good turgor, Skin is pink, warm \T\ dry. Musculoskeletal: No signs and/or symptoms reported regarding the musculoskeletal system. DEWER: 22:05 unknown bm8 Historical: - Allergies: 19:03 No Known Allergies; me1 - PMHx: 19:03 Asthma; COVID positive; Hypertensive disorder; Hypothyroidism; me1 - PSHx: 19:03 None; me1 - Immunization history:: Adult Immunizations up to date. - Infectious Disease History:: Denies. - Social history:: Smoking status: Patient denies any tobacco usage or history of. Screenin:41 [facility] ED Fall Risk Assessment (Adult) History of falling in the last 3 months, bm8 including since admission No falls in past 3 months (0 pts) Confusion or Disorientation No (0 pts) Intoxicated or Sedated No (0 pts) Impaired Gait No (0 pts) Mobility Assist Device Used No (0 pt) Altered Elimination No (0 pt) Score/Fall Risk Level 0 - 2 = Low Risk Oriented to surroundings, Maintained a safe environment, Educated pt \T\ family on fall prevention, incl call for assistance when getting out of bed, Assessed \T\ reinforced patient's understanding of fall precautions, Hourly rounding (assess needs \T\ fall precautionary measures) done, Used ambulatory aids as needed (educated on \T\ assisted with), Used gait belt as appropriate. Abuse screen: Denies threats or abuse. Nutritional screening: No deficits noted. Tuberculosis screening: No symptoms or risk factors identified. Assessment: 19:41 Reassessment: Patient appears in no apparent distress at this time. Patient and/or bm8 family updated on plan of care and expected duration. Pain level reassessed. Patient is alert, oriented x 3, equal unlabored respirations, skin warm/dry/pink. General: Appears in no apparent distress. uncomfortable, Behavior is calm, cooperative, appropriate for age. Pain: Complains of pain in chest and head Pain currently is 10 out of 10 on a pain scale. Neuro: Level of Consciousness is awake, alert, obeys commands, Oriented to person, place, time, situation, Appropriate for age. Cardiovascular: Reports chest pain, Heart tones S1 S2 present Capillary refill < 3 seconds in bilateral fingers Patient's skin is warm and dry. Rhythm is sinus rhythm. Respiratory: Airway is patent Trachea midline Respiratory effort is even, unlabored, Respiratory pattern is regular, symmetrical, Breath sounds are clear bilaterally. GI: Reports nausea, vomiting. : No signs and/or symptoms were reported regarding the genitourinary system. EENT: No signs and/or symptoms were reported regarding the EENT system. Derm: No signs and/or symptoms reported regarding the dermatologic system. Musculoskeletal: No signs and/or symptoms reported regarding the musculoskeletal system. 20:30 Reassessment: Patient appears in no apparent distress at this time. Patient and/or bm8 family updated on plan of care and expected duration. Pain level reassessed. Patient is alert, oriented x 3, equal unlabored respirations, skin warm/dry/pink. Patient states feeling better. Patient states symptoms have improved. Pain: Pain currently is 4 out of 10 on a pain scale. 21:45 Reassessment: Patient appears in no apparent distress at this time. Patient and/or bm8 family updated on plan of care and expected duration. Pain level reassessed. Patient is alert, oriented x 3, equal unlabored respirations, skin warm/dry/pink. Patient denies pain at this time. Patient states feeling better. Patient states symptoms have improved. Pain: Pain currently is 0 out of 10 on a pain scale. 22:04 Pain: Pain currently is 0 out of 10 on a pain scale. bm8 Vital Signs: 19:00 BP 125 / 86; Pulse 88; Resp 18; Temp 98.5; Pulse Ox 100% ; Weight 63.96 kg; Height 4 me1 ft. 11 in. ; Pain 8/10; 20:30 BP 119 / 61; Pulse 78; Resp 18; Temp 98.5; Pulse Ox 99% ; Pain 4/10; bm8 21:45 BP 106 / 67; Pulse 100; Resp 18; Temp 98.5; Pulse Ox 100% ; Pain 0/10; bm8 19:00 Body Mass Index 28.48 (63.96 kg, 149.86 cm) me1 19:00 Pain Scale: Adult me1 20:30 Pain Scale: Adult bm8 21:45 Pain Scale: Adult bm8 Darius Coma Score: 19:41 Eye Response: spontaneous(4). Motor Response: obeys commands(6). Verbal Response: bm8 oriented(5). Total: 15. 20:30 Eye Response: spontaneous(4). Motor Response: obeys commands(6). Verbal Response: bm8 oriented(5). Total: 15. 21:45 Eye Response: spontaneous(4). Motor Response: obeys commands(6). Verbal Response: bm8 oriented(5). Total: 15. ED Course: 18:26 Patient arrived in ED. mg5 18:27 Winnie Major PA-C is [facility]. sb4 18:27 Deb Bashir MD is Attending Physician. sb4 19:02 Triage completed. me1 19:03 Luis Romero, RN is Primary Nurse. bm8 19:03 Arm band placed on Patient placed in an exam room. me1 19:23 XRAY Chest (1 view) In Process Unspecified. EDMS 19:41 Patient has correct armband on for positive identification. Bed in low position. Call bm8 light in reach. Side rails up X 1. Adult w/ patient. Client placed on continuous cardiac and pulse oximetry monitoring. NIBP monitoring applied. monitor tech on. Pulse ox on. NIBP on. Door closed. Noise minimized. Visitors limited. Warm blanket given. Pillow given. Verbal reassurance given. Head of bed elevated. 19:41 No provider procedures requiring assistance completed. Initial lab(s) drawn, by ED bm8 staff, sent to lab. EKG done, by ED staff, reviewed by Winnie Major PA-C. Inserted saline lock: 20 gauge in left antecubital area, using aseptic technique. Blood collected. Flushed with 10 mL NS. Patient maintains SpO2 saturation greater than 95% on room air. 21:47 Provided Education on: post er care. bm8 21:59 Bjorn Bah MD is Referral Physician. sb4 22:04 IV discontinued, intact, bleeding controlled, No redness/swelling at site. Pressure bm8 dressing applied. Administered Medications: 19:41 Drug: NS 0.9% IV 1000 ml IV at 1000 ml once; to be given as a bolus over 60 minutes bm8 Route: IV; Rate: 1000 ml; Site: left antecubital; 21:04 Follow up: Response: No adverse reaction; IV Status: Completed infusion; IV Intake: bm8 1000ml 19:41 Drug: Ketorolac IVP 15 mg IVP once Route: IVP; Site: left antecubital; bm8 21:04 Follow up: Response: No adverse reaction bm8 19:41 Drug: metoCLOPramide IVP 10 mg IVP once; over 1 to 2 minutes Route: IVP; Site: left bm8 antecubital; 21:04 Follow up: Response: No adverse reaction bm8 19:41 Drug: diphenhydrAMINE IVP 25 mg IVP once Route: IVP; Site: left antecubital; bm8 21:03 Follow up: Response: No adverse reaction bm8 Medication: 19:41 VIS not applicable for this client. bm8 Intake: 21:04 IV: 1000ml; Total: 1000ml. bm8 Outcome: 21:59 Discharge ordered by . sb4 22:04 Discharged to home ambulatory, bm8 22:04 Condition: stable 22:04 Discharge instructions given to patient, family, Instructed on discharge instructions, follow up and referral plans. no drinking with medication, no driving heavy equipment, medication usage, safety practices, Demonstrated understanding of instructions, follow-up care, medications, 22:05 Patient left the ED. bm8 Signatures: Dispatcher [employer] Winnie Wiley, PAWhitneyC PA-C sb4 Mellisa Keenan, RN RN ks1 Jazmyne Fisher mg5 Luis Romero RN RN bm8
[2024-09-23 01:25] VITALS: TEMP 98.5
[2024-09-23 01:28] VITALS: BP 106/67; O2SAT 100
== END 2024-09-22 22:05 | disposition home or self-care (01) ==
LOC: ER 18:23
DX: I44.0 Atrioventricular block, first degree (principal); R51.9 Headache, unspecified; I10 Essential (primary) hypertension; Z11.52 Encounter for screening for COVID-19
CPT/HCPCS: 96361; 85025; 80048; 36415; 83735; 84703; 84443; 84484; 87804 ×2; 71045; 96375; 96374; 99285; 87811; J2765; J1200; J7030

== ENCOUNTER 2025-08-04 23:58 | Emergency (ER) | payer OTHER ==
--- OUTSIDE RECORDS SUMMARY | 2025-08-05 00:22 | XMS REPORT | Continuity of Care Document ---
Author Name Unknown Address [address] [facility] [address] [place] [address] [facility] Address [address] [facility] [address] [place] [address] Care Team Providers Care Maintenance Of Way Foreman Name Role Phone Akinsibacilio WHJustyna URBINA Primary Care Physicia n Italo Bass MD Attending Clinician [phone] ITALO BASS Attending Clinician Unavailable JACQUELYN LUO Attending Clinician UnavailJustyna Burris Attending Clinician + JUSTYNA GIFFORD Attending Clinician Unavail able ELEANOR DUVALL Attending Clinician Unavailable ELEANOR DUVALL Attending Clinician Unavailable DARA JACQUES Attending Clinician Unavailable RANJITH CONTEH Attending Clinician Unaulices Del Castillo MD, Margareth Attending Clinician + Guru Whalen MD, Ranjith Attending Clinician + Navin Carlson MD Attending Clinician [phone] Eduardo Lyons MD Attending Clinician [phone] Doctor Unassigned, [place] Attending Clinician U MELANIE Blevins Attending Clinician Yokasta Rosales MD, Melanie Cantu Attending Clinician + [phone], [facility] Nst Ultrasound Attending Clinician Unavailable Kayode Persaud-Mfm Attending Clinician UnavailEleanor Anthony MD Attending Clinician + [phone] Risk, Yjd-Tnnpk-Uy/High Attending Clinician Unav ailable SALEEM RIVERO Attending Clinician Unavailable Cyn Salmeron Attending Clinician UnavailSaleem Rose MD Attending Clinician [phone] SLICK DRIVER Attending Clinician Unavaila ble 3, [facility] Usg Room Attending Clinician Unavaila diane Driver MD, Slick Curtis Attending Clinician [phone] NOEMY DURAN Attending Clinician Unavailable NOEMY DURAN Attending Clinician Unavailable 1, [facility] U[facility] Room Attending Clinician Unavaila ble Lab, [facility] Attending Clinician Unavailable 2, [facility] Room Attending Clinician Unavaila ble Evaristo PICKERINGP, May Attending Clinician [phone] Nurse, [facility] Exp Cprit Obgyn Attending Clini charisma Unavailable Provider, [facility] Temp Attending Clinician Serena kanailable Avila V BELT SKIVER, Lan Lewis Attending Clinician + [phone] Judith HEBERT, Jacquelyn Washington Attending Clinician [phone] Rich Malik MD Attending Clinician [phone] LAN SCHMIDT Attending Clinician Unavailab carol ann Peguero MD, Estuardo Attending Clinician [phone] Epifanio Wade MD Attending Clinician [phone] FRANCO CAMARA Attending Clinician UnavailFranco Marcum MD Attending Clinician + [phone] NITHYA PARMAR Attending Clinician Unavailable Nithya Parmar MD Attending Clinician [phone] Ian NOVOA, Matheus Attending Clinician [phone] Akiko NOVOA PHD, Maria Esther Attending Clinician [phone] Loy Nj Attending Clinician [phone] LOY CARVAJAL Attending Clinician Unavailantonio soares Lab, [facility] Attending Clinician Unavailable TRAN LADD Attending Clinician Unavail able Tran Chu Attending Clinician + LAKSHMI MARTIN Attending Clinician Unavailantonio Martin [facility] Reno Avina MD Attending Clinician [phone] Lab/Pedi, [facility] Unavailmojgan Wilson MSN, Chetna A Attending Clinician [phone] 1, [facility] Room Attending Clinician UnavailRICH Baugh Attending Clinician Unavailable ITALO BASS Admitting Clinician Unavailable MARIA TERESA DAVEY Admitting Clinician Unavailable RANJITH CONTEH Admitting Clinician Unav ailable Guru Whalen MD, Ranjith Admitting Clinician + MELANIE ROSALES Admitting Clinician Unav ailable Melanie Rosales MD Admitting Clinician + FRANCO CAMARA Admitting Clinician UnavailFranco Marcum MD Admitting Clinician [phone] NITHYA PARMAR Admitting Clinician Unavailable Nithya Parmar MD Admitting Clinician [phone] Payers Payer Name Policy Type Policy Number Effective Date Expirati on Date Source [place] [id number] 2021 00:00:00 MEDICAID PENDING PENDING 2021 00:00:00 Problems Condition Name Condition Details Condition Category Status Onset Date Resolution Date Last Treatment Date Treating Clinician Comments Source First degree atrioventr icular block First degree atrioventr icular block Disease Active 10-26 00:00: 00 [facility] Dizziness and giddiness Dizziness and giddiness Disease Active 10-26 00:00: 00 [facility] Primary hypertensi on Primary hypertensi on Disease Active 10-26 00:00: 00 [facility] Routine follow-up Routine follow-up Disease Active 2022-10 00:00: 00 [facility] History of tubal ligation History of tubal ligation Disease Active 2022-10 0-23 00:00: 00 [facility] Short interval between pregnancie s affecting in first trimester, antepartum Short interval between pregnancie s affecting in first trimester, antepartum Disease Active 3-09 00:00: 00 [facility] BMI 28.0-28.9, adult BMI 28.0-28.9, adult Disease Active 1-19 00:00: 00 [facility] BMI 28.0-28.9, adult BMI 28.0-28.9, adult Disease Active 1-19 00:00: 00 [facility] (spontaneo us vaginal delivery) (spontaneo us vaginal delivery) Disease Active 2020-10 2-08 00:00: 00 [facility] PUPP (pruritic urticarial papules and plaques of ) PUPP (pruritic urticarial papules and plaques of ) Disease Active 2020-10 2- 00:00: 00 [facility] Single live Single live Disease Resolve d 1 0-23 00:00: 00 2023-09-15 00:00:00 2023-09-15 11:14:52 [facility] premature rupture of membranes (PPROM) with onset of labor within 24 hours of rupture in third trimester, antepartum premature rupture of membranes (PPROM) with onset of labor within 24 hours of rupture in third trimester, antepartum Disease Resolve d 2022-10 0-21 00:00: 00 2023-09-15 00:00:00 2023-09-15 11:14:55 [facility] uterine contractio ns in third trimester, antepartum uterine contractio ns in third trimester, antepartum Disease Resolve d 2022-1 0-17 00:00: 00 2023-09-15 00:00:00 2023-09-15 11:15:00 [facility] Multiparit y Multiparit y Disease Resolve d 2022-0 4-17 00:00: 00 2023-09-15 00:00:00 2023-09-15 11:14:57 [facility] History of delivery, currently History of delivery, currently Disease Resolve d 4-17 00:00: 00 2023-09-15 00:00:00 2023-09-15 11:14:59 Overview: Formattin g of this note might be different from the original. Delivery at 36 weeks [facility] Short interval between pregnancie s affecting , antepartum Short interval between pregnancie s affecting , antepartum Disease Resolve d 4-17 00:00: 00 2023-09-15 00:00:00 2023-09-15 11:14:53 [facility] (normal spontaneou s vaginal delivery) (normal spontaneou s vaginal delivery) Disease Resolve d 2020-10 2-08 00:00: 00 2023-09-15 00:00:00 2023-09-15 11:14:56 [facility] IUGR (intrauter ine growth restrictio n) affecting care of mother IUGR (intrauter ine growth restrictio n) affecting care of mother Disease Resolve d 8-08 00:00: 00 2023-08-07 00:00:00 2023-08-07 08:52:51 [facility] Supervisio n of high-risk Supervisio n of high-risk Disease Resolve d 4-17 00:00: 00 2023-08-07 00:00:00 2023-08-07 08:52:55 [facility] Over weight Over weight Disease Resolve d 1-19 00:00: 00 2023-08-07 00:00:00 2023-08-07 08:52:49 [facility] COVID-19 virus IgG antibody detected COVID-19 virus IgG antibody detected Disease Resolve d 2020-10 1-24 00:00: 00 2023-08-07 00:00:00 2023-08-07 08:52:53 [facility] 35 weeks gestation of 35 weeks gestation of Disease Resolve d 2022-10 0-17 00:00: 00 2023-08-06 00:00:00 2023-08-06 08:41:04 [facility] Other general counseling and advice for contracept markel management Other general counseling and advice for contracept markel management Disease Resolve d 2021-10 1-29 00:00: 00 2023-02-01 00:00:00 2023-02-01 14:34:19 [facility] Chorioamni onitis Chorioamni onitis Disease Resolve d 2021-10 0-14 00:00: 00 2023-02-01 00:00:00 2023-02-01 14:34:24 [facility] Well woman exam Well woman exam Disease Resolve d 2021-0 1-19 00:00: 00 2023-02-01 00:00:00 2023-02-01 14:34:17 [facility] PUPP (pruritic urticarial papules and plaques of ) PUPP (pruritic urticarial papules and plaques of ) Disease Resolve d 2020-10 2-07 00:00: 00 2022-09-15 00:00:00 2022-09-15 10:08:46 [facility] 36 weeks gestation of 36 weeks gestation of Disease Resolve d 2021-10 0-13 00:00: 00 2022-08-20 00:00:00 2022-08-20 08:46:11 [facility] premature rupture of membranes (PPROM) with unknown onset of labor premature rupture of membranes (PPROM) with unknown onset of labor Disease Resolve d 2021-10 0-13 00:00: 00 2022-08-20 00:00:00 2022-08-20 08:41:51 [facility] premature rupture of membranes (PPROM) with onset of labor within 24 hours of rupture in third trimester, antepartum premature rupture of membranes (PPROM) with onset of labor within 24 hours of rupture in third trimester, antepartum Disease Resolve d 2021-10 0-13 00:00: 00 2022-08-20 00:00:00 2022-08-20 16:28:02 [facility] contractio ns contractio ns Disease Resolve d 2021-10 0-04 00:00: 00 2022-08-20 00:00:00 2022-08-20 08:41:51 [facility] 35 weeks gestation of 35 weeks gestation of Disease Resolve d 2021-1 0-04 00:00: 00 2022-08-20 00:00:00 2022-08-20 08:41:51 [facility] Short interval between pregnancie s affecting in third trimester, antepartum Short interval between pregnancie s affecting in third trimester, antepartum Disease Resolve d 2021-0 3-09 00:00: 00 2022-08-20 00:00:00 2022-08-20 08:41:51 [facility] Multiparit y Multiparit y Disease Resolve d 2021-0 3-09 00:00: 00 2022-08-20 00:00:00 2022-08-20 08:46:16 [facility] Single live Single live Disease Resolve d 2020-1 2-08 00:00: 00 2022-08-20 00:00:00 2022-08-20 08:46:19 [facility] Single live Single live Disease Resolve d 2020-1 2-08 00:00: 00 2022-08-20 00:00:00 2022-08-20 08:46:19 [facility] Supervisio n of high risk in third trimester Supervisio n of high risk in third trimester Disease Resolve d 2020-0 4-12 00:00: 00 2022-08-20 00:00:00 2022-08-20 08:46:20 [facility] 38 weeks gestation of 38 weeks gestation of Disease Resolve d 2020-1 2-07 00:00: 00 2022-07-21 00:00:00 2022-07-21 20:30:02 [facility] Acne Acne Disease Resolve d 2020-0 4-12 00:00: 00 2021-09-10 00:00:00 2021-09-10 13:42:47 [facility] Allergies, Adverse Reactions, Alerts Allergy Name Allergy Type Status Severity Reaction(s) Onset Date Inactive Date Treating Clinician Comments Source NO KNOWN ALLERGIE S Drug Class Active [facility] Social History Social Habit Start Date Stop Date Quantity Comments Source ASSERTION 2022-12-14 00:00:00 [facility] History SDOH Alcohol Frequency [facility] History SDOH Alcohol Std Drinks [facility] History SDOH Alcohol Binge [facility] History of Social function 2024-10-26 00:00:00 2024-10-26 00:00:00 [facility] Alcoholic beverage intake 2024-10-26 00:00:00 2024-10-26 00:00:00 Ex-drinker (finding) [facility] Tobacco use and exposure 2024-10-26 00:00:00 2024-10-26 00:00:00 Smokeless tobacco non-user [facility] Alcohol intake 2023-08-09 00:00:00 2023-08-09 00:00:00 Ex-drinker (finding) [facility] Exposure to SARS-CoV-2 (event) 2023-02-19 00:00:00 2023-03-01 10:35:00 Not sure [facility] Alcohol Comment 2021-11-05 00:00:00 2021-11-05 00:00:00 social [facility] Sex assigned at 2000 00:00:00 2000 00:00:00 [facility] Smoking Status Start Date Stop Date Source Never smoked tobacco [facility] Medications Ordered Medication Name Filled Medication Name Start Date Stop Date Current Medication? Ordering Clinician Indication Dosage Frequency Signature (SIG) Comments Components Source ibuprofen 600 mg tablet 2022-10 00:00: 00 Yes [id number] 600mg Take 1 tablet by mouth every 6 (six) hours as needed (Pain). Take with food or milk. [facility] HYDROcodone -acetaminop hen 5-325 mg tablet 2022-10 00:00: 00 08-17 04:59 :00 No [id number] 1{tbl} Take 1 tablet by mouth every 6 (six) hours as needed for Pain (scale 4-6) or Pain (scale 7-10) for up to 7 days. Indication s: acute pain [facility] rho(D) immune globulin (RHOGAM) syringe 300 mcg 2022-10 16:18: 18 Yes 300ug 300 mcg, Intramuscu lar, ONCE, For 1 dose, Conditiona l, Routine [facility] ibuprofen (IBU) tablet 600 mg 2022-10 16:18: 14 Yes 600mg 600 mg, Oral, Q6HPRN, Starting on 08/08/23 at 1118, Until Discontinu ed, Routine, Pain (scale 4-6) [facility] acetaminoph en (TYLENOL) tablet 650 mg 2022-10 16:18: 14 Yes 650mg 650 mg, Oral, Q6HPRN, Starting on 08/08/23 at 1118, Until Discontinu ed, Routine, Pain (scale 1-3) [facility] diphenhydrA MINE (BENADRYL) tablet 25 mg 2022-10 16:18: 14 Yes 25mg 25 mg, Oral, Q6HPRN, Starting on 08/08/23 at 1118, Until Discontinu ed, Routine, Sleep, Itching [facility] ondansetron (ZOFRAN (PF)) injection 4 mg 2022-10 16:18: 14 Yes 4mg 4 mg, Slow IV Push, Q8HPRN, Starting on 08/08/23 at 1118, Until Discontinu ed, Routine, Nausea and Vomiting (N/V) [facility] simethicone (GAS RELIEF (SIMETHICON E)) chewable tablet 160 mg 2022-10 16:18: 14 Yes 160mg 160 mg, Oral, PC+HSPRN, Starting on 08/08/23 at 1118, Until Discontinu ed, Routine, Gas [facility] docusate (COLACE) capsule 200 mg 2022-10 16:18: 14 Yes 200mg 200 mg, Oral, QDAILYPRN, Starting on 08/08/23 at 1118, Until Discontinu ed, Routine, Constipati on [facility] magnesium hydroxide (MILK OF MAGNESIA) 400 mg/5 mL suspension 30 mL 2022-10 16:18: 14 Yes 30mL 30 mL, Oral, QDAILYPRN, Starting on Wed08/08/23 at 1118, Until Discontinu ed, Routine, Constipati on [facility] benzocaine- menthol (DERMOPLAST ) 20-0.5 % topical spray 2022-10 16:18: 14 Yes Topical, PRN, Starting on Wed08/08/23 at 1118, Until Discontinu ed, Routine, Perineum discomfort [facility] lactated ringers IV infusion 1,000 mL 2022-10 14:15: 00 Yes 1000mL at 125 mL/hr, 1,000 mL, IV Infusion, CONTINUOUS , Starting on Wed08/08/23 at 0915, Until Discontinu ed, Routine [facility] naloxone (NARCAN) injection 0.2 mg 2022-10 14:00: 57 Yes .2mg 0.2 mg, Intramuscu lar, Q3HPRN, Starting on Wed08/08/23 at 0900, Until Discontinu ed, Routine, Itching [facility] naloxone (NARCAN) injection 0.4 mg 2022-10 14:00: 57 08-10 15:02 :22 No .4mg 0.4 mg, Slow IV Push, PRN - SEE JAVI NS, Starting on Wed08/08/23 at 0900, Until Wed08/10/23 at 1002, Routine, Analgesia Recovery [facility] diphenhydrA MINE (BENADRYL) tablet 25 mg 2022-10 14:00: 56 Yes 25mg 25 mg, Oral, Q4HPRN, Starting on Wed08/08/23 at 0900, Until Discontinu ed, Routine, Itching [facility] HYDROcodone -acetaminop hen (NORCO 5) 5-325 mg tablet 2 tablet 2022-10 13:47: 30 Yes 2{tbl} 2 tablet, Oral, Q6HPRN, Starting on Wed08/08/23 at 0847, Until Discontinu ed, Routine, Pain (scale 7-10) [facility] HYDROcodone -acetaminop hen (NORCO 5) 5-325 mg tablet 1 tablet 2022-10 13:47: 28 Yes 1{tbl} 1 tablet, Oral, Q6HPRN, Starting on 08/08/23 at 0847, Until Discontinu ed, Routine, Pain (scale 4-6) [facility] lactated ringers IV infusion 1,000 mL 2022-10 08:15: 00 08-08 10:18 :24 No 1000mL at 125 mL/hr, 1,000 mL, IV Infusion, ONCE, 1 dose, On 08/08/23 at 0315, MATIAS [facility] ibuprofen (IBU) tablet 600 mg 2022-10 08:14: 44 08-08 16:18 :16 No 600mg 600 mg, Oral, Q6HPRN, Starting on 08/08/23 at 0314, Until 08/08/23 at 1118, Routine, Pain (scale 1-3) [facility] ropivacaine 0.2 % (NAROPIN (PF)) epidural infusion 2022-10 04:11: 00 08-08 13:03 :46 No Epidural, CONTINUOUS PRN, Starting on 08/07/23 at 2311, Until 08/08/23 at 0803, Routine, Intra-op [facility] lidocaine-e pinephrine (XYLOCAINE W/EPINEPHRI NE) 1.5 %-1:200,000 injection 2022-10 04:08: 00 08-08 13:03 :46 No Intraderma l, ONCE INTRA PROCEDURE, Starting on 08/07/23 at 2308, Until 08/08/23 at 0803, Routine, Intra-op [facility] oxytocin (PITOCIN) 30 units in NS 500 mL IV infusion 2022-10 15:55: 35 08-08 16:18 :16 No 2mU/min at 2-40 mL/hr, IV Infusion, TITRATE, Starting on 08/07/23 at 1055, Until 08/08/23 at 1118, MATIAS [facility] sodium citrate-cit bright acid (BICITRA) 500-334 mg/5 mL solution 30 mL 2022-10 13:35: 27 08-08 04:01 :00 No 30mL 30 mL, Oral, PRE-PROCED URE ONCE, 1 dose, Starting on 08/07/23 at 0835, Until Discontinu ed, Routine, Surgery/Pr ocedure [facility] lactated ringers IV infusion 500 mL 2022-10 13:35: 27 08-08 16:18 :16 No 500mL at 999 mL/hr, 500 mL, IV Infusion, PRN - SEE INSTRUCTIO NS, Starting on 08/07/23 at 0835, Until 08/08/23 at 1118, Routine [facility] [id number] IV infusion 1,000 mL 2022-10 13:35: 27 08-08 16:18 :16 No 1000mL at 1-125 mL/hr, IV Infusion, TITRATE, Starting on 08/07/23 at 0835, Until 08/08/23 at 1118, Routine [facility] sodium citrate-cit bright acid (BICITRA) 500-334 mg/5 mL solution 30 mL 2022-10 13:35: 26 08-08 13:31 :00 No 30mL 30 mL, Oral, PRE-PROCED URE ONCE, 1 dose, Starting on 08/07/23 at 0835, Until Discontinu ed, Routine, Surgery/Pr ocedure [facility] lactated ringers IV infusion 500 mL 2022-10 13:35: 26 08-08 04:40 :43 No 500mL at 999 mL/hr, 500 mL, IV Infusion, PRN - SEE INSTRUCTIO NS, 1 dose, Starting on 08/07/23 at 0835, Until 08/07/23 at 2340, Routine [facility] acetaminoph en (TYLENOL) tablet 1,000 mg 2022-10 17:45: 00 08-03 17:08 :00 No 1000mg 1,000 mg, Oral, ONCE NOW, 1 dose, On Wed08/03/23 at 1245, Routine [facility] multivitami n ( VITAMIN) tablet 02-01 00:00: 00 Yes [id number] 1{tbl} Take 1 tablet by mouth in the morning. [facility] multivitami n ( VITAMIN) tablet 02-01 00:00: 00 Yes [id number] 1{tbl} Take 1 tablet by mouth in the morning. [facility] proMETHazin e 25 mg tablet 02-01 00:00: 00 08-09 00:00 :00 No [id number] 25mg Take 1 tablet by mouth every 6 (six) hours as needed for Nausea and Vomiting (N/V). [facility] ergocalcife rol, vitamin d2, 1,250 mcg (50,000 unit) capsule 12-11 00:00: 00 08-09 00:00 :00 No TAKE 1 CAPSULE EVERY WEEK BY ORAL ROUTE. [facility] No known medications 2021-10 08:54: 34 No No known medication s [facility] rho(D) immune globulin (RHOGAM) syringe 300 mcg 2021-10 03:48: 41 Yes 300ug 300 mcg, Intramuscu lar, ONCE, For 1 dose, Conditiona l, Routine [facility] ibuprofen (IBU) tablet 600 mg 2021-10 03:48: 37 Yes 600mg 600 mg, Oral, Q6HPRN, Starting on Wed07/30/22 at 2248, Until Discontinu ed, Routine, Pain (scale 4-6) [facility] acetaminoph en (TYLENOL) tablet 650 mg 2021-10 03:48: 37 Yes 650mg 650 mg, Oral, Q6HPRN, Starting on Wed07/30/22 at 2248, Until Discontinu ed, Routine, Pain (scale 1-3) [facility] diphenhydrA MINE (BENADRYL) tablet 25 mg 2021-10 03:48: 37 Yes 25mg 25 mg, Oral, Q6HPRN, Starting on Wed07/30/22 at 2248, Until Discontinu ed, Routine, Sleep, Itching [facility] ondansetron (ZOFRAN (PF)) injection 4 mg 2021-10 03:48: 37 Yes 4mg 4 mg, Slow IV Push, Q8HPRN, Starting on Wed07/30/22 at 2248, Until Discontinu ed, Routine, Nausea and Vomiting (N/V) [facility] simethicone (GAS RELIEF (SIMETHICON E)) chewable tablet 160 mg 2021-10 03:48: 37 Yes 160mg 160 mg, Oral, PC+HSPRN, Starting on Wed07/30/22 at 2248, Until Discontinu ed, Routine, Gas [facility] docusate (COLACE) capsule 200 mg 2021-10 03:48: 37 Yes 200mg 200 mg, Oral, QDAILYPRN, Starting on Wed07/30/22 at 2248, Until Discontinu ed, Routine, Constipati on [facility] magnesium hydroxide (MILK OF MAGNESIA) 400 mg/5 mL suspension 30 mL 2021-10 03:48: 37 Yes 30mL 30 mL, Oral, QDAILYPRN, Starting on Wed07/30/22 at 2248, Until Discontinu ed, Routine, Constipati on [facility] benzocaine- menthol (DERMOPLAST ) 20-0.5 % topical spray 2021-10 03:48: 36 Yes Topical, PRN, Starting on Wed07/30/22 at 2248, Until Discontinu ed, Routine, Perineum discomfort [facility] oxytocin (PITOCIN) 30 units in NS 500 mL IV infusion 2021-10 00:53: 42 07-31 03:48 :39 No 600mL/h 600 mL/hr, IV Infusion, PRN, For post delivery uterine atony., Starting on Wed07/30/[address] at 600 mL/hr for 1 hr then 150 mL/hr for 1 hr.
[facility] oxytocin (PITOCIN) 30 units in NS 500 mL IV infusion 2021-10 00:53: 42 07-31 03:48 :39 No 300mL/h 300 mL/hr, IV Infusion, SEE-INSTRU CTIONS, Starting on Wed07/30/[address] at 300 mL/hr for 1 hr then 150 mL/hr for 1 hr. & nbsp; For post delivery uterotonic
[facility] [id number] fum-folic () 27 mg iron- 1 mg folic tablet 2021-10 00:00: 00 09-15 00:00 :00 No [id number] 1{tbl} Take 1 tablet by mouth in the morning. [facility] docusate 100 mg capsule 2021-10 00:00: 00 09-15 00:00 :00 No [id number] 200mg Take 2 capsules by mouth once daily as needed for Constipati on. [facility] ferrous sulfate 325 mg (65 mg iron) tablet 2021-10 00:00: 00 09-15 00:00 :00 No [id number] 325mg Take 1 tablet by mouth in the morning and 1 tablet in the evening. [facility] ibuprofen 600 mg tablet 2021-10 00:00: 00 09-15 00:00 :00 No [id number] 600mg Take 1 tablet by mouth every 6 (six) hours as needed (Pain). Take with food or milk. [facility] ampicillin (POLYCILLIN -N) 2,000 mg in NaCl 0.9% (NS) 100 mL MINI-BAG 2021-10 22:30: 00 07-31 03:48 :39 No 2g 2,000 mg (2 g), IV Piggyback, Q6H ABX, 4 doses, First dose on Wed07/30/22 at 1730, Last dose on Wed07/31/22 at 1130, Administer over 30 Minutes, 100 mL
Reas on for Anti-Infec tive: Empiric Therapy for Suspected Infection< br>Empiric Therapy Site: Pelvic
Duration of therapy: 72 hours [facility] tobramycin (NEBCIN) 270 mg in NaCl 0.9% (NS) piggyback 2021-10 22:30: 00 07-30 23:01 :29 No 270mg 270 mg, IV Piggyback, Q24H ABX, 1 dose, First dose on Shruti 07/30/22 at 1730, Administer over 30 Minutes, 50 mL
Reas on for Anti-Infec tive: Empiric Therapy for Suspected Infection< br>Empiric Therapy Site: Pelvic
Duration of therapy: 72 hours [facility] acetaminoph en (TYLENOL) tablet 1,000 mg 2021-10 21:33: 11 07-31 03:48 :39 No 1000mg 1,000 mg, Oral, Q8HPRN, Starting on Shruti 07/30/22 at 1633, Until Wed07/30/22 at 2248, Routine, Temp > 38.5 C [facility] ondansetron (ZOFRAN (PF)) injection 4 mg 2021-10 21:00: 00 07-30 20:12 :00 No 4mg 4 mg, Slow IV Push, ONCE, On Wed07/30/22 at 1600, For 1 dose
Do ses of ondansetro n 16 mg and above need to be administer ed via IV piggyback. For Dose >=24mg ECG monitoring is advisable.
[facility] acetaminoph en (TYLENOL) tablet 650 mg 2021-10 18:45: 00 07-30 17:57 :00 No 650mg 650 mg, Oral, ONCE, 1 dose, On Wed07/30/22 at 1345, Routine [facility] terbutaline (BRETHINE) injection 0.25 mg 2021-10 18:39: 00 07-30 18:43 :00 No .25mg 0.25 mg, Subcutaneo us, ONCE, 1 dose, On Shruti 07/30/22 at 1345, MATIAS [facility] amnioinfusi on IV infusion via GRAVITY 0.9 NaCL 1,000 mL 2021-10 17:00: 00 07-30 16:45 :00 No 1000mL at 750 mL/hr, Intrauteri ne, ONCE, 1 dose, On Shruti 07/30/22 at 1200, MATIAS
In fuse via gravity 750 ml over 1 hour.&nbsp ; Once 750 mL has been infused, the infusion may be discontinu ed or decreased to 100 mL/hr until the liter is complete.& nbsp;&nbsp ;Notify Disbursing Agent if uterine resting tone exceeds 25 mmHg at any time during the amnioinfus ion. Obst etrics (DAVID) Aminoinfus ion Orders
[facility] ropivacaine 0.2 % (NAROPIN (PF)) epidural infusion 2021-10 14:56: 00 07-31 02:16 :48 No Epidural, CONTINUOUS PRN, Starting on Shruti 07/30/22 at 0956, Until Discontinu ed, Routine, [facility] pine[facility] (XYLOCAINE W/EPINEPHRI NE) 1.5 %-1:200,000 injection 2021-10 14:55: 00 07-31 02:16 :48 No Intraderma l, ONCE INTRA PROCEDURE, Starting on Shruti 07/30/22 at 0955, Until Discontinu ed, Routine, Intra-op [facility] lidocaine in NaCl,iso-os mo(PF) 100 mg/10 mL (1 %) injection syringe 2021-10 14:54: 00 07-31 02:16 :48 No Infiltrati on, ONCE INTRA PROCEDURE, Starting on Shruti 07/30/22 at 0954, Until Discontinu ed, Routine, Intra-op [facility] [id number] IV infusion 1,000 mL 2021-10 13:16: 05 07-31 03:48 :39 No 1000mL at 1-125 mL/hr, IV Infusion, TITRATE, Starting on Shruti 07/30/22 at 0816, Until Shruti 07/30/22 at 2248, Routine [facility] No known medications 2021-10 08:15: 56 No No known medication s [facility] acetaminoph en (TYLENOL) tablet 1,000 mg 2021-10 0-05 04:36: 00 07-22 04:43 :00 No 1000mg 1,000 mg, Oral, ONCE, 1 dose, On Wed07/21/22 at 2345, Routine [facility] No known medications 9-28 13:40: 13 No No known medication s [facility] docusate calcium 240 mg capsule 2020-10 00:00: 00 07-01 00:00 :00 No [id number] 240mg Take 1 capsule by mouth once daily as needed for Constipati on. [facility] ferrous sulfate 325 mg (65 mg iron) tablet 2020-10 00:00: 00 07-01 00:00 :00 No [id number] 325mg Take 1 tablet by mouth 2 (two) times daily. [facility] ibuprofen 600 mg tablet 2020-10 00:00: 00 07-01 00:00 :00 No [id number] 600mg Take 1 tablet by mouth every 6 (six) hours as needed (Pain). Take with food or milk. [facility] tretinoin 0.025 % cream 05-19 13:49: 49 05-19 00:00 :00 No Apply to area(s) at bedtime. Last taken 01/19/2021 [facility] clindamycin 1 % topical solution 05-19 13:49: 43 05-19 00:00 :00 No Apply to area(s) 2 (two) times daily. Last taken 01/19/2021 [facility] doxycycline 100 mg EC tablet 05-19 13:49: 40 05-19 00:00 :00 No 100mg Take 100 mg by mouth 2 (two) times daily. Last taken 01/19/2021 [facility] PNV 67-iron ps-folate no.1-dha (VITAFOL ULTRA) 29 mg iron- 1 mg-200 mg Cap 7-05 00:00: 00 09-25 00:00 :00 No [id number] 1{each} Take 1 Each by mouth daily. [facility] Immunizations Ordered Immunization Name Filled Immunization Name Date Status Comments Source Influenza Virus Vaccine Quad IM, Preserv and ABX Free 6 MO-64 YRS (FLUCELVAX) 2023-07-16 00:00:00 Completed TDAP 2023-06-25 00:00:00 Completed [facility] TDAP 2023-06-22 00:00:00 Completed [facility] TDAP 2023-06-22 00:00:00 Completed [facility] TDAP 2023-06-22 00:00:00 Completed [facility] TDAP 2023-06-22 00:00:00 Completed [facility] TDAP 2023-06-22 00:00:00 Completed [facility] TDAP 2023-06-22 00:00:00 Completed [facility] TDAP 2023-06-22 00:00:00 Completed [facility] TDAP 2023-06-22 00:00:00 Completed HPV9 2022-11-24 00:00:00 Completed [facility] HPV9 2022-11-24 00:00:00 Completed [facility] HPV9 2022-11-24 00:00:00 Completed [facility] HPV9 2022-11-24 00:00:00 Completed [facility] HPV9 2022-11-24 00:00:00 Completed [facility] HPV9 2022-11-24 00:00:00 Completed [facility] HPV9 2022-11-24 00:00:00 Completed [facility] HPV9 2022-11-24 00:00:00 Completed [facility] HPV9 2022-11-24 00:00:00 Completed [facility] HPV9 2022-11-24 00:00:00 Completed [facility] HPV9 2022-11-24 00:00:00 Completed [facility] HPV9 2022-11-24 00:00:00 Completed [facility] HPV9 2022-11-24 00:00:00 Completed [facility] HPV9 2022-11-24 00:00:00 Completed [facility] HPV9 2022-11-24 00:00:00 Completed [facility] HPV9 2022-11-24 00:00:00 Completed [facility] HPV9 2022-11-24 00:00:00 Completed [facility] HPV9 2022-11-24 00:00:00 Completed [facility] HPV9 2022-11-24 00:00:00 Completed [facility] HPV9 2022-11-24 00:00:00 Completed [facility] HPV9 2022-11-24 00:00:00 Completed [facility] HPV9 2022-11-24 00:00:00 Completed [facility] HPV9 2022-11-24 00:00:00 Completed [facility] HPV9 2022-11-24 00:00:00 Completed [facility] HPV9 2022-11-24 00:00:00 Completed [facility] HPV9 2022-11-24 00:00:00 Completed [facility] HPV9 2022-11-24 00:00:00 Completed [facility] HPV9 2022-11-24 00:00:00 Completed [facility] HPV9 2022-11-24 00:00:00 Completed [facility] HPV9 2022-11-24 00:00:00 Completed [facility] HPV9 2022-11-24 00:00:00 Completed [facility] HPV9 2022-11-24 00:00:00 Completed [facility] HPV9 2022-11-24 00:00:00 Completed [facility] HPV9 2022-11-24 00:00:00 Completed [facility] HPV9 2022-11-24 00:00:00 Completed [facility] HPV9 2022-11-24 00:00:00 Completed [facility] HPV9 2022-11-24 00:00:00 Completed [facility] HPV9 2022-11-24 00:00:00 Completed [facility] HPV9 2022-11-24 00:00:00 Completed [facility] HPV9 2022-11-24 00:00:00 Completed [facility] HPV9 2022-11-24 00:00:00 Completed [facility] TDAP 2022-06-03 00:00:00 Completed [facility] TDAP 2022-06-03 00:00:00 Completed [facility] TDAP 2022-06-03 00:00:00 Completed [facility] TDAP 2022-06-03 00:00:00 Completed [facility] TDAP 2022-06-03 00:00:00 Completed [facility] TDAP 2022-06-03 00:00:00 Completed [facility] TDAP 2022-06-03 00:00:00 Completed [facility] TDAP 2022-06-03 00:00:00 Completed [facility] TDAP 2022-06-03 00:00:00 Completed [facility] TDAP 2022-06-03 00:00:00 Completed [facility] TDAP 2022-06-03 00:00:00 Completed [facility] TDAP 2022-06-03 00:00:00 Completed [facility] TDAP 2022-06-03 00:00:00 Completed [facility] TDAP 2022-06-03 00:00:00 Completed [facility] TDAP 2022-06-03 00:00:00 Completed [facility] TDAP 2022-06-03 00:00:00 Completed [facility] TDAP 2022-06-03 00:00:00 Completed [facility] TDAP 2022-06-03 00:00:00 Completed [facility] TDAP 2022-06-03 00:00:00 Completed [facility] TDAP 2022-06-03 00:00:00 Completed [facility] TDAP 2022-06-03 00:00:00 Completed [facility] TDAP 2022-06-03 00:00:00 Completed [facility] TDAP 2022-06-03 00:00:00 Completed [facility] TDAP 2022-06-03 00:00:00 Completed [facility] TDAP 2022-06-03 00:00:00 Completed [facility] TDAP 2022-06-03 00:00:00 Completed [facility] TDAP 2022-06-03 00:00:00 Completed [facility] TDAP 2022-06-03 00:00:00 Completed [facility] TDAP 2022-06-03 00:00:00 Completed [facility] TDAP 2022-06-03 00:00:00 Completed [facility] TDAP 2022-06-03 00:00:00 Completed [facility] TDAP 2022-06-03 00:00:00 Completed [facility] TDAP 2022-06-03 00:00:00 Completed [facility] TDAP 2022-06-03 00:00:00 Completed [facility] TDAP 2022-06-03 00:00:00 Completed [facility] TDAP 2022-06-03 00:00:00 Completed [facility] TDAP 2022-06-03 00:00:00 Completed [facility] TDAP 2022-06-03 00:00:00 Completed [facility] TDAP 2022-06-03 00:00:00 Completed [facility] TDAP 2022-06-03 00:00:00 Completed [facility] TDAP 2022-06-03 00:00:00 Completed [facility] TDAP 2022-06-03 00:00:00 Completed [facility] TDAP 2022-06-03 00:00:00 Completed [facility] TDAP 2022-06-03 00:00:00 Completed [facility] TDAP 2022-06-03 00:00:00 Completed [facility] TDAP 2022-06-03 00:00:00 Completed [facility] TDAP 2022-06-03 00:00:00 Completed [facility] TDAP 2022-06-03 00:00:00 Completed [facility] TDAP 2022-06-03 00:00:00 Completed [facility] TDAP 2022-06-03 00:00:00 Completed [facility] TDAP 2022-06-03 00:00:00 Completed [facility] TDAP 2022-06-03 00:00:00 Completed [facility] TDAP 2022-06-03 00:00:00 Completed [facility] HPV9 2021-11-05 00:00:00 Completed [facility] HPV9 2021-11-05 00:00:00 Completed [facility] HPV9 2021-11-05 00:00:00 Completed [facility] HPV9 2021-11-05 00:00:00 Completed [facility] HPV9 2021-11-05 00:00:00 Completed [facility] HPV9 2021-11-05 00:00:00 Completed [facility] HPV9 2021-11-05 00:00:00 Completed [facility] HPV9 2021-11-05 00:00:00 Completed [facility] HPV9 2021-11-05 00:00:00 Completed [facility] HPV9 2021-11-05 00:00:00 Completed [facility] HPV9 2021-11-05 00:00:00 Completed [facility] HPV9 2021-11-05 00:00:00 Completed [facility] HPV9 2021-11-05 00:00:00 Completed [facility] HPV9 2021-11-05 00:00:00 Completed [facility] HPV9 2021-11-05 00:00:00 Completed [facility] HPV9 2021-11-05 00:00:00 Completed [facility] HPV9 2021-11-05 00:00:00 Completed [facility] HPV9 2021-11-05 00:00:00 Completed [facility] HPV9 2021-11-05 00:00:00 Completed [facility] HPV9 2021-11-05 00:00:00 Completed [facility] HPV9 2021-11-05 00:00:00 Completed [facility] HPV9 2021-11-05 00:00:00 Completed [facility] HPV9 2021-11-05 00:00:00 Completed [facility] HPV9 2021-11-05 00:00:00 Completed [facility] HPV9 2021-11-05 00:00:00 Completed [facility] HPV9 2021-11-05 00:00:00 Completed [facility] HPV9 2021-11-05 00:00:00 Completed [facility] HPV9 2021-11-05 00:00:00 Completed [facility] HPV9 2021-11-05 00:00:00 Completed [facility] HPV9 2021-11-05 00:00:00 Completed [facility] HPV9 2021-11-05 00:00:00 Completed [facility] HPV9 2021-11-05 00:00:00 Completed [facility] HPV9 2021-11-05 00:00:00 Completed [facility] HPV9 2021-11-05 00:00:00 Completed [facility] HPV9 2021-11-05 00:00:00 Completed [facility] HPV9 2021-11-05 00:00:00 Completed [facility] HPV9 2021-11-05 00:00:00 Completed [facility] HPV9 2021-11-05 00:00:00 Completed [facility] HPV9 2021-11-05 00:00:00 Completed [facility] HPV9 2021-11-05 00:00:00 Completed [facility] HPV9 2021-11-05 00:00:00 Completed [facility] HPV9 2021-11-05 00:00:00 Completed [facility] HPV9 2021-11-05 00:00:00 Completed [facility] HPV9 2021-11-05 00:00:00 Completed [facility] HPV9 2021-11-05 00:00:00 Completed [facility] HPV9 2021-11-05 00:00:00 Completed [facility] HPV9 2021-11-05 00:00:00 Completed [facility] HPV9 2021-11-05 00:00:00 Completed [facility] HPV9 2021-11-05 00:00:00 Completed [facility] HPV9 2021-11-05 00:00:00 Completed [facility] HPV9 2021-11-05 00:00:00 Completed [facility] HPV9 2021-11-05 00:00:00 Completed [facility] HPV9 2021-11-05 00:00:00 Completed HPV9 2021-09-25 00:00:00 Completed [facility] HPV9 2021-09-25 00:00:00 Completed [facility] HPV9 2021-09-25 00:00:00 Completed [facility] HPV9 2021-09-25 00:00:00 Completed [facility] HPV9 2021-09-25 00:00:00 Completed [facility] HPV9 2021-09-25 00:00:00 Completed [facility] HPV9 2021-09-25 00:00:00 Completed [facility] HPV9 2021-09-25 00:00:00 Completed [facility] HPV9 2021-09-25 00:00:00 Completed [facility] HPV9 2021-09-25 00:00:00 Completed [facility] HPV9 2021-09-25 00:00:00 Completed [facility] HPV9 2021-09-25 00:00:00 Completed [facility] HPV9 2021-09-25 00:00:00 Completed [facility] HPV9 2021-09-25 00:00:00 Completed [facility] HPV9 2021-09-25 00:00:00 Completed [facility] HPV9 2021-09-25 00:00:00 Completed [facility] HPV9 2021-09-25 00:00:00 Completed [facility] HPV9 2021-09-25 00:00:00 Completed [facility] HPV9 2021-09-25 00:00:00 Completed [facility] HPV9 2021-09-25 00:00:00 Completed [facility] HPV9 2021-09-25 00:00:00 Completed [facility] HPV9 2021-09-25 00:00:00 Completed [facility] HPV9 2021-09-25 00:00:00 Completed [facility] HPV9 2021-09-25 00:00:00 Completed [facility] HPV9 2021-09-25 00:00:00 Completed [facility] HPV9 2021-09-25 00:00:00 Completed [facility] HPV9 2021-09-25 00:00:00 Completed [facility] HPV9 2021-09-25 00:00:00 Completed [facility] HPV9 2021-09-25 00:00:00 Completed [facility] HPV9 2021-09-25 00:00:00 Completed [facility] HPV9 2021-09-25 00:00:00 Completed [facility] HPV9 2021-09-25 00:00:00 Completed [facility] HPV9 2021-09-25 00:00:00 Completed [facility] HPV9 2021-09-25 00:00:00 Completed [facility] HPV9 2021-09-25 00:00:00 Completed [facility] HPV9 2021-09-25 00:00:00 Completed [facility] HPV9 2021-09-25 00:00:00 Completed [facility] HPV9 2021-09-25 00:00:00 Completed [facility] HPV9 2021-09-25 00:00:00 Completed [facility] HPV9 2021-09-25 00:00:00 Completed [facility] HPV9 2021-09-25 00:00:00 Completed [facility] HPV9 2021-09-25 00:00:00 Completed [facility] HPV9 2021-09-25 00:00:00 Completed [facility] HPV9 2021-09-25 00:00:00 Completed [facility] HPV9 2021-09-25 00:00:00 Completed [facility] HPV9 2021-09-25 00:00:00 Completed [facility] HPV9 2021-09-25 00:00:00 Completed [facility] HPV9 2021-09-25 00:00:00 Completed [facility] HPV9 2021-09-25 00:00:00 Completed [facility] HPV9 2021-09-25 00:00:00 Completed [facility] HPV9 2021-09-25 00:00:00 Completed [facility] HPV9 2021-09-25 00:00:00 Completed [facility] HPV9 2021-09-25 00:00:00 Completed [facility] Influenza Virus Vaccine Quad IM, Preserv and ABX Free 6 MO-64 YRS 2021-08-04 00:00:00 Completed [facility] Influenza Virus Vaccine Quad IM, Preserv and ABX Free 6 MO-64 YRS 2021-08-04 00:00:00 Completed [facility] Influenza Virus Vaccine Quad IM, Preserv and ABX Free 6 MO-64 YRS 2021-08-04 00:00:00 Completed [facility] Influenza Virus Vaccine Quad IM, Preserv and ABX Free 6 MO-64 YRS 2021-08-04 00:00:00 Completed [facility] Influenza Virus Vaccine Quad IM, Preserv and ABX Free 6 MO-64 YRS 2021-08-04 00:00:00 Completed [facility] Influenza Virus Vaccine Quad IM, Preserv and ABX Free 6 MO-64 YRS 2021-08-04 00:00:00 Completed [facility] Influenza Virus Vaccine Quad IM, Preserv and ABX Free 6 MO-64 YRS 2021-08-04 00:00:00 Completed [facility] Influenza Virus Vaccine Quad IM, Preserv and ABX Free 6 MO-64 YRS 2021-08-04 00:00:00 Completed [facility] Influenza Virus Vaccine Quad IM, Preserv and ABX Free 6 MO-64 YRS 2021-08-04 00:00:00 Completed [facility] Influenza Virus Vaccine Quad IM, Preserv and ABX Free 6 MO-64 YRS 2021-08-04 00:00:00 Completed [facility] Influenza Virus Vaccine Quad IM, Preserv and ABX Free 6 MO-64 YRS 2021-08-04 00:00:00 Completed [facility] Influenza Virus Vaccine Quad IM, Preserv and ABX Free 6 MO-64 YRS 2021-08-04 00:00:00 Completed [facility] Influenza Virus Vaccine Quad IM, Preserv and ABX Free 6 MO-64 YRS 2021-08-04 00:00:00 Completed [facility] Influenza Virus Vaccine Quad IM, Preserv and ABX Free 6 MO-64 YRS 2021-08-04 00:00:00 Completed [facility] Influenza Virus Vaccine Quad IM, Preserv and ABX Free 6 MO-64 YRS 2021-08-04 00:00:00 Completed [facility] Influenza Virus Vaccine Quad IM, Preserv and ABX Free 6 MO-64 YRS 2021-08-04 00:00:00 Completed [facility] Influenza Virus Vaccine Quad IM, Preserv and ABX Free 6 MO-64 YRS 2021-08-04 00:00:00 Completed [facility] Influenza Virus Vaccine Quad IM, Preserv and ABX Free 6 MO-64 YRS 2021-08-04 00:00:00 Completed [facility] Influenza Virus Vaccine Quad IM, Preserv and ABX Free 6 MO-64 YRS 2021-08-04 00:00:00 Completed [facility] Influenza Virus Vaccine Quad IM, Preserv and ABX Free 6 MO-64 YRS 2021-08-04 00:00:00 Completed [facility] Influenza Virus Vaccine Quad IM, Preserv and ABX Free 6 MO-64 YRS 2021-08-04 00:00:00 Completed [facility] Influenza Virus Vaccine Quad IM, Preserv and ABX Free 6 MO-64 YRS 2021-08-04 00:00:00 Completed [facility] Influenza Virus Vaccine Quad IM, Preserv and ABX Free 6 MO-64 YRS 2021-08-04 00:00:00 Completed [facility] Influenza Virus Vaccine Quad IM, Preserv and ABX Free 6 MO-64 YRS 2021-08-04 00:00:00 Completed [facility] Influenza Virus Vaccine Quad IM, Preserv and ABX Free 6 MO-64 YRS 2021-08-04 00:00:00 Completed [facility] Influenza Virus Vaccine Quad IM, Preserv and ABX Free 6 MO-64 YRS 2021-08-04 00:00:00 Completed [facility] Influenza Virus Vaccine Quad IM, Preserv and ABX Free 6 MO-64 YRS 2021-08-04 00:00:00 Completed [facility] Influenza Virus Vaccine Quad IM, Preserv and ABX Free 6 MO-64 YRS 2021-08-04 00:00:00 Completed [facility] Influenza Virus Vaccine Quad IM, Preserv and ABX Free 6 MO-64 YRS 2021-08-04 00:00:00 Completed [facility] Influenza Virus Vaccine Quad IM, Preserv and ABX Free 6 MO-64 YRS 2021-08-04 00:00:00 Completed [facility] Influenza Virus Vaccine Quad IM, Preserv and ABX Free 6 MO-64 YRS 2021-08-04 00:00:00 Completed [facility] Influenza Virus Vaccine Quad IM, Preserv and ABX Free 6 MO-64 YRS 2021-08-04 00:00:00 Completed [facility] Influenza Virus Vaccine Quad IM, Preserv and ABX Free 6 MO-64 YRS 2021-08-04 00:00:00 Completed [facility] Influenza Virus Vaccine Quad IM, Preserv and ABX Free 6 MO-64 YRS 2021-08-04 00:00:00 Completed [facility] Influenza Virus Vaccine Quad IM, Preserv and ABX Free 6 MO-64 YRS 2021-08-04 00:00:00 Completed [facility] Influenza Virus Vaccine Quad IM, Preserv and ABX Free 6 MO-64 YRS 2021-08-04 00:00:00 Completed [facility] Influenza Virus Vaccine Quad IM, Preserv and ABX Free 6 MO-64 YRS 2021-08-04 00:00:00 Completed [facility] Influenza Virus Vaccine Quad IM, Preserv and ABX Free 6 MO-64 YRS 2021-08-04 00:00:00 Completed [facility] Influenza Virus Vaccine Quad IM, Preserv and ABX Free 6 MO-64 YRS 2021-08-04 00:00:00 Completed [facility] Influenza Virus Vaccine Quad IM, Preserv and ABX Free 6 MO-64 YRS 2021-08-04 00:00:00 Completed [facility] Influenza Virus Vaccine Quad IM, Preserv and ABX Free 6 MO-64 YRS 2021-08-04 00:00:00 Completed [facility] Influenza Virus Vaccine Quad IM, Preserv and ABX Free 6 MO-64 YRS 2021-08-04 00:00:00 Completed [facility] Influenza Virus Vaccine Quad IM, Preserv and ABX Free 6 MO-64 YRS 2021-08-04 00:00:00 Completed [facility] Influenza Virus Vaccine Quad IM, Preserv and ABX Free 6 MO-64 YRS (FLUCELVAX) 2021-08-04 00:00:00 Completed [facility] Influenza Virus Vaccine Quad IM, Preserv and ABX Free 6 MO-64 YRS (FLUCELVAX) 2021-08-04 00:00:00 Completed [facility] Influenza Virus Vaccine Quad IM, Preserv and ABX Free 6 MO-64 YRS (FLUCELVAX) 2021-08-04 00:00:00 Completed [facility] Influenza Virus Vaccine Quad IM, Preserv and ABX Free 6 MO-64 YRS (FLUCELVAX) 2021-08-04 00:00:00 Completed [facility] Influenza Virus Vaccine Quad IM, Preserv and ABX Free 6 MO-64 YRS (FLUCELVAX) 2021-08-04 00:00:00 Completed [facility] Influenza Virus Vaccine Quad IM, Preserv and ABX Free 6 MO-64 YRS (FLUCELVAX) 2021-08-04 00:00:00 Completed [facility] Influenza Virus Vaccine Quad IM, Preserv and ABX Free 6 MO-64 YRS (FLUCELVAX) 2021-08-04 00:00:00 Completed [facility] Influenza Virus Vaccine Quad IM, Preserv and ABX Free 6 MO-64 YRS (FLUCELVAX) 2021-08-04 00:00:00 Completed [facility] Influenza Virus Vaccine Quad IM, Preserv and ABX Free 6 MO-64 YRS (FLUCELVAX) 2021-08-04 00:00:00 Completed [facility] Influenza Virus Vaccine Quad IM, Preserv and ABX Free 6 MO-64 YRS (FLUCELVAX) 2021-08-04 00:00:00 Completed TDAP 2021-07-21 00:00:00 Completed [facility] TDAP 2021-07-21 00:00:00 Completed [facility] TDAP 2021-07-21 00:00:00 Completed [facility] TDAP 2021-07-21 00:00:00 Completed [facility] TDAP 2021-07-21 00:00:00 Completed [facility] TDAP 2021-07-21 00:00:00 Completed [facility] TDAP 2021-07-21 00:00:00 Completed [facility] TDAP 2021-07-21 00:00:00 Completed [facility] TDAP 2021-07-21 00:00:00 Completed [facility] TDAP 2021-07-21 00:00:00 Completed [facility] TDAP 2021-07-21 00:00:00 Completed [facility] TDAP 2021-07-21 00:00:00 Completed [facility] TDAP 2021-07-21 00:00:00 Completed [facility] TDAP 2021-07-21 00:00:00 Completed [facility] TDAP 2021-07-21 00:00:00 Completed [facility] TDAP 2021-07-21 00:00:00 Completed [facility] TDAP 2021-07-21 00:00:00 Completed [facility] TDAP 2021-07-21 00:00:00 Completed [facility] TDAP 2021-07-21 00:00:00 Completed [facility] TDAP 2021-07-21 00:00:00 Completed [facility] TDAP 2021-07-21 00:00:00 Completed [facility] TDAP 2021-07-21 00:00:00 Completed [facility] TDAP 2021-07-21 00:00:00 Completed [facility] TDAP 2021-07-21 00:00:00 Completed [facility] TDAP 2021-07-21 00:00:00 Completed [facility] TDAP 2021-07-21 00:00:00 Completed [facility] TDAP 2021-07-21 00:00:00 Completed [facility] TDAP 2021-07-21 00:00:00 Completed [facility] TDAP 2021-07-21 00:00:00 Completed [facility] TDAP 2021-07-21 00:00:00 Completed [facility] TDAP 2021-07-21 00:00:00 Completed [facility] TDAP 2021-07-21 00:00:00 Completed [facility] TDAP 2021-07-21 00:00:00 Completed [facility] TDAP 2021-07-21 00:00:00 Completed [facility] TDAP 2021-07-21 00:00:00 Completed [facility] TDAP 2021-07-21 00:00:00 Completed [facility] TDAP 2021-07-21 00:00:00 Completed [facility] TDAP 2021-07-21 00:00:00 Completed [facility] TDAP 2021-07-21 00:00:00 Completed [facility] TDAP 2021-07-21 00:00:00 Completed [facility] TDAP 2021-07-21 00:00:00 Completed [facility] TDAP 2021-07-21 00:00:00 Completed [facility] TDAP 2021-07-21 00:00:00 Completed [facility] TDAP 2021-07-21 00:00:00 Completed [facility] TDAP 2021-07-21 00:00:00 Completed [facility] TDAP 2021-07-21 00:00:00 Completed [facility] TDAP 2021-07-21 00:00:00 Completed [facility] TDAP 2021-07-21 00:00:00 Completed [facility] TDAP 2021-07-21 00:00:00 Completed [facility] TDAP 2021-07-21 00:00:00 Completed [facility] TDAP 2021-07-21 00:00:00 Completed [facility] TDAP 2021-07-21 00:00:00 Completed [facility] TDAP 2021-07-21 00:00:00 Completed Influenza Virus Vaccine Quad .5 mL IM 6+ MO (FLUZONE/FLULAVAL/FL UARIX) 2018-08-15 00:00:00 Completed HPV9 2018-08-15 00:00:00 Completed Meningococcal B, OMV 2018-04-13 00:00:00 Completed HPV9 2018-02-09 00:00:00 Completed Meningococcal Polysaccharide (groups A, C, Y and W-135) conjugate vaccine (MCV4P) 2018-02-09 00:00:00 Completed Meningococcal B, OMV 2018-02-09 00:00:00 Completed HPV 2012-12-22 00:00:00 Completed Meningococcal Polysaccharide (groups A, C, Y and W-135) conjugate vaccine (MCV4P) 2012-12-22 00:00:00 Completed TDAP 2012-12-22 00:00:00 Completed Varicella (varivax)(chicken pox) 2009-08-07 00:00:00 Completed HEPATITIS A 2009-05-26 00:00:00 Completed DTaP, Unspecified Formulation 2006-01-06 00:00:00 Completed MMR 2006-01-06 00:00:00 Completed IPV 2006-01-06 00:00:00 Completed HEPATITIS A 2005-07-23 00:00:00 Completed Pneumococcal 7 Conjugate, PCV7 (Prevnar7) 2005-07-23 00:00:00 Completed DTaP, Unspecified Formulation 2002-12-19 00:00:00 Completed MMR 2002-12-19 00:00:00 Completed Varicella (varivax)(chicken pox) 2002-12-19 00:00:00 Completed HIB 4 Dose Schedule 2002 00:00:00 Completed DTaP, Unspecified Formulation 2002-06-07 00:00:00 Completed Hep B, Adol or Pedi Dosage 2002-06-07 00:00:00 Completed HIB 4 Dose Schedule 2002-06-07 00:00:00 Completed IPV 2002-06-07 00:00:00 Completed DTaP, Unspecified Formulation 2002-02-13 00:00:00 Completed HIB 4 Dose Schedule 2002-02-13 00:00:00 Completed IPV 2002-02-13 00:00:00 Completed DTaP, Unspecified Formulation 2001 00:00:00 Completed Hep B, Adol or Pedi Dosage 2001 00:00:00 Completed HIB 4 Dose Schedule 2001 00:00:00 Completed IPV 2001 00:00:00 Completed Hep B, Adol or Pedi Dosage 2001 00:00:00 Completed TDAP Unknown Completed [facility] Influenza Virus Vaccine Quad IM, Preserv and ABX Free 6 MO-64 YRS (FLUCELVAX) Unknown Completed [facility] HPV9 Unknown Completed [facility] TDAP Unknown Completed [facility] Influenza Virus Vaccine Quad IM, Preserv and ABX Free 6 MO-64 YRS (FLUCELVAX) Unknown Completed [facility] HPV9 Unknown Completed [facility] TDAP Unknown Completed [facility] Influenza Virus Vaccine Quad IM, Preserv and ABX Free 6 MO-64 YRS (FLUCELVAX) Unknown Completed [facility] HPV9 Unknown Completed [facility] TDAP Unknown Completed [facility] Influenza Virus Vaccine Quad IM, Preserv and ABX Free 6 MO-64 YRS (FLUCELVAX) Unknown Completed [facility] HPV9 Unknown Completed [facility] TDAP Unknown Completed [facility] Influenza Virus Vaccine Quad IM, Preserv and ABX Free 6 MO-64 YRS (FLUCELVAX) Unknown Completed [facility] HPV9 Unknown Completed [facility] DTaP, Unspecified Formulation Unknown Completed [facility] Influenza Virus Vaccine Quad .5 mL IM 6+ MO (FLUZONE/FLULAVAL/FL UARIX) Unknown Completed [facility] HEPATITIS A Unknown Completed [facility] B, Adol or Pedi Dosage Unknown Completed [facility] HIB 4 Dose Schedule Unknown Completed [facility] HPV Unknown Completed [facility] Meningococcal Polysaccharide (groups A, C, Y and W-135) conjugate vaccine (MCV4P) Unknown Completed [facility] Meningococcal B, OMV Unknown Completed [facility] MMR Unknown Completed [facility] Pneumococcal 7 Conjugate, PCV7 (Prevnar7) Unknown Completed [facility] IPV Unknown Completed [facility] Varicella (varivax)(chicken pox) Unknown Completed [facility] TDAP Unknown Completed [facility] Influenza Virus Vaccine Quad IM, Preserv and ABX Free 6 MO-64 YRS (FLUCELVAX) Unknown Completed [facility] DTaP, Unspecified Formulation Unknown Completed [facility] Influenza Virus Vaccine Quad .5 mL IM 6+ MO (FLUZONE/FLULAVAL/FL UARIX) Unknown Completed [facility] HEPATITIS A Unknown Completed [facility] B, Adol or Pedi Dosage Unknown Completed [facility] HIB 4 Dose Schedule Unknown Completed [facility] HPV9 Unknown Completed [facility] HPV Unknown Completed [facility] Meningococcal Polysaccharide (groups A, C, Y and W-135) conjugate vaccine (MCV4P) Unknown Completed [facility] Meningococcal B, OMV Unknown Completed [facility] MMR Unknown Completed [facility] Pneumococcal 7 Conjugate, PCV7 (Prevnar7) Unknown Completed [facility] IPV Unknown Completed [facility] Varicella (varivax)(chicken pox) Unknown Completed [facility] DTaP, Unspecified Formulation Unknown Completed [facility] Influenza Virus Vaccine Quad .5 mL IM 6+ MO (FLUZONE/FLULAVAL/FL UARIX) Unknown Completed [facility] HEPATITIS A Unknown Completed [facility] B, Adol or Pedi Dosage Unknown Completed [facility] HIB 4 Dose Schedule Unknown Completed [facility] HPV9 Unknown Completed [facility] HPV Unknown Completed [facility] Meningococcal Polysaccharide (groups A, C, Y and W-135) conjugate vaccine (MCV4P) Unknown Completed [facility] Meningococcal B, OMV Unknown Completed [facility] MMR Unknown Completed [facility] Pneumococcal 7 Conjugate, PCV7 (Prevnar7) Unknown Completed [facility] IPV Unknown Completed [facility] TDAP Unknown Completed [facility] Varicella (varivax)(chicken pox) Unknown Completed [facility] TDAP Unknown Completed [facility] Influenza Virus Vaccine Quad IM, Preserv and ABX Free 6 MO-64 YRS (FLUCELVAX) Unknown Completed [facility] HPV9 Unknown Completed [facility] DTaP, Unspecified Formulation Unknown Completed [facility] Influenza Virus Vaccine Quad .5 mL IM 6+ MO (FLUZONE/FLULAVAL/FL UARIX) Unknown Completed [facility] HEPATITIS A Unknown Completed [facility] B, Adol or Pedi Dosage Unknown Completed [facility] HIB 4 Dose Schedule Unknown Completed [facility] HPV Unknown Completed [facility] Meningococcal Polysaccharide (groups A, C, Y and W-135) conjugate vaccine (MCV4P) Unknown Completed [facility] Meningococcal B, OMV Unknown Completed [facility] MMR Unknown Completed [facility] Pneumococcal 7 Conjugate, PCV7 (Prevnar7) Unknown Completed [facility] IPV Unknown Completed [facility] Varicella (varivax)(chicken pox) Unknown Completed [facility] TDAP Unknown Completed [facility] Influenza Virus Vaccine Quad IM, Preserv and ABX Free 6 MO-64 YRS (FLUCELVAX) Unknown Completed [facility] HPV9 Unknown Completed [facility] DTaP, Unspecified Formulation Unknown Completed [facility] Influenza Virus Vaccine Quad .5 mL IM 6+ MO (FLUZONE/FLULAVAL/FL UARIX) Unknown Completed [facility] HEPATITIS A Unknown Completed [facility] B, Adol or Pedi Dosage Unknown Completed [facility] HIB 4 Dose Schedule Unknown Completed [facility] HPV Unknown Completed [facility] Meningococcal Polysaccharide (groups A, C, Y and W-135) conjugate vaccine (MCV4P) Unknown Completed [facility] Meningococcal B, OMV Unknown Completed [facility] MMR Unknown Completed [facility] Pneumococcal 7 Conjugate, PCV7 (Prevnar7) Unknown Completed [facility] IPV Unknown Completed [facility] Varicella (varivax)(chicken pox) Unknown Completed [facility] TDAP Unknown Completed [facility] Influenza Virus Vaccine Quad IM, Preserv and ABX Free 6 MO-64 YRS (FLUCELVAX) Unknown Completed [facility] HPV9 Unknown Completed [facility] DTaP, Unspecified Formulation Unknown Completed [facility] Influenza Virus Vaccine Quad .5 mL IM 6+ MO (FLUZONE/FLULAVAL/FL UARIX) Unknown Completed [facility] HEPATITIS A Unknown Completed [facility] B, Adol or Pedi Dosage Unknown Completed [facility] HIB 4 Dose Schedule Unknown Completed [facility] HPV Unknown Completed [facility] Meningococcal Polysaccharide (groups A, C, Y and W-135) conjugate vaccine (MCV4P) Unknown Completed [facility] Meningococcal B, OMV Unknown Completed [facility] MMR Unknown Completed [facility] Pneumococcal 7 Conjugate, PCV7 (Prevnar7) Unknown Completed [facility] IPV Unknown Completed [facility] Varicella (varivax)(chicken pox) Unknown Completed [facility] TDAP Unknown Completed [facility] Influenza Virus Vaccine Quad IM, Preserv and ABX Free 6 MO-64 YRS (FLUCELVAX) Unknown Completed [facility] HPV9 Unknown Completed [facility] DTaP, Unspecified Formulation Unknown Completed [facility] Influenza Virus Vaccine Quad .5 mL IM 6+ MO (FLUZONE/FLULAVAL/FL UARIX) Unknown Completed [facility] HEPATITIS A Unknown Completed [facility] B, Adol or Pedi Dosage Unknown Completed [facility] HIB 4 Dose Schedule Unknown Completed [facility] HPV Unknown Completed [facility] Meningococcal Polysaccharide (groups A, C, Y and W-135) conjugate vaccine (MCV4P) Unknown Completed [facility] Meningococcal B, OMV Unknown Completed [facility] MMR Unknown Completed [facility] Pneumococcal 7 Conjugate, PCV7 (Prevnar7) Unknown Completed [facility] IPV Unknown Completed [facility] Varicella (varivax)(chicken pox) Unknown Completed [facility] TDAP Unknown Completed [facility] Influenza Virus Vaccine Quad IM, Preserv and ABX Free 6 MO-64 YRS (FLUCELVAX) Unknown Completed [facility] HPV9 Unknown Completed [facility] DTaP, Unspecified Formulation Unknown Completed [facility] Influenza Virus Vaccine Quad .5 mL IM 6+ MO (FLUZONE/FLULAVAL/FL UARIX) Unknown Completed [facility] HEPATITIS A Unknown Completed [facility] Hep B, Adol or Pedi Dosage Unknown Completed [facility] HIB 4 Dose Schedule Unknown Completed [facility] HPV Unknown Completed [facility] Meningococcal Polysaccharide (groups A, C, Y and W-135) conjugate vaccine (MCV4P) Unknown Completed [facility] Meningococcal B, OMV Unknown Completed [facility] MMR Unknown Completed [facility] Pneumococcal 7 Conjugate, PCV7 (Prevnar7) Unknown Completed [facility] IPV Unknown Completed [facility] Varicella (varivax)(chicken pox) Unknown Completed [facility] TDAP Unknown Completed [facility] Influenza Virus Vaccine Quad IM, Preserv and ABX Free 6 MO-64 YRS (FLUCELVAX) Unknown Completed [facility] HPV9 Unknown Completed [facility] DTaP, Unspecified Formulation Unknown Completed [facility] Influenza Virus Vaccine Quad .5 mL IM 6+ MO (FLUZONE/FLULAVAL/FL UARIX) Unknown Completed [facility] HEPATITIS A Unknown Completed [facility] Hep B, Adol or Pedi Dosage Unknown Completed [facility] HIB 4 Dose Schedule Unknown Completed [facility] HPV Unknown Completed [facility] Meningococcal Polysaccharide (groups A, C, Y and W-135) conjugate vaccine (MCV4P) Unknown Completed [facility] Meningococcal B, OMV Unknown Completed [facility] MMR Unknown Completed [facility] Pneumococcal 7 Conjugate, PCV7 (Prevnar7) Unknown Completed [facility] IPV Unknown Completed [facility] Varicella (varivax)(chicken pox) Unknown Completed [facility] TDAP Unknown Completed [facility] Influenza Virus Vaccine Quad IM, Preserv and ABX Free 6 MO-64 YRS (FLUCELVAX) Unknown Completed [facility] HPV9 Unknown Completed [facility] DTaP, Unspecified Formulation Unknown Completed [facility] Influenza Virus Vaccine Quad .5 mL IM 6+ MO (FLUZONE/FLULAVAL/FL UARIX) Unknown Completed [facility] HEPATITIS A Unknown Completed [facility] Hep B, Adol or Pedi Dosage Unknown Completed [facility] HIB 4 Dose Schedule Unknown Completed [facility] HPV Unknown Completed [facility] Meningococcal Polysaccharide (groups A, C, Y and W-135) conjugate vaccine (MCV4P) Unknown Completed [facility] Meningococcal B, OMV Unknown Completed [facility] MMR Unknown Completed [facility] Pneumococcal 7 Conjugate, PCV7 (Prevnar7) Unknown Completed [facility] IPV Unknown Completed [facility] Varicella (varivax)(chicken pox) Unknown Completed [facility] TDAP Unknown Completed [facility] Influenza Virus Vaccine Quad IM, Preserv and ABX Free 6 MO-64 YRS (FLUCELVAX) Unknown Completed [facility] HPV9 Unknown Completed [facility] DTaP, Unspecified Formulation Unknown Completed [facility] Influenza Virus Vaccine Quad .5 mL IM 6+ MO (FLUZONE/FLULAVAL/FL UARIX) Unknown Completed [facility] HEPATITIS A Unknown Completed [facility] Hep B, Adol or Pedi Dosage Unknown Completed [facility] HIB 4 Dose Schedule Unknown Completed [facility] HPV Unknown Completed [facility] Meningococcal Polysaccharide (groups A, C, Y and W-135) conjugate vaccine (MCV4P) Unknown Completed [facility] Meningococcal B, OMV Unknown Completed [facility] MMR Unknown Completed [facility] Pneumococcal 7 Conjugate, PCV7 (Prevnar7) Unknown Completed [facility] IPV Unknown Completed [facility] Varicella (varivax)(chicken pox) Unknown Completed [facility] TDAP Unknown Completed [facility] Influenza Virus Vaccine Quad IM, Preserv and ABX Free 6 MO-64 YRS (FLUCELVAX) Unknown Completed [facility] HPV9 Unknown Completed [facility] DTaP, Unspecified Formulation Unknown Completed [facility] Influenza Virus Vaccine Quad .5 mL IM 6+ MO (FLUZONE/FLULAVAL/FL UARIX) Unknown Completed [facility] HEPATITIS A Unknown Completed [facility] Hep B, Adol or Pedi Dosage Unknown Completed [facility] HIB 4 Dose Schedule Unknown Completed [facility] HPV Unknown Completed [facility] Meningococcal Polysaccharide (groups A, C, Y and W-135) conjugate vaccine (MCV4P) Unknown Completed [facility] Meningococcal B, OMV Unknown Completed [facility] MMR Unknown Completed [facility] Pneumococcal 7 Conjugate, PCV7 (Prevnar7) Unknown Completed [facility] IPV Unknown Completed [facility] Varicella (varivax)(chicken pox) Unknown Completed [facility] TDAP Unknown Completed [facility] Influenza Virus Vaccine Quad IM, Preserv and ABX Free 6 MO-64 YRS (FLUCELVAX) Unknown Completed [facility] HPV9 Unknown Completed [facility] DTaP, Unspecified Formulation Unknown Completed [facility] Influenza Virus Vaccine Quad .5 mL IM 6+ MO (FLUZONE/FLULAVAL/FL UARIX) Unknown Completed [facility] HEPATITIS A Unknown Completed [facility] Hep B, Adol or Pedi Dosage Unknown Completed [facility] HIB 4 Dose Schedule Unknown Completed [facility] HPV Unknown Completed [facility] Meningococcal Polysaccharide (groups A, C, Y and W-135) conjugate vaccine (MCV4P) Unknown Completed [facility] Meningococcal B, OMV Unknown Completed [facility] MMR Unknown Completed [facility] Pneumococcal 7 Conjugate, PCV7 (Prevnar7) Unknown Completed [facility] IPV Unknown Completed [facility] Varicella (varivax)(chicken pox) Unknown Completed [facility] TDAP Unknown Completed [facility] Influenza Virus Vaccine Quad IM, Preserv and ABX Free 6 MO-64 YRS (FLUCELVAX) Unknown Completed [facility] HPV9 Unknown Completed [facility] DTaP, Unspecified Formulation Unknown Completed [facility] Influenza Virus Vaccine Quad .5 mL IM 6+ MO (FLUZONE/FLULAVAL/FL UARIX) Unknown Completed [facility] HEPATITIS A Unknown Completed [facility] Hep B, Adol or Pedi Dosage Unknown Completed [facility] HIB 4 Dose Schedule Unknown Completed [facility] HPV Unknown Completed [facility] Meningococcal Polysaccharide (groups A, C, Y and W-135) conjugate vaccine (MCV4P) Unknown Completed [facility] Meningococcal B, OMV Unknown Completed [facility] MMR Unknown Completed [facility] Pneumococcal 7 Conjugate, PCV7 (Prevnar7) Unknown Completed [facility] IPV Unknown Completed [facility] Varicella (varivax)(chicken pox) Unknown Completed [facility] TDAP Unknown Completed [facility] Influenza Virus Vaccine Quad IM, Preserv and ABX Free 6 MO-64 YRS (FLUCELVAX) Unknown Completed [facility] HPV9 Unknown Completed [facility] DTaP, Unspecified Formulation Unknown Completed [facility] Influenza Virus Vaccine Quad .5 mL IM 6+ MO (FLUZONE/FLULAVAL/FL UARIX) Unknown Completed [facility] HEPATITIS A Unknown Completed [facility] Hep B, Adol or Pedi Dosage Unknown Completed [facility] HIB 4 Dose Schedule Unknown Completed [facility] HPV Unknown Completed [facility] Meningococcal Polysaccharide (groups A, C, Y and W-135) conjugate vaccine (MCV4P) Unknown Completed [facility] Meningococcal B, OMV Unknown Completed [facility] MMR Unknown Completed [facility] Pneumococcal 7 Conjugate, PCV7 (Prevnar7) Unknown Completed [facility] IPV Unknown Completed [facility] Varicella (varivax)(chicken pox) Unknown Completed [facility] TDAP Unknown Completed [facility] Influenza Virus Vaccine Quad IM, Preserv and ABX Free 6 MO-64 YRS (FLUCELVAX) Unknown Completed [facility] HPV9 Unknown Completed [facility] DTaP, Unspecified Formulation Unknown Completed [facility] Influenza Virus Vaccine Quad .5 mL IM 6+ MO (FLUZONE/FLULAVAL/FL UARIX) Unknown Completed [facility] HEPATITIS A Unknown Completed [facility] Hep B, Adol or Pedi Dosage Unknown Completed [facility] HIB 4 Dose Schedule Unknown Completed [facility] HPV Unknown Completed [facility] Meningococcal Polysaccharide (groups A, C, Y and W-135) conjugate vaccine (MCV4P) Unknown Completed [facility] Meningococcal B, OMV Unknown Completed [facility] MMR Unknown Completed [facility] Pneumococcal 7 Conjugate, PCV7 (Prevnar7) Unknown Completed [facility] IPV Unknown Completed [facility] Varicella (varivax)(chicken pox) Unknown Completed [facility] Vital Signs Vital Name Observation Time Observation Value Comments S ource Systolic blood pressure 2024-10-26 20:32:00 122 mm[Hg] [facility] Diastolic blood pressure 2024-10-26 20:32:00 69 mm[Hg] [facility] Heart rate 2024-10-26 20:32:00 69 /min [facility] Respiratory rate 2024-10-26 20:32:00 18 /min [facility] Body height 2024-10-26 20:32:[address] [facility] Body weight 2024-10-26 20:32:[address] [facility] BMI 2024-10-26 20:32:00 28.86 kg/m2 [facility] Oxygen saturation in Arterial blood by Pulse oximetry 2024-10-26 20:32:00 97 /min [facility] Systolic blood pressure 2023-09-15 16:25:00 105 mm[Hg] [facility] Diastolic blood pressure 2023-09-15 16:25:00 69 mm[Hg] [facility] Heart rate 2023-09-15 16:25:00 67 /min [facility] Body temperature 2023-09-15 16:25:00 36.22 [facility] Respiratory rate 2023-09-15 16:25:00 18 /min [facility] Body height 2023-09-15 16:25:[address] [facility] Body weight 2023-09-15 16:25:[address] [facility] BMI 2023-09-15 16:25:00 27.02 kg/m2 [facility] Systolic blood pressure 2023-08-09 13:08:00 117 mm[Hg] [facility] Diastolic blood pressure 2023-08-09 13:08:00 74 mm[Hg] [facility] Heart rate 2023-08-09 13:08:00 80 /min [facility] Body temperature 2023-08-09 13:08:00 35.94 [facility] Respiratory rate 2023-08-09 13:08:00 18 /min [facility] Oxygen saturation in Arterial blood by Pulse oximetry 2023-08-09 13:08:00 97 /min [facility] Body height 2023-08-07 13:38:00 149.9 cm [facility] Body weight 2023-08-07 13:38:[address] [facility] BMI 2023-08-07 13:38:00 29.97 kg/m2 [facility] Systolic blood pressure 2023-08-08 12:45:00 103 mm[Hg] [facility] Diastolic blood pressure 2023-08-08 12:45:00 58 mm[Hg] [facility] Heart rate 2023-08-08 12:45:00 66 /min [facility] Oxygen saturation in Arterial blood by Pulse oximetry 2023-08-08 12:45:00 98 /min [facility] Body temperature 2023-08-08 12:00:00 37.22 [facility] Respiratory rate 2023-08-08 12:00:00 17 /min [facility] Body height 2023-08-07 13:38:00 149.9 cm [facility] Body weight 2023-08-07 13:38:00 67.314 kg [facility] BMI 2023-08-07 13:38:00 29.97 kg/m2 [facility] Systolic blood pressure 2023-08-06 13:09:00 114 mm[Hg] [facility] Diastolic blood pressure 2023-08-06 13:09:00 66 mm[Hg] [facility] Heart rate 2023-08-06 13:09:00 68 /min [facility] Body temperature 2023-08-06 13:09:00 35.67 [facility] Respiratory rate 2023-08-06 13:09:00 18 /min [facility] Body height 2023-08-06 13:09:[address] [facility] Body weight 2023-08-06 13:09:[address] [facility] BMI 2023-08-06 13:09:00 29.97 kg/m2 [facility] Systolic blood pressure 2023-08-03 18:30:00 104 mm[Hg] [facility] Diastolic blood pressure 2023-08-03 18:30:00 60 mm[Hg] [facility] Heart rate 2023-08-03 18:30:00 63 /min [facility] Respiratory rate 2023-08-03 18:30:00 18 /min [facility] Oxygen saturation in Arterial blood by Pulse oximetry 2023-08-03 18:30:00 98 /min [facility] Systolic blood pressure 2023-07-30 12:52:00 114 mm[Hg] [facility] Diastolic blood pressure 2023-07-30 12:52:00 59 mm[Hg] [facility] Heart rate 2023-07-30 12:52:00 82 /min [facility] Body temperature 2023-07-30 12:52:00 36.67 [facility] Respiratory rate 2023-07-30 12:52:00 16 /min [facility] Body height 2023-07-30 12:52:00 149.9 cm [facility] Body weight 2023-07-30 12:52:[address] [facility] BMI 2023-07-30 12:52:00 29.29 kg/m2 [facility] Systolic blood pressure 2023-07-27 13:36:00 116 mm[Hg] [facility] Diastolic blood pressure 2023-07-27 13:36:00 74 mm[Hg] [facility] [facility] Heart rate 2023-07-27 13:36:00 78 /min [facility] Body temperature 2023-07-27 13:36:00 36.33 [facility] Respiratory rate 2023-07-27 13:36:00 17 /min [facility] Body height 2023-07-27 13:36:[address] [facility] Body weight 2023-07-27 13:36:[address] [facility] BMI 2023-07-27 13:36:00 29.65 kg/m2 [facility] Systolic blood pressure 2023-07-23 18:09:00 118 mm[Hg] [facility] Diastolic blood pressure 2023-07-23 18:09:00 66 mm[Hg] [facility] Heart rate 2023-07-23 18:09:00 79 /min [facility] Body temperature 2023-07-23 18:09:00 36.06 [facility] Respiratory rate 2023-07-23 18:09:00 18 /min [facility] Body height 2023-07-23 18:09:[address] [facility] Body weight 2023-07-23 18:09:00 66.316 kg [facility] BMI 2023-07-23 18:09:00 29.53 kg/m2 [facility] Systolic blood pressure 2023-07-20 12:49:00 103 mm[Hg] [facility] Diastolic blood pressure 2023-07-20 12:49:00 67 mm[Hg] [facility] Heart rate 2023-07-20 12:49:00 78 /min [facility] Body temperature 2023-07-20 12:49:00 36.28 [facility] Respiratory rate 2023-07-20 12:49:00 17 /min [facility] Body height 2023-07-20 12:49:00 149.9 cm [facility] Body weight 2023-07-20 12:49:00 65.772 kg [facility] BMI 2023-07-20 12:49:00 29.29 kg/m2 [facility] Systolic blood pressure 2023-07-16 19:24:00 106 mm[Hg] [facility] Diastolic blood pressure 2023-07-16 19:24:00 66 mm[Hg] [facility] Heart rate 2023-07-16 19:24:00 94 /min [facility] Body temperature 2023-07-16 19:24:00 36.06 [facility] Respiratory rate 2023-07-16 19:24:00 18 /min [facility] Body height 2023-07-16 19:24:00 149.9 cm [facility] Body weight 2023-07-16 19:24:00 66.225 kg [facility] BMI 2023-07-16 19:24:00 29.49 kg/m2 [facility] Systolic blood pressure 2023-07-13 18:42:00 100 mm[Hg] [facility] Diastolic blood pressure 2023-07-13 18:42:00 61 mm[Hg] [facility] Heart rate 2023-07-13 18:42:00 79 /min [facility] Body temperature 2023-07-13 18:42:00 36.39 [facility] Respiratory rate 2023-07-13 18:42:00 18 /min [facility] Body height 2023-07-13 18:42:00 149.9 cm [facility] Body weight 2023-07-13 18:42:00 65.59 kg [facility] BMI 2023-07-13 18:42:00 29.21 kg/m2 [facility] Systolic blood pressure 2023-07-09 18:04:00 110 mm[Hg] [facility] Diastolic blood pressure 2023-07-09 18:04:00 60 mm[Hg] [facility] Heart rate 2023-07-09 18:04:00 80 /min [facility] Body temperature 2023-07-09 18:04:00 36.56 [facility] Respiratory rate 2023-07-09 18:04:00 18 /min [facility] Body height 2023-07-09 18:04:00 149.9 cm [facility] Body weight 2023-07-09 18:04:00 65.97 kg [facility] BMI 2023-07-09 18:04:00 29.37 kg/m2 [facility] Systolic blood pressure 2023-07-06 18:23:00 119 mm[Hg] [facility] Diastolic blood pressure 2023-07-06 18:23:00 65 mm[Hg] [facility] Heart rate 2023-07-06 18:23:00 92 /min [facility] Body temperature 2023-07-06 18:23:00 36.22 [facility] Respiratory rate 2023-07-06 18:23:00 16 /min [facility] Body height 2023-07-06 18:23:00 149.9 cm [facility] Body weight 2023-07-06 18:23:00 64.411 kg [facility] BMI 2023-07-06 18:23:00 28.68 kg/m2 [facility] Systolic blood pressure 2023-07-02 13:08:00 127 mm[Hg] [facility] Diastolic blood pressure 2023-07-02 13:08:00 70 mm[Hg] [facility] Heart rate 2023-07-02 13:08:00 72 /min [facility] Body temperature 2023-07-02 13:08:00 36.06 [facility] Respiratory rate 2023-07-02 13:08:00 18 /min [facility] Body height 2023-07-02 13:08:00 149.9 cm [facility] Body weight 2023-07-02 13:08:[address] [facility] BMI 2023-07-02 13:08:00 28.84 kg/m2 [facility] Systolic blood pressure 2023-06-29 15:11:00 105 mm[Hg] [facility] Diastolic blood pressure 2023-06-29 15:11:00 60 mm[Hg] [facility] Heart rate 2023-06-29 15:11:00 88 /min [facility] Body temperature 2023-06-29 15:11:00 36.39 [facility] Respiratory rate 2023-06-29 15:11:00 18 /min [facility] Body height 2023-06-29 15:11:00 149.9 cm [facility] Body weight 2023-06-29 15:11:00 63.957 kg [facility] BMI 2023-06-29 15:11:00 28.48 kg/m2 [facility] Systolic blood pressure 2023-06-25 13:16:00 115 mm[Hg] [facility] Diastolic blood pressure 2023-06-25 13:16:00 67 mm[Hg] [facility] Heart rate 2023-06-25 13:16:00 82 /min [facility] Body temperature 2023-06-25 13:16:00 36.39 [facility] Respiratory rate 2023-06-25 13:16:00 18 /min [facility] Body height 2023-06-25 13:16:00 149.9 cm [facility] Body weight 2023-06-25 13:16:00 64.042 kg [facility] BMI 2023-06-25 13:16:00 28.52 kg/m2 [facility] Systolic blood pressure 2023-06-22 19:55:00 112 mm[Hg] [facility] Diastolic blood pressure 2023-06-22 19:55:00 64 mm[Hg] [facility] Heart rate 2023-06-22 19:55:00 78 /min [facility] Body temperature 2023-06-22 19:55:00 36.61 [facility] Respiratory rate 2023-06-22 19:55:00 18 /min [facility] Body height 2023-06-22 19:55:00 149.9 cm [facility] Body weight 2023-06-22 19:55:[address] [facility] BMI 2023-06-22 19:55:00 28.11 kg/m2 [facility] Systolic blood pressure 2023-06-17 19:33:00 118 mm[Hg] [facility] Diastolic blood pressure 2023-06-17 19:33:00 66 mm[Hg] [facility] Heart rate 2023-06-17 19:33:00 79 /min [facility] Body temperature 2023-06-17 19:33:00 36.72 [facility] Respiratory rate 2023-06-17 19:33:00 18 /min [facility] Body height 2023-06-17 19:33:00 149.9 cm [facility] Body weight 2023-06-17 19:33:00 63.776 kg [facility] BMI 2023-06-17 19:33:00 28.40 kg/m2 [facility] Systolic blood pressure 2023-06-08 19:44:00 98 mm[Hg] [facility] Diastolic blood pressure 2023-06-08 19:44:00 61 mm[Hg] [facility] Heart rate 2023-06-08 19:44:00 73 /min [facility] Body temperature 2023-06-08 19:44:00 36.56 [facility] Respiratory rate 2023-06-08 19:44:00 20 /min [facility] Body height 2023-06-08 19:44:00 149.9 cm [facility] 2023-06-08 19:44:00 64.184 kg [facility] BMI 2023-06-08 19:44:00 28.58 kg/m2 [facility] Systolic blood pressure 2023-05-25 13:14:00 112 mm[Hg] [facility] Diastolic blood pressure 2023-05-25 13:14:00 61 mm[Hg] [facility] Heart rate 2023-05-25 13:14:00 75 /min [facility] Body temperature 2023-05-25 13:14:00 36.5 [facility] Respiratory rate 2023-05-25 13:14:00 18 /min [facility] Body height 2023-05-25 13:14:00 149.9 cm [facility] Body weight 2023-05-25 13:14:00 62.795 kg [facility] BMI 2023-05-25 13:14:00 27.96 kg/m2 [facility] Systolic blood pressure 2023-04-26 15:51:00 130 mm[Hg] [facility] Diastolic blood pressure 2023-04-26 15:51:00 77 mm[Hg] [facility] Heart rate 2023-04-26 15:51:00 80 /min [facility] Body temperature 2023-04-26 15:51:00 36.39 [facility] Respiratory rate 2023-04-26 15:51:00 18 /min [facility] Body height 2023-04-26 15:51:00 149.9 cm [facility] Body weight 2023-04-26 15:51:00 61.236 kg [facility] BMI 2023-04-26 15:51:00 27.27 kg/m2 [facility] Systolic blood pressure 2023-03-29 15:53:00 113 mm[Hg] [facility] Diastolic blood pressure 2023-03-29 15:53:00 71 mm[Hg] [facility] Heart rate 2023-03-29 15:53:00 69 /min [facility] Body temperature 2023-03-29 15:53:00 36.17 [facility] Respiratory rate 2023-03-29 15:53:00 18 /min [facility] Body height 2023-03-29 15:53:00 149.9 cm [facility] Body weight 2023-03-29 15:53:00 61.644 kg [facility] BMI 2023-03-29 15:53:00 27.45 kg/m2 [facility] Systolic blood pressure 2023-03-01 15:35:00 122 mm[Hg] [facility] Diastolic blood pressure 2023-03-01 15:35:00 72 mm[Hg] [facility] Heart rate 2023-03-01 15:35:00 79 /min [facility] Body temperature 2023-03-01 15:35:00 36.67 [facility] Respiratory rate 2023-03-01 15:35:00 18 /min [facility] Body height 2023-03-01 15:35:00 149.9 cm [facility] Body weight 2023-03-01 15:35:00 60.867 kg [facility] BMI 2023-03-01 15:35:00 27.10 kg/m2 [facility] Systolic blood pressure 2023-02-01 18:42:00 132 mm[Hg] [facility] Diastolic blood pressure 2023-02-01 18:42:00 75 mm[Hg] [facility] Heart rate 2023-02-01 18:42:00 69 /min [facility] Body temperature 2023-02-01 18:42:00 36.72 [facility] Respiratory rate 2023-02-01 18:42:00 16 /min [facility] Body height 2023-02-01 18:42:00 149.9 cm [facility] Body weight 2023-02-01 18:42:00 62.188 kg [facility] BMI 2023-02-01 18:42:00 27.69 kg/m2 [facility] Systolic blood pressure 2022-11-24 16:25:00 127 mm[Hg] [facility] Diastolic blood pressure 2022-11-24 16:25:00 76 mm[Hg] [facility] Heart rate 2022-11-24 16:25:00 66 /min [facility] Body temperature 2022-11-24 16:25:00 37 [facility] Respiratory rate 2022-11-24 16:25:00 20 /min [facility] Body height 2022-11-24 16:25:00 149.9 cm [facility] Body weight 2022-11-24 16:25:00 64.139 kg [facility] BMI 2022-11-24 16:25:00 28.56 kg/m2 [facility] Systolic blood pressure 2022-09-15 14:45:00 125 mm[Hg] [facility] Diastolic blood pressure 2022-09-15 14:45:00 86 mm[Hg] [facility] Heart rate 2022-09-15 14:45:00 67 /min [facility] Body temperature 2022-09-15 14:45:00 36.5 [facility] Respiratory rate 2022-09-15 14:45:00 18 /min [facility] Body height 2022-09-15 14:45:00 149.9 cm [facility] Body weight 2022-09-15 14:45:00 61.009 kg [facility] BMI 2022-09-15 14:45:00 27.17 kg/m2 [facility] Systolic blood pressure 2022-08-20 13:40:00 128 mm[Hg] [facility] Diastolic blood pressure 2022-08-20 13:40:00 85 mm[Hg] [facility] Heart rate 2022-08-20 13:40:00 60 /min [facility] Body temperature 2022-08-20 13:40:00 35.89 [facility] Respiratory rate 2022-08-20 13:40:00 18 /min [facility] Body weight 2022-08-20 13:40:[address] [facility] Systolic blood pressure 2022-08-01 12:57:00 94 mm[Hg] [facility] Diastolic blood pressure 2022-08-01 12:57:00 57 mm[Hg] [facility] Heart rate 2022-08-01 12:57:00 69 /min [facility] Body temperature 2022-08-01 12:57:00 36 [facility] Respiratory rate 2022-08-01 12:57:00 18 /min [facility] Oxygen saturation in Arterial blood by Pulse oximetry 2022-08-01 12:57:00 97 /min [facility] Body weight 2022-07-30 13:12:[address] [facility] Systolic blood pressure 2022-07-22 05:30:00 99 mm[Hg] [facility] Diastolic blood pressure 2022-07-22 05:30:00 49 mm[Hg] [facility] Heart rate 2022-07-22 05:30:00 66 /min [facility] Oxygen saturation in Arterial blood by Pulse oximetry 2022-07-22 05:30:00 99 /min [facility] Respiratory rate 2022-07-22 04:00:00 18 /min [facility] Body temperature 2022-07-22 00:55:00 36.67 Ar[facility] Systolic blood pressure 2022-07-15 18:00:00 124 mm[Hg] [facility] Diastolic blood pressure 2022-07-15 18:00:00 77 mm[Hg] [facility] Heart rate 2022-07-15 18:00:00 68 /min [facility] Body temperature 2022-07-15 18:00:00 35.61 [facility] Respiratory rate 2022-07-15 18:00:00 18 /min [facility] Body weight 2022-07-15 18:00:[address] [facility] Systolic blood pressure 2022-07-01 18:15:00 121 mm[Hg] [facility] Diastolic blood pressure 2022-07-01 18:15:00 83 mm[Hg] [facility] Heart rate 2022-07-01 18:15:00 77 /min [facility] Body temperature 2022-07-01 18:15:00 36.78 Ar[facility] Respiratory rate 2022-07-01 18:15:00 18 /min [facility] Body height 2022-07-01 18:15:[address] [facility] Body weight 2022-07-01 18:15:[address] [facility] BMI 2022-07-01 18:15:00 28.68 kg/m2 [facility] Procedures Procedure Date / Time Performed Performing Clinician Source TRANSTHORACIC ECHO (TTE) COMPLETE 2024-11-29 20:50:18 Italo Bass [facility] CBC WITH DIFF 2023-08-09 08:16:00 Pamela Lynch [facility] CBC WITH DIFF 2023-08-09 08:16:00 Pamela Lynch [facility] TUBAL LIGATION 2023-08-08 13:26:00 Ranjith Sharpe [facility] VENOUS CORD GAS 2023-08-08 08:29:00 [facility] V[facility]OUS CORD GAS 2023-08-08 08:29:00 Marli Abbasi [facility] CENTRAL NEURAXIAL BLOCK 2023-08-08 05:32:00 Navin Carlson [facility] CBC WITH DIFF 2023-08-07 14:36:00 Marli Abbasi [facility] HEPATITIS B SURFACE ANTIGEN 2023-08-07 14:36:00 Ayleen [facility] HB ABO GROUPING 2023-08-07 14:36:00 Marli Abbasi [facility] RHO (D) IMMUNE GLOBULIN 2023-08-07 14:36:00 Herminio Evans [facility] HIV 1/2 AG-AB WITH REFLEX 2023-08-07 14:36:00 Ayleen [facility] SYPHILIS IGG/IGM 2023-08-07 14:36:00 Ayleen [facility] CBC WITH DIFF 2023-08-07 14:36:00 Marli Abbasi [facility] HEPATITIS B SURFACE ANTIGEN 2023-08-07 14:36:00 Ayleen [facility] HB ABO GROUPING 2023-08-07 14:36:00 Marli Abbasi [facility] RHO (D) IMMUNE GLOBULIN 2023-08-07 14:36:00 Herminio Evans [facility] HIV 1/2 AG-AB WITH REFLEX 2023-08-07 14:36:00 Ayleen [facility] SYPHILIS IGG/IGM 2023-08-07 14:36:00 Ayleen [facility] URINALYSIS 2023-08-07 12:29:00 Pamela Lynch [facility] URINE CULTURE 2023-08-07 12:29:00 Pamela Lynch [facility] GROUP B STREPTOCOCCUS BY PCR 2023-08-07 12:29:00 Herminio Lynch [facility] URINALYSIS 2023-08-07 12:29:00 Pamela Lynch [facility] URINE CULTURE 2023-08-07 12:29:00 Pamela Lynch [facility] GC & CHLAMYDIA AMPLIFIED ASSAY 2023-08-07 12:29:00 Herminio Lynch [facility] GROUP B STREPTOCOCCUS BY PCR 2023-08-07 12:29:00 Herminio Lynch [facility] HOSPITAL ADMISSION 2023-08-07 05:01:00 Doctor Un assigned, [facility] NON-STRESS TEST 2023-08-06 13:44:46 Jonathan Gifford [facility] POCT URINALYSIS 2023-08-06 13:11:00 Justyna Gifford [facility] URINALYSIS 2023-08-03 16:43:00 Yoko Beck Jassi [facility] POCT URINALYSIS 2023-07-30 13:06:00 Justyna Gifford [facility] NON-STRESS TEST 2023-07-27 14:30:52 Jonathan Gifford [facility] POCT URINALYSIS 2023-07-27 00:00:00 Justyna Gifford [facility] NON-STRESS TEST 2023-07-23 18:58:55 Hood Bundy [facility] NON-STRESS TEST 2023-07-23 18:58:20 Hood Bundy [facility] POCT URINALYSIS 2023-07-23 18:12:00 Justyna Gifford [facility] NON-STRESS TEST 2023-07-20 14:33:20 Jonathan Gifford [facility] POCT URINALYSIS 2023-07-20 00:00:00 Justyna Gifford [facility] NON-STRESS TEST 2023-07-16 19:59:59 Jonathan Gifford [facility] FLU VACC ([id number]), 6 MO-64 YRS, .5ML, IM, QUAD (FLUCELVAX) 2023-07-16 19:33:06 Justyna Gifford [facility] POCT URINALYSIS 2023-07-16 19:26:00 Justyna Gifford [facility] NON-STRESS TEST 2023-07-13 19:24:14 Jonathan Gifford [facility] POCT URINALYSIS 2023-07-13 18:46:00 Justyna Gifford [facility] SECOND AND THIRD TRIMESTER ULTRASOUND 2023-07-13 18:12:00 Justyna Gifford [facility] NON-STRESS TEST 2023-07-09 18:55:55 Jonathan Gifford [facility] POCT URINALYSIS 2023-07-09 18:10:00 Justyna Gifford [facility] NON-STRESS TEST 2023-07-06 19:03:37 Jonathan Gifford [facility] POCT URINALYSIS 2023-07-06 00:00:00 Justyna Gifford [facility] NON-STRESS TEST 2023-07-02 21:35:44 Jonathan Gifford [facility] NON-STRESS TEST 2023-07-02 13:53:23 Jonathan Gifford [facility] POCT URINALYSIS 2023-07-02 13:11:00 Justyna Gifford [facility] POCT URINALYSIS 2023-06-29 15:13:00 Justyna Gifford [facility] NON-STRESS TEST 2023-06-25 14:21:38 Jonathan Gifford [facility] POCT URINALYSIS 2023-06-25 13:17:00 Justyna Gifford [facility] TDAP VACCINE, >11 YRS, IM 2023-06-25 13:13:24 Justyna Gifford [facility] TDAP VACCINE, >11 YRS, IM 2023-06-22 20:44:30 Justyna Gifford [facility] NON-STRESS TEST 2023-06-22 20:40:24 Jonathan Gifford [facility] POCT URINALYSIS 2023-06-22 19:56:00 Justyna Gifford [facility] SECOND AND THIRD TRIMESTER ULTRASOUND 2023-06-22 19:26:00 Justyna Gifford [facility] NON-STRESS TEST 2023-06-17 20:52:09 Erendira Acuna sa [facility] POCT URINALYSIS 2023-06-17 19:40:00 Justyna Gifford [facility] SECOND AND THIRD TRIMESTER ULTRASOUND 2023-06-15 19:22:00 Justyna Gifford [facility] SECOND AND THIRD TRIMESTER ULTRASOUND 2023-06-08 19:29:00 Justyna Gifford [facility] SECOND AND THIRD TRIMESTER ULTRASOUND 2023-06-01 16:17:00 Justyna Gifford [facility] SECOND AND THIRD TRIMESTER ULTRASOUND 2023-05-28 18:37:00 Justyna Gifford [facility] SECOND AND THIRD TRIMESTER ULTRASOUND 2023-05-28 17:47:00 Justyna Gifford [facility] SECOND AND THIRD TRIMESTER ULTRASOUND 2023-05-28 17:40:00 Justyna Gifford [facility] GLUCOSE 1 HOUR POST PRANDIAL 2023-05-25 14:19:00 Justyna Gifford [facility] CBC WITH DIFF 2023-05-25 14:19:00 Justyna Gifford [facility] POCT URINALYSIS 2023-05-25 13:18:00 Justyna Gifford [facility] STERILIZATION CONSENT FORM 2023-05-25 05:01:00 Doctor Unassigned, [facility] SECOND AND THIRD TRIMESTER ULTRASOUND 2023-05-21 14:34:00 Justyna Gifford [facility] SECOND AND THIRD TRIMESTER ULTRASOUND 2023-05-07 19:37:00 Justyna Gifford [facility] POCT URINALYSIS 2023-04-26 15:52:00 Justyna Gifford [facility] SECOND AND THIRD TRIMESTER ULTRASOUND 2023-04-23 19:03:00 Justyna Gifford [facility] SECOND AND THIRD TRIMESTER ULTRASOUND 2023-04-09 19:19:00 Justyna Gifford [facility] POCT URINALYSIS 2023-03-29 15:57:00 Justyna Gifford [facility] SECOND AND THIRD TRIMESTER ULTRASOUND 2023-03-26 19:00:00 Justyna Gifford [facility] FIRST TRIMESTER ULTRASOUND 2023-03-02 16:55:00 Justyna Gifford [facility] POCT URINALYSIS 2023-03-01 15:52:00 Justyna Gifford [facility] URINE CULTURE 2023-02-01 19:46:00 Justyna Gifford [facility] GC & CHLAMYDIA AMPLIFIED ASSAY 2023-02-01 19:46:00 Lan Schmidt [facility] LAB ONLY PAP SMEAR-LIQUID BASED 2023-02-01 19:46:00 Justyna Gifford [facility] TRICHOMONAS AMPLIFIED ASSAY 2023-02-01 19:46:00 Justyna Gifford [facility] PAP SMEAR-LIQUID BASED-CP 2023-02-01 19:46:00 Justyna Gifford [facility] CBC WITH DIFF 2023-02-01 19:45:00 Lan Schmidt [facility] RUBELLA SCREEN IGG 2023-02-01 19:45:00 Gracia Gifford [facility] VZV ANTIBODY SCREEN 2023-02-01 19:45:00 Sheng Gifford [facility] HEPATITIS B SURFACE ANTIGEN 2023-02-01 19:45:00 Justnya Gifford [facility] HB INDIRECT ANTIGLOBULIN TEST 2023-02-01 19:45:00 Justyna Gifford [facility] 1 HR GLUCOSE TOLERANCE TEST 2023-02-01 19:45:00 Justyna Gifford [facility] HIV 1/2 AG-AB WITH REFLEX 2023-02-01 19:45:00 Justyna Gifford [facility] SYPHILIS IGG/IGM 2023-02-01 19:45:00 Esperanza Gifford [facility] POCT TEST 2023-02-01 19:02:00 Sheng Gifford [facility] POCT URINALYSIS W/O SPECIFIC GRAVITY 2023-02-01 19:02:00 Justyna Gifford [facility] ASSIGNMENT OF BENEFITS 2023-02-01 17:44:20 Docto r Unassigned, [place] [facility] GARDASIL 9 (HPV 9V) VACCINE 2022-11-24 16:37:35 Justyna Gifford [facility] POCT TEST 2022-09-15 15:42:00 Sheng Gifford [facility] CBC WITH DIFF 2022-07-31 09:25:00 Octavia Dickson [facility] VENOUS CORD GAS 2022-07-31 00:53:00 Marli Abbasi [facility] CENTRAL NEURAXIAL BLOCK 2022-07-30 15:32:29 Pawel Peguero [facility] CBC WITH DIFF 2022-07-30 13:40:00 [facility] 2022-07-30 13:40:00 Marli Abbasi [facility] HIV 1/2 AG-AB WITH REFLEX 2022-07-30 13:40:00 Marli Abbasi [facility] GALV ONLY - SYPHILIS IGG/IGM 2022-07-30 13:40:00 Marli Abbasi [facility] HB ABO GROUPING 2022-07-30 13:35:00 Marli Abbasi [facility] RHO (D) IMMUNE GLOBULIN 2022-07-30 13:35:00 Heidi Guerra [facility] HOSPITAL ADMISSION 2022-07-30 05:01:00 Doctor Un assigned, [facility] URINALYSIS 2022-07-22 02:04:00 [facility] 2022-07-15 18:07:00 Lan Schmidt [facility] POCT URINALYSIS 2022-07-01 18:17:00 Lan Schmidt [facility] Encounters Start Date/Time End Date/Time Encounter Type Admission Type Attending Clinicians Care Facility Care Department Encounter ID Source 2024-12-04 00:00:00 2025-01-06 18:19:01 Patient Secure Msg Kali, [facility] PROFESSIO NAL BUILDING 1.2.840.114 350.1.13.10 4.2.7.2.686 [id number] [facility] 2024-11-29 13:51:51 2024-11-29 23:59:00 [facility] [id number] 2024-11-29 13:51:51 2024-11-29 23:59:00 Hospital Encounter Kali, [facility] BUILDING 1.2.840.114 350.1.13.10 4.2.7.2.686 [id number] [facility] 2024-11-15 16:00:00 2024-11-15 16:00:00 [facility] [id number] [facility] 2024-11-08 08:00:00 2024-11-08 08:00:00 [facility] [id number] [facility] 2024-10-26 14:50:24 2024-10-26 23:59:00 [facility] [id number] [facility] 2024-10-26 14:50:24 2024-10-26 23:59:00 Hospital Encounter Kali, [facility] BUILDING 1.2.840.114 350.1.13.10 4.2.7.2.686 [id number] [facility] 2024-10-26 14:20:00 2024-10-26 14:53:26 Office Visit Kali, [facility] NAL BUILDING 1.2.840.114 350.1.13.10 4.2.7.2.686 [id number] [facility] 2024-10-12 13:20:00 2024-10-12 13:20:00 Outpatient R ITALO BASS [facility] [id number] [facility] 2024-09-26 11:08:20 2024-09-26 23:59:00 Outpatient R ITALO BASS [facility] [id number] [facility] 2024-09-26 11:08:20 2024-09-26 23:59:00 Hospital Encounter Italo Bass [facility] ..840.114 350.1.13.10 4.2.7.2.686 [id number] [facility] 2023-10-27 13:30:00 2023-10-27 13:30:00 Outpatient R JACQUELYN LUO [facility] [id number] [facility] 2023-10-09 00:00:00 2023-10-09 00:00:00 Patient Secure Msg Justyna Gifford [facility] METAL CLEANER [facility] MATERNAL & CHILD [facility] ..840.114 350.1.13.10 4.2.7.2.686 [id number] [facility] 2023-09-15 10:15:00 2023-09-15 10:57:22 Outpatient R JUSTYNA GIFFORD [facility] [id number] [facility] 2023-09-15 10:15:00 2023-09-15 10:57:22 Routine Visit Justyna Gifford [facility] METAL [facility] CHILD [facility] ..840.114 350.1.13.10 4.2.7.2.686 [id number] [facility] 2023-08-27 13:15:00 2023-08-27 13:15:00 Outpatient R JUSTYNA GIFFORD [facility] [id number] [facility] 2023-08-13 10:00:2023-08-13 10:00:00 Outpatient R JUSTYNA GIFFORD [facility] [id number] [facility] 2023-08-10 13:00:00 2023-08-10 13:00:00 Outpatient R JUSTYNA GIFFORD [facility] [id number] [facility] 2023-08-07 05:53:00 2023-08-09 14:24:00 Inpatient P GURU Ma [facility] DAV[facility] [id number] [facility] 2023-08-07 05:53:00 2023-08-09 14:24:00 Hospital Encounter Margareth Cardona [facility] 1.2.840.114 350.1.13.10 4.2.7.2.686 [id number] [facility] 2023-08-08 08:00:00 2023-08-08 09:34:00 Surgery [facility] 1.2.840.114 350.1.13.10 4.2.7.2.686 [id number] [facility] 2023-08-07 23:00:00 2023-08-08 08:03:00 Anesthesia Event Navin Carlson Rakesh [facility] 1.2.840.114 350.1.13.10 4.2.7.2.686 [id number] [facility] 2023-08-07 00:00:00 2023-08-07 00:00:00 Orders Only Doctor Unassigned, [place] [facility] 1.2.840.114 350.1.13.10 4.2.7.2.686 [id number] [facility] 2023-08-06 08:00:00 2023-08-06 08:44:08 Outpatient R JUSTYNA GIFFORD [facility] [id number] [facility] 2023-08-06 08:00:00 2023-08-06 08:44:08 Routine Visit Justyna Gifford [facility] METAL CLEANER [facility] CHILD [facility] 1..840.114 350.1.13.10 4.2.7.2.686 [id number] [facility] 2023-08-03 11:21:00 2023-08-03 13:46:00 Outpatient P MELANIE ROSALES [facility] [id number] [facility] 2023-08-03 11:21:00 2023-08-03 13:46:00 Hospital Encounter Melanie Rosales [facility] 1..840.114 350.1.13.10 4.2.7.2.686 [id number] [facility] 2023-08-03 12:45:00 2023-08-03 12:45:00 Outpatient R JUSTYNA GIFFORD [facility] [id number] [facility] 2023-07-30 07:45:00 2023-07-30 08:27:53 Outpatient R JUSTYNA GIFFORD [facility] [id number] [facility] 2023-07-30 07:45:00 2023-07-30 08:27:53 Routine Visit Justyna Gifford [facility] CHILD [facility] 1..840.114 350.1.13.10 4.2.7.2.686 [id number] 107 [id number] [facility] 2023-07-27 08:30:00 2023-07-27 09:18:05 Outpatient R JUSTYNA GIFFORD [facility] [id number] [facility] 2023-07-27 08:30:00 2023-07-27 09:18:05 Routine Visit Justyna Gifford [facility] METAL CLEANER [facility] MATERNAL & CHILD [facility] 1.840.114 350.1.13.10 4.2.7.2.686 [id number] [facility] 2023-07-23 13:15:00 2023-07-23 13:58:25 Routine Visit 2, Ang-Rmchp Nst Ultrasound Justyna Gifford [facility] CHILD [facility] 1.2.840.114 350.1.13.10 4.2.7.2.686 [id number] [facility] 2023-07-23 13:00:00 2023-07-23 13:57:58 [id number] 2023-07-23 13:00:00 2023-07-23 13:57:58 Routine Visit Justyna Gifford [facility]ILD [facility] 1..840.114 350.1.13.10 4.2.7.2.686 [id number] 107 [id number] [facility] 2023-07-20 07:45:00 2023-07-20 08:44:44 Outpatient R JUSTYNA GIFFORD [facility] [id number] [facility] 2023-07-20 07:45:00 2023-07-20 08:44:44 Routine Visit Justyna Gifford [facility] CHILD [facility] 1.2.840.114 350.1.13.10 4.2.7.2.686 [id number] 107 [id number] [facility] 2023-07-16 15:00:00 2023-07-16 15:04:51 Outpatient R JUSTYNA GIFFORD [facility] [id number] [facility] 2023-07-16 15:00:00 2023-07-16 15:04:51 Routine Visit Justyna Gifford [facility]ILD [facility] 1.2.840.114 350.1.13.10 4.2.7.2.686 [id number] [facility] 2023-07-14 00:00:00 2023-07-14 00:00:00 Abstract Justyna Gifford Tin [facility] METAL CLEANER [facility] CHILD [facility] 1..840.114 350.1.13.10 4.2.7.2.686 [id number] [facility] 2023-07-13 15:30:00 2023-07-13 15:30:00 Routine Visit IsabellchristianobacilioJustyna [facility] METAL CLEANER [facility] CHILD [facility] 1..840.114 350.1.13.10 4.2.7.2.686 [id number] [facility] 2023-07-13 13:00:00 2023-07-13 13:31:04 Outpatient ELEANOR COTA SHANNON [facility] [id number] [facility] 2023-07-13 13:00:00 2023-07-13 13:31:04 Flooring Grader Visit Ultrasound, Eleanor Ko [facility] 1..840.114 350.1.13.10 4.2.7.2.686 [id number] [facility] 2023-07-09 13:00:00 2023-07-09 13:44:08 Outpatient R JUSTYNA GIFFORD [facility] [id number] [facility] 2023-07-09 13:00:00 2023-07-09 13:44:08 Routine Visit Ирина Justyna C [facility] 1..840.114 350.1.13.10 4.2.7.2.686 [id number] 107 [id number] [facility] 2023-07-06 13:00:00 2023-07-06 14:04:57 Outpatient R JUSTYNA GIFFORD [facility] [id number] [facility] 2023-07-06 13:00:00 2023-07-06 14:04:57 Routine Visit Justyna Gifford [facility] MET[facility] CLEAN[facility] 1..840.114 350.1.13.10 4.2.7.2.686 [id number] [facility] 2023-07-02 08:00:00 2023-07-02 08:50:05 Outpatient R JUSTYNA GIFFORD [facility] [id number] [facility] 2023-07-02 08:00:00 2023-07-02 08:50:05 Routine Visit Justyna Gifford [facility] MET[facility] CLEAN[facility] .840.114 350.1.13.10 4.2.7.2.686 [id number] [facility] 2023-06-29 10:00:00 2023-06-29 10:58:51 Outpatient R JUSTYNA GIFFORD [facility] [id number] [facility] 2023-06-29 10:00:00 2023-06-29 10:58:51 Routine Visit Justyna Gifford [facility] MET[facility] CLE[facility] ..840.114 350.1.13.10 4.2.7.2.686 [id number] 107 [id number] [facility] 2023-06-25 08:15:00 2023-06-25 09:12:17 Outpatient R JUSTYNA GIFFORD [facility] [id number] [facility] 2023-06-25 08:15:00 2023-06-25 09:12:17 Routine Visit IsabellchristianobacilioJustyna [facility] MET[facility] CLE[facility]ILD [facility] 1..840.114 350.1.13.10 4.2.7.2.686 [id number] 107 [id number] [facility] 2023-06-25 00:00:00 2023-06-25 00:00:00 Abstract IsabellJustyna jay [facility] 1..840.114 350.1.13.10 4.2.7.2.686 [id number] 107 [id number] [facility] 2023-06-22 15:30:00 2023-06-22 15:48:25 Routine Visit Justyna Gifford [facility] 1.840.114 350.1.13.10 4.2.7.2.686 [id number] [facility] 2023-06-22 14:00:00 2023-06-22 14:32:46 Outpatient P ELEANOR DUVALL SHANNON [facility] [id number] [facility] 2023-06-22 14:00:00 2023-06-22 14:32:46 Flooring Grader Visit Ultrasound, Eleanor Ko [facility] 1.840.114 350.1.13.10 4.2.7.2.686 [id number] [facility] 2023-06-22 14:30:00 2023-06-22 14:30:00 Outpatient R JUSTYNA GIFFORD [facility] [id number] [facility] 2023-06-17 14:30:00 2023-06-17 15:00:00 Routine Visit Risk, Ang-Rmchp-N p/High Justyna [facility]ord [facility] 1..840.114 350.1.13.10 4.2.7.2.686 [id number] [facility] 2023-06-17 14:30:00 2023-06-17 14:30:00 Outpatient R JUSTYNA GIFFORD [facility] [id number] [facility] 2023-06-16 00:00:00 2023-06-16 00:00:00 Abstract Justyna Gifford [facility] METAL CLEANER [facility] ..840.114 350.1.13.10 4.2.7.2.686 [id number] 107 [id number] [facility] 2023-06-15 14:00:00 2023-06-15 14:33:15 Outpatient P GURU Ma [facility] [id number] [facility] 2023-06-15 14:00:00 2023-06-15 14:33:15 Flooring Grader Visit Ultrasound, Eleanor Ko [facility] METAL CLEANER [facility] .840.114 350.1.13.10 4.2.7.2.686 [id number] [facility] 2023-06-11 10:30:00 2023-06-11 13:21:52 Outpatient R SALEEM RIVERO [facility] [id number] [facility] 2023-06-11 10:30:00 2023-06-11 13:21:52 Telemedici ne Visit Cyn Salmeron Joseph W [facility] ..840.114 350.1.13.10 4.2.7.2.686 [id number] [facility] 2023-06-08 15:15:00 2023-06-08 15:20:06 Outpatient R JUSTYNA GIFFORD [facility] [id number] [facility] 2023-06-08 15:15:00 2023-06-08 15:20:06 Routine Visit Justyna Gifford [facility] MET[facility] CLEANER [facility] ..840.114 350.1.13.10 4.2.7.2.686 [id number] [facility] 2023-06-08 14:00:00 2023-06-08 14:27:55 Outpatient P ELEANOR DUVALL SHANNON [facility] [id number] [facility] 2023-06-08 14:00:00 2023-06-08 14:27:55 Flooring Grader Visit Ultrasound, Eleanor Ko [facility] 1..840.114 350.1.13.10 4.2.7.2.686 [id number] [facility] 2023-06-03 00:00:00 2023-06-03 00:00:00 Abstract Justyna Gifford [facility] MET[facility] CLE[facility]ER [facility] 1..840.114 350.1.13.10 4.2.7.2.686 [id number] 107 [id number] [facility] 2023-06-03 00:00:00 2023-06-03 00:00:00 Abstract Justyna Gifford [facility] CLE[facility]ER [facility] 1..840.114 350.1.13.10 4.2.7.2.686 [id number] [facility] 2023-06-01 11:00:00 2023-06-01 11:20:42 Outpatient P RANJITH DUMONT [facility] [id number] [facility] 2023-06-01 11:00:00 2023-06-01 11:20:42 Flooring Grader Visit Ultrasound, Manjinder ma [facility] CHILD [facility] 1..840.114 350.1.13.10 4.2.7.2.686 [id number] [facility] 2023-05-28 10:45:00 2023-05-28 13:42:35 Outpatient P SLICK DRIVER [facility] [id number] [facility] 2023-05-28 10:45:00 2023-05-28 13:42:35 Flooring Grader Visit 3, [facility] Usg Room Slick Driver [facility] 1.114 350.1.13.10 4.2.7.2.686 [id number] [facility] 2023-05-25 08:00:00 2023-05-25 08:45:54 Outpatient R JUSTYNA GIFFORD [facility] [id number] [facility] 2023-05-25 08:00:00 2023-05-25 08:45:54 Routine Visit Justyna Gifford [facility] METAL CLEANER [facility] MATERNAL & CHILD [facility] 1..114 350.1.13.10 4.2.7.2.686 [id number] 107 [id number] [facility] 2023-05-25 00:00:00 2023-05-25 00:00:00 Orders Only Doctor Unassigned, [place] [facility] 1.114 350.1.13.10 4.2.7.2.686 [id number] [facility] 2023-05-21 09:15:00 2023-05-21 09:31:32 Outpatient P NOEMY DURAN COREY [facility] [id number] [facility] 2023-05-21 09:15:00 2023-05-21 09:31:32 Flooring Grader Visit Ultrasound, [facility] Ranjith Dumont Corey [facility] METAL CLEANER [facility] MATERNAL & CHILD [facility] 1..114 350.1.13.10 4.2.7.2.686 [id number] [facility] 2023-05-21 00:00:00 2023-05-21 00:00:00 Abstract Justyna Gifford [facility] MET[facility] CLE[facility]ER [facility] 1.2840.114 350.1.13.10 4.2.7.2.686 [id number] 107 [id number] [facility] 2023-05-21 00:00:00 2023-05-21 00:00:00 Telephone Justyna Gifford [facility] 1.2840.114 350.1.13.10 4.2.7.2.686 [id number] 107 [id number] [facility] 2023-05-13 00:00:00 2023-05-13 00:00:00 Abstract Justyna Gifford [facility] 1.2840.114 350.1.13.10 4.2.7.2.686 [id number] 107 [id number] [facility] 2023-05-07 13:00:00 2023-05-07 14:41:17 Outpatient R ELEANOR DUVALL SHANNON [facility] [id number] [facility] 2023-05-07 13:00:00 2023-05-07 14:41:17 Flooring Grader Visit 1, [facility] Us Room Eleanor Duvall [facility] 1..114 350.1.13.10 4.2.7.2.686 [id number] [facility] 2023-04-26 11:00:00 2023-04-26 11:15:34 Outpatient R ISABELLDAIANA JAYILOLA [facility] [id number] [facility] 2023-04-26 11:00:00 2023-04-26 11:15:34 Routine Visit IsabellJustyna jay Tin [facility]ER [facility] 1.2840.114 350.1.13.10 4.2.7.2.686 [id number] [facility] 2023-04-23 13:00:00 2023-04-23 14:53:54 Outpatient P NOEMY DURAN NOEMY [facility] [id number] [facility] 2023-04-23 13:00:00 2023-04-23 14:53:54 Flooring Grader Visit 1, [facility] Us Room Eleanor Duvall [facility] 1..114 350.1.13.10 4.2.7.2.686 [id number] [facility] 2023-04-09 13:30:00 2023-04-09 14:37:48 Flooring Grader Visit 1, [facility] Room Eleanor Duvall [facility] 1..114 350.1.13.10 4.2.7.2.686 [id number] [facility] 2023-04-09 13:30:00 2023-04-09 13:30:00 Outpatient P ELEANOR DUVALL SHANNON [facility] [id number] [facility] 2023-04-09 00:00:00 2023-04-09 00:00:00 Abstract Justyna Gifford [facility] METAL CLEANER [facility] 1.84.114 350.1.13.10 4.2.7.2.686 [id number] [facility] 2023-04-02 13:00:00 2023-04-02 13:00:00 Outpatient P ELEANOR DUVALL SHANNON [facility] [id number] [facility] 2023-04-01 00:00:00 2023-04-01 00:00:00 Abstract Justyna Gifford [facility] 1.84.114 350.1.13.10 4.2.7.2.686 [id number] [facility] 2023-03-29 10:45:00 2023-03-29 11:09:07 Outpatient R JUSTYNA GIFFORD [facility] [id number] [facility] 2023-03-29 10:45:00 2023-03-29 11:09:07 Routine Visit Justyna Gifford [facility] METAL CLEANER [facility] MATERNAL & CHILD [facility] 1..840.114 350.1.13.10 4.2.7.2.686 [id number] [facility] 2023-03-26 13:00:00 2023-03-26 13:54:31 Flooring Grader Visit 1, [facility] Us Eleanor Hernandez [facility] 1..840.114 350.1.13.10 4.2.7.2.686 [id number] [facility] 2023-03-26 13:00:00 2023-03-26 13:00:00 Outpatient P ELEANOR DUVALL [facility] [id number] [facility] 2023-03-03 00:00:00 2023-03-03 00:00:00 Abstract Justyna Gifford [facility] METAL CLEAN[facility] & CHILD [facility] 1.2.840.114 350.1.13.10 4.2.7.2.686 [id number] [facility] 2023-03-02 12:15:00 2023-03-02 12:37:39 Flooring Grader Visit Lab, [facility] 1.840.114 350.1.13.10 4.2.7.2.686 [id number] [facility] 2023-03-02 12:15:00 2023-03-02 12:15:00 Outpatient P NOEMY DURAN [facility] [id number] [facility] 2023-03-02 11:15:00 2023-03-02 12:08:01 Flooring Grader Visit 2, [facility] Room [facility] 1..114 350.1.13.10 4.2.7.2.686 [id number] [facility] 2023-03-02 00:00:00 2023-03-02 00:00:00 Case Management May Loera [facility] 1..114 350.1.13.10 4.2.7.2.686 [id number] [facility] 2023-03-01 10:30:00 2023-03-01 11:02:26 Outpatient R JUSTYNA GIFFORD [facility] [id number] [facility] 2023-03-01 10:30:00 2023-03-01 11:02:26 Routine Visit Justyna Gifford [facility] METAL CLEAN[facility] & CHILD [facility] 1.114 350.1.13.10 4.2.7.2.686 [id number] [facility] 2023-02-01 13:45:00 2023-02-01 14:46:34 [facility] [facility] [id number] [facility] 2023-02-01 13:45:00 2023-02-01 14:46:34 Initial Visit Justyna Gifford [facility] 1..114 350.1.13.10 4.2.7.2.686 [id number] 107 [id number] [facility] 2023-02-01 00:00:00 2023-02-01 00:00:00 Orders Only Doctor Unassigned, [place] [facility] 1..114 350.1.13.10 4.2.7.2.686 [id number] [facility] 2023-02-01 00:00:00 2023-02-01 00:00:00 Telephone MarybacilioJustyna Tin [facility] METAL CLEANER [facility] CHILD [facility] 1..840.114 350.1.13.10 4.2.7.2.686 [id number] 107 [id number] [facility] 2022-11-24 09:45:00 2022-11-24 10:38:20 Nurse Visit Nurse, Kayode Rmchp Exp Cprit Obgyn IsabellchristianoJustyna ribera [facility] METAL CLEANER [facility] CHILD [facility] 1..840.114 350.1.13.10 4.2.7.2.686 [id number] 107 [id number] [facility] 2022-11-24 09:45:00 2022-11-24 09:45:00 Outpatient R JUSTYNA GIFFORD [facility] [id number] [facility] 2022-10-16 10:00:00 2022-10-16 10:00:00 Outpatient R JUSTYNA GIFFORD [facility] [id number] [facility] 2022-10-07 00:00:00 2022-10-07 00:00:00 Telephone Justyna Gifford [facility] METAL CLEANER [facility] 1..840.114 350.1.13.10 4.2.7.2.686 [id number] 107 [id number] [facility] 2022-10-02 10:00:00 2022-10-02 10:00:00 Outpatient R JUSTYNA GIFFORD [facility] [id number] [facility] 2022-09-15 08:30:00 2022-09-15 09:32:01 Outpatient R JUSTYNA GIFFORD [facility] [id number] [facility] 2022-09-15 08:30:00 2022-09-15 09:32:01 Office Visit Justyna Gifford [facility] METAL [facility] CHILD [facility] 1.2.840.114 350.1.13.10 4.2.7.2.686 [id number] 107 [id number] [facility] 2022-09-14 00:00:00 2022-09-14 00:00:00 Telephone Justyna Gifford [facility] METAL CLEANER [facility] MATERNAL & CHILD [facility] 1.2.840.114 350.1.13.10 4.2.7.2.686 [id number] 107 [id number] [facility] 2022-08-20 08:00:00 2022-08-20 09:04:07 Outpatient JACQUELYN ALMEIDA [facility] [id number] [facility] 2022-08-20 08:00:00 2022-08-20 09:04:07 Routine Visit Provider, Lan Rivera Brenda A [facility] 1.2840.114 350.1.13.10 4.2.7.2.686 [id number] 107 [id number] [facility] 2022-07-30 06:31:00 2022-08-01 14:22:00 Inpatient P RANJITH [facility] [id number] [facility] 2022-07-30 06:31:00 2022-08-01 14:22:00 Hospital Encounter Rich Malik Gay [facility] 1.2.840.114 350.1.13.10 4.2.7.2.686 [id number] [facility] 2022-08-01 00:00:00 2022-08-01 00:00:00 Encounter 1.2.840.1 [id number] 3.104.2.7 [id number] 1.2.840.114 350.1.13.10 4.2.7.2.696 [id number] [facility] 2022-07-31 09:45:00 2022-07-31 09:45:00 Outpatient R LAN SCHMIDT [facility] [id number] [facility] 2022-07-30 09:50:00 2022-07-30 21:16:00 Anesthesia Event Estuardo Peguero Daniel [facility] 1.2840.114 350.1.13.10 4.2.7.2.686 [id number] 132 [id number] [facility] 2022-07-30 00:00:00 2022-07-30 00:00:00 Orders Only Doctor Unassigned, [place] [facility] 1.2840.114 350.1.13.10 4.2.7.2.686 [id number] [facility] 2022-07-21 19:40:00 2022-07-22 00:54:00 Outpatient P FRANCO CAMARA [facility] [id number] [facility] 2022-07-21 19:40:00 2022-07-22 00:54:00 [facility] 1.840.114 350.1.13.10 4.2.7.2.686 [id number] 140 [id number] [facility] 2022-07-21 00:00:00 2022-07-21 00:00:00 Telephone Lan Schmidt [facility] METAL CLEANER [facility] MATERNAL & CHILD [facility] 1..840.114 350.1.13.10 4.2.7.2.686 [id number] 107 [id number] [facility] 2022-07-15 13:00:00 2022-07-15 13:44:39 Outpatient LAN SÁNCHEZ [facility] [id number] [facility] 2022-07-15 13:00:00 2022-07-15 13:44:39 Routine Visit Lan Schmidt [facility] METAL CLEANER [facility] MATERNAL & CHILD [facility] 1.2.840.114 350.1.13.10 4.2.7.2.686 [id number] 107 [id number] [facility] 2022-07-01 13:00:00 2022-07-01 13:30:26 Outpatient R LAN SCHMIDT [facility] [id number] [facility] 2022-07-01 13:00:00 2022-07-01 13:30:26 Routine Visit Lan Schmidt [facility] METAL CLEANER [facility] 1..840.114 350.1.13.10 4.2.7.2.686 [id number] 107 [id number] [facility] 2022-07-01 13:00:00 2022-07-01 13:30:26 Outpatient LAN SÁNCHEZ [facility] [id number] [facility] 2022-07-01 13:00:00 2022-07-01 13:00:00 Outpatient R LAN SCHMIDT [facility] [id number] [facility] 2022-06-16 13:45:00 2022-06-16 14:44:53 Outpatient R LAN SCHMIDT [facility] [id number] [facility] 2022-06-16 13:45:00 2022-06-16 14:44:53 Routine Visit Lan Schmidt [facility] METAL CLEANER [facility] CHILD [facility] 1..840.114 350.1.13.10 4.2.7.2.686 [id number] 107 [id number] [facility] 2022-06-16 13:45:00 2022-06-16 13:45:00 Outpatient R LAN SCHMIDT [facility] [id number] [facility] 2022-06-03 13:00:00 2022-06-03 13:43:24 Outpatient R LAN SCHMIDT [facility] [id number] [facility] 2022-06-03 13:00:00 2022-06-03 13:43:24 Routine Visit Lan Schmidt Joshua [facility] METAL CLEANER [facility] MATERNAL & CHILD [facility] .840.114 350.1.13.10 4.2.7.2.686 [id number] 107 [id number] [facility] 2022-06-03 13:00:00 2022-06-03 13:00:00 Outpatient R LAN SCHMIDT [facility] [id number] [facility] 2022-05-13 13:45:00 2022-05-13 14:35:56 Outpatient R LAN SCHMIDT [facility] [id number] [facility] 2022-05-13 13:45:00 2022-05-13 14:35:56 Routine Visit Lan Schmidt Joshua [facility] CHILD [facility] 1.840.114 350.1.13.10 4.2.7.2.686 [id number] 107 [id number] [facility] 2022-05-13 13:45:00 2022-05-13 13:45:00 Outpatient R LAN SCHMIDT [facility] [id number] [facility] 2022-04-15 13:45:00 2022-04-15 14:25:42 Outpatient R LAN SCHMIDT [facility] [id number] [facility] 2022-04-15 13:45:00 2022-04-15 14:25:42 Routine Visit Lan Schmidt Joshua [facility] METAL CLEANER [facility] ..840.114 350.1.13.10 4.2.7.2.686 [id number] 107 [id number] [facility] 2022-04-06 13:00:00 2022-04-06 14:00:00 Flooring Grader Visit Ultrasound, Ranjith Stephens [facility] METAL CLEANER [facility] MATERNAL & CHILD [facility] 1.2.840.114 350.1.13.10 4.2.7.2.686 [id number] [facility] 2022-04-06 13:00:00 2022-04-06 13:00:00 Outpatient P GARVEY KD RANJITH Ma [facility] [id number] [facility] 2022-04-06 00:00:00 2022-04-06 00:00:00 Abstract Lan Schmidt [facility] METAL CLEANER [facility] 1.2.840.114 350.1.13.10 4.2.7.2.686 [id number] 107 [id number] [facility] 2022-03-27 13:30:00 2022-03-27 13:30:00 Outpatient P [facility] [id number] [facility] 2022-03-18 13:45:00 2022-03-18 14:45:46 Outpatient R LAN SCHMIDT [facility] [id number] [facility] 2022-03-18 13:45:00 2022-03-18 14:45:46 Routine Visit Lan Schmidt [facility] METAL CLEANER [facility] 1.2.840.114 350.1.13.10 4.2.7.2.686 [id number] 107 [id number] [facility] 2022-02-18 13:45:00 2022-02-18 14:00:00 Routine Visit Lan Schmidt [facility] METAL CLEANER [facility] 1.2.840.114 350.1.13.10 4.2.7.2.686 [id number] 107 [id number] [facility] 2022-02-18 13:45:00 2022-02-18 13:45:00 Outpatient R LAN SCHMIDT [facility] [id number] [facility] 2022-02-03 00:00:00 2022-02-03 00:00:00 Abstract Lan Schmidt [facility] METAL CLEANER [facility] MATERNAL & CHILD [facility] 1..840.114 350.1.13.10 4.2.7.2.686 [id number] 107 [id number] [facility] 2022-02-02 11:30:00 2022-02-02 12:07:44 Flooring Grader Visit Ultrasound, Franco Perez [facility] METAL CLEANER [facility] MATERNAL & CHILD [facility] 1..840.114 350.1.13.10 4.2.7.2.686 [id number] [facility] 2022-02-02 11:30:00 2022-02-02 11:30:00 Outpatient P FRANCO CAMARA [facility] [id number] [facility] 2022-02-02 00:00:00 2022-02-02 00:00:00 Orders Only Doctor Unassigned, [place] [facility] 1.840.114 350.1.13.10 4.2.7.2.686 [id number] [facility] 2022-01-21 13:15:00 2022-01-21 13:56:45 Outpatient LAN SÁNCHEZ [facility] [id number] [facility] 2022-01-21 13:15:00 2022-01-21 13:56:45 Routine Visit Lan Schmidt [facility] METAL CLEANER [facility] 1..840.114 350.1.13.10 4.2.7.2.686 [id number] 107 [id number] [facility] 2022-01-21 13:15:00 2022-01-21 13:15:00 Outpatient LAN SÁNCHEZ [facility] [id number] [facility] 2021-12-26 00:00:00 2021-12-26 00:00:00 Patient Secure Msg Lan Schmidt [facility] METAL CLEANER [facility] 1.2840.114 350.1.13.10 4.2.7.2.686 [id number] 107 [id number] [facility] 2021-12-24 14:00:00 2021-12-24 14:30:10 Outpatient R LAN SCHMIDT [facility] [id number] [facility] 2021-12-24 14:00:00 2021-12-24 14:30:10 Initial Visit Lan Schmidt [facility] METAL CLEANER [facility] 1.840.114 350.1.13.10 4.2.7.2.686 [id number] 107 [id number] [facility] 2021-12-24 00:00:00 2021-12-24 00:00:00 Orders Only Doctor Unassigned, [place] [facility] 1.840.114 350.1.13.10 4.2.7.2.686 [id number] [facility] 2021-11-05 14:30:00 2021-11-05 15:10:38 Outpatient R LAN SCHMIDT [facility] [id number] [facility] 2021-11-05 14:30:00 2021-11-05 15:10:38 Nurse Visit Nurse, Kayode Rmchp Exp Cprit [facility] 1.0.114 350.1.13.10 4.2.7.2.686 [id number] 107 [id number] [facility] 2021-11-05 14:15:00 2021-11-05 15:10:30 Office Visit Lan Schmidt [facility] METAL CLEANER [facility] CHILD [facility] 1.2840.114 350.1.13.10 4.2.7.2.686 [id number] 107 [id number] [facility] 2021-11-05 14:15:00 2021-11-05 15:10:30 Outpatient R LAN SCHMIDT [facility] [id number] [facility] 2021-10-15 10:45:00 2021-10-15 11:11:09 Outpatient LAN SÁNCHEZ [facility] [id number] [facility] 2021-10-15 10:45:00 2021-10-15 11:11:09 Outpatient R LAN SHCMIDT [facility] [id number] [facility] 2021-10-15 10:45:00 2021-10-15 11:11:09 Routine Visit Schmidt, Rosneva Lewis [facility] METAL CLEANER [facility] MATERNAL & CHILD [facility] 1.2.840.114 350.1.13.10 4.2.7.2.686 [id number] 107 [id number] [facility] 2021-09-23 12:41:00 2021-09-25 17:22:00 [facility] [id number] [facility] 2021-09-23 12:41:00 2021-09-25 17:22:[address] [facility] 1.2.840.114 350.1.13.10 4.2.7.2.686 [id number] 133 [id number] [facility] 2021-09-23 18:30:00 2021-09-24 04:16:00 Anesthesia Event Matheus Sosa Husong [facility] 1.2.840.114 350.1.13.10 4.2.7.2.686 [id number] [facility] 2021-09-23 12:41:00 2021-09-23 12:41:00 Inpatient P NITHYA PARMAR [facility] [id number] [facility] 2021-09-23 08:12:02 2021-09-23 08:51:22 Routine Visit Loy Carvajal [facility] METAL CLEANER [facility] & CHILD [facility] 1.2.840.114 350.1.13.10 4.2.7.2.686 [id number] 107 [id number] [facility] 2021-09-23 08:00:00 2021-09-23 08:51:22 Outpatient LOY SOLIS [facility] [id number] [facility] 2021-09-23 08:00:00 2021-09-23 08:51:22 Outpatient LOY SOLIS [facility] [id number] [facility] 2021-09-23 08:00:00 2021-09-23 08:51:22 Outpatient LOY SOLIS [facility] [id number] [facility] 2021-09-19 08:15:00 2021-09-19 08:20:25 Flooring Grader Visit Lab, Loy [facility] 1.2.840.114 350.1.13.10 4.2.7.2.686 [id number] 107 [id number] [facility] 2021-09-19 08:15:00 2021-09-19 08:15:00 Outpatient LOY SOLIS [facility] [id number] [facility] 2021-09-18 08:00:00 2021-09-18 08:00:00 Outpatient Joshua [facility] [id number] [facility] 2021-09-17 13:15:00 2021-09-17 13:41:06 Outpatient TRAN DESOUZA [facility] [id number] [facility] 2021-09-17 13:15:00 2021-09-17 13:41:06 Outpatient TRAN DESOUZA [facility] [id number] [facility] 2021-09-17 13:01:35 2021-09-17 13:41:06 Routine Visit Provider, Tran Gallegos [facility] 1.2.840.114 350.1.13.10 4.2.7.2.686 [id number] 107 [id number] [facility] 2021-09-17 13:15:00 2021-09-17 13:15:00 Outpatient R [facility] [id number] [facility] 2021-09-10 13:30:00 2021-09-10 14:01:10 Outpatient R LOY CARVAJAL [facility] [id number] [facility] 2021-09-10 13:30:00 2021-09-10 14:01:10 Outpatient R LOY CARVAJAL [facility] [id number] [facility] 2021-09-10 13:20:37 2021-09-10 14:01:10 Routine Visit Loy Carvajal [facility] METAL CLEANER [facility] 1..840.114 350.1.13.10 4.2.7.2.686 [id number] 107 [id number] [facility] 2021-09-04 15:00:00 2021-09-04 16:12:16 Outpatient R LAKSHMI MARTIN [facility] [id number] [facility] 2021-09-04 15:00:00 2021-09-04 16:12:16 Routine Visit Risk, Ang-Rmchp-N p/High Lakshmi Martin [facility] METAL CLEANER [facility] 1..840.114 350.1.13.10 4.2.7.2.686 [id number] 107 [id number] [facility] 2021-09-04 15:00:00 2021-09-04 15:00:00 Outpatient R LAKSHMI MARTIN [facility] [id number] [facility] 2021-09-04 11:00:00 2021-09-04 11:00:00 Outpatient R [facility] [id number] [facility] 2021-09-03 11:28:13 2021-09-03 11:58:13 Flooring Grader Visit Ultrasound, BerthaMfhemalatha Cooper anilRanjith [facility] METAL CLEANER [facility] MATERNAL & CHILD [facility] 1.2.840.114 350.1.13.10 4.2.7.2.686 [id number] [facility] 2021-09-03 11:30:00 2021-09-03 11:30:00 Outpatient P GARVEY KD Anil KASPER [facility] [id number] [facility] 2021-08-21 11:01:13 2021-08-21 13:00:36 Routine Visit Risk, Bahmanchp-N p/High Lakshmi Martin [facility] METAL CLEANER [facility] MATERNAL & CHILD [facility] 1.2.840.114 350.1.13.10 4.2.7.2.686 [id number] 107 [id number] [facility] 2021-08-21 11:00:00 2021-08-21 13:00:36 Outpatient LAKSHMI RODRIGUEZ [facility] [id number] [facility] 2021-08-21 11:00:00 2021-08-21 13:00:36 Routine Visit Risk, Bahmanchp-N p/High Lakshmi Martin [facility] METAL CLEANER [facility] MATERNAL & CHILD [facility] 1..840.114 350.1.13.10 4.2.7.2.686 [id number] 107 [id number] [facility] 2021-08-21 11:00:00 2021-08-21 13:00:36 Outpatient LAKSHMI RODRIGUEZ [facility] [id number] [facility] 2021-08-21 11:00:00 2021-08-21 11:00:00 Outpatient LAKSHMI RODRIGUEZ [facility] [id number] [facility] 2021-08-21 11:00:00 2021-08-21 11:00:00 Outpatient Joshua [facility] [id number] [facility] 2021-08-04 11:13:07 2021-08-04 11:44:34 Routine Visit Loy Carvajal [facility] METAL CLEANER [facility] 1.2840.114 350.1.13.10 4.2.7.2.686 [id number] 107 [id number] [facility] 2021-08-04 11:00:00 2021-08-04 11:00:00 Outpatient R LOY CARVAJAL [facility] [id number] [facility] 2021-08-04 00:00:00 2021-08-04 00:00:00 Patient Secure Msg Loy Carvajal [facility] METAL CLEANER [facility] 1..840.114 350.1.13.10 4.2.7.2.686 [id number] 107 [id number] [facility] 2021-07-21 10:53:37 2021-07-21 11:37:38 Routine Visit Justyna Gifford [facility] METAL CLEANER [facility] CHILD [facility] 1.840.114 350.1.13.10 4.2.7.2.686 [id number] 107 [id number] [facility] 2021-07-21 10:45:00 2021-07-21 10:45:00 Outpatient R JUSTYNA GIFFORD [facility] [id number] [facility] 2021-07-11 07:45:50 2021-07-11 07:57:26 Flooring Grader Visit Lab, Justyna Bhatia [facility] METAL CLEANER [facility] CHILD [facility] 1..840.114 350.1.13.10 4.2.7.2.686 [id number] 107 [id number] [facility] 2021-07-11 07:45:50 2021-07-11 07:57:26 Flooring Grader Visit Lab, Justyna Bhatia [facility] METAL CLEANER [facility]ILD [facility] 1.2.840.114 350.1.13.10 4.2.7.2.686 [id number] 107 [id number] [facility] 2021-07-11 07:45:00 2021-07-11 07:45:00 Outpatient R JUSTYNA GIFFORD [facility] [id number] [facility] 2021-07-08 00:00:00 2021-07-08 00:00:00 Telephone Justyna Gifford [facility] METAL CLEANER [facility] 1.2.840.114 350.1.13.10 4.2.7.2.686 [id number] 107 [id number] [facility] 2021-07-08 00:00:00 2021-07-08 00:00:00 Telephone Justyna Gifford [facility] METAL CLEANER [facility] CHILD [facility] 1.2.840.114 350.1.13.10 4.2.7.2.686 [id number] 107 [id number] [facility] 2021-07-07 08:03:27 2021-07-07 08:32:40 Routine Visit Justyna Gifford [facility] CHILD [facility] 1.2.840.114 350.1.13.10 4.2.7.2.686 [id number] 107 [id number] [facility] 2021-07-07 08:30:00 2021-07-07 08:30:00 Outpatient R JUSTYNA GIFFORD [facility] [id number] [facility] 2021-06-30 07:45:00 2021-06-30 07:45:00 Outpatient R JUSTYNA GIFFORD [facility] [id number] [facility] 2021-06-16 12:44:54 2021-06-16 13:34:42 Routine Visit Justyna Gifford [employer] [facility] CHILD [facility] [id number] 350.1.13.10 4.2.7.2.686 [id number] [facility] 2021-06-16 12:44:54 2021-06-16 13:34:42 Routine Visit Justyna Gifford [facility] 1.2.840.114 350.1.13.10 4.2.7.2.686 [id number] [facility] 2021-06-16 12:45:00 2021-06-16 12:45:00 Outpatient R ISABELLMISTY JUSTYNA [facility] [id number] [facility] 2021-06-11 00:00:00 2021-06-11 00:00:00 Abstract Justyna Gifford [facility] [employer] [facility] CHILD [facility] 1.2840.114 350.1.13.10 4.2.7.2.686 [id number] [facility] 2021-06-11 00:00:00 2021-06-11 00:00:00 Abstract Justyna Gifford [facility] [employer] [facility] CHILD [facility] 1.2840.114 350.1.13.10 4.2.7.2.686 [id number] [facility] 2021-06-10 13:20:30 2021-06-10 13:50:30 Flooring Grader Visit Ultrasound, [facility] 1.2840.114 350.1.13.10 4.2.7.2.686 [id number] [facility] 2021-06-10 13:20:30 2021-06-10 13:50:30 Flooring Grader Visit Ultrasound, Manjinder Rosales Jameslaw [facility] [employer] [facility] 1.2.840.114 350.1.13.10 4.2.7.2.686 [id number] [facility] 2021-06-10 13:30:00 2021-06-10 13:30:00 Outpatient P [facility] [id number] [facility] 2021-05-19 11:30:42 2021-05-19 11:47:07 Routine Visit Justyna Gifford [facility] [employer] [facility] .840.114 350.1.13.10 4.2.7.2.686 [id number] [facility] 2021-05-19 11:00:00 2021-05-19 11:00:00 Outpatient R JUSTYNA GIFFORD [facility] [id number] [facility] 2021-05-12 11:05:04 2021-05-12 12:15:28 Flooring Grader Visit Ultrasound, [place] Bermudez [facility] 1.840.114 350.1.13.10 4.2.7.2.686 [id number] [facility] 2021-05-12 11:00:00 2021-05-12 11:00:00 Outpatient P [facility] [id number] [facility] 2021-05-12 00:00:00 2021-05-12 00:00:00 Abstract Justyna Gifford [facility] .840.114 350.1.13.10 4.2.7.2.686 [id number] [facility] 2021-04-21 10:38:45 2021-04-21 11:20:21 Routine Visit Justyna Gifford [facility] ..840.114 350.1.13.10 4.2.7.2.686 [id number] [facility] 2021-04-21 10:30:00 2021-04-21 10:30:00 Outpatient R JUSTYNA GIFFORD [facility] [id number] [facility] 2021-03-26 00:00:00 2021-03-26 00:00:00 Abstract Justyna Gifford [facility] METAL CLE[facility]ER [facility] & CHILD [facility] 1.2.840.114 350.1.13.10 4.2.7.2.686 [id number] [facility] 2021-03-24 13:05:51 2021-03-24 13:52:28 Flooring Grader Visit Lab/Dixie More Jennifer A [facility] 1.2.840.114 350.1.13.10 4.2.7.2.686 [id number] [facility] 2021-03-24 13:05:26 2021-03-24 13:38:30 [facility]ing [facility] Just[facility]ord Antonio F [facility] 1.2.840.114 350.1.13.10 4.2.7.2.686 [id number] [facility] 2021-03-24 13:00:00 2021-03-24 13:38:30 Outpatient P RICH MALIK [facility] [id number] [facility] 2021-03-24 13:00:00 2021-03-24 13:38:30 Outpatient RICH PECK [facility] [id number] [facility] 2021-03-24 10:06:46 2021-03-24 10:42:18 Routine Visit Justyna Gifford [facility] 1.2.840.114 350.1.13.10 4.2.7.2.686 [id number] [facility] 2021-03-24 10:30:00 2021-03-24 10:30:00 Outpatient R JUSTYNA GIFFORD [facility] [id number] [facility] 2021-02-28 00:00:00 2021-02-28 00:00:00 Abstract Justyna Gifford [facility] 1.2840.114 350.1.13.10 4.2.7.2.686 [id number] [facility] 2021-02-27 08:55:24 2021-02-27 09:25:24 Flooring Grader Visit Ultrasound, Eleanor Ko [facility] 1.840.114 350.1.13.10 4.2.7.2.686 [id number] [facility] 2021-02-27 09:00:00 2021-02-27 09:00:00 Outpatient P [facility] [id number] [facility] 2021-02-24 10:36:42 2021-02-24 10:59:39 Routine Visit Justyna Gifford [facility] 1.840.114 350.1.13.10 4.2.7.2.686 [id number] [facility] 2021-02-24 10:30:00 2021-02-24 10:30:00 Outpatient R JUSTYNA GIFFORD [facility] [id number] [facility] 2021-02-18 00:00:00 2021-02-18 00:00:00 Patient Secure Msg Justyna Gifford [facility] 1.2840.114 350.1.13.10 4.2.7.2.686 [id number] [facility] 2021-01-27 10:11:22 2021-01-27 11:25:32 Initial Visit Justyna Gifford [facility] MET[facility] 1.2.840.114 350.1.13.10 4.2.7.2.686 [id number] [facility] 2021-01-27 10:00:00 2021-01-27 10:00:00 Outpatient R JUSTYNA GIFFORD [facility] [id number] [facility] 2021-01-27 00:00:00 2021-01-27 00:00:00 Orders Only Doctor Unassigned, [place] [facility] 1..840.114 350.1.13.10 4.2.7.2.686 [id number] [facility] Results Test Description Test Time Test Comments Results Result Co mments Source [facility] (D) IMMUNE [id number] 16:19:18* Test Item Value Reference Range Interpretation Comme nts RHIG CANDIDATE? (test code = 5188) No- see comment Patient is not a candidate for RhIg- Patient is Rh Positive.Performed at [facility] Laboratory Services - [facility] Blood [address] [address] Free: [phone] No. [id number] [facility] (D) IMMUNE [id number] 16:19:18* Test Item Value Reference Range Interpretation Comme nts RHIG CANDIDATE? (test code = 5188) No- see comment Patient is not a candidate for RhIg- Patient is Rh Positive.Performed at [facility] Laboratory Services - [facility] Blood [address] [address] Free: [phone] No. [id number] [facility] [id number] 14:50:16* Test Item Value Reference Range Interpretation Comme nts Syphilis IgG/IgM (test code = 17747-9) Non-reactive Non-reactive HILDA (test code = HILDA) Non-reactive - No serologic evidence of T. pallidum infection. Cannot exclude incubating or early syphilis. Submit a second specimen in 2-4 weeks if syphilis is clinically suspected. Equivocal - Further testing to follow. Reactive - Further testing to follow. Lab Interpretation (test code = 51455-2) Normal [facility] [place] [id number] 14:50:16* Test Item Value Reference Range Interpretation Comme nts Syphilis IgG/IgM (test code = 40544-9) Non-reactive Non-reactive HILDA (test code = HILDA) Non-reactive - No serologic evidence of T. pallidum infection. Cannot exclude incubating or early syphilis. Submit a second specimen in 2-4 weeks if syphilis is clinically suspected. Equivocal - Further testing to follow. Reactive - Further testing to follow. Lab Interpretation (test code = 05658-6) Normal [facility] [id number] 08:45:15* Test Item Value Reference Range Interpretation Comme nts BASE EXCESS, CORD (test code = 4449504215) -6.3 mEq/L AC PH, CORD (BEAKER) (test code = 0889690265) 7.27 7.18-7.38 PC02, CORD (test code = 2865437677) 46 See_Comment [Automated messa ge] The system which generated this result transmitted reference range: 32 - 66 mmHg. The reference range was not used to interpret this result as normal/abnormal. PO2, CORD (test code = 9834039224) 32 See_Comment H [Automated messa ge] The system which generated this result transmitted reference range: 10 - 30 mmHg. The reference range was not used to interpret this result as normal/abnormal. BICARBONATE, CORD (test code = 6659199895) 21 See_Comment [Automated me ssage] The system which generated this result transmitted reference range: 17 - 27 mEq/L. The reference range was not used to interpret this result as normal/abnormal. Lab Interpretation (test code = 66700-1) [facility]normal [facility] [id number] 08:45:15* Test Item Value Reference Range Interpretation Comme nts BASE EXCESS, CORD (test code = 9887216937) -6.3 mEq/L AC PH, CORD (BEAKER) (test code = 7777567635) 7.27 7.18-7.38 PC02, CORD (test code = 9989022542) 46 See_Comment [Automated messa ge] The system which generated this result transmitted reference range: 32 - 66 mmHg. The reference range was not used to interpret this result as normal/abnormal. PO2, CORD (test code = 6040979850) 32 See_Comment H [Automated messa ge] The system which generated this result transmitted reference range: 10 - 30 mmHg. The reference range was not used to interpret this result as normal/abnormal. BICARBONATE, CORD (test code = 8888934366) 21 See_Comment [Automated me ssage] The system which generated this result transmitted reference range: 17 - 27 mEq/L. The reference range was not used to interpret this result as normal/abnormal. Lab Interpretation (test code = 02965-9) Abnormal [facility] Cord [id number] 08:44:55* Test Item Value Reference Range Interpretation Comme nts VENOUS BASE EXCESS, CORD (test code = 7531052340) -2.3 mEq/L VENOUS PH, CORD (test code = 7624788169) 7.40 7.25-7.45 VENOUS PC02, CORD (test code = 2744960981) 37 See_Comment [Automated messa ge] The system which generated this result transmitted reference range: 27 - 49 mmHg. The reference range was not used to interpret this result as normal/abnormal. VENOUS PO2, CORD (test code = 3778366430) 34 See_Comment [Automated me ssage] The system which generated this result transmitted reference range: 17 - 41 mmHg. The reference range was not used to interpret this result as normal/abnormal. VENOUS BICARBONATE, CORD (test code = 9748910399) 22 See_Comment [Automated messa ge] The system which generated this result transmitted reference range: 12 - 29 mEq/L. The reference range was not used to interpret this result as normal/abnormal. [facility] Cord [id number] 08:44:55* Test Item Value Reference Range Interpretation Comme nts VENOUS BASE EXCESS, CORD (test code = 8788727385) -2.3 mEq/L VENOUS PH, CORD (test code = 3298133056) 7.40 7.25-7.45 VENOUS PC02, CORD (test code = 1909193894) 37 See_Comment [Automated messa ge] The system which generated this result transmitted reference range: 27 - 49 mmHg. The reference range was not used to interpret this result as normal/abnormal. VENOUS PO2, CORD (test code = 5724571906) 34 See_Comment [Automated me ssage] The system which generated this result transmitted reference range: 17 - 41 mmHg. The reference range was not used to interpret this result as normal/abnormal. VENOUS BICARBONATE, CORD (test code = 8459841799) 22 See_Comment [Automated messa ge] The system which generated this result transmitted reference range: 12 - 29 mEq/L. The reference range was not used to interpret this result as normal/abnormal. [facility] 1/2 AG-AB WITH [id number] 17:17:36* Test Item Value Reference Range Interpretation Comme nts HIV Semi-quantitative (test code = 47850-4) 0.09 Negative HILDA (test code = HILDA) Non-reactive for HIV-1 antigen and HIV-1/HIV-2 antibodies. ?No laboratory evidence of HIV infection. ?Repeat in 2-4 weeks if acute HIV infection is suspected. [facility] 1/2 AG-AB WITH [id number] 17:17:36* Test Item Value Reference Range Interpretation Comme nts HIV Semi-quantitative (test code = 85023-6) 0.09 Negative HILDA (test code = HILDA) Non-reactive for HIV-1 antigen and HIV-1/HIV-2 antibodies. ?No laboratory evidence of HIV infection. ?Repeat in 2-4 weeks if acute HIV infection is suspected. [facility] B Surface [id number] 16:01:45 * Test Item Value Reference Range Interpretation Comme nts HBsAg Semi-Quantitative (maria luisa t code = 5195-3) 0.10 Negative [facility] B Surface [id number] 16:01:45 * Test Item Value Reference Range Interpretation Comme nts HBsAg Semi-Quantitative (maria luisa t code = 5195-3) 0.10 Negative [facility] with [id number] 15:05:54* Test Item Value Reference Range Interpretation Comme nts WBC (test code = 6690-2) 8.73 See_Comment [Automated messa ge] The system which generated this result transmitted reference range: 4.30 - 11.10 10*3/?L. The reference range was not used to interpret this result as normal/abnormal. RBC (test code = 789-8) 3.81 See_Comment L [Automated messa ge] The system which generated this result transmitted reference range: 3.93 - 5.25 10*6/?L. The reference range was not used to interpret this result as normal/abnormal. HGB (test code = 718-7) 11.3 g/dL 11.6-15.0 L HCT (test code = 4544-3) 34.7 % 35.7-45.2 L MCV (test code = 787-2) 91.1 fL 80.6-95.5 MCH (test code = 785-6) 29.7 pg 25.9-32.8 MCHC (test code = 786-4) 32.6 g/dL 31.6-35.1 RDW-SD (test code = 09868-1) 46.5 fL 39.0-49.9 RDW-CV (test code = 788-0) 13.9 % 12.0-15.5 PLT (test code = 777-3) 232 See_Comment [Automated [employer] ge] The system which generated this result transmitted reference range: 166 - 358 10*3/?L. The reference range was not used to interpret this result as normal/abnormal. MPV (test code = 99765-2) 10.3 fL 9.5-12.9 NRBC/100 WBC (test code = 3198873126) 0.0 See_Comment [Automated Agrivida ssage] The system which generated this result transmitted reference range: 0.0 - 10.0 /100 WBCs. The reference range was not used to interpret this result as normal/abnormal. NRBC x10^3 (test code = 9451300759) See_Comment [Automated [employer]] The system which generated this result transmitted reference range: 10*3/?L. The reference range was not used to interpret this result as normal/abnormal. GRAN MAT (NEUT) % (test code = 770-8) 76.7 % IMM GRAN % (test code = 7482234231) 0.60 % LYMPH % (test code = 736-9) 16.0 % MONO % (test code = 5905-5) 5.8 % EOS % (test code = 713-8) 0.7 % BASO % (test code = 706-2) 0.2 % GRAN MAT x10^3(ANC) (test code = 4170122511) 6.69 10*3/uL 1.88-7.09 IMM GRAN x10^3 (test code = 4686381318) 0.05 10*3/uL 0.00-0.06 LYMPH x10^3 (test code = 731-0) 1.40 10*3/uL 1.32-3.29 MONO x10^3 (test code = 742-7) 0.51 10*3/uL 0.33-0.92 EOS x10^3 (test code = 711-2) 0.06 10*3/uL 0.03-0.39 BASO x10^3 (test code = 704-7) 0.01-0.07 Lab Interpretation (test code = 28603-4) Abnormal [facility] with [id number] 15:05:54* Test Item Value Reference Range Interpretation Comme nts WBC (test code = 6690-2) 8.73 See_Comment [Automated [employer]] The system which generated this result transmitted reference range: 4.30 - 11.10 10*3/?L. The reference range was not used to interpret this result as normal/abnormal. RBC (test code = 789-8) 3.81 See_Comment L [Automated [employer]] The system which generated this result transmitted reference range: 3.93 - 5.25 10*6/?L. The reference range was not used to interpret this result as normal/abnormal. HGB (test code = 718-7) 11.3 g/dL 11.6-15.0 L HCT (test code = 4544-3) 34.7 % 35.7-45.2 L MCV (test code = 787-2) 91.1 fL 80.6-95.5 MCH (test code = 785-6) 29.7 pg 25.9-32.8 MCHC (test code = 786-4) 32.6 g/dL 31.6-35.1 RDW-SD (test code = 48169-5) 46.5 fL 39.0-49.9 RDW-CV (test code = 788-0) 13.9 % 12.0-15.5 PLT (test code = 777-3) 232 See_Comment [Automated messa ge] The system which generated this result transmitted reference range: 166 - 358 10*3/?L. The reference range was not used to interpret this result as normal/abnormal. MPV (test code = 01638-6) 10.3 fL 9.5-12.9 NRBC/100 WBC (test code = 1379148560) 0.0 See_Comment [Automated me ssage] The system which generated this result transmitted reference range: 0.0 - 10.0 /100 WBCs. The reference range was not used to interpret this result as normal/abnormal. NRBC x10^3 (test code = 3630653952) See_Comment [Automated messa ge] The system which generated this result transmitted reference range: 10*3/?L. The reference range was not used to interpret this result as normal/abnormal. GRAN MAT (NEUT) % (test code = 770-8) 76.7 % IMM GRAN % (test code = 3207415544) 0.60 % LYMPH % (test code = 736-9) 16.0 % MONO % (test code = 5905-5) 5.8 % EOS % (test code = 713-8) 0.7 % BASO % (test code = 706-2) 0.2 % GRAN MAT x10^3(ANC) (test code = 0284603605) 6.69 10*3/uL 1.88-7.09 IMM GRAN x10^3 (test code = 9293048832) 0.05 10*3/uL 0.00-0.06 LYMPH x10^3 (test code = 731-0) 1.40 10*3/uL 1.32-3.29 MONO x10^3 (test code = 742-7) 0.51 10*3/uL 0.33-0.92 EOS x10^3 (test code = 711-2) 0.06 10*3/uL 0.03-0.39 BASO x10^3 (test code = 704-7) 0.01-0.07 Lab Interpretation (test code = 93354-8) [facility] [id number] 14:47:00 * Test Item Value Reference Range Interpretation Comme nts ABO & RH (test code = 20) O POSITIVE IAT (test code = 1185) Negative [facility] [id number] 14:47:00 * Test Item Value Reference Range Interpretation Comme nts ABO & RH (test code = 20) O POSITIVE IAT (test code = 1185) Negative [facility]IFIC [id number] 13:11:00* Test Item Value Reference Range Interpretation Comme nts POCT U SP GRAV (test code = 3255) . 1.005-1.025 POCT PH U (test code = 3254) . 5-8 POCT U LEUK EST (test code = 3263) . Negative - N egative POCT U NIT (test code = 3262) . Negative - Negati ve POCT U PROT (test code = 3259) TRACE Negative - Negat markel POCT U GLU (test code = 3256) NEG Negative - Negati ve POCT U KETONE (test code = 3258) . Negative - Neg ative POCT U UROBILI (test code = 3260) . 0.2-1 POCT U BILI (test code = 3261) . Negative - Negat markel POCT U BLD (test code = 3257) . Negative - Negati ve POCT U COLOR (test code = 3266) . POCT U APPEAR (test code = 3267) . [facility] [id number] 13:06:00* Test Item Value Reference Range Interpretation Comme nts POCT U SP GRAV (test code = 3255) . 1.005-1.025 POCT PH U (test code = 3254) 7 mg/dl 5-8 POCT U LEUK EST (test code = 3263) trace Negative - Negative POCT U NIT (test code = 3262) negative Negative - Negati ve POCT U PROT (test code = 3259) trace Negative - Negat markel POCT U GLU (test code = 3256) trace Negative - Negati ve POCT U KETONE (test code = 3258) negative Negative - Neg ative POCT U UROBILI (test code = 3260) . 0.2-1 POCT U BILI (test code = 3261) . Negative - Negat markel POCT U BLD (test code = 3257) trace Negative - Negati ve POCT U COLOR (test code = 3266) POCT U APPEAR (test code = 3267) [facility] URINALYSIS W SPECIFIC [id number] 13:37:00* Test Item Value Reference Range Interpretation Comme nts POCT U SP GRAV (test code = 3255) . 1.005-1.025 POCT PH U (test code = 3254) . 5-8 POCT U LEUK EST (test code = 3263) . Negative - Negative POCT U NIT (test code = 3262) . Negative - Negati ve POCT U PROT (test code = 3259) trace Negative - Negat markel POCT U GLU (test code = 3256) negative Negative - Negati ve POCT U KETONE (test code = 3258) . Negative - Neg ative POCT U UROBILI (test code = 3260) . 0.2-1 POCT U BILI (test code = 3261) . Negative - Negat markel POCT U BLD (test code = 3257) . Negative - Negati ve POCT U COLOR (test code = 3266) . POCT U APPEAR (test code = 3267) . [facility] URINALYSIS W SPECIFIC [id number] 18:13:00* Test Item Value Reference Range Interpretation Comme nts POCT U SP GRAV (test code = 3255) . 1.005-1.025 POCT PH U (test code = 3254) . 5-8 POCT U LEUK EST (test code = 3263) . Negative - N egative POCT U NIT (test code = 3262) . Negative - Negati ve POCT U PROT (test code = 3259) TRACE Negative - Negat markel POCT U GLU (test code = 3256) NEG Negative - Negati ve POCT U KETONE (test code = 3258) . Negative - Neg ative POCT U UROBILI (test code = 3260) . 0.2-1 POCT U BILI (test code = 3261) . Negative - Negat markel POCT U BLD (test code = 3257) . Negative - Negati ve POCT U COLOR (test code = 3266) . POCT U APPEAR (test code = 3267) . [facility] URINALYSIS W SPECIFIC [id number] 12:58:00* Test Item Value Reference Range Interpretation Comme nts POCT U SP GRAV (test code = 3255) . 1.005-1.025 POCT PH U (test code = 3254) . 5-8 POCT U LEUK EST (test code = 3263) . Negative - Negative POCT U NIT (test code = 3262) . Negative - Negati ve POCT U PROT (test code = 3259) trace Negative - Negat markel POCT U GLU (test code = 3256) negative Negative - Negati ve POCT U KETONE (test code = 3258) . Negative - Neg ative POCT U UROBILI (test code = 3260) . 0.2-1 POCT U BILI (test code = 3261) . Negative - Negat markel POCT U BLD (test code = 3257) . Negative - Negati ve POCT U COLOR (test code = 3266) . POCT U APPEAR (test code = 3267) . [facility] URINALYSIS W SPECIFIC [id number] 12:58:00* Test Item Value Reference Range Interpretation Comme nts POCT U SP GRAV (test code = 3255) . 1.005-1.025 POCT PH U (test code = 3254) . 5-8 POCT U LEUK EST (test code = 3263) . Negative - Negative POCT U NIT (test code = 3262) . Negative - Negati ve POCT U PROT (test code = 3259) trace Negative - Negat markel POCT U GLU (test code = 3256) negative Negative - Negati ve POCT U KETONE (test code = 3258) . Negative - Neg ative POCT U UROBILI (test code = 3260) . 0.2-1 POCT U BILI (test code = 3261) . Negative - Negat markel POCT U BLD (test code = 3257) . Negative - Negati ve POCT U COLOR (test code = 3266) . POCT U APPEAR (test code = 3267) . [facility] URINALYSIS W SPECIFIC [id number] 19:26:00* Test Item Value Reference Range Interpretation Comme nts POCT U SP GRAV (test code = 3255) . 1.005-1.025 POCT PH U (test code = 3254) . 5-8 POCT U LEUK EST (test code = 3263) . Negative - N egative POCT U NIT (test code = 3262) . Negative - Negati ve POCT U PROT (test code = 3259) TRACE Negative - Negat markel POCT U GLU (test code = 3256) NEG Negative - Negati ve POCT U KETONE (test code = 3258) . Negative - Neg ative POCT U UROBILI (test code = 3260) . 0.2-1 POCT U BILI (test code = 3261) . Negative - Negat markel POCT U BLD (test code = 3257) . Negative - Negati ve POCT U COLOR (test code = 3266) . POCT U APPEAR (test code = 3267) . [facility] URINALYSIS W SPECIFIC [id number] 19:26:00* Test Item Value Reference Range Interpretation Comme nts POCT U SP GRAV (test code = 3255) . 1.005-1.025 POCT PH U (test code = 3254) . 5-8 POCT U LEUK EST (test code = 3263) . Negative - N egative POCT U NIT (test code = 3262) . Negative - Negati ve POCT U PROT (test code = 3259) TRACE Negative - Negat markel POCT U GLU (test code = 3256) NEG Negative - Negati ve POCT U KETONE (test code = 3258) . Negative - Neg ative POCT U UROBILI (test code = 3260) . 0.2-1 POCT U BILI (test code = 3261) . Negative - Negat markel POCT U BLD (test code = 3257) . Negative - Negati ve POCT U COLOR (test code = 3266) . POCT U APPEAR (test code = 3267) . [facility] URINALYSIS W SPECIFIC [id number] 18:46:00* Test Item Value Reference Range Interpretation Comme nts POCT U SP GRAV (test code = 3255) . 1.005-1.025 POCT PH U (test code = 3254) . 5-8 POCT U LEUK EST (test code = 3263) . Negative - N egative POCT U NIT (test code = 3262) . Negative - Negati ve POCT U PROT (test code = 3259) trace Negative - Negat markel POCT U GLU (test code = 3256) neg Negative - Negati ve POCT U KETONE (test code = 3258) . Negative - Neg ative POCT U UROBILI (test code = 3260) . 0.2-1 POCT U BILI (test code = 3261) . Negative - Negat markel POCT U BLD (test code = 3257) . Negative - Negati ve POCT U COLOR (test code = 3266) . POCT U APPEAR (test code = 3267) . [facility] URINALYSIS W SPECIFIC [id number] 18:10:00* Test Item Value Reference Range Interpretation Comme nts POCT U SP GRAV (test code = 3255) . 1.005-1.025 POCT PH U (test code = 3254) 6 mg/dl 5-8 POCT U LEUK EST (test code = 3263) Trace Negative - Negative POCT U NIT (test code = 3262) Neg Negative - Negati ve POCT U PROT (test code = 3259) Trace Negative - Negat markel POCT U GLU (test code = 3256) Neg Negative - Negati ve POCT U KETONE (test code = 3258) None Negative - Neg ative POCT U UROBILI (test code = 3260) . 0.2-1 POCT U BILI (test code = 3261) . Negative - Negat markel POCT U BLD (test code = 3257) Trace Negative - Negati ve POCT U COLOR (test code = 3266) POCT U APPEAR (test code = 3267) [facility] URINALYSIS W SPECIFIC [id number] 18:32:00* Test Item Value Reference Range Interpretation Comme nts POCT U SP GRAV (test code = 3255) . 1.005-1.025 POCT PH U (test code = 3254) . 5-8 POCT U LEUK EST (test code = 3263) . Negative - Negative POCT U NIT (test code = 3262) . Negative - Negati ve POCT U PROT (test code = 3259) trace Negative - Negat markel POCT U GLU (test code = 3256) negative Negative - Negati ve POCT U KETONE (test code = 3258) . Negative - Neg ative POCT U UROBILI (test code = 3260) . 0.2-1 POCT U BILI (test code = 3261) . Negative - Negat markle POCT U BLD (test code = 3257) . Negative - Negati ve POCT U COLOR (test code = 3266) . POCT U APPEAR (test code = 3267) . [facility] URINALYSIS W SPECIFIC [id number] 13:11:00* Test Item Value Reference Range Interpretation Comme nts POCT U SP GRAV (test code = 3255) . 1.005-1.025 POCT PH U (test code = 3254) . 5-8 POCT U LEUK EST (test code = 3263) . Negative - N egative POCT U NIT (test code = 3262) . Negative - Negati ve POCT U PROT (test code = 3259) trace Negative - Negat markel POCT U GLU (test code = 3256) 100 Negative - Negati ve POCT U KETONE (test code = 3258) . Negative - Neg ative POCT U UROBILI (test code = 3260) . 0.2-1 POCT U BILI (test code = 3261) . Negative - Negat markel POCT U BLD (test code = 3257) . Negative - Negati ve POCT U COLOR (test code = 3266) . POCT U APPEAR (test code = 3267) . [facility] URINALYSIS W SPECIFIC [id number] 15:13:00* Test Item Value Reference Range Interpretation Comme nts POCT U SP GRAV (test code = 3255) . 1.005-1.025 POCT PH U (test code = 3254) . 5-8 POCT U LEUK EST (test code = 3263) . Negative - N egative POCT U NIT (test code = 3262) . Negative - Negati ve POCT U PROT (test code = 3259) trace Negative - Negat markel POCT U GLU (test code = 3256) neg Negative - Negati ve POCT U KETONE (test code = 3258) . Negative - Neg ative POCT U UROBILI (test code = 3260) . 0.2-1 POCT U BILI (test code = 3261) . Negative - Negat markel POCT U BLD (test code = 3257) . Negative - Negati ve POCT U COLOR (test code = 3266) . POCT U APPEAR (test code = 3267) . [facility] URINALYSIS W SPECIFIC [id number] 13:17:00* Test Item Value Reference Range Interpretation Comme nts POCT U SP GRAV (test code = 3255) . 1.005-1.025 POCT PH U (test code = 3254) 6 mg/dl 5-8 POCT U LEUK EST (test code = 3263) Trace Negative - Negative POCT U NIT (test code = 3262) Neg Negative - Negati ve POCT U PROT (test code = 3259) Trace Negative - Negat markel POCT U GLU (test code = 3256) Neg Negative - Negati ve POCT U KETONE (test code = 3258) None Negative - Neg ative POCT U UROBILI (test code = 3260) . 0.2-1 POCT U BILI (test code = 3261) . Negative - Negat markel POCT U BLD (test code = 3257) Trace Negative - Negati ve POCT U COLOR (test code = 3266) POCT U APPEAR (test code = 3267) [facility] URINALYSIS W SPECIFIC [id number] 13:17:00* Test Item Value Reference Range Interpretation Comme nts POCT U SP GRAV (test code = 3255) . 1.005-1.025 POCT PH U (test code = 3254) 6 mg/dl 5-8 POCT U LEUK EST (test code = 3263) Trace Negative - Negative POCT U NIT (test code = 3262) Neg Negative - Negati ve POCT U PROT (test code = 3259) Trace Negative - Negat markel POCT U GLU (test code = 3256) Neg Negative - Negati ve POCT U KETONE (test code = 3258) None Negative - Neg ative POCT U UROBILI (test code = 3260) . 0.2-1 POCT U BILI (test code = 3261) . Negative - Negat markel POCT U BLD (test code = 3257) Trace Negative - Negati ve POCT U COLOR (test code = 3266) POCT U APPEAR (test code = 3267) [facility] URINALYSIS W SPECIFIC [id number] 19:57:00* Test Item Value Reference Range Interpretation Comme nts POCT U SP GRAV (test code = 3255) . 1.005-1.025 POCT PH U (test code = 3254) . 5-8 POCT U LEUK EST (test code = 3263) . Negative - N egative POCT U NIT (test code = 3262) . Negative - Negati ve POCT U PROT (test code = 3259) trace Negative - Negat markel POCT U GLU (test code = 3256) neg Negative - Negati ve POCT U KETONE (test code = 3258) . Negative - Neg ative POCT U UROBILI (test code = 3260) . 0.2-1 POCT U BILI (test code = 3261) . Negative - Negat markel POCT U BLD (test code = 3257) . Negative - Negati ve POCT U COLOR (test code = 3266) . POCT U APPEAR (test code = 3267) . [facility] URINALYSIS W SPECIFIC [id number] 19:40:00* Test Item Value Reference Range Interpretation Comme nts POCT U SP GRAV (test code = 3255) * 1.005-1.025 POCT PH U (test code = 3254) 7 mg/dl 5-8 POCT U LEUK EST (test code = 3263) trace Negative - Negative POCT U NIT (test code = 3262) negative Negative - Negati ve POCT U PROT (test code = 3259) trace Negative - Negat markel POCT U GLU (test code = 3256) negative Negative - Negati ve POCT U KETONE (test code = 3258) negative Negative - Neg ative POCT U UROBILI (test code = 3260) * 0.2-1 POCT U BILI (test code = 3261) * Negative - Negat markel POCT U BLD (test code = 3257) negative Negative - Negati ve POCT U COLOR (test code = 3266) yellow POCT U APPEAR (test code = 3267) clear [facility] URINALYSIS W SPECIFIC [id number] 13:18:00* Test Item Value Reference Range Interpretation Comme nts POCT U SP GRAV (test code = 3255) . 1.005-1.025 A POCT PH U (test code = 3254) 6 mg/dl 5-8 POCT U LEUK EST (test code = 3263) Neg Negative - Negative POCT U NIT (test code = 3262) Neg Negative - Negati ve POCT U PROT (test code = 3259) Trace Negative - Negat markel POCT U GLU (test code = 3256) Neg Negative - Negati ve POCT U KETONE (test code = 3258) None Negative - Neg ative POCT U UROBILI (test code = 3260) . 0.2-1 POCT U BILI (test code = 3261) . Negative - Negat markel POCT U BLD (test code = 3257) Trace Negative - Negati ve POCT U COLOR (test code = 3266) . POCT U APPEAR (test code = 3267) . Lab Interpretation (test cod e = 23314-5) Abnormal [facility] URINALYSIS W SPECIFIC [id number] 15:52:00* Test Item Value Reference Range Interpretation Comme nts POCT U SP GRAV (test code = 3255) . 1.005-1.025 POCT PH U (test code = 3254) . 5-8 POCT U LEUK EST (test code = 3263) . Negative - N egative POCT U NIT (test code = 3262) . Negative - Negati ve POCT U PROT (test code = 3259) Trace Negative - Negat markel POCT U GLU (test code = 3256) Neg Negative - Negati ve POCT U KETONE (test code = 3258) . Negative - Neg ative POCT U UROBILI (test code = 3260) . 0.2-1 POCT U BILI (test code = 3261) . Negative - Negat markel POCT U BLD (test code = 3257) . Negative - Negati ve POCT U COLOR (test code = 3266) . POCT U APPEAR (test code = 3267) [facility] URINALYSIS W SPECIFIC [id number] 15:57:00* Test Item Value Reference Range Interpretation Comme nts POCT U SP GRAV (test code = 3255) . 1.005-1.025 POCT PH U (test code = 3254) . 5-8 POCT U LEUK EST (test code = 3263) . Negative - N egative POCT U NIT (test code = 3262) . Negative - Negati ve POCT U PROT (test code = 3259) trace Negative - Negat markel POCT U GLU (test code = 3256) neg Negative - Negati ve POCT U KETONE (test code = 3258) . Negative - Neg ative POCT U UROBILI (test code = 3260) . 0.2-1 POCT U BILI (test code = 3261) . Negative - Negat markel POCT U BLD (test code = 3257) . Negative - Negati ve POCT U COLOR (test code = 3266) . POCT U APPEAR (test code = 3267) . [facility] URINALYSIS W SPECIFIC [id number] 15:52:00* Test Item Value Reference Range Interpretation Comme nts POCT U SP GRAV (test code = 3255) . 1.005-1.025 POCT PH U (test code = 3254) . 5-8 POCT U LEUK EST (test code = 3263) . Negative - N egative POCT U NIT (test code = 3262) . Negative - Negati ve POCT U PROT (test code = 3259) . Negative - Negat markel POCT U GLU (test code = 3256) . Negative - Negati ve POCT U KETONE (test code = 3258) . Negative - Neg ative POCT U UROBILI (test code = 3260) . 0.2-1 POCT U BILI (test code = 3261) . Negative - Negat markel POCT U BLD (test code = 3257) . Negative - Negati ve POCT U COLOR (test code = 3266) POCT U APPEAR (test code = 3267) . [facility] URINALYSIS W SPECIFIC [id number] 15:52:00* Test Item Value Reference Range Interpretation Comme nts POCT U SP GRAV (test code = 3255) . 1.005-1.025 POCT PH U (test code = 3254) . 5-8 POCT U LEUK EST (test code = 3263) . Negative - N egative POCT U NIT (test code = 3262) . Negative - Negati ve POCT U PROT (test code = 3259) trace Negative - Negat markel POCT U GLU (test code = 3256) neg Negative - Negati ve POCT U KETONE (test code = 3258) . Negative - Neg ative POCT U UROBILI (test code = 3260) . 0.2-1 POCT U BILI (test code = 3261) . Negative - Negat markel POCT U BLD (test code = 3257) . Negative - Negati ve POCT U COLOR (test code = 3266) . POCT U APPEAR (test code = 3267) . [facility] URINALYSIS W SPECIFIC [id number] 15:52:00* Test Item Value Reference Range Interpretation Comme nts POCT U SP GRAV (test code = 3255) . 1.005-1.025 POCT PH U (test code = 3254) . 5-8 POCT U LEUK EST (test code = 3263) . Negative - N egative POCT U NIT (test code = 3262) . Negative - Negati ve POCT U PROT (test code = 3259) . Negative - Negat markel POCT U GLU (test code = 3256) . Negative - Negati ve POCT U KETONE (test code = 3258) . Negative - Neg ative POCT U UROBILI (test code = 3260) . 0.2-1 POCT U BILI (test code = 3261) . Negative - Negat markel POCT U BLD (test code = 3257) . Negative - Negati ve POCT U COLOR (test code = 3266) POCT U APPEAR (test code = 3267) . [facility] URINALYSIS W SPECIFIC [id number] 15:52:00* Test Item Value Reference Range Interpretation Comme nts POCT U SP GRAV (test code = 3255) . 1.005-1.025 POCT PH U (test code = 3254) . 5-8 POCT U LEUK EST (test code = 3263) . Negative - N egative POCT U NIT (test code = 3262) . Negative - Negati ve POCT U PROT (test code = 3259) trace Negative - Negat markel POCT U GLU (test code = 3256) neg Negative - Negati ve POCT U KETONE (test code = 3258) . Negative - Neg ative POCT U UROBILI (test code = 3260) . 0.2-1 POCT U BILI (test code = 3261) . Negative - Negat markel POCT U BLD (test code = 3257) . Negative - Negati ve POCT U COLOR (test code = 3266) . POCT U APPEAR (test code = 3267) . [facility] URINALYSIS W/O SPECIFIC [id number] 19:02:00* Test Item Value Reference Range Interpretation Comme nts POCT PH U (test code = 3254) 7 mg/dl 5-8 POCT U LEUK EST (test code = 3263) neg Negative - Negative POCT U NIT (test code = 3262) neg Negative - Negati ve POCT U PROT (test code = 3259) trace Negative - Negat markel POCT U GLU (test code = 3256) neg Negative - Negati ve POCT U KETONE (test code = 3258) neg Negative - Neg ative POCT U BLD (test code = 3257) neg Negative - Negati ve [facility] [id number] 19:02:00* Test Item Value Reference Range Interpretation Comme nts POCT PREG (test code = 1605) Positive On board controls acceptable with C Line (test code = 3574) Yes POCT PREG LOT # (test code = 3575) POCT PREG TEST DATE ( test code = 357) [facility] URINALYSIS W/O SPECIFIC [id number] 19:02:00* Test Item Value Reference Range Interpretation Comme nts POCT PH U (test code = 3254) 7 mg/dl 5-8 POCT U LEUK EST (test code = 3263) neg Negative - Negative POCT U NIT (test code = 3262) neg Negative - Negati ve POCT U PROT (test code = 3259) trace Negative - Negat markel POCT U GLU (test code = 3256) neg Negative - Negati ve POCT U KETONE (test code = 3258) neg Negative - Neg ative POCT U BLD (test code = 3257) neg Negative - Negati ve [facility] [id number] 19:02:00* Test Item Value Reference Range Interpretation Comme nts POCT PREG (test code = 1605) Positive On board controls acceptable with C Line (test code = 3574) Yes POCT PREG LOT # (test code = 3575) POCT PREG TEST DATE ( test code = 357) [facility] URINALYSIS W/O SPECIFIC [id number] 19:02:00* Test Item Value Reference Range Interpretation Comme nts POCT PH U (test code = 3254) 7 mg/dl 5-8 POCT U LEUK EST (test code = 3263) neg Negative - Negative POCT U NIT (test code = 3262) neg Negative - Negati ve POCT U PROT (test code = 3259) trace Negative - Negat markel POCT U GLU (test code = 3256) neg Negative - Negati ve POCT U KETONE (test code = 3258) neg Negative - Neg ative POCT U BLD (test code = 3257) neg Negative - Negati ve [facility] [id number] 19:02:00* Test Item Value Reference Range Interpretation Comme nts POCT PREG (test code = 1605) Positive On board controls acceptable with C Line (test code = 3574) Yes POCT PREG LOT # (test code = 3575) POCT PREG TEST DATE ( test code = 3576) [facility] URINALYSIS W/O SPECIFIC [id number] 19:02:00* Test Item Value Reference Range Interpretation Comme nts POCT PH U (test code = 3254) 7 mg/dl 5-8 POCT U LEUK EST (test code = 3263) neg Negative - Negative POCT U NIT (test code = 3262) neg Negative - Negati ve POCT U PROT (test code = 3259) trace Negative - Negat markel POCT U GLU (test code = 3256) neg Negative - Negati ve POCT U KETONE (test code = 3258) neg Negative - Neg ative POCT U BLD (test code = 3257) neg Negative - Negati ve [facility] [id number] 19:02:00* Test Item Value Reference Range Interpretation Comme nts POCT PREG (test code = 1605) Positive On board controls acceptable with C Line (test code = 3574) Yes POCT PREG LOT # (test code = 3575) POCT PREG TEST DATE ( test code = 357) [facility] URINALYSIS W/O SPECIFIC [id number] 19:02:00* Test Item Value Reference Range Interpretation Comme nts POCT PH U (test code = 3254) 7 mg/dl 5-8 POCT U LEUK EST (test code = 3263) neg Negative - Negative POCT U NIT (test code = 3262) neg Negative - Negati ve POCT U PROT (test code = 3259) trace Negative - Negat markel POCT U GLU (test code = 3256) neg Negative - Negati ve POCT U KETONE (test code = 3258) neg Negative - Neg ative POCT U BLD (test code = 3257) neg Negative - Negati ve [facility] [id number] 19:02:00* Test Item Value Reference Range Interpretation Comme nts POCT PREG (test code = 1605) Positive On board controls acceptable with C Line (test code = 3574) Yes POCT PREG LOT # (test code = 3575) POCT PREG TEST DATE ( test code = 357) [facility] URINALYSIS W/O SPECIFIC [id number] 19:02:00* Test Item Value Reference Range Interpretation Comme nts POCT PH U (test code = 3254) 7 mg/dl 5-8 POCT U LEUK EST (test code = 3263) neg Negative - Negative POCT U NIT (test code = 3262) neg Negative - Negati ve POCT U PROT (test code = 3259) trace Negative - Negat markel POCT U GLU (test code = 3256) neg Negative - Negati ve POCT U KETONE (test code = 3258) neg Negative - Neg ative POCT U BLD (test code = 3257) neg Negative - [facility]ati ve [facility] [id number] 19:02:00* Test Item Value Reference Range Interpretation Comme nts POCT PREG (test code = 1605) Positive On board controls acceptable with C Line (test code = 3574) Yes POCT PREG LOT # (test code = 3575) POCT PREG TEST DATE ( test code = 3576) [facility] [id number] 15:42:00* Test Item Value Reference Range Interpretation Comme nts POCT PREG (test code = 1605) Negative On board controls acceptable with C Line (test code = 3574) Yes POCT PREG LOT # (test code = 3575) POCT PREG TEST DATE ( test code = 3576) [facility] [id number] 15:42:00* Test Item Value Reference Range Interpretation Comme nts POCT PREG (test code = 1605) Negative On board controls acceptable with C Line (test code = 3574) Yes POCT PREG LOT # (test code = 3575) POCT PREG TEST DATE ( test code = 3576) [facility] SYPHILIS [id number] 15:24:32* Test Item Value Reference Range Interpretation Comme nts Syphilis IgG/IgM (test code = 42036-0) Non-reactive Non-reactive HILDA (test code = HILDA) Non-reactive - No serologic evidence of T. pallidum infection. Cannot exclude incubating or early syphilis. Submit a second specimen in 2-4 weeks if syphilis is clinically suspected. Equivocal - Further testing to follow. Reactive - Further testing to follow. Lab Interpretation (test code = 68190-2) Normal [facility] IMMUNE [id number] 03:50:52* Test Item Value Reference Range Interpretation Comme nts RHIG CANDIDATE? (test code = 5055) No- see comment Patient is not a candidate for RhIg- Patient is Rh Positive.Performed at [facility] Laboratory Services - [facility] Blood [address] [id number] Free: [phone] No. [id number] [facility]ARTER[facility] CORD [id number] 01:09:44* Test Item Value Reference Range Interpretation Comme nts BASE EXCESS, CORD (test code = 1924467089) mEq/L QUES AC PH, CORD (BEAKER) (test code = 8035254637) 7.18-7.38 PC02, CORD (test code = 2874696002) See_Comment [Automated messa ge] The system which generated this result transmitted reference range: 32 - 66 mmHg. The reference range was not used to interpret this result as normal/abnormal. PO2, CORD (test code = 1844522318) See_Comment [Automated messa ge] The system which generated this result transmitted reference range: 10 - 30 mmHg. The reference range was not used to interpret this result as normal/abnormal. BICARBONATE, CORD (test code = 3950139739) See_Comment [Automated messa ge] The system which generated this result transmitted reference range: 17 - 27 mEq/L. The reference range was not used to interpret this result as normal/abnormal. [facility] Allen[facility] CORD [id number] 01:05:36* Test Item Value Reference Range Interpretation Comme nts VENOUS BASE EXCESS, CORD (test code = 6578865520) mEq/L VENOUS PH, CORD (test code = 0262053632) 7.25-7.45 VENOUS PC02, CORD (test code = 3933976199) See_Comment [Automated messa ge] The system which generated this result transmitted reference range: 27 - 49 mmHg. The reference range was not used to interpret this result as normal/abnormal. VENOUS PO2, CORD (test code = 7930272097) See_Comment [Automated me ssage] The system which generated this result transmitted reference range: 17 - 41 mmHg. The reference range was not used to interpret this result as normal/abnormal. VENOUS BICARBONATE, CORD (test code = 4913350037) See_Comment QUES [Automated message] The system which generated this result transmitted reference range: 12 - 29 mEq/L. The reference range was not used to interpret this result as normal/abnormal. [facility] AG-AB WITH [id number] 17:53:22* Test Item Value Reference Range Interpretation Comme nts HIV Semi-quantitative (test code = 18541-0) Negative Negative HILDA (test code = HILDA) Non-reactive for HIV-1 antigen and HIV-1/HIV-2 antibodies. ?No laboratory evidence of HIV infection. ?Repeat in 2-4 weeks if acute HIV infection is suspected. [facility] AllenHepatitis B Surface [id number] 15:27:19 * Test Item Value Reference Range Interpretation Comme nts HBsAg Semi-Quantitative (maria luisa t code = 5195-3) Negative Negative [facility] AllenType and Screen - ONCE [id number] 14:50:02 * Test Item Value Reference Range Interpretation Comme nts ABO & RH (test code = 20) O POSITIVE Performed at [facility] Laboratory Services - [facility] Blood [address] Free: [phone] No. [id number] IAT (test code = 1185) Negative Performed at [facility] Laboratory [facility] Blood [address] Free: [phone] No. [id number] [facility] AllenCBC with [id number] 14:16:52* Test Item Value Reference Range Interpretation Comme nts WBC (test code = 6690-2) See_Comment [Automated messa ge] The system which generated this result transmitted reference range: 4.30 - 11.10 10*3/?L. The reference range was not used to interpret this result as normal/abnormal. RBC (test code = 789-8) See_Comment L [Automated messa ge] The system which generated this result transmitted reference range: 3.93 - 5.25 10*6/?L. The reference range was not used to interpret this result as normal/abnormal. HGB (test code = 718-7) 10.7 g/dL 11.6-15 L HCT (test code = 4544-3) 32.8 % 35.7-45.2 L MCV (test code = 787-2) 89.4 fL 80.6-95.5 MCH (test code = 785-6) 29.2 pg 25.9-32.8 MCHC (test code = 786-4) 32.6 g/dL 31.6-35.1 RDW-SD (test code = 20132-2) 45.0 fL 39-49.9 RDW-CV (test code = 788-0) 13.8 % 12-15.5 PLT (test code = 777-3) See_Comment [Automated messa ge] The system which generated this result transmitted reference range: 166 - 358 10*3/?L. The reference range was not used to interpret this result as normal/abnormal. MPV (test code = 54607-8) 11.4 fL 9.5-12.9 NRBC/100 WBC (test code = 2457430281) See_Comment [Automated Agrivida ssage] The system which generated this result transmitted reference range: 0.0 - 10.0 /100 WBCs. The reference range was not used to interpret this result as normal/abnormal. NRBC x10^3 (test code = 4594908489) See_Comment [Automated [employer]sa ge] The system which generated this result transmitted reference range: 10*3/?L. The reference range was not used to interpret this result as normal/abnormal. GRAN MAT (NEUT) % (test code = 770-8) 69.2 % IMM GRAN % (test code = 8920180685) 0.80 % LYMPH % (test code = 736-9) 19.9 % MONO % (test code = 5905-5) 8.9 % EOS % (test code = 713-8) 1.0 % BASO % (test code = 706-2) 0.2 % GRAN MAT x10^3(ANC) (test code = 2942695415) 6.21 10*3/uL 1.88-7.09 IMM GRAN x10^3 (test code = 5347307418) 0.07 10*3/uL 0-0.06 H LYMPH x10^3 (test code = 731-0) 1.79 10*3/uL 1.32-3.29 MONO x10^3 (test code = 742-7) 0.80 10*3/uL 0.33-0.92 EOS x10^3 (test code = 711-2) 0.09 10*3/uL 0.03-0.39 BASO x10^3 (test code = 704-7) 0.01-0.07 Lab Interpretation (test code = 55115-7) Abnormal [facility] URINALYSIS W SPECIFIC [id number] 18:07:00* Test Item Value Reference Range Interpretation Comme nts POCT U SP GRAV (test code = 3255) * 1.005-1.025 POCT PH U (test code = 3254) * 5-8 POCT U LEUK EST (test code = 3263) * Negative - Negative POCT U NIT (test code = 3262) * Negative - Negati ve POCT U PROT (test code = 3259) trace Negative - Negat markel POCT U GLU (test code = 3256) negative Negative - Negati ve POCT U KETONE (test code = 3258) * Negative - Neg ative POCT U UROBILI (test code = 3260) * 0.2-1 POCT U BILI (test code = 3261) * Negative - Negat markel POCT U BLD (test code = 3257) * Negative - Negati ve POCT U COLOR (test code = 3266) POCT U APPEAR (test code = 3267) [facility] URINALYSIS W SPECIFIC [id number] 18:07:00* Test Item Value Reference Range Interpretation Comme nts POCT U SP GRAV (test code = 3255) * 1.005-1.025 POCT PH U (test code = 3254) * 5-8 POCT U LEUK EST (test code = 3263) * Negative - Negative POCT U NIT (test code = 3262) * Negative - Negati ve POCT U PROT (test code = 3259) trace Negative - Negat markel POCT U GLU (test code = 3256) negative Negative - Negati ve POCT U KETONE (test code = 3258) * Negative - Neg ative POCT U UROBILI (test code = 3260) * 0.2-1 POCT U BILI (test code = 3261) * Negative - Negat markel POCT U BLD (test code = 3257) * Negative - Negati ve POCT U COLOR (test code = 3266) POCT U APPEAR (test code = 3267) [facility]CIFIC [id number] 18:17:00* Test Item Value Reference Range Interpretation Comme nts POCT U SP GRAV (test code = 3255) * 1.005-1.025 POCT PH U (test code = 3254) * 5-8 POCT U LEUK EST (test code = 3263) * Negative - N egative POCT U NIT (test code = 3262) * Negative - Negati ve POCT U PROT (test code = 3259) trace Negative - Negat markel POCT U GLU (test code = 3256) trace Negative - Negati ve POCT U KETONE (test code = 3258) * Negative - Neg ative POCT U UROBILI (test code = 3260) * 0.2-1 POCT U BILI (test code = 3261) * Negative - Negat markel POCT U BLD (test code = 3257) * Negative - Negati ve POCT U COLOR (test code = 3266) POCT U APPEAR (test code = 3267) [facility] Notes Date/Time Note Provider Source 2023-06-25 08:15:00 Addended by: JUSTYNA MARTIN on: 06/25/2023 09:22 AM Modules accepted: Orders [facility] 2023-05-21 16:09:59 Formatting of this n ote might be different from the original. Patient scheduled with [facility] on 06/17/23. Esdras Winters [facility] 2023-05-21 15:32:08 Formatting of this n ote might be different from the original. Called pt, advised pss will call her for scheduling. Crys Mina RN 05/21/23 3:32 PM [facility] 2023-05-21 15:25:41 Formatting of this n ote might be different from the original. Please have patient scheduled with MFM for next visit per last usg reports GAETANO Coats 05/21/2023 3:25 PM [facility] XOR.MOTORS
[2025-08-05] MEDS ORDERED: ONDANSETRON 4 MG/2 ML VIAL ONE (00:40)
[2025-08-05] MEDS ORDERED: NA CHLORIDE 0.9% 1,000 ML ONE (00:41)
[2025-08-05] MEDS ORDERED: DIPHENOX/ATROP SULF 1 TAB PO ONE (00:41)
[2025-08-05 01:09] LABS: Absolute Lymphocytes (CBC) 0.5 K/uL (0.7-4.9); Hematocrit 41.4 % (36.0-45.0); Hemoglobin 14.1 g/dL (12.0-15.0); MCH 29.8 pg (27.0-35.0); MCHC 34.1 g/dL (32.0-36.0); MCV 87.2 fL (80-100); MPV 8.1 fL (7.6-11.3); Nucleated RBC Absolute Count 0.0 (0-0); Nucleated Red Blood Cells % 0.1 % (0-0); RBC Red Blood Cell Count 4.75 M/uL (3.86-4.86); White Blood Count 10.90 thou/uL (4.3-10.9)
[2025-08-05 01:19] LABS: ALT/SGPT 62.0 U/L (13-56); AST/SGOT 27.0 U/L (15-37); Albumin 3.9 g/dL (3.4-5.0); Albumin/Globulin Ratio 0.9 (1.1-1.8); Alkaline Phosphatase 75.0 U/L (45-117); Anion Gap 10.1 mEq/L (5.0-15.0); BUN Blood Urea Nitrogen 11.0 mg/dL (7-18); Globulin 4.4 g/dL (2.3-3.5); Glucose Level 126.0 mg/dL (74-106); Lipase 18.0 U/L (13-75); Potassium 4.1 mEq/L (3.5-5.1)
[2025-08-05] MEDS ORDERED: KETOROLAC 30 MG/ML INJ ONE (01:26)
[2025-08-05] MEDS ORDERED: DICYCLOMINE HCL 10 MG CAP ONE (01:26)
[2025-08-05 01:48] LABS: Differential Total Cells Count 100; Segmented Neutrophils 57 % (40-80)
[2025-08-05 01:49] LABS: Blood Morphology Comment NOT SEEN (NOT SEEN)
--- NOTE | 2025-08-05 01:58 | ER ---
Nurse's Notes [facility] Name: Suzan Santiago Age: 24 yrs Sex: Female : 2000 Arrival Date: 08/04/2025 Time: 23:58 Bed 6 Private MD: Diagnosis: Acute Viral Gastroenteritis , acute nausea vomiting, acute diarrheal illness Presentation: 08/05 00:06 Chief complaint: Patient states: PELVIC CRAMPING, NAUSEA, VOMITING, AND BODY ACHES. ha1 00:06 Coronavirus screen: Client denies travel out of the [place] in the last 14 days. Ebola ha1 Screen: No symptoms or risks identified at this time. Initial Sepsis Screen: Does the patient meet any 2 criteria? No. Patient's initial sepsis screen is negative. Does the patient have a suspected source of infection? No. Patient's initial sepsis screen is negative. Risk Assessment: Do you want to hurt yourself or someone else? Patient reports no desire to harm self or others. Onset of symptoms was August 05, 2025. 00:06 Method Of Arrival: Ambulatory ha1 00:06 Acuity: LEATHA 3 ha1 Triage Assessment: 00:41 General: Appears uncomfortable, Behavior is calm, cooperative. Pain: Complains of pain ha1 in pelvis Pain currently is 5 out of 10 on a pain scale. Neuro: Level of Consciousness is awake, alert, obeys commands, Oriented to person, place, time, situation. Cardiovascular: Capillary refill < 3 seconds Patient's skin is warm and dry. Respiratory: Airway is patent Respiratory effort is even, unlabored, Respiratory pattern is regular, symmetrical. GI: Abdomen is round non-distended. 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 - Infectious Disease History:: Denies. - Social history:: Smoking status: Patient denies any tobacco usage or history of. - Family history:: not pertinent. Screenin:16 [facility] ED Fall Risk Assessment (Adult) History of falling in the last 3 months, cp4 including since admission No falls in past 3 months (0 pts) Confusion or Disorientation No (0 pts) Intoxicated or Sedated No (0 pts) Impaired Gait No (0 pts) Mobility Assist Device Used No (0 pt) Altered Elimination No (0 pt) Score/Fall Risk Level 0 - 2 = Low Risk Oriented to surroundings, Maintained a safe environment, Assessed \T\ reinforced patient's understanding of fall precautions, Hourly rounding (assess needs \T\ fall precautionary measures) done. Abuse screen: Denies threats or abuse. Denies injuries from another. Nutritional screening: No deficits noted. Tuberculosis screening: No symptoms or risk factors identified. Never had TB. Assessment: 01:16 General: Appears in no apparent distress. uncomfortable, Behavior is calm, cooperative, cp4 appropriate for age. Pain: Complains of pain in pelvis Pain does not radiate. Pain currently is 7 out of 10 on a pain scale. Neuro: Level of Consciousness is awake, alert, obeys commands, Oriented to person, place, time, situation. Cardiovascular: Patient's skin is warm and dry. Respiratory: Airway is patent Respiratory effort is even, unlabored. GI: Abdomen is round non-distended, Bowel sounds present X 4 quads. Abd is soft and non tender X 4 quads. : No signs and/or symptoms were reported regarding the genitourinary system. EENT: No signs and/or symptoms were reported regarding the EENT system. Derm: No signs and/or symptoms reported regarding the dermatologic system. Musculoskeletal: No signs and/or symptoms reported regarding the musculoskeletal system. Vital Signs: 00:06 BP 125 / 89; Pulse 90; Resp 18 S; Temp 99(O); Pulse Ox 100% on R/A; Weight 66.22 kg; ha1 Height 5 ft. 1 in. ; 01:28 BP 118 / 82; Pulse 90; Resp 18; Pulse Ox 100% on R/A; af3 02:00 BP 112 / 80; Pulse 90; Resp 18; Pulse Ox 100% on R/A; af3 00:06 Body Mass Index 27.59 (66.22 kg, 154.94 cm) ha1 [place] Coma Score: 19:21 Eye Response: spontaneous(4). Motor Response: obeys commands(6). Verbal Response: sp4 oriented(5). Total: 15. ED Course: 00:05 Patient arrived in ED. im 00:06 Cortes Cartwright MD is Attending Physician. sp4 00:40 Triage completed. ha1 00:41 Inserted saline lock: 20 gauge in left antecubital area, using aseptic technique. Blood af3 collected. Flushed with 10 mL NS. 01:16 Helen Camargo is Primary Nurse. cp4 01:16 No provider procedures requiring assistance completed. cp4 01:16 Bed in low position. Side rails up X2. cp4 02:08 Arm band placed on. af3 02:09 IV discontinued, intact, bleeding controlled, No redness/swelling at site. Pressure af3 dressing applied. 02:09 Provided Education on: call light use . af3 Administered Medications: 00:51 Drug: Ondansetron IVP 8 mg IVP once; over 2 minutes Route: IVP; Site: left antecubital; af3 01:25 Follow up: Response: No adverse reaction cp4 00:51 Drug: NS 0.9% IV 1000 ml IV at 1 bolus Per protocol; to be given as a bolus over 60 af3 minutes Route: IV; Rate: 1 bolus; Site: left antecubital; 02:07 Follow up: Response: No adverse reaction; IV Status: Completed infusion; IV Intake: af3 1000ml 00:51 Drug: Diphenoxylate-Atropine PO 2 tabs PO once Route: PO; af3 01:24 Follow up: Response: No adverse reaction cp4 01:28 Drug: Ketorolac IVP 30 mg IVP once Route: IVP; Site: left antecubital; cp4 02:08 Follow up: Response: No adverse reaction af3 01:28 Drug: Dicyclomine PO 20 mg PO once Route: PO; cp4 02:08 Follow up: Response: No adverse reaction af3 Medication: 01:16 VIS not applicable for this client. cp4 Intake: 02:07 IV: 1000ml; Total: 1000ml. af3 Outcome: 01:56 Discharge ordered by . sp4 02:08 Discharged to home ambulatory, af3 02:08 Condition: stable 02:08 Discharge instructions given to patient, Instructed on discharge instructions, follow up and referral plans. medication usage, Demonstrated understanding of instructions, follow-up care, medications, Prescriptions given X 3, 02:09 Patient left the ED. af3 Signatures: Yvonne Phillips RN RN ha1 Cortes Cartwright MD MD sp4 Ivy Lara Christina cp4 Marixa Hraris, RN RN af3
--- NOTE | 2025-08-05 01:58 | EDPHYS ---
Physician Documentation [facility] Name: Suzan Santiago Age: 24 yrs Sex: Female : 2000 Arrival Date: 08/04/2025 Time: 23:58 Bed 6 Private MD: ED Physician Cortes Cartwright HPI: 08/05 00:06 This 24 yrs old Female presents to ER via Unassigned with complaints of sp4 Abdominal Pain, Nausea/Vomiting/Diarrhea. 19:21 24-year-old female presents with complaint of acute upset stomach, abdominal pain sp4 nausea vomiting and watery diarrhea. Patient has history of IBS . 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 - Infectious Disease History:: Denies. - Social history:: Smoking status: Patient denies any tobacco usage or history of. - Family history:: not pertinent. ROS: 19:21 Constitutional: Negative for fever, chills, and weight loss, positive nausea vomiting sp4 diarrhea, positive abdominal pain. 19:21 All other systems are negative, Exam: 19:21 Constitutional: This is a well developed, well nourished patient who is awake, alert, sp4 and in no acute distress. Head/Face: Normocephalic, atraumatic. Eyes: Pupils equal round and reactive to light, extra-ocular motions intact. Lids and lashes normal. Conjunctiva and sclera are not injected. Cornea within normal limits. Periorbital areas with no swelling, redness, or edema. ENT: Nares patent. No nasal discharge, no septal abnormalities noted. Tympanic membranes are normal and external auditory canals are clear. Oropharynx with no redness, swelling, or masses, exudates, or evidence of obstruction, uvula midline. Mucous membranes moist. Neck: Trachea midline, no thyromegaly or masses palpated, and no cervical lymphadenopathy. Supple, full range of motion without nuchal rigidity, or vertebral point tenderness. Chest/axilla: Normal chest wall appearance and motion. Nontender with no deformity. No lesions are appreciated. Cardiovascular: Regular rate and rhythm with a normal S1 and S2. No gallops, murmurs, or rubs. No pulse deficits. Respiratory: Lungs have equal breath sounds bilaterally, clear to auscultation and percussion. No rales, rhonchi or wheezes noted. No increased work of breathing, no retractions or nasal flaring. Abdomen/GI: Soft, with normal bowel sounds. No distension or tympany. No guarding or rebound. Positive for lower abdominal tenderness without associated rebound Back: No spinal tenderness. No costovertebral tenderness. Skin: Warm, dry with normal turgor. Normal color with no rashes, no lesions, and no evidence of cellulitis. MS/ Extremity: Pulses equal, no cyanosis. Neurovascular intact. Full, normal range of motion. Neuro: Awake and alert, GCS 15, oriented to person, place, time, and situation. Cranial nerves II-XII grossly intact. Motor strength 5/5 in all extremities. Sensory grossly intact. Psych: Awake, alert, with orientation to person, place and time. Behavior, mood, and affect are within normal limits Vital Signs: 00:06 BP 125 / 89; Pulse 90; Resp 18 S; Temp 99(O); Pulse Ox 100% on R/A; Weight 66.22 kg; ha1 Height 5 ft. 1 in. ; 01:28 BP 118 / 82; Pulse 90; Resp 18; Pulse Ox 100% on R/A; af3 02:00 BP 112 / 80; Pulse 90; Resp 18; Pulse Ox 100% on R/A; af3 00:06 Body Mass Index 27.59 (66.22 kg, 154.94 cm) ha1 [place] Coma Score: 19:21 Eye Response: spontaneous(4). Motor Response: obeys commands(6). Verbal Response: sp4 oriented(5). Total: 15. MDM: 00:06 Medical Screening Exam initiated sp4 19:21 Differential diagnosis: Nonspecific abd pain, gastritis, viral gastroenteritis, sp4 gastroenteritis. Data reviewed: vital signs, nurses notes, old medical records, lab test result(s). Consideration of Admission/Observation Escalation of care including admission/observation considered. ED course: Pain is improved. Patient stable for discharge home with clear liquid diet for 24 hours. 08/05 00:06 Order name: CBC with Diff; Complete Time: 01:50 sp4 08/05 00:06 Order name: CMP; Complete Time: 01:50 sp4 08/05 00:06 Order name: Lipase; Complete Time: :50 sp4 08/05 00:06 Order name: Test, Urine; Complete Time: 01:06 sp4 08/05 01:15 Order name: Manual Differential; Complete Time: 01:50 EDMS 08/05 00:06 Order name: IV Saline Lock; Complete Time: 00:41 sp4 08/05 00:06 Order name: Labs collected and sent; Complete Time: 00:41 sp4 Administered Medications: 00:51 Drug: Ondansetron IVP 8 mg IVP once; over 2 minutes Route: IVP; Site: left antecubital; af3 01:25 Follow up: Response: No adverse reaction cp4 00:51 Drug: NS 0.9% IV 1000 ml IV at 1 bolus Per protocol; to be given as a bolus over 60 af3 minutes Route: IV; Rate: 1 bolus; Site: left antecubital; 02:07 Follow up: Response: No adverse reaction; IV Status: Completed infusion; IV Intake: af3 1000ml 00:51 Drug: Diphenoxylate-Atropine PO 2 tabs PO once Route: PO; af3 01:24 Follow up: Response: No adverse reaction cp4 01:28 Drug: Ketorolac IVP 30 mg IVP once Route: IVP; Site: left antecubital; cp4 02:08 Follow up: Response: No adverse reaction af3 01:28 Drug: Dicyclomine PO 20 mg PO once Route: PO; cp4 02:08 Follow up: Response: No adverse reaction af3 Disposition Summary: 08/05/25 01:56 Discharge Ordered Notes: Location: Home sp4 Problem: new sp4 Symptoms: have improved sp4 Condition: Stable sp4 Diagnosis - Acute Viral Gastroenteritis , acute nausea vomiting, acute diarrheal illness sp4 Followup: sp4 - With: Private Physician - When: 7 - 10 days - Reason: Recheck today's complaints Discharge Instructions: - Discharge Summary Sheet sp4 - Viral Gastroenteritis, Adult, [id number] sp4 Forms: - Patient Portal Instructions sp4 Prescriptions: - Lomotil 2.5-0.025 mg Oral Tablet - take 1 tablet ORAL route every 6 hours As needed; 20 tablet; Refills: 0, sp4 Product Selection Permitted - dicyclomine 20 mg Oral tablet - take 2 tablets ORAL route 3 times per day PRN abdominal pain; 60 tablet; sp4 Refills: 0, Product Selection Permitted - ondansetron 8 mg Oral Tablet,disintegrating - take 1 tablet ORAL route every 8 hours PRN nausea; 30 tablet; Refills: 0, sp4 Product Selection Permitted Signatures: Dispatcher [employer] Yvonne Fry, RN RN ha1 Cortes Cartwright MD MD sp4 Helen Camargo cp4 Marixa Harris RN RN af3
[2025-08-05 07:58] VITALS: TEMP 99; O2SAT 100
[2025-08-05 08:00] VITALS: BP 112/80
== END 2025-08-05 02:09 | disposition home or self-care (01) ==
LOC: ER 23:58
DX: A08.4 Viral intestinal infection, unspecified (principal)
CPT/HCPCS: 96361; 85025; 36415; 81025; 83690; 80053; 96375; 96374; 99284; J1885; J2405; J7030